=== PATIENT | female | born 1975 | race Caucasian/White ===

== ENCOUNTER 2021-09-18 21:16 | Emergency (ER) | payer MEDICAID, SELFPAY ==
[2021-09-18 21:41] VITALS: BP 124/85; PULSE 105; RESP 18; TEMP 36.8; O2SAT 96
--- NOTE | 2021-09-18 23:00 | ED.EAR ---
HPI - Ear Problem General Chief complaint: Ear Stated complaint: R ear pain Time Seen by Provider: 09/18/21 21:41 History of Present Illness HPI Narrative: Patient is a 45-year-old female who presents ER with right-sided ear pain and sore throat. Patient reports she was using a Q-tip couple weeks ago and perforated her eardrum. She is on eardrops and pain medication. Symptoms improved until the last day. Denies fevers or chills or sweats. No cough. No known exposures to strep. Related Data Home Medications Medication Instructions Recorded Confirmed aripiprazole 20 mg PO DAILY 09/18/21 09/18/21 citalopram 40 mg PO DAILY 09/18/21 09/18/21 cyclobenzaprine 10 mg PO TID PRN 09/18/21 09/18/21 doxepin 10 mg PO HS 09/18/21 09/18/21 gabapentin 800 mg PO QID 09/18/21 09/18/21 olanzapine 5 mg PO BID 09/18/21 09/18/21 olanzapine 10 mg PO HS 09/18/21 09/18/21 omeprazole 20 mg PO DAILY 09/18/21 09/18/21 oxycodone 5 mg PO TID PRN 09/18/21 09/18/21 temazepam 15 mg PO HS 09/18/21 09/18/21 trazodone 200 mg PO HS 09/18/21 09/18/21 warfarin 5 mg PO DAILY 09/18/21 09/18/21 Allergies Allergy/AdvReac Type Severity Reaction Status Date / Time aspirin Allergy Mild Rash Verified 09/18/21 21:46 erythromycin base Allergy Unknown Rash Verified 09/18/21 21:46 monosodium glutamate Allergy Unknown Rash Verified 09/18/21 21:46 acetaminophen Allergy Hypertensio Verified 09/18/21 23:08 n latex Allergy Blister Verified 09/18/21 22:11 salicylates Allergy Rash Verified 09/18/21 21:46 Review of Systems Constitutional: Constitutional: Denies chills, Denies fever(s) and Denies weakness ENT: Denies nasal congestion and Reports sore throat Comments: Right ear pain, denies tinnitus Respiratory: Respiratory: Denies cough and Denies dyspnea PMFSH Past Medical History Medical History (Updated 09/18/21 @ 23:09 by Floyd Jung MD) Anxiety Depression Familial adenomatous polyposis GERD (gastroesophageal reflux disease) Surgical History Surgical History (Updated 09/18/21 @ 23:09 by Floyd Jung MD) H/O colectomy History of section History of cholecystectomy History of hysterectomy Social History Social History (Updated 09/18/21 @ 23:09 by Floyd Jung MD) Social History: History of tobacco abuse Exam Narrative: GENERAL: Well-appearing, well-nourished, and in no acute distress. HEAD: Normocephalic, atraumatic. EYES: PERRL and EOMI. ENT: Mucous membranes moist. Normal left TM. Right TM slightly opaque but nonbulging nonerythematous. There is some residual blood tinged cerumen within the ear canal without obstruction/impaction. No obvious perforation of the eardrum on the right. Tonsils normal appearance without hypertrophy or exudate. Uvula midline and nonedematous. CHEST: Clear to auscultation. No respiratory distress. HEART: Regular rate and rhythm. Normal peripheral pulses. EXTREMITIES: Normal range of motion. No edema. NEURO: Alert and oriented x3. PSYCH: Normal mood and affect. Course Course Emergency Course: Strep negative. Will place on antibiotics in case she is developing otitis media. Follow-up with her doctor. Vital Signs Vital signs: Vital Signs Temperature 98.2 F 09/18/21 21:41 Pulse Rate 105 H 09/18/21 21:41 Respiratory Rate 18 09/18/21 21:41 Blood Pressure 124/85 09/18/21 21:41 Pulse Oximetry 96 09/18/21 21:41 Temperature 98.2 F 09/18/21 21:41 Pulse Rate 105 H 09/18/21 21:41 Respiratory Rate 18 09/18/21 21:41 Blood Pressure 124/85 09/18/21 21:41 Pulse Oximetry 96 09/18/21 21:41 Medical Decision Making Vital Signs Vital Signs: Vital Signs Temperature 98.2 F 09/18/21 21:41 Pulse Rate 105 H 09/18/21 21:41 Respiratory Rate 18 09/18/21 21:41 Blood Pressure 124/85 09/18/21 21:41 Pulse Oximetry 96 09/18/21 21:41 Temperature 98.2 F 09/18/21 21:41 Pulse Rate 105 H 09/18/21 21:41 Respiratory Rate 18 04
== END 2021-09-18 23:14 | disposition home or self-care (01) ==
PROVIDERS: Emergency Provider Emergency Medicine
DX: H92.01 Otalgia, right ear (principal); K21.9 Gastro-esophageal reflux disease without esophagitis; F41.9 Anxiety disorder, unspecified; F32.A Depression, unspecified; Z79.01 Long term (current) use of anticoagulants
CPT/HCPCS: 87081; 87880; 99283

== ENCOUNTER 2021-10-15 08:03 | Outpatient (CLI) | payer MEDICAID, SELFPAY ==
[2021-10-15 09:05] LABS: Anion Gap 5 mmol/L (8-16); Blood Urea Nitrogen 15 mg/dL (7-17); Calcium 8.6 mg/dL (8.4-10.2); Carbon Dioxide 30 mmol/L (22-30); Chloride 104 mmol/L (98-107); Estimated Glomerular Filt Rate > 60; Glucose 82 mg/dL (65-110); Potassium 3.9 mmol/L (3.4-5.0); Sodium 139 mmol/L (137-145)
[2021-10-15 09:08] LABS: INR 2.5; Prothrombin Time 25.9 Seconds (11.1-14.7)
== END 2021-10-15 08:04 | disposition home or self-care (01) ==
LOC: ANHLAB 08:05
PROVIDERS: PCP Internal Medicine; Referring Provider Nurse Practitioner; Visit Provider Nurse Practitioner
DX: R60.9 Edema, unspecified (principal); Z51.81 Encounter for therapeutic drug level monitoring; Z79.01 Long term (current) use of anticoagulants
CPT/HCPCS: 36415; 80048; 85610

== ENCOUNTER 2021-10-27 08:55 | Outpatient (CLI) | payer OTHER, SELFPAY ==
--- NOTE | 2021-10-29 12:37 | WPDHOLTEREM ---
Holter/Event Monitor Holter/Event Monitor Date of procedure: 10/27/21 Holter/Event Procedure: 48 Hr Holter Monitor Indications: Palpitations Conclusion: 1. 48 hour holter monitor on 10/27/21. 2. Underlying rhythm is sinus rhythm. HR range 55-129 bpm; average HR 93 bpm. 3. No premature supraventricular complexes. No supraventricular tachycardia. 4. No premature ventricular complexes. No ventricular tachycardia. 5. No sinoatrial or atrioventricular blocks. No significant pauses greater than 2 seconds. 6. Patient reports symptoms of shortness of breath, dizziness, chest pounding which demonstrate sinus rhythm, HR range 91-108 bpm.
== END 2021-10-27 08:56 | disposition home or self-care (01) ==
PROVIDERS: PCP Internal Medicine; Visit Provider Nurse Practitioner
DX: R00.2 Palpitations (principal)
CPT/HCPCS: 93225; 93226

== ENCOUNTER 2021-11-05 12:33 | Outpatient (CLI) | payer OTHER, SELFPAY ==
[2021-11-05 13:01] LABS: Anion Gap 7 mmol/L (8-16); Blood Urea Nitrogen 15 mg/dL (7-17); Calcium 8.3 mg/dL (8.4-10.2); Carbon Dioxide 27 mmol/L (22-30); Chloride 104 mmol/L (98-107); Estimated Glomerular Filt Rate > 60; Glucose 103 mg/dL (65-110); Potassium 3.9 mmol/L (3.4-5.0); Sodium 138 mmol/L (137-145)
== END 2021-11-05 12:34 | disposition home or self-care (01) ==
LOC: ANHLAB 12:36
PROVIDERS: PCP Internal Medicine; Visit Provider Nurse Practitioner
DX: R60.9 Edema, unspecified (principal)
CPT/HCPCS: 36415; 80048

== ENCOUNTER 2021-11-11 11:34 | Outpatient (CLI) | payer OTHER, SELFPAY ==
--- NOTE | ~2021-11-11 | XR_ITS ---
EXAMINATION: XR chest 2V DATE: 11/11/2021 12:22 INDICATION: Cough TECHNIQUE: PA and lateral views of the chest were obtained. COMPARISON: Chest radiograph dated 11/25/2005 FINDINGS: The lungs remain clear with no focal airspace opacities, pulmonary edema, pleural effusion or pneumot horax. The cardiomediastinal silhouette is normal. Cholecystectomy clips in right upper quadrant. Domingo ateral breast implants. IMPRESSION: 1. No acute cardiopulmonary disease. Reviewed, dictated and finalized at location B.
--- NOTE | ~2021-11-11 | US_ITS ---
EXAMINATION: US venous doppler LE RT DATE: 11/11/2021 12:27 INDICATION: Right lower limb pain. TECHNIQUE: Grayscale ultrasound images without and with compression and Doppler ultrasound images of the right lower extremity veins were obtained. COMPARISON: None. FINDINGS: The visualized portions of right common femoral vein, profunda (deep) femoral vein, femoral vein, pop liteal vein, peroneal veins, posterior tibial veins, and greater saphenous vein outflow are patent. IMPRESSION: 1. No deep venous thrombosis. Reviewed, dictated and finalized at location A.
== END 2021-11-11 11:35 | disposition home or self-care (01) ==
LOC: ANHIMG 11:39
PROVIDERS: PCP Internal Medicine; Visit Provider Nurse Practitioner
DX: M79.604 Pain in right leg (principal); R05.9 Cough, unspecified
CPT/HCPCS: 71046; 93971

== ENCOUNTER 2021-11-30 08:51 | Outpatient (CLI) | payer OTHER, SELFPAY ==
[2021-11-30 09:24] LABS: Alanine Aminotransferase 23 U/L (6-35); Alkaline Phosphatase 90 U/L (38-126); Anion Gap 6 mmol/L (8-16); Aspartate Amino Transferase 34 U/L (14-36); Bilirubin,Total 0.2 mg/dL (0.2-1.3); Blood Urea Nitrogen 15 mg/dL (7-17); Calcium 8.8 mg/dL (8.4-10.2); Carbon Dioxide 28 mmol/L (22-30); Chloride 103 mmol/L (98-107); Cholesterol 181 mg/dL (0-200); Estimated Glomerular Filt Rate > 60; Glucose 91 mg/dL (65-110); HDL Direct 36 mg/dL; Potassium 4.2 mmol/L (3.4-5.0); Sodium 137 mmol/L (137-145); Triglycerides 66 mg/dL (<150)
[2021-11-30 09:35] LABS: LDL Cholesterol Direct 107 mg/dL
== END 2021-11-30 08:52 | disposition home or self-care (01) ==
PROVIDERS: PCP Internal Medicine; Visit Provider Internal Medicine Cardiovascular Disease
DX: R06.9 Unspecified abnormalities of breathing (principal); R00.2 Palpitations
CPT/HCPCS: 36415; 80053; 80061; 83735; 84443

== ENCOUNTER 2021-12-22 08:57 | Outpatient (CLI) | payer OTHER, SELFPAY ==
--- NOTE | 2021-12-22 09:59 | ECHO_ITS ---
Patient Info Name: Naila Beard Age: 46 years : 1975 Gender: Female Ht: 64 in Wt: 224 lbs BSA: 2.19 m2 HR: 89 bpm BP: 138 / 83 mmHg Technical Quality: Fair Exam Date: 12/22/2021 10:17 AM Exam Location: [facility] Patient Status: Outpatient Admit Date: 12/22/2021 Staff Ordering Physician: Rolo Knox DO [employer] Operator: Joe Ruffin RDCS, RT Attending Provider: Rolo Knox DO Referring Physician: Abilio LEONG; Exam Type: CA echo doppler color flow Study Info Indications R60.0 - Localized edema Complete two-dimensional, color flow and Doppler transthoracic echocardiogram is performed. Summary 1. Complete two-dimensional, color flow and Doppler transthoracic echocardiogram is performed. 2. Left ventricular chamber dimension is normal. 3. Left ventricular systolic function is normal, estimated at 60-65%. 4. The left ventricular diastolic function is normal. 5. E/e' 8 is minimally elevated. 6. There is trace pulmonic regurgitation. Left Ventricle E/e' 8 is minimally elevated. Left ventricular chamber dimension is normal. Left ventricular systolic function is normal, estimated at 60-65%. The left ventricular diastolic function is normal. Right Ventricle Right ventricular systolic function is normal and with normal TAPSE 2.2 cm. Right ventricular chamber dimension is normal. Left Atria Left atrial chamber dimension is normal. Right Atria Right atrial chamber dimension is normal. Aortic Valve The aortic valve is trileaflet. There is no aortic valve stenosis. There is no aortic valve regurgitation. Pulmonic Valve There is trace pulmonic regurgitation. Mitral Valve There is no mitral valve stenosis. There is no mitral valve regurgitation. Tricuspid Valve There is no tricuspid valve regurgitation. Pericardium/Pleural There is no pericardial effusion. Inferior Vena Cava Normal inferior vena cava with >50% collapse upon inspiration consistent with normal right atrial pressure, 5 mmHg. Aorta The aortic root size at the sinus of Valsalva is normal. Left Ventricular Outflow Tract Name Value Normal LVOT 2D LVOT Diameter 2.0 cm LVOT Doppler LVOT Peak Gradient 4 mmHg LVOT Mean Gradient 2 mmHg LVOT VTI 19 cm LVOT VTI/AV VTI Ratio 0.7 LVOT Stroke Volume 59 ml LVOT CO 4.7 l/min LVOT CI 2.1 l/min/m2 Mitral Valve Name Value Normal MV Doppler MV Decel Baldwin 525 cm/s2 MV PHT 64 ms MV Area (PHT) 3.5 cm2 4.0-5.0 MV Diastolic Function
== END 2021-12-22 08:58 | disposition home or self-care (01) ==
LOC: ANHCARD 08:58
PROVIDERS: PCP Internal Medicine; Visit Provider Internal Medicine Cardiovascular Disease
DX: R60.9 Edema, unspecified (principal)
CPT/HCPCS: 93306

== ENCOUNTER 2022-01-06 21:17 | Emergency (ER) | payer OTHER, SELFPAY ==
--- NOTE | ~2022-01-06 | XR_ITS ---
EXAMINATION: XR chest 1V portable Exam Date/Time: 01/06/2022 22:55 CDT HISTORY: BILAT LOWER LEG AND FOOT EDEMA Comparison: 11/11/2021. RESULT: Lines, tubes, and devices: Bilateral breast augmentation. Lungs and pleura: Clear. Cardiomediastinal silhouette: Stable cardiomediastinal silhouette. Other: No acute osseous or upper abdominal finding. IMPRESSION: No acute cardiopulmonary process. Reviewed, dictated and finalized at location K.
[2022-01-06 21:30] VITALS: BP 133/69; PULSE 100; RESP 18; TEMP 36.6; O2SAT 98
[2022-01-06 22:02] VITALS: BP 140/85; PULSE 95; RESP 16; TEMP 36.8; O2SAT 97
[2022-01-06 22:51] VITALS: PULSE 93; RESP 18; TEMP 36.8; O2SAT 98
--- NOTE | 2022-01-06 22:55 | ED.EXTPRO ---
HPI - Extremity Problem General Chief complaint: Extremity Problem,Nontraumatic Stated complaint: bilateral leg edema Time Seen by Provider: 01/06/22 21:49 Source: patient Mode of arrival: ambulatory Limitations: no limitations History of Present Illness HPI Narrative: 46-year-old female with extensive medical history including DVT, leg swelling, fibromyalgia, currently on Coumadin presents today with complaints of bilateral leg swelling and pain. Patient states the swelling was there when she woke up this morning and has progressively gotten worse over the day. Patient states she took an extra Lasix today as instructed by her primary but the swelling continued to be worse. Patient with concerns due to both legs with pain rating 8 out of a 10. Patient currently on oxycodone 5 mg 3 times daily as needed for pain plus gabapentin 800 mg 4 times a day. Related Data Home Medications Medication Instructions Recorded Confirmed melatonin 5 mg tablet 5 mg PO QHS 10/02/21 01/05/22 Allergies Allergy/AdvReac Type Severity Reaction Status Date / Time aspirin Allergy Mild Rash Verified 01/06/22 10:47 erythromycin base Allergy Unknown Rash Verified 01/06/22 10:47 acetaminophen Allergy Hypertensio Verified 01/06/22 10:47 n latex Allergy Blister Verified 01/06/22 10:47 salicylates Allergy Rash Verified 01/06/22 10:47 Review of Systems Review of Systems: CONSTITUTIONAL: Denies fever, chills, or sweats. EYES: Denies visual changes, redness, or discharge. ENT: Denies rhinorrhea, congestion, sore throat, or otalgia. CARDIOVASCULAR: Denies chest pain, palpitations, or edema. RESPIRATORY: Cough starting today. Dyspnea with the cough. GASTROINTESTINAL: Denies abdominal pain, nausea, vomiting, or diarrhea. GENITOURINARY: Denies dysuria or hematuria. SKIN: Denies rash or itching. MUSCULOSKELETAL: Bilateral leg swelling. Denies back pain, joint pain, or myalgia. NEUROLOGIC: Bilateral leg pain. Denies headache, numbness, dizziness, or weakness. PSYCHIATRIC: Denies anxiety or depression. [facility] Past Medical History Medical History (Updated 01/07/22 @ 02:25 by Christen Smith APRN) Acute migraine Anxiety Arthritis Bipolar disorder, rapid cycling Chronic fatigue Chronic pain Degenerative disk disease Depression Familial adenomatous polyposis Fibromyalgia GERD (gastroesophageal reflux disease) History of blood clots History of herpes zoster History of pulmonary embolism History of thyroid disease Insomnia Neurogenic bladder OCD (obsessive compulsive disorder) Plantar fascia syndrome PTSD (post-traumatic stress disorder) Sensory neuronopathy Surgical History Surgical History H/O colectomy History of bladder surgery History of bunionectomy History of section History of cholecystectomy History of hysterectomy Family History Family History Mother , drowning Hyperlipemia Uterine cancer Hypertension Grandparent Uterine cancer Carcinoma of colon Colon polyp Social History Social History Smoking status: Never smoker Second hand tobacco smoke exposure: Yes Alcohol intake: never Substance use: never Additional occupation/education comments: disability Gender identity (if verbalized by the patient): Female Exam Narrative: GENERAL: Well-appearing, well-nourished, and in no acute distress. HEAD: Normocephalic, atraumatic. EYES: PERRLA and EOMI. NECK: Supple. No adenopathy or masses. No carotid bruits or JVD CHEST: Clear to auscultation. No respiratory distress. No wheezes rales or rhonchi HEART: Regular rate and rhythm. No murmur heard. Normal peripheral pulses. ABDOMEN: Soft, nontender, nondistended, normal active bowel sounds. Occult blood negative. EXTREMITIES: +1 bilateral lower extremity pitting kain
[2022-01-06 23:32] LABS: Basophils Percent Auto 0.5 % (0.2-1.2); Eosinophils Absolute Auto 0.2 K/mm3 (0-0.3); Eosinophils Percent Auto 3.8 % (0-4.4); Hematocrit 25.1 % (37.0-47.0); Hemoglobin 7.1 g/dL (12.0-15.0); Immature Granulocyte Absolute 0.02 K/mm3 (0.00-0.031); Immature Granulocyte Percent A 0.3 % (0-0.5); Lymphocytes Absolute Auto 1.62 K/mm3 (0.9-3.2); Mean Corpuscular HGB Conc 28.3 g/dl (32-36); Mean Corpuscular Hemoglobin 20.7 pg (26-34); Mean Corpuscular Volume 73.2 fl (80-100); Mean Platelet Volume 8.9 fl (7.4-10.4); Monocytes Absolute Auto 0.7 K/mm3 (0.1-0.6); Monocytes Percent Auto 12.3 % (2.6-8.5); Neutrophils Absolute Auto 3.4 K/mm3 (1.3-6.7); Neutrophils Percent Auto 56.1 % (45.5-73.1); Nucleated Red Blood Cells Perc 0.3 % (0.0-0.2); Platelet Count Result 355 k/mm3 (150-375); Red Blood Count 3.43 M/mm3 (4.2-5.4); Red Cell Distribution Width 18.3 % (11.5-14.5)
[2022-01-06 23:45] LABS: Prothrombin Time 30.3 Seconds (11.1-14.7)
[2022-01-06 23:47] LABS: Partial Thromboplastin Time 71.6 SECONDS (22.3-36.8)
[2022-01-06 23:51] LABS: Alanine Aminotransferase 21 U/L (6-35); Albumin Level 3.9 g/dL (3.5-5.1); Alkaline Phosphatase 84 U/L (38-126); Anion Gap 4 mmol/L (8-16); Aspartate Amino Transferase 32 U/L (14-36); Bilirubin,Total < 0.1 mg/dL (0.2-1.3); Blood Urea Nitrogen 17 mg/dL (7-17); Calcium 8.3 mg/dL (8.4-10.2); Carbon Dioxide 30 mmol/L (22-30); Chloride 104 mmol/L (98-107); Estimated CRCL calculation 103 ml/min; Estimated Glomerular Filt Rate > 60; Glucose 101 mg/dL (65-110); Potassium 3.8 mmol/L (3.4-5.0); Sodium 138 mmol/L (137-145)
[2022-01-06 23:52] LABS: Anisocytosis 1+ (NORMAL); Hypochromasia 1+ (NORMAL); Platelet Estimate Adequate (Adequate)
[2022-01-06 23:53] LABS: Microcytosis 1+ (NORMAL)
[2022-01-07] MEDS: FUROSEMIDE INJ 40 MG/4 ML VIAL IV PUSH (02:36)
[2022-01-07] MEDS: ONDANSETRON HCL ODT 4 MG TABLET PO (03:06)
[2022-01-07 04:45] VITALS: BP 121/64; PULSE 84; RESP 18; O2SAT 96
== END 2022-01-07 04:45 | disposition home or self-care (01) ==
PROVIDERS: Emergency Provider Nurse Practitioner Family; PCP Internal Medicine
DX: M79.89 Other specified soft tissue disorders (principal); D59.9 Acquired hemolytic anemia, unspecified; D64.9 Anemia, unspecified; F41.9 Anxiety disorder, unspecified; M19.90 Unspecified osteoarthritis, unspecified site; F31.9 Bipolar disorder, unspecified; K21.9 Gastro-esophageal reflux disease without esophagitis
CPT/HCPCS: 36415; 71045; 80053; 85025; 85610; 85730; 96374; 99284; A9270; J1940

== ENCOUNTER 2022-01-08 09:51 | Outpatient (CLI) | payer OTHER, SELFPAY ==
[2022-01-08 10:48] LABS: Iron 24 ug/dL (37-170)
[2022-01-08 10:52] LABS: Anion Gap 6 mmol/L (8-16); Blood Urea Nitrogen 16 mg/dL (7-17); Calcium 8.3 mg/dL (8.4-10.2); Carbon Dioxide 28 mmol/L (22-30); Chloride 105 mmol/L (98-107); Estimated Glomerular Filt Rate > 60; Glucose 90 mg/dL (65-110); Potassium 3.9 mmol/L (3.4-5.0); Sodium 139 mmol/L (137-145)
[2022-01-08 11:03] LABS: Percent Iron Saturation 5 % (20-50)
[2022-01-08 11:24] LABS: Ferritin 5.86 ng/mL (6.24-137)
== END 2022-01-08 09:52 | disposition home or self-care (01) ==
LOC: ANHLAB 09:52
PROVIDERS: Nurse Practitioner; PCP Internal Medicine; Visit Provider Internal Medicine
DX: R60.9 Edema, unspecified (principal); D64.9 Anemia, unspecified
CPT/HCPCS: 36415; 80048; 82607; 82728; 83540; 83550

== ENCOUNTER 2022-01-12 09:46 | Outpatient (CLI) | payer OTHER, SELFPAY ==
--- NOTE | 2022-01-12 11:00 | NEURO_ITS ---
Impression: # Complains of numbness of hands. # Right Carpal Tunnel Syndrome. # No ulnar neuropathy. # Normal needle/EMG exam. Nerve Conduction Studies Anti Sensory Summary Table Stim Site NR Peak (ms) P-T Amp (?V) Site1 Site2 Delta-P (ms) Dist (cm) Miguel (m/s) Left Median Anti Sensory (2-3nd Digit) Wrist 2.6 64.4 Wrist 2-3nd Digit 2.6 14.0 54 Wrist 2.6 69.4 Wrist 2-3nd Digit 2.6 14.0 54 Right Median Anti Sensory (2-3nd Digit) Wrist 3.9 48.7 Wrist 2-3nd Digit 3.9 14.0 36 Wrist 3.9 43.5 Wrist 2-3nd Digit 3.9 14.0 36 Left Radial Anti Sensory (Base 1st Digit) Wrist 1.9 26.1 Wrist Base 1st Digit 1.9 0.0 Right Radial Anti Sensory (Base 1st Digit) Wrist 1.8 25.8 Wrist Base 1st Digit 1.8 0.0 Left Ulnar Anti Sensory (5th Digit) Wrist 2.2 75.2 Wrist 5th Digit 2.2 14.0 64 Right Ulnar Anti Sensory (5th Digit) Wrist 2.2 49.8 Wrist 5th Digit 2.2 14.0 64 Motor Summary Table Stim Site NR Onset (ms) O-P Amp (mV) Site1 Site2 Delta-0 (ms) Dist (cm) Miguel (m/s) Left Median Motor (Abd Poll Brev) Wrist 3.4 2.9 Elbow Wrist 4.5 26.0 58 Elbow 7.9 2.7 Right Median Motor (Abd Poll Brev) Wrist 4.1 0.9 Elbow Wrist 4.5 26.0 58 Elbow 8.6 4.2 Left Ulnar Motor (Abd Dig Minimi) Wrist 2.5 5.3 A Elbow Wrist 4.8 28.0 58 A Elbow 7.3 5.5 Right Ulnar Motor (Abd Dig Minimi) Wrist 2.2 6.6 A Elbow Wrist 4.8 28.0 58 A Elbow 7.0 4.9 F Wave Studies NR F-Lat (ms) L-R F-Lat (ms) Left Median (Mrkrs) (Abd Poll Brev) 26.33 1.02 Right Median (Mrkrs) (Abd Poll Brev) 27.35 1.02 Left Ulnar (Mrkrs) (Abd Dig Min) 26.55 0.93 Right Ulnar (Mrkrs) (Abd Dig Min) 27.66 1.11 EMG Side Muscle Nerve Root Ins Act Fibs Amp Dur Recrt Comment Right 1stDorInt Ulnar C8-T1 Nml Nml Nml Nml Nml Right Ext Indicis Radial (Post Int) C7-8 Nml Nml Nml Nml Nml Right Ext Digitorum Radial (Post Int) C7-8 Nml Nml Nml Nml Nml Right BrachioRad Radial C5-6 Nml Nml Nml Nml Nml Right PronatorTeres Median C6-7 Nml Nml Nml Nml Nml Right Abd Poll Brev Median C8-T1 Nml Nml Nml Nml Nml Left 1stDorInt Ulnar C8-T1 Nml Nml Nml Nml Nml Left Ext Indicis Radial (Post Int) C7-8 Nml Nml Nml Nml Nml Left Ext Digitorum Radial (Post Int) C7-8 Nml Nml Nml Nml Nml Left BrachioRad Radial C5-6 Nml Nml Nml Nml Nml Left PronatorTeres Median C6-7 Nml Nml Nml Nml Nml Left Abd Poll Brev Median C8-T1 Nml Nml Nml Nml Nml MTDD
== END 2022-01-12 09:47 | disposition home or self-care (01) ==
LOC: ANHNEURO 09:49
PROVIDERS: PCP Internal Medicine; Visit Provider Nurse Practitioner
DX: G56.01 Carpal tunnel syndrome, right upper limb (principal); R20.0 Anesthesia of skin; R20.2 Paresthesia of skin
CPT/HCPCS: 95886; 95911

== ENCOUNTER 2022-01-21 08:16 | Outpatient (CLI) | payer OTHER, SELFPAY ==
[2022-01-21 08:51] LABS: Hematocrit 32.3 % (37.0-47.0); Hemoglobin 8.8 g/dL (12.0-15.0)
[2022-01-21 09:06] LABS: Anion Gap 8 mmol/L (8-16); Blood Urea Nitrogen 15 mg/dL (7-17); Calcium 8.9 mg/dL (8.4-10.2); Carbon Dioxide 28 mmol/L (22-30); Chloride 102 mmol/L (98-107); Estimated Glomerular Filt Rate > 60; Glucose 92 mg/dL (65-110); Potassium 3.9 mmol/L (3.4-5.0); Sodium 138 mmol/L (137-145)
== END 2022-01-21 08:17 | disposition home or self-care (01) ==
LOC: ANHLAB 08:19
PROVIDERS: PCP Internal Medicine; Visit Provider Internal Medicine
DX: R60.9 Edema, unspecified (principal); D64.9 Anemia, unspecified
CPT/HCPCS: 36415; 80048; 85014; 85018

== ENCOUNTER 2022-01-25 02:27 | Day surgery (SDC) | payer OTHER, SELFPAY ==
[2022-01-20 15:14] VITALS: BMI 38.6
--- NOTE | 2022-01-20 15:39 | PC.NURSE ---
Report to the Outpatient Waiting Room, entrance under the green pavilion located off [facility], at time 0630 on date 01/25/22. OR Time: 0830. - You and your visitor will be asked a series of questions to screen for COVID 19 for your protection. - Only one visitor is allowed at this time. - The patient visitor is requested to leave or wait in car when not with patient. - A mask is required within the hospital. Patients may have clear liquids (water, carbonated beverages, clear teas, apple juice) until 3 hours prior to surgery with a maximum of 20 ounces. - No food from midnight until time of surgery Take the following medications with a SIP of water the morning of surgery: ARIPIPRAZOLE, BUSPIRONE, CITALOPRAM, CYCLOBENZAPRINE, GABAPENTIN, OLANZAPINE, OXYCODONE Medications to discontinue per physician: VITAMINS/SUPPLEMENTS AND WARFARIN Date to take last dose01/19/[address] OTTO (PER PT) Please no make-up, nail tajik, hairspray, perfume, deodorant, or body powder the day of surgery. No jewelry (including any body piercings) or valuables the day of surgery, leave them at home. Please take a shower or bath the night before, or the morning of, surgery with an antibacterial soap. Wear comfortable, loose fitting clothing. - Jewelry must be removed prior to entering the operating room. Rings and piercings that are not removed may be cut off. - The hospital will not accept responsibility for valuables. - Please leave all valuables, including medications, at home the day of surgery. If you are going home after surgery, a licensed company driver must drive you home. - NO public transportation without another adult. - We recommend that an adult stay with you for 24 hours following discharge. - We also recommend that you do not drive, make important decision, drink alcoholic beverages, or take any drugs that were not prescribed by your health care provider for at least 24 hours after your discharge time. Follow any additional instructions given to you from your surgeon. If you or anyone in your household have experienced Covid symptoms in the past week, please notify your surgeon or the nurse liaison at the phone number below for possible testing. Telephone instructions given to PT - ROSS CONTRERAS and asked if any additional questions and then verbalized understanding. Patient advised to call surgeon office or pre surgery nurse liaison [phone] if any additional questions.
[2022-01-25] VITALS (10 sets, daily range): BP systolic 122–147; BP diastolic 64–94; PULSE 80–89; RESP 10–17; TEMP 36.9; O2SAT 96–100
[2022-01-25] MEDS: LACTATED RINGERS 1,000 ML 30 ML IV CONT (07:08)
--- NOTE | 2022-01-25 07:23 | WPDHPUPDATE1 ---
History and Physical Update Update Date/Time: 01/25/22 07:23 History and Physical has been reviewed, including an updated exam of the patient. There are NO changes in the patient's condition. Risks, benefits, and alternatives have been discussed and questions answered. Patient agrees to proceed with procedure.
--- NOTE | 2022-01-25 07:24 | WPDANESEPPF ---
Anes - Initial Pre Proc Eval Procedure: Operation Date: 01/25/22 08:30 Proposed Procedures p Rectal Examination Under Anesthesia, Hemorrhoidectomy, Anal Polypectomy - Silvia Jones MD Date/Time: 01/25/22 07:24 Surgeon: Silvia Jones MD Pre Op Diagnosis: thrombosed external hemorrhoids, anal polyps Patient Data Age: 46 Gender: F Height: 1.63 m Weight: 103.6 kg Last Vital Signs Temp 36.9 C 01/25/22 06:41 Pulse 89 01/25/22 06:41 Resp 16 01/25/22 06:41 BP 122/77 01/25/22 06:41 Pulse Ox 98 01/25/22 06:41 O2 Del Method Room Air 01/25/22 06:41 Allergies Allergy/AdvReac Type Severity Reaction Status Date / Time aspirin Allergy Severe Anaphylaxis Verified 01/25/22 06:46 latex Allergy Severe Blister Verified 01/25/22 06:46 salicylates Allergy Severe Anaphylaxis Verified 01/25/22 06:46 acetaminophen Allergy Intermediate Hypertensio Verified 01/25/22 06:46 n/HYPOTENSI ON erythromycin base Allergy Unknown Rash Verified 01/25/22 06:46 Home Medications Medication Instructions Recorded Confirmed Type olanzapine 5 mg disintegrating 5 mg PO BID #90 tabs 10/15/21 01/25/22 Rx tablet omeprazole 20 mg tablet,delayed 20 mg PO DAILY #90 tabs 10/15/21 01/25/22 Rx release doxepin 10 mg capsule 20 mg PO HS #60 caps 10/30/21 01/25/22 Rx aripiprazole 20 mg tablet 20 mg PO DAILY #30 tabs 12/15/21 01/25/22 Rx citalopram 20 mg tablet 40 mg PO DAILY #30 tabs 12/15/21 01/25/22 Rx olanzapine 10 mg tablet 10 mg PO HS #90 tabs 12/15/21 01/25/22 Rx sumatriptan succinate 100 mg tablet See Rx Instructions PO .COMPLEX 12/15/21 01/25/22 Rx #90 tabs warfarin 5 mg tablet 5 mg PO DAILY #30 tabs 12/15/21 01/25/22 Rx cyclobenzaprine 10 mg tablet 10 mg PO TID PRN muscle spasm #90 12/21/21 01/25/22 Rx tabs gabapentin 800 mg tablet 800 mg PO QID #120 tabs 12/29/21 01/25/22 Rx ferrous sulfate 325 mg (65 mg 325 mg PO BID #60 tabs 01/07/22 01/25/22 Rx iron) tablet (iron) buspirone 5 mg tablet 5 mg PO BID #60 tabs 01/08/22 01/25/22 Rx furosemide 40 mg tablet (Lasix) 40 mg PO QAM #30 tabs 01/08/22 01/25/22 Rx oxycodone 5 mg tablet 5 mg PO TID PRN Pain #90 tabs 01/11/22 01/25/22 Rx hydrocortisone 2.5 % topical cream 1 applic RECTAL QHS PRN 01/13/22 01/25/22 Rx with perineal applicator hemorrhoids #30 grams (Anusol-HC) melatonin 10 mg capsule 10 mg PO QHS 01/13/22 01/25/22 History trazodone 100 mg tablet 200 mg PO HS #60 tabs 01/22/22 01/25/22 Rx Laboratory Tests 01/25/22 06:54 PT Pending INR Pending APTT Pending Patient hx anesthesia problems: none Family hx anesthesia problems: none Results Review: All pre-operative results and documents have been reviewed as part of the pre-operative evaluation. [facility] Past Medical History Medical History Acute migraine Anxiety Arthritis Bipolar disorder, rapid cycling Chronic fatigue Chronic pain Degenerative disk disease Depression Familial adenomatous polyposis Fibromyalgia GERD (gastroesophageal reflux disease) History of blood clots History of herpes zoster History of pulmonary embolism History of thyroid disease Insomnia Neurogenic bladder OCD (obsessive compulsive disorder) Plantar fascia syndrome PTSD (post-traumatic stress disorder) Sensory neuronopathy Surgical History Surgical History H/O colectomy History of bladder surgery History of bunionectomy History of section History of cholecystectomy History of hysterectomy Family History Family History Mother , drowning Hyperlipemia Uterine cancer Hypertension Grandparent Uterine cancer Carcinoma of colon Colon polyp Social History Social History Smoking status: Never smoker Second hand tobacco
[2022-01-25 07:43] LABS: INR 1.3; Prothrombin Time 15.7 Seconds (11.1-14.7)
[2022-01-25 07:44] LABS: Partial Thromboplastin Time 32.5 SECONDS (22.3-36.8)
[2022-01-25] MEDS: LIDOCAINE HCL 1% PF 30 ML VIAL 20 ML INFILTRATE (08:37)
[2022-01-25] MEDS: LIDOCAINE HCL 2% GEL UROJET 10 ML PKG MUCOUS MEM (08:48)
--- NOTE | 2022-01-25 09:05 | P.OP_ITS ---
Procedure Note - Detailed Date of Procedure 01/25/22 Pre-op Diagnosis thrombosed external hemorrhoids, anal polyps Post-op Diagnosis Same Procedure Performed Exam under anesthesia, external hemorrhoidectomy 2 columns, anal polypectomy x 4 Surgeon Silvia Jones MD Anesthesia General and Local Indications 46-year-old female with history of FAP presenting with anal polyps and thrombosed external hemorrhoids Findings thrombosed external hemorrhoids in 2 columns, left lateral right anterior, anal polyps x 4 Description of Procedure The the patient was taken to the operating room and placed in the modified li thotomy position. After adequate induction of general anesthesia, the patient was prepped and draped in the normal sterile fashion. A time-out was then done to verify the patient's identity, as well as the procedure being performed. I then performed a bilateral pudendal block using 1% lidocaine. The anal canal was then digitally dilated. I then placed a Amity retractor and performed a exam under anesthesia. The rectum was noted to be unremarkable. There was noted to be multiple thrombosed external hemorrhoids in the left lateral and right anterior positions. There was also noted to be some anal polyps. I then used the LigaSure device to perform external hemorrhoidectomy. This was done in the left lateral and right anterior canals. I also removed the polyps all around the anal opening. These were excised in full and noted to be about 4 polyps. Once all specimens were excised there were sent to pathology for further review. I then gained hemostasis with the Bovie cautery. No other pathology was noted. Then placed a Gelfoam covered with lidocaine jelly into the rectal vault. The patient tolerated the procedure well and was extubated in the operating room postoperatively. She will be sent to the recovery room in stable condition. Estimated Blood Loss 20 Packing Yes Pathology Yes Complications No immediate complications Condition Stable Disposition PACU [facility] Billing Surgery - Charge Forward: Surgery Billing
[2022-01-25] MEDS: ONDANSETRON INJ 4 MG/2 ML VIAL IV PUSH (09:32)
[2022-01-25] MEDS: oxyCODONE HCL (*CRX) 5 MG TAB IR PO (10:09)
== END 2022-01-25 10:52 | disposition home or self-care (01) ==
PROVIDERS: Anesthesiology; PCP Internal Medicine; Visit Provider Surgery
PROC: (CPT 46250; principal; 2022-01-25 08:30)
DX: K64.5 Perianal venous thrombosis (principal); K62.1 Rectal polyp; F41.9 Anxiety disorder, unspecified; F31.9 Bipolar disorder, unspecified; G89.29 Other chronic pain; M79.7 Fibromyalgia; K21.9 Gastro-esophageal reflux disease without esophagitis; F43.10 Post-traumatic stress disorder, unspecified; F42.8 Other obsessive-compulsive disorder; N31.9 Neuromuscular dysfunction of bladder, unspecified; G47.00 Insomnia, unspecified; Z86.711 Personal history of pulmonary embolism; Z86.718 Personal history of other venous thrombosis and embolism; Z79.01 Long term (current) use of anticoagulants; Z79.891 Long term (current) use of opiate analgesic; Z15.09 Genetic susceptibility to other malignant neoplasm; E66.01 Morbid (severe) obesity due to excess calories; Z68.39 Body mass index [BMI] 39.0-39.9, adult
CPT/HCPCS: 46250; 46922; 36415; 85610; 85730; 88304; A9270; J1100; J2250; J2405; J2704; J3010; J7120

== ENCOUNTER 2022-01-27 15:27 | Outpatient (CLI) | payer OTHER, SELFPAY ==
[2022-01-27 15:50] LABS: Basophils Absolute Auto 0.1 K/mm3 (0.0-0.1); Basophils Percent Auto 0.8 % (0.2-1.2); Eosinophils Absolute Auto 0.1 K/mm3 (0-0.3); Eosinophils Percent Auto 1.1 % (0-4.4); Hematocrit 29.7 % (37.0-47.0); Hemoglobin 8.1 g/dL (12.0-15.0); Immature Granulocyte Absolute 0.01 K/mm3 (0.00-0.031); Immature Granulocyte Percent A 0.2 % (0-0.5); Lymphocytes Absolute Auto 1.46 K/mm3 (0.9-3.2); Lymphocytes Percent Auto 22.7 % (18.3-44.2); Mean Corpuscular HGB Conc 27.3 g/dl (32-36); Mean Corpuscular Hemoglobin 20.5 pg (26-34); Mean Platelet Volume 8.9 fl (7.4-10.4); Monocytes Absolute Auto 0.7 K/mm3 (0.1-0.6); Monocytes Percent Auto 10.4 % (2.6-8.5); Neutrophils Absolute Auto 4.2 K/mm3 (1.3-6.7); Neutrophils Percent Auto 64.8 % (45.5-73.1); Platelet Count Result 338 k/mm3 (150-375); Red Blood Count 3.96 M/mm3 (4.2-5.4); Red Cell Distribution Width 22.6 % (11.5-14.5); White Blood Count 6.4 K/mm3 (4.5-10.0)
[2022-01-27 16:04] LABS: INR 1.3
[2022-01-27 16:28] LABS: Anisocytosis 3+ (NORMAL); Hypochromasia 1+ (NORMAL); Platelet Estimate Adequate (Adequate)
== END 2022-01-27 15:28 | disposition home or self-care (01) ==
LOC: ANHLAB 15:29
PROVIDERS: PCP Internal Medicine; Visit Provider Surgery
DX: T81.9XXA Unspecified complication of procedure, initial encounter (principal); Z51.81 Encounter for therapeutic drug level monitoring; Z79.01 Long term (current) use of anticoagulants; Z86.711 Personal history of pulmonary embolism
CPT/HCPCS: 36415; 85025; 85610

== ENCOUNTER 2022-02-07 21:11 | Emergency (ER) | payer OTHER, SELFPAY ==
--- NOTE | ~2022-02-07 | CT_ITS ---
EXAMINATION: CT abdomen pelvis w con DATE: 02/07/2022 22:36 INDICATION: rectal infection TECHNIQUE: Computed tomography (CT) of the abdomen and pelvis was performed with 100 mL Omnipaque-300 intravenous contrast. Automated exposure control and iterative reconstruction technique were employe d. The dose-length product was 1356.89 mGy-cm. COMPARISON: 12/19/2016. FINDINGS: Lower thorax: Breast augmentation. Liver: Normal. Biliary/Gallbladder: Gallbladder is absent. Mild intra and extrahepatic biliary duct dilatation, like ly secondary to cholecystectomy. Pancreas: No mass or duct dilation. Spleen: Normal. Adrenals:No mass. Kidneys: Bilateral renal hypodensities, too small to characterize but likely representing cysts. GI tract: No small or large bowel dilation. Appendix not visualized. Status post near-total colectomy . Uncomplicated cecal-sigmoid anastomosis. Diverticulosis without diverticulitis. Mild rectal wall ed hossein with mild surrounding inflammatory change. Mesentery/Peritoneum: No ascites, mass, or free air. Retroperitoneum: No mass. Minimal atherosclerotic abdominal aortic and/or arterial calcifications. Pelvis: Bladder wall thickening. Uterus not visualized.. Soft Tissues: Ventral abdominal wall scarring. Left lower back stimulator, with leads terminating in the right S3-S4 foramen. Bones: No acute osseous finding. IMPRESSION: An IT related issue prevented uploading this scan and several others to [facility]. I was notified at 11 45. Mild rectal wall edema with surrounding inflammatory change, no abscess. Bladder wall thickening as c an be seen with cystitis, in the appropriate clinical context. No other acute abdominopelvic process. Reviewed, dictated and finalized at location [facility]. IMPRESSION: An IT related issue prevented uploading this scan and several others to [facility] . I was notified at 1145. Mild rectal wall edema with surrounding inflammatory change, no abscess. Bladde r wall thickening as can be seen with cystitis, in the appropriate clinical con text. No other acute abdominopelvic process.
[2022-02-07 21:41] VITALS: BP 145/89; PULSE 105; RESP 16; TEMP 36.5; O2SAT 98
[2022-02-07 21:52] LABS: Basophils Percent Auto 0.5 % (0.2-1.2); Eosinophils Absolute Auto 0.2 K/mm3 (0-0.3); Eosinophils Percent Auto 1.8 % (0-4.4); Hematocrit 29.3 % (37.0-47.0); Immature Granulocyte Absolute 0.03 K/mm3 (0.00-0.031); Immature Granulocyte Percent A 0.4 % (0-0.5); Lymphocytes Absolute Auto 1.87 K/mm3 (0.9-3.2); Lymphocytes Percent Auto 21.9 % (18.3-44.2); Mean Corpuscular HGB Conc 27.3 g/dl (32-36); Mean Corpuscular Hemoglobin 20.5 pg (26-34); Mean Corpuscular Volume 74.9 fl (80-100); Mean Platelet Volume 8.8 fl (7.4-10.4); Monocytes Absolute Auto 0.8 K/mm3 (0.1-0.6); Monocytes Percent Auto 9.7 % (2.6-8.5); Neutrophils Absolute Auto 5.6 K/mm3 (1.3-6.7); Neutrophils Percent Auto 65.7 % (45.5-73.1); Platelet Count Result 393 k/mm3 (150-375); Red Blood Count 3.91 M/mm3 (4.2-5.4); Red Cell Distribution Width 22.5 % (11.5-14.5); White Blood Count 8.6 K/mm3 (4.5-10.0)
[2022-02-07 22:02] LABS: Lactic Acid Reflex 1.2 mmol/L (0.7-2.0)
[2022-02-07 22:03] LABS: Alanine Aminotransferase 32 U/L (6-35); Albumin Level 4.2 g/dL (3.5-5.1); Alkaline Phosphatase 92 U/L (38-126); Anion Gap 12 mmol/L (8-16); Aspartate Amino Transferase 36 U/L (14-36); Bilirubin,Total 0.3 mg/dL (0.2-1.3); Blood Urea Nitrogen 21 mg/dL (7-17); Calcium 9.1 mg/dL (8.4-10.2); Carbon Dioxide 24 mmol/L (22-30); Chloride 102 mmol/L (98-107); Estimated CRCL calculation 90 ml/min; Estimated Glomerular Filt Rate > 60; Glucose 107 mg/dL (65-110); Potassium 4.3 mmol/L (3.4-5.0); Sodium 138 mmol/L (137-145)
[2022-02-07 22:06] LABS: Anisocytosis 1+ (NORMAL); Hypochromasia 1+ (NORMAL); Ovalocytes 1+ (NORMAL); Platelet Estimate Adequate (Adequate); Tear Drop Cells 1+ (NORMAL)
[2022-02-07 22:21] LABS: Add Urine Microscopic? YES; Appearance Urine Clear (Clear); Bilirubin Urine Negative (Negative); Blood Urine Trace-Intact (Negative); Color Urine Yellow (Yellow); Glucose Urine UA Negative (Negative); Ketones Urine Negative (Negative); Leukocyte Esterase Ur Negative LEU/UL (Negative); Nitrate Urine Negative (Negative); Protein Urine Negative (Negative); Urobilinogen Urine 0.2 mg/dL (<2.0); pH Urine 5.5 (5.0-9.0)
[2022-02-07 22:27] LABS: Mucus Urine Rare /lpf; RBC Urine 0-2 /hpf (0-2); Squamous Epithelial Cell Urine Rare /hpf (Few); WBC Urine 0-3 /hpf
--- NOTE | 2022-02-07 23:01 | PC.NURSE ---
Report received from SARIKA Quezada. Assumed care of patient at this time.
[2022-02-08 00:03] VITALS: BP 132/83; PULSE 100; RESP 17; O2SAT 97
--- NOTE | 2022-02-08 00:09 | ED.GENADULT ---
HPI - General Adult General Chief complaint: Unspecified Stated complaint: rectal infection? , surgery 2 weeks ago Time Seen by Provider: 02/07/22 21:15 History of Present Illness HPI narrative: 46-year-old female presenting the emergency department for evaluation of persistent rectal pain after having a recent polypectomy and hemorrhoidectomy. Patient had the procedure few weeks ago and has had follow-up with her surgeon. At that time patient was also having similar symptoms. Patient states over the last few days she seems to have the urge to have a bowel movement and states that she is straining very hard to have a bowel movement but is only passing some mucus. Patient states she is still having bowel movements. Patient states she is also having vibrating of her anus. Patient seems to be describing rectal spasms. Patient denies any passing of any blood. Related Data Home Medications Medication Instructions Recorded Confirmed melatonin 10 mg capsule 10 mg PO QHS 01/13/22 02/03/22 Allergies Allergy/AdvReac Type Severity Reaction Status Date / Time aspirin Allergy Severe Anaphylaxis Verified 02/02/22 09:48 latex Allergy Severe Blister Verified 02/02/22 09:48 salicylates Allergy Severe Anaphylaxis Verified 02/02/22 09:48 acetaminophen Allergy Intermediate Hypertensio Verified 02/02/22 09:48 n/HYPOTENSI ON erythromycin base Allergy Unknown Rash Verified 02/02/22 09:48 Review of Systems Review of Systems: CONSTITUTIONAL: Denies fever, chills, or sweats. EYES: Denies visual changes, redness, or discharge. ENT: Denies rhinorrhea, congestion, sore throat, or otalgia. CARDIOVASCULAR: Denies chest pain, palpitations, or edema. RESPIRATORY: Denies cough or dyspnea. GASTROINTESTINAL: See HPI GENITOURINARY: Denies dysuria or hematuria. SKIN: Denies rash or itching. MUSCULOSKELETAL: Denies back pain, joint pain, or myalgia. NEUROLOGIC: Denies headache, numbness, or weakness. [facility] Past Medical History Medical History (Updated 02/08/22 @ 01:00 by Darnell Escalante MD) Acute migraine Anxiety Arthritis Bipolar disorder, rapid cycling Chronic fatigue Chronic pain Degenerative disk disease Depression Familial adenomatous polyposis Fibromyalgia GERD (gastroesophageal reflux disease) History of blood clots History of herpes zoster History of pulmonary embolism History of thyroid disease Insomnia Neurogenic bladder OCD (obsessive compulsive disorder) Plantar fascia syndrome PTSD (post-traumatic stress disorder) Sensory neuronopathy Surgical History Surgical History (Updated 02/02/22 @ 09:58 by Elidia Ng Hedy) H/O colectomy History of bladder surgery History of bunionectomy History of section History of cholecystectomy History of hemorrhoidectomy Exam under anesthesia, external hemorrhoidectomy 2 columns, anal polypectomy x 4 01/25/2022 History of hysterectomy Family History Family History Mother , drowning Hyperlipemia Uterine cancer Hypertension Grandparent Uterine cancer Carcinoma of colon Colon polyp Social History Social History Smoking status: Never smoker Second hand tobacco smoke exposure: Yes Alcohol intake: never Substance use: never Substance use type: does not use Additional occupation/education comments: disability Gender identity (if verbalized by the patient): Female Spiritual care concerns: No Exam Narrative: APPEARANCE: Well appearing, no pain, no distress, well-nourished. HEAD: normocephalic, atraumatic. EYES: PERRLA/EOMI, conjunctivae clear. NOSE: Normal no drainage NECK: Supple. No adenopathy, no masses. RESPIRATORY: Airway patent, respirations nonlabored. Clear to auscultation bilaterally, no rales, rhonchi, wheezing. CARDIOVASCULAR: Regular rate and rhythm without murmurs rubs or gallops. ABDOMIN
[2022-02-08] MEDS: ONDANSETRON INJ 4 MG/2 ML VIAL IV PUSH (00:32)
[2022-02-08] MEDS: DICYCLOMINE HCL 10 MG CAPSULE 20 MG PO (01:15)
== END 2022-02-08 01:24 | disposition home or self-care (01) ==
PROVIDERS: Emergency Provider Emergency Medicine; PCP Internal Medicine
DX: K59.4 Anal spasm (principal); M19.90 Unspecified osteoarthritis, unspecified site; M79.7 Fibromyalgia; K21.9 Gastro-esophageal reflux disease without esophagitis; Z86.711 Personal history of pulmonary embolism; E07.9 Disorder of thyroid, unspecified; N31.9 Neuromuscular dysfunction of bladder, unspecified; F41.9 Anxiety disorder, unspecified; F31.9 Bipolar disorder, unspecified; F42.9 Obsessive-compulsive disorder, unspecified; F43.10 Post-traumatic stress disorder, unspecified; Z87.19 Personal history of other diseases of the digestive system; Z90.49 Acquired absence of other specified parts of digestive tract; Z90.710 Acquired absence of both cervix and uterus; Z79.01 Long term (current) use of anticoagulants
CPT/HCPCS: 36415; 74177; 80053; 81001; 81025; 83605; 85025; 87040; 96374; 99284; A9270; J2405; Q9967

== ENCOUNTER 2022-02-16 09:07 | Outpatient (CLI) | payer OTHER, SELFPAY ==
[2022-02-16 14:31] LABS: Toxigenic C. Diff POSITIVE (NEGATIVE)
== END 2022-02-16 09:08 | disposition home or self-care (01) ==
LOC: ANHLAB 09:08
PROVIDERS: PCP Internal Medicine; Visit Provider Nurse Practitioner Family
DX: R19.7 Diarrhea, unspecified (principal); K31.7 Polyp of stomach and duodenum
CPT/HCPCS: 87045; 87177; 87209; 87427; 87493

== ENCOUNTER 2022-02-21 20:21 | Emergency (ER) | payer OTHER, SELFPAY ==
--- NOTE | ~2022-02-21 | CT_ITS ---
EXAMINATION: CT abdomen pelvis w con DATE: 02/21/2022 22:15 INDICATION: Abdominal pain, nausea, vomiting. History of colostomy reversal. TECHNIQUE: Computed tomography (CT) of the abdomen and pelvis was performed with 100 CC Omnipaque 350 intravenous contrast. Automated exposure control and iterative reconstruction technique were employe d. Exam dose: 1281.66 mGy-cm total exam DLP. COMPARISON: 02/07/2022 CT abdomen pelvis 12/19/2016 CT abdomen pelvis FINDINGS: The lung bases are clear of infiltrate or consolidation. Normal heart size. No pericardial or pleural effusion. Status post bilateral augmentation mammoplasty. Status post cholecystectomy. No bile duct or pancreatic duct dilatation. No hepatic, pancreatic, sple tricia space-occupying mass lesion. Small lower pole right renal cyst, diminished in size since 12/19/2016. Approximately 7 mm relatively hypoenhancing lesion at the lower pole of the left kidney, too small to definitively characterize. No urinary tract calculus or hydroureteronephrosis. The mild thickening of the urinary bladder wall; cystitis is not excluded. Normal caliber of the abdominal aorta. No intraperitoneal or retroperitoneal or pelvic mass lesion or adenopathy or ascites. Partial colectomy. Suture line at the mid sigmoid colon; history of colostomy reversal. No bowel obst ruction or intraperitoneal free air. Generator device in the subcutaneous adipose tissues of the lower left back, with neurotransmitter le ad extending through a right sacral neural foramen. Included skeletal structures are unremarkable. IMPRESSION: Indeterminate 7 mm hypoenhancing lesion at the lower pole left kidney Mild thickening of the urinary bladder wall; cystitis is not excluded Status post partial colectomy Status post cholecystectomy Bilateral mammoplasty Reviewed, dictated and finalized at [facility]. Reviewed, dictated and finalized at location [facility]. IMPRESSION: Indeterminate 7 mm hypoenhancing lesion at the lower pole left kid solo Mild thickening of the urinary bladder wall; cystitis is not excluded Status post partial colectomy Status post cholecystectomy Bilateral mammoplasty
[2022-02-21 20:26] VITALS: BP 143/79; PULSE 105; RESP 22; TEMP 36.6; O2SAT 99
[2022-02-21 20:53] LABS: Basophils Percent Auto 0.5 % (0.2-1.2); Eosinophils Absolute Auto 0.2 K/mm3 (0-0.3); Eosinophils Percent Auto 3.1 % (0-4.4); Hematocrit 29.7 % (37.0-47.0); Hemoglobin 8.1 g/dL (12.0-15.0); Immature Granulocyte Absolute 0.02 K/mm3 (0.00-0.031); Immature Granulocyte Percent A 0.3 % (0-0.5); Lymphocytes Absolute Auto 2.34 K/mm3 (0.9-3.2); Lymphocytes Percent Auto 29.8 % (18.3-44.2); Mean Corpuscular HGB Conc 27.3 g/dl (32-36); Mean Corpuscular Volume 73.5 fl (80-100); Mean Platelet Volume 8.3 fl (7.4-10.4); Monocytes Absolute Auto 0.7 K/mm3 (0.1-0.6); Neutrophils Absolute Auto 4.5 K/mm3 (1.3-6.7); Neutrophils Percent Auto 57.3 % (45.5-73.1); Platelet Count Result 373 k/mm3 (150-375); Red Blood Count 4.04 M/mm3 (4.2-5.4); Red Cell Distribution Width 21.3 % (11.5-14.5); White Blood Count 7.9 K/mm3 (4.5-10.0)
[2022-02-21 21:00] LABS: Appearance Urine Clear (Clear); Bilirubin Urine Negative (Negative); Blood Urine Negative (Negative); Color Urine Yellow (Yellow); Glucose Urine UA Negative (Negative); Ketones Urine Negative (Negative); Leukocyte Esterase Ur Trace LEU/UL (Negative); Nitrate Urine Negative (Negative); Protein Urine Negative (Negative); Specific Grav Ur <= 1.005 (1.001-1.035); Urobilinogen Urine 0.2 mg/dL (<2.0); pH Urine 5.5 (5.0-9.0)
[2022-02-21 21:08] LABS: Alanine Aminotransferase 18 U/L (6-35); Albumin Level 4.1 g/dL (3.5-5.1); Alkaline Phosphatase 90 U/L (38-126); Anion Gap 8 mmol/L (8-16); Aspartate Amino Transferase 26 U/L (14-36); Bilirubin,Total 0.1 mg/dL (0.2-1.3); Blood Urea Nitrogen 18 mg/dL (7-17); Calcium 9.2 mg/dL (8.4-10.2); Carbon Dioxide 26 mmol/L (22-30); Chloride 102 mmol/L (98-107); Estimated CRCL calculation 90 ml/min; Estimated Glomerular Filt Rate > 60; Glucose 111 mg/dL (65-110); Lipase 164 U/L (23-300); Potassium 3.8 mmol/L (3.4-5.0); Sodium 136 mmol/L (137-145)
[2022-02-21 21:12] LABS: Mucus Urine Rare /lpf; RBC Urine 0-2 /hpf (0-2); Squamous Epithelial Cell Urine Occasional /hpf (Few); WBC Urine 0-3 /hpf
[2022-02-21 21:14] LABS: Add Urine Microscopic? YES
[2022-02-21 21:18] LABS: Anisocytosis 3+ (NORMAL); Hypochromasia 1+ (NORMAL); Platelet Estimate Adequate (Adequate)
[2022-02-21 21:20] VITALS: BP 132/89; PULSE 102; RESP 20; O2SAT 98
[2022-02-21] MEDS: ONDANSETRON INJ 4 MG/2 ML VIAL IV PUSH (21:36)
[2022-02-21] MEDS: DICYCLOMINE HCL INJ 20 MG/2 ML VIAL IM (21:38)
[2022-02-21] MEDS: SODIUM CHLORIDE 0.9% IV 1,000 ML 999 ML IV CONT (21:42)
--- NOTE | 2022-02-21 21:44 | ED.NAVMDI ---
HPI - Nausea/Vomiting/Diarrhea General Chief complaint: Nausea/Vomiting/Diarrhea Stated complaint: c-diff, muscle cramps, vomiting Time Seen by Provider: 02/21/22 21:12 History of Present Illness HPI Narrative: 46-year-old female with a history of C. difficile currently taking vancomycin presented to the emergency room complaints of the upper abdominal pain, nausea, vomiting and diarrhea. Patient states that she is on day 5 of oral vancomycin treatment, and is began to develop cramping in her legs, along with upper abdominal pain. Patient denies fever Related Data Home Medications Medication Instructions Recorded Confirmed melatonin 10 mg capsule 10 mg PO QHS 01/13/22 02/15/22 Allergies Allergy/AdvReac Type Severity Reaction Status Date / Time aspirin Allergy Severe Anaphylaxis Verified 02/21/22 20:31 latex Allergy Severe Blister Verified 02/21/22 20:31 salicylates Allergy Severe Anaphylaxis Verified 02/21/22 20:31 acetaminophen Allergy Intermediate Hypertensio Verified 02/21/22 20:31 n/HYPOTENSI ON erythromycin base Allergy Unknown Rash Verified 02/21/22 20:31 Review of Systems Review of Systems: CONSTITUTIONAL: Denies fever, chills, or sweats. EYES: Denies visual changes, redness, or discharge. ENT: Denies rhinorrhea, congestion, sore throat, or otalgia. CARDIOVASCULAR: Denies chest pain, palpitations, or edema. RESPIRATORY: Denies cough or dyspnea. GASTROINTESTINAL: Reports abdominal pain, nausea, vomiting and diarrhea GENITOURINARY: Denies dysuria or hematuria. SKIN: Denies rash or itching. MUSCULOSKELETAL: Denies back pain, joint pain, or myalgia. NEUROLOGIC: Denies headache, numbness, dizziness, or weakness. PSYCHIATRIC: Denies anxiety or depression. [facility] Past Medical History Medical History Acute migraine Anxiety Arthritis Bipolar disorder, rapid cycling Chronic fatigue Chronic pain Degenerative disk disease Depression Familial adenomatous polyposis Fibromyalgia Frequent loose stools Gastric polyps GERD (gastroesophageal reflux disease) History of blood clots History of herpes zoster History of pulmonary embolism History of thyroid disease Insomnia Neurogenic bladder OCD (obsessive compulsive disorder) Plantar fascia syndrome PTSD (post-traumatic stress disorder) Sensory neuronopathy Surgical History Surgical History H/O colectomy History of bladder surgery History of bunionectomy History of section History of cholecystectomy History of hemorrhoidectomy Exam under anesthesia, external hemorrhoidectomy 2 columns, anal polypectomy x 4 01/25/2022 History of hysterectomy Family History Family History Mother , drowning Hyperlipemia Uterine cancer Hypertension Grandparent Uterine cancer Carcinoma of colon Colon polyp Social History Social History Smoking status: Never smoker Second hand tobacco smoke exposure: Yes Alcohol intake: never Substance use: never Substance use type: does not use Additional occupation/education comments: disability Gender identity (if verbalized by the patient): Female Spiritual care concerns: No Exam Narrative: GENERAL: Well-appearing, well-nourished, no physical limitations, and in no acute distress. HEAD: Normocephalic, atraumatic. EYES: Conjunctivae normal, PERRLA and EOMI. CHEST: Clear to auscultation. No respiratory distress. No wheezes rales or rhonchi. No tenderness. HEART: Regular rate and rhythm. No murmur heard. Normal peripheral pulses. ABDOMEN: Soft, periumbilical tenderness, nondistended, normal active bowel sounds. BACK: No CVA tenderness EXTREMITIES: Normal range of motion. No edema. No clubbing or cyanosis SKIN: Warm, dry, no rash. No noted wounds NEURO:
[2022-02-21 23:13] VITALS: BP 138/78; PULSE 96; RESP 18; O2SAT 98
--- NOTE | 2022-02-21 23:15 | PC.NURSE ---
Report received from SARIKA Rosario. This nurse assumed care of patient at this time.
[2022-02-21 23:32] VITALS: BP 138/78; PULSE 96; RESP 18; TEMP 36.3; O2SAT 98
== END 2022-02-21 23:35 | disposition home or self-care (01) ==
PROVIDERS: Emergency Medicine; Emergency Provider Nurse Practitioner Family; PCP Internal Medicine
DX: R11.0 Nausea (principal); T36.8X5A Adverse effect of other systemic antibiotics, initial encounter; R53.82 Chronic fatigue, unspecified; M79.7 Fibromyalgia; K21.9 Gastro-esophageal reflux disease without esophagitis; Z86.711 Personal history of pulmonary embolism; F41.9 Anxiety disorder, unspecified; F31.89 Other bipolar disorder; F42.9 Obsessive-compulsive disorder, unspecified; F43.10 Post-traumatic stress disorder, unspecified; Z90.710 Acquired absence of both cervix and uterus; Z90.49 Acquired absence of other specified parts of digestive tract; Z79.01 Long term (current) use of anticoagulants
CPT/HCPCS: 36415; 74177; 80053; 81001; 83690; 85025; 96361; 96372; 96374; 99284; J0500; J2405; J7030; Q9967

== ENCOUNTER 2022-03-08 15:27 | Emergency (ER) | payer OTHER, SELFPAY ==
[2022-03-08] VITALS (24 sets, daily range): BP systolic 111–154; BP diastolic 67–91; PULSE 70–109; RESP 18–20; TEMP 36.7; O2SAT 95–99
[2022-03-08 16:06] LABS: Basophils Percent Auto 0.6 % (0.2-1.2); Eosinophils Absolute Auto 0.2 K/mm3 (0-0.3); Eosinophils Percent Auto 2.7 % (0-4.4); Hematocrit 29.3 % (37.0-47.0); Hemoglobin 8.2 g/dL (12.0-15.0); Immature Granulocyte Absolute 0.02 K/mm3 (0.00-0.031); Immature Granulocyte Percent A 0.3 % (0-0.5); Lymphocytes Absolute Auto 1.85 K/mm3 (0.9-3.2); Mean Corpuscular Hemoglobin 20.1 pg (26-34); Mean Platelet Volume 8.5 fl (7.4-10.4); Monocytes Absolute Auto 0.7 K/mm3 (0.1-0.6); Monocytes Percent Auto 11.1 % (2.6-8.5); Neutrophils Absolute Auto 3.8 K/mm3 (1.3-6.7); Neutrophils Percent Auto 57.3 % (45.5-73.1); Platelet Count Result 376 k/mm3 (150-375); Red Blood Count 4.07 M/mm3 (4.2-5.4); Red Cell Distribution Width 20.9 % (11.5-14.5); White Blood Count 6.6 K/mm3 (4.5-10.0)
[2022-03-08 16:16] LABS: Alanine Aminotransferase 18 U/L (6-35); Albumin Level 3.8 g/dL (3.5-5.1); Alkaline Phosphatase 90 U/L (38-126); Anion Gap 9 mmol/L (8-16); Aspartate Amino Transferase 33 U/L (14-36); Bilirubin,Total 0.1 mg/dL (0.2-1.3); Blood Urea Nitrogen 16 mg/dL (7-17); Calcium 8.6 mg/dL (8.4-10.2); Carbon Dioxide 25 mmol/L (22-30); Chloride 103 mmol/L (98-107); Estimated CRCL calculation 102 ml/min; Estimated Glomerular Filt Rate > 60; Glucose 120 mg/dL (65-110); Lipase 160 U/L (23-300); Potassium 4.1 mmol/L (3.4-5.0); Sodium 137 mmol/L (137-145)
[2022-03-08 16:16] LABS: Appearance Urine Clear (Clear); Bilirubin Urine Negative (Negative); Color Urine Yellow (Yellow); Glucose Urine UA Negative (Negative); Ketones Urine Negative (Negative); Leukocyte Esterase Ur Trace LEU/UL (Negative); Nitrate Urine Negative (Negative); Protein Urine Negative (Negative); Specific Grav Ur 1.015 (1.001-1.035); Urobilinogen Urine 0.2 mg/dL (<2.0); pH Urine 5.5 (5.0-9.0)
[2022-03-08 16:17] LABS: Squamous Epithelial Cell Urine Rare /hpf (Few)
[2022-03-08 16:19] LABS: Add Urine Microscopic? YES; Blood Urine Trace-Intact (Negative)
[2022-03-08 16:43] LABS: Anisocytosis 2+ (NORMAL); Hypochromasia 1+ (NORMAL); Platelet Estimate Adequate (Adequate)
[2022-03-08] MEDS: PROMETHAZINE HCL 25 MG/ML AMPUL 12.5 MG IV PUSH (18:27)
[2022-03-08] MEDS: SODIUM CHLORIDE 0.9% IV 1,000 ML 999 ML IV CONT (18:28)
--- NOTE | 2022-03-08 21:23 | ED.GENADULT ---
HPI - General Adult General Chief complaint: Nausea/Vomiting/Diarrhea Stated complaint: C-DIFF +, really sick. Time Seen by Provider: 03/08/22 17:17 History of Present Illness HPI narrative: Patient is a 46-year-old female who presents ER with abdominal cramping and nausea. Reports that this has been ongoing for several weeks. She was initially treated for C. difficile with vancomycin and now she is taking Flagyl. She take Zofran for nausea but she still feels nauseous [id number]. She reports up to 12 bowel movements a day that are very in size. Related Data Home Medications Medication Instructions Recorded Confirmed melatonin 10 mg capsule 10 mg PO QHS 01/13/22 02/15/22 Allergies Allergy/AdvReac Type Severity Reaction Status Date / Time aspirin Allergy Severe Anaphylaxis Verified 02/21/22 20:31 latex Allergy Severe Blister Verified 02/21/22 20:31 salicylates Allergy Severe Anaphylaxis Verified 02/21/22 20:31 acetaminophen Allergy Intermediate Hypertensio Verified 02/21/22 20:31 n/HYPOTENSI ON erythromycin base Allergy Unknown Rash Verified 02/21/22 20:31 Review of Systems Review of Systems: All systems reviewed & are unremarkable except as noted in HPI and below Constitutional: Constitutional: Denies chills, Denies fatigue and Denies fever(s) ENT: Denies nasal congestion and Denies sore throat Cardiovascular: Cardiovascular: Denies chest pain, Denies rapid heart rate and Denies radiating jaw, neck or arm pain Respiratory: Respiratory: Denies cough and Denies dyspnea Gastrointestinal: Gastrointestinal: Denies abdominal pain, Reports diarrhea, Reports nausea and Denies vomiting PMFSH Past Medical History Medical History Acute migraine Anxiety Arthritis Bipolar disorder, rapid cycling Chronic fatigue Chronic pain Degenerative disk disease Depression Familial adenomatous polyposis Fibromyalgia Frequent loose stools Gastric polyps GERD (gastroesophageal reflux disease) History of blood clots History of herpes zoster History of pulmonary embolism History of thyroid disease Insomnia Neurogenic bladder OCD (obsessive compulsive disorder) Plantar fascia syndrome PTSD (post-traumatic stress disorder) Sensory neuronopathy Surgical History Surgical History H/O colectomy History of bladder surgery History of bunionectomy History of section History of cholecystectomy History of hemorrhoidectomy Exam under anesthesia, external hemorrhoidectomy 2 columns, anal polypectomy x 4 01/25/2022 History of hysterectomy Family History Family History Mother , drowning Hyperlipemia Uterine cancer Hypertension Grandparent Uterine cancer Carcinoma of colon Colon polyp Social History Social History Smoking status: Never smoker Second hand tobacco smoke exposure: Yes Alcohol intake: never Substance use: never Substance use type: does not use Additional occupation/education comments: disability Gender identity (if verbalized by the patient): Female Spiritual care concerns: No Exam Narrative: GENERAL: Well-appearing, well-nourished, and in no acute distress. HEAD: Normocephalic, atraumatic. CHEST: Clear to auscultation. No respiratory distress. HEART: Tachycardic and regular. Normal peripheral pulses. ABDOMEN: Soft, nontender, nondistended. EXTREMITIES: Normal range of motion. No edema. SKIN: Warm, dry, no rash. NEURO: Alert and oriented x3. PSYCH: Normal mood and affect. Course Course Emergency Course: Patient resting comfortably. She does report some persistent nausea but improved with promethazine. Patient has had a semisolid stool while here. She has been successfully p.o. challenge. Discharged with [facility]
== END 2022-03-08 22:39 | disposition home or self-care (01) ==
PROVIDERS: Emergency Medicine; Emergency Provider Emergency Medicine; PCP Internal Medicine
DX: R11.0 Nausea (principal); F41.9 Anxiety disorder, unspecified; M19.90 Unspecified osteoarthritis, unspecified site; F32.9 Major depressive disorder, single episode, unspecified; K21.9 Gastro-esophageal reflux disease without esophagitis
CPT/HCPCS: 36415; 80053; 81001; 83690; 85025; 96361; 96374; 99284; J2550; J7030

== ENCOUNTER 2022-04-13 07:47 | Outpatient (CLI) | payer OTHER, SELFPAY ==
--- NOTE | 2022-04-26 21:09 | WPDHOMESLEEP ---
Sleep Study - Home Unattended Date of Study: 04/13/22 Ordering Provider: Ezekiel Rosales DO Interpreting Provider: Cori Garcia DO Home Sleep Study Type: Apnea Link Air Height: 1.63 m Weight: 102.058 kg Body Mass Index: 38.6 Neck Circumference (inches): 16.5 Wheelwright: 16 Reason for Sleep Study Insomnia, daytime hypersomnia Sleep History The patient is a 46-year-old female with bipolar disorder, PTSD, anxiety, obsessive-compulsive disorder, GERD, neurogenic bladder, migraines, fibromyalgia, familial adenomatous polyposis and hemorrhoids that a sleep study ordered for evaluation of sleep apnea. The patient frequently awakens from sleep short of breath. She occasionally awakens at night with heartburn, belching or cough. She constantly snores and is frequently loud enough others complain. She frequently has trouble sleeping when she has a cold. She frequently wakes up gasping for air throughout the night. She frequently has breathing problems at night observed by herself or others. She occasionally sweats excessively at night. She occasionally has heart palpitations or irregular heartbeats during the night. She frequently falls asleep during the day but rarely falls asleep while driving. She rarely experiences loss of muscle tone when extremely emotional. She rarely feels unable to move waking up or falling asleep. She occasionally experiences vivid dreamlike scenes upon awakening or falling asleep. He constantly feels afraid of going sleep. She frequently has nightmares and frequently remembers her dreams. She constantly has thoughts racing through her mind. She constantly feels sad, depressed and anxious. She constantly has muscular tension. She frequently notices parts of her body jerk. She occasionally kicks during the night. She frequently has crawling and aching feelings in her legs and constantly has leg pain during the night. She constantly grinds her teeth during sleeping constantly awakens with a morning jaw pain. She is constantly bothered by pain during the day and frequently awakened by pain during the night. He constantly wakes up feeling stiff in morning. She constantly wakes up with sore achy muscles. She constantly wakes up with pain in the neck, spine or other joints. She goes to bed between 830-10 p.m. on both weekdays and weekends. It takes her 15-30 minutes to fall asleep. She is unsure how many times she wakes up throughout the night. She is either able to fall back asleep or she is unable to. She gets up between 5-7 a.m. on both weekdays and weekends. She typically gets 5-7 hours of sleep per night. She will stay in bed for a few minutes after waking up in morning. She currently lives alone. She denies consuming any caffeinated beverages within 2 hours of bedtime. She does not engage in physical exercise before bedtime. She will watch television before falling asleep. She tries not to take naps in the afternoon or evening. She denies consuming caffeinated beverages throughout the day. She denies tobacco, alcohol and recreational drug use. [facility] Past Medical History Medical History Acute migraine Anemia Anxiety Arthritis Bipolar disorder, rapid cycling BRBPR (bright red blood per rectum) Chronic fatigue Chronic pain Degenerative disk disease Depression Familial adenomatous polyposis Fibromyalgia Frequent loose stools Gastric polyps GERD (gastroesophageal reflux disease) History of blood clots History of blood transfusion 04/15/2021 History of herpes zoster History of pulmonary embolism History of thyroid disease Insomnia Migraines Missed x1 Neurogenic bladder OCD (obsessive compulsive disorder) Plantar fascia syndrome PTSD (post-traumatic stress disorder) Sensory neuronopathy Thyroid disorder TMJ (dislocation of temporomandibular joint) Surgical History Surgical History (Reviewed 04/26/22 @ 21:15 by Roseline
[2022-04-26 21:17] VITALS: BMI 38.6
--- NOTE | 2022-09-22 12:56 | SLEEP ---
new calls [id number] dos09/27/22
== END 2022-04-14 15:13 | disposition home or self-care (01) ==
PROVIDERS: PCP Internal Medicine; Visit Provider Internal Medicine
DX: G47.33 Obstructive sleep apnea (adult) (pediatric) (principal)
CPT/HCPCS: 95806

== ENCOUNTER 2022-04-19 10:13 | Outpatient (CLI) | payer OTHER, SELFPAY ==
--- NOTE | ~2022-04-19 | US_ITS ---
EXAMINATION: US thyroid DATE: 04/19/2022 10:39 INDICATION: Nontoxic single thyroid nodule. TECHNIQUE: Multiple ultrasound images of the thyroid were obtained. COMPARISON: None. FINDINGS: The right thyroid lobe measures 4.4 x 1.3 x 1.3 cm. The left thyroid lobe measures 3.3 x 0.9 x 1.5 c m. In the left thyroid lobe, there is a 5 mm solid, hypoechoic, wider than tall nodule with ill-defi kelley margin with punctate echogenic foci (TI-RADS TR5). IMPRESSION: 1. Small thyroid nodule. Thyroid ultrasound is recommended in one year. Reviewed, dictated and finalized at location [facility].
== END 2022-04-19 10:14 | disposition home or self-care (01) ==
LOC: ANHIMG 10:15
PROVIDERS: PCP Internal Medicine; Visit Provider Internal Medicine Endocrinology, Diabetes & Metabolism
DX: E04.1 Nontoxic single thyroid nodule (principal); D12.6 Benign neoplasm of colon, unspecified
CPT/HCPCS: 76536

== ENCOUNTER 2022-04-29 10:03 | Outpatient (CLI) | payer OTHER, SELFPAY ==
[2022-04-29 10:24] LABS: Hematocrit 29.4 % (37.0-47.0); Hemoglobin 8.1 g/dL (12.0-15.0)
== END 2022-04-29 10:04 | disposition home or self-care (01) ==
LOC: ANHLAB 10:04
PROVIDERS: PCP Internal Medicine; Visit Provider Internal Medicine
DX: D64.9 Anemia, unspecified (principal)
CPT/HCPCS: 36415; 85014; 85018

== ENCOUNTER 2022-05-11 15:50 | Outpatient (CLI) | payer OTHER, SELFPAY ==
--- NOTE | ~2022-05-11 | XR_ITS ---
EXAMINATION: XR chest 2V 05/11/2022 16:05 INDICATION: Cough PROCEDURE: 2 view chest COMPARISON: 01/06/2022 FINDINGS: The lungs are clear. There are breast implants. The cardiomediastinal silhouette is within normal limits. There are no pleural effusions. There is no pneumothorax suspected. IMPRESSION: 1: NO ACUTE CARDIOPULMONARY DISEASE. Reviewed, dictated and finalized at location [facility].
== END 2022-05-11 15:51 | disposition home or self-care (01) ==
PROVIDERS: PCP Internal Medicine; Visit Provider Internal Medicine
DX: R05.9 Cough, unspecified (principal)
CPT/HCPCS: 71046

== ENCOUNTER 2022-05-20 09:57 | Outpatient (CLI) | payer OTHER, SELFPAY ==
[2022-05-20 11:04] LABS: Hematocrit 27.7 % (37.0-47.0); Hemoglobin 7.4 g/dL (12.0-15.0); Mean Corpuscular HGB Conc 26.7 g/dl (32-36); Mean Corpuscular Hemoglobin 18.2 pg (26-34); Mean Corpuscular Volume 68.2 fl (80-100); Mean Platelet Volume 8.7 fl (7.4-10.4); Platelet Count Result 407 k/mm3 (150-375); Red Blood Count 4.06 M/mm3 (4.2-5.4); Red Cell Distribution Width 20.2 % (11.5-14.5); White Blood Count 6.9 K/mm3 (4.5-10.0)
[2022-05-20 11:07] LABS: Alanine Aminotransferase 20 U/L (6-35); Albumin Level 3.9 g/dL (3.5-5.1); Alkaline Phosphatase 92 U/L (38-126); Anion Gap 7 mmol/L (8-16); Aspartate Amino Transferase 24 U/L (14-36); Bilirubin,Total 0.3 mg/dL (0.2-1.3); Blood Urea Nitrogen 17 mg/dL (7-17); Carbon Dioxide 28 mmol/L (22-30); Chloride 102 mmol/L (98-107); Estimated Glomerular Filt Rate > 60; Glucose 126 mg/dL (65-110); Potassium 3.1 mmol/L (3.4-5.0); Sodium 137 mmol/L (137-145)
[2022-05-20 15:42] LABS: Toxigenic C. Diff NEGATIVE (NEGATIVE)
== END 2022-05-20 09:58 | disposition home or self-care (01) ==
LOC: ANHLAB 09:59
PROVIDERS: PCP Internal Medicine; Visit Provider Nurse Practitioner Family
DX: R19.7 Diarrhea, unspecified (principal); A04.71 Enterocolitis due to Clostridium difficile, recurrent
CPT/HCPCS: 36415; 80053; 85027; 87493

== ENCOUNTER 2022-05-24 01:04 | Day surgery (SDC) | payer OTHER, SELFPAY ==
[2022-05-19 14:08] VITALS: BMI 39.5
[2022-05-24 11:01] VITALS: BP 158/77; PULSE 102; RESP 16; TEMP 36.2; O2SAT 98; BMI 38.9
--- NOTE | 2022-05-24 11:09 | PM.HPGS ---
History of Present Illness History of Present Illness Consent: Risks, benefits, and alternatives have been discussed and questions answered. Patient agrees to proceed with procedure. Chief complaint: dysphagia, rectal bleed,hemorrhoids Narrative: Naila Beard is a 46 year old female with h/o FAP for which underwent colectomy about 1 year ago at another hospital, had hemorrhoidectomy but lately with rectal bleeding, also h/o dysphagia on ppi daily. Review of Systems Constitutional: Constitutional: Denies headache(s) and Denies weakness Eyes: Eyes: Denies blurry vision ENT: Reports Normal hearing present, Denies headache(s) and Denies neck pain Cardiovascular: Cardiovascular: Denies chest pain and Denies dyspnea Respiratory: Respiratory: Denies dyspnea Gastrointestinal: Gastrointestinal: Reports no additional gastrointestinal complaints Genitourinary: Genitourinary: Denies dysuria Musculoskeletal: Musculoskeletal: Denies neck pain Integumentary/Breasts: Skin/Breast: Denies dry skin Neurologic: Reports Normal hearing present, Denies headache(s) and Denies weakness Psychiatric: Psychiatric: Denies anxiety Endocrine: Endocrine: Denies change in body appearance Hematologic/Lymphatic: Hematologic/Lymphatic: Denies easy bleeding Allergic/Immunologic: Allergic/Immunologic: Denies urticaria PMFSH Past Medical History Medical History (Updated 05/24/22 @ 11:10 by Liam Ji MD) Acute migraine Anemia Anxiety Arthritis Bipolar disorder, rapid cycling BRBPR (bright red blood per rectum) Chronic fatigue Chronic pain Degenerative disk disease Depression Familial adenomatous polyposis Fibromyalgia Frequent loose stools Gastric polyps GERD (gastroesophageal reflux disease) History of blood clots History of blood transfusion 04/15/2021 History of herpes zoster History of pulmonary embolism History of thyroid disease Insomnia Migraines Missed x1 Neurogenic bladder OCD (obsessive compulsive disorder) Plantar fascia syndrome PTSD (post-traumatic stress disorder) Sensory neuronopathy Thyroid disorder TMJ (dislocation of temporomandibular joint) Surgical History Surgical History H/O breast augmentation 2012 H/O colectomy 2020, partial History of back surgery 2020, placement of interstim device History of bladder surgery 2017 History of bunionectomy 2019 History of section x1 History of cholecystectomy 2008 History of hemorrhoidectomy Exam under anesthesia, external hemorrhoidectomy 2 columns, anal polypectomy x 4 01/25/2022 History of hysterectomy 2019 Hx of breast reduction, elective 2010 Family History Family History Mother , drowning Hyperlipemia Uterine cancer Hypertension Alcoholism Anxiety and depression Thyroid disorder Grandparent Uterine cancer Carcinoma of colon Colon polyp Alcoholism Hypertension Anxiety and depression Cerebrovascular accident Thyroid disorder Other Cancer uncle, aunt Father Hypertension Social History Social History (Updated 05/11/22 @ 15:25 by Reba Pereira MA) Smoking status: Never smoker Second hand tobacco smoke exposure: Yes Alcohol intake: never Substance use: never Substance use type: does not use Has the Lack of Transportation Kept You From Medical Appointments or From Getting Medications?: No Within the Past 12 Months, Were You Worried Whether Your Food Would Run Out Before You Got Money to Buy More?: Often True What is Your Housing Situation Today?: I Have Housing Are You Worried That in the Next 2 Months, You May Not Have Your Own Housing to Live In?: No Do You Have Trouble Paying Your Heating Or Electricity Bill?: No Do You Have Trouble Paying For Medicines?: No Are You Currently Unemployed and Looking for Work?: No
[2022-05-24] MEDS: LACTATED RINGERS 1,000 ML 150 ML IV CONT (11:10)
--- NOTE | 2022-05-24 11:13 | WPDANESEPPF ---
Anes - Initial Pre Proc Eval Procedure: Operation Date: 05/24/22 14:15 Proposed Procedures p Flexible Sigmoidoscopy - Liam Ji MD s Esophagogastroduodenoscopy - Liam Ji MD s [facility] Hemorrhoid Treatment - Liam Ji MD Date/Time: 05/24/22 11:13 Surgeon: Liam Ji MD Pre Op Diagnosis: dysphagia, rectal bleed,hemorrhoids Patient Data Age: 46 Gender: F Height: 1.63 m Weight: 103 kg Last Vital Signs Temp 97.1 F L 05/24/22 11:01 Pulse 102 H 05/24/22 11:01 Resp 16 05/24/22 11:01 BP 158/77 H 05/24/22 11:01 Pulse Ox 98 05/24/22 11:01 O2 Del Method Room Air 05/24/22 11:01 Allergies Allergy/AdvReac Type Severity Reaction Status Date / Time aspirin Allergy Severe Anaphylaxis Verified 05/24/22 10:58 latex Allergy Severe Blister Verified 05/24/22 10:58 salicylates Allergy Severe Anaphylaxis Verified 05/24/22 10:58 acetaminophen Allergy Intermediate Hypertensio Verified 05/24/22 10:58 n/HYPOTENSI ON erythromycin base Allergy Intermediate Rash Verified 05/24/22 10:58 Home Medications Medication Instructions Recorded Confirmed Type olanzapine 5 mg disintegrating 5 mg PO BID #90 tabs 10/15/21 05/24/22 Rx tablet olanzapine 10 mg tablet 10 mg PO HS #90 tabs 12/15/21 05/24/22 Rx sumatriptan succinate 100 mg tablet See Rx Instructions PO .COMPLEX 12/15/21 05/24/22 Rx #90 tabs buspirone 5 mg tablet 5 mg PO BID #60 tabs 01/08/22 05/24/22 Rx furosemide 40 mg tablet (Lasix) 40 mg PO QAM #30 tabs 01/08/22 05/24/22 Rx melatonin 10 mg capsule 10 mg PO QHS 01/13/22 05/24/22 History aripiprazole 20 mg tablet 20 mg PO DAILY #30 tabs 04/01/22 05/24/22 Rx omeprazole 20 mg tablet,delayed 20 mg PO DAILY #90 tabs 04/02/22 05/24/22 Rx release warfarin 5 mg tablet 5 mg PO DAILY #30 tabs 04/12/22 05/24/22 Rx diclofenac sodium 1 % topical gel 2 g topical QID PRN pain #100 grams 04/14/22 05/24/22 Rx gabapentin enacarbil 300 mg 300 mg PO DAILY #30 tabs 04/14/22 05/24/22 Rx tablet,extended release ([facility]) semaglutide 0.25 mg or 0.5 mg (2 0.25 mg (0.2 mL) subcut WEEKLY 04/14/22 05/24/22 Rx mg/1.5 mL) subcutaneous pen #1.5 mL injector ([employer]) trazodone 100 mg tablet 200 mg PO HS #60 tabs 04/21/22 05/24/22 Rx citalopram 20 mg tablet 40 mg PO DAILY #180 tabs 04/23/22 05/24/22 Rx oxycodone 5 mg tablet 5 mg PO TID PRN Pain #90 tabs 04/26/22 05/24/22 Rx ferrous sulfate 325 mg (65 mg 325 mg PO DAILY #90 tabs 04/28/22 05/24/22 Rx iron) tablet cyclobenzaprine 10 mg tablet See Rx Instructions .Route 05/03/22 05/24/22 Rx .COMPLEX #90 tabs comp.stocking,knee,long,medium #12 ea 05/05/22 05/24/22 Rx doxepin 10 mg capsule 20 mg PO HS #60 caps 05/07/22 05/24/22 Rx benzonatate 200 mg capsule 200 mg PO TID PRN cough #30 caps 05/11/22 05/24/22 Rx doxycycline hyclate 100 mg tablet 100 mg PO BID #20 tabs 05/11/22 05/24/22 Rx promethazine 12.5 mg tablet See Rx Instructions .Route 05/12/22 05/24/22 Rx .COMPLEX #10 tabs gabapentin 800 mg tablet 800 mg PO QID 05/19/22 05/24/22 History simethicone 125 mg capsule 125 mg PO QID PRN FLATUS 05/19/22 05/24/22 History loperamide 2 mg capsule 4 mg PO DAILY PRN loose stool 1 05/21/22 05/24/22 Rx (Anti-Diarrheal (loperamide)) month #60 caps Patient hx anesthesia problems: none Family hx anesthesia problems: none Results Review: All pre-operative results and documents have been reviewed as part of the pre-operative evaluation. [facility] Past Medical History Medical History (Updated 05/24/22 @ 11:10 by Liam Ji MD) Acute migraine Anemia Anxiety Arthritis Bipolar disorder, rapid cycling BRBPR (bright red blood per rectum) Chronic fatigue Chronic pain Degenerative disk disease Depression Familial adenomatous polyposis Fibromyalgia Frequent loose stools Gastric polyps GERD (gastroesophageal reflux disease) History of blood clots History of blood transfusion
[2022-05-24 11:33] VITALS: BP 97/53; PULSE 77; RESP 12; TEMP 36.2; O2SAT 98
[2022-05-24 11:43] VITALS: BP 100/60; PULSE 74; RESP 14; TEMP 36.2; O2SAT 98
[2022-05-24 11:53] VITALS: BP 98/63; PULSE 70; RESP 14; TEMP 36.2; O2SAT 98
== END 2022-05-24 12:02 | disposition home or self-care (01) ==
PROVIDERS: PCP Internal Medicine; Visit Provider Internal Medicine Gastroenterology
PROC: 0DJD8ZZ Inspection of Lower Intestinal Tract, Via Natural or Artificial Opening Endoscopic (ICD-10-PCS; CPT 45330; principal; 2022-05-24 14:15)
PROC: 0DJ08ZZ Inspection of Upper Intestinal Tract, Via Natural or Artificial Opening Endoscopic (ICD-10-PCS; CPT 43235; 2022-05-24 14:15)
DX: K29.70 Gastritis, unspecified, without bleeding (principal); K21.9 Gastro-esophageal reflux disease without esophagitis; R13.10 Dysphagia, unspecified; K62.5 Hemorrhage of anus and rectum; K63.89 Other specified diseases of intestine
CPT/HCPCS: 43239; 45330; 88305; J2704; J7120

== ENCOUNTER 2022-06-02 15:48 | Outpatient (CLI) | payer OTHER, SELFPAY ==
[2022-06-02 16:07] LABS: Hematocrit 26.5 % (37.0-47.0); Mean Corpuscular HGB Conc 26.8 g/dl (32-36); Mean Corpuscular Hemoglobin 18.4 pg (26-34); Mean Corpuscular Volume 68.7 fl (80-100); Mean Platelet Volume 8.7 fl (7.4-10.4); Platelet Count Result 364 k/mm3 (150-375); Red Blood Count 3.86 M/mm3 (4.2-5.4); Red Cell Distribution Width 21.7 % (11.5-14.5); White Blood Count 6.4 K/mm3 (4.5-10.0)
[2022-06-02 16:10] LABS: Hemoglobin 7.1 g/dL (12.0-15.0)
[2022-06-02 16:42] LABS: Iron 22 ug/dL (37-170)
[2022-06-02 16:45] LABS: Alanine Aminotransferase 24 U/L (6-35); Albumin Level 4.1 g/dL (3.5-5.1); Alkaline Phosphatase 94 U/L (38-126); Anion Gap 9 mmol/L (8-16); Aspartate Amino Transferase 37 U/L (14-36); Bilirubin,Total 0.3 mg/dL (0.2-1.3); Blood Urea Nitrogen 15 mg/dL (7-17); Calcium 8.4 mg/dL (8.4-10.2); Carbon Dioxide 27 mmol/L (22-30); Chloride 101 mmol/L (98-107); Estimated Glomerular Filt Rate > 60; Glucose 91 mg/dL (65-110); Sodium 137 mmol/L (137-145)
[2022-06-02 16:59] LABS: Percent Iron Saturation 4 % (20-50)
[2022-06-02 17:19] LABS: Ferritin 5.57 ng/mL (6.24-137)
[2022-06-02 17:55] LABS: Folic Acid > 20.0 ng/mL (2.76->20)
== END 2022-06-02 15:49 | disposition home or self-care (01) ==
LOC: ANHLAB 15:49
PROVIDERS: PCP Internal Medicine; Visit Provider Internal Medicine Hematology & Oncology
DX: D64.9 Anemia, unspecified (principal)
CPT/HCPCS: 36415; 80053; 82607; 82728; 82746; 83540; 83550; 85027

== ENCOUNTER 2022-06-19 13:09 | Emergency (ER) | payer OTHER, SELFPAY ==
[2022-06-19] VITALS (28 sets, daily range): BP systolic 114–135; BP diastolic 62–82; PULSE 84–93; RESP 13–23; TEMP 36.3–37.1; O2SAT 96–100
--- NOTE | 2022-06-19 14:01 | ED.GENADULT ---
HPI - General Adult General Chief complaint: GI Bleed Stated complaint: anemia, weak Time Seen by Provider: 06/19/22 13:52 Source: patient, EMS and RN notes reviewed Mode of arrival: EMS Limitations: no limitations History of Present Illness HPI narrative: 46 years old white female presented to the ED with rectal bleeding for the last 2 months. Patient underwent EGD and colonoscopy with Dr. Pandya without any source of bleeding. Patient also been taking care of by Dr. Casarez. Patient used to be on warfarin for PE, stopped 2 weeks ago. Patient scheduled for iron infusion next week. Patient complaining of general fatigue, dizziness, chest tightness worse with ambulation and exertion. Patient lives alone. Patient hemoglobin on June 16, 2022 7.4, June 02 was 7.1. Related Data Home Medications Medication Instructions Recorded Confirmed melatonin 10 mg capsule 10 mg PO QHS 01/13/22 06/08/22 simethicone 125 mg capsule 125 mg PO QID PRN FLATUS 05/19/22 06/08/22 Allergies Allergy/AdvReac Type Severity Reaction Status Date / Time aspirin Allergy Severe Anaphylaxis Verified 06/17/22 13:40 latex Allergy Severe Blister Verified 06/17/22 13:40 salicylates Allergy Severe Anaphylaxis Verified 06/17/22 13:40 acetaminophen Allergy Intermediate Hypertensio Verified 06/17/22 13:40 n/HYPOTENSI ON erythromycin base Allergy Intermediate Rash Verified 06/17/22 13:40 Review of Systems Review of Systems: All systems reviewed & are unremarkable except as noted in HPI and below PMFSH Past Medical History Medical History Acute migraine Anemia Anxiety Arthritis Bipolar disorder, rapid cycling BRBPR (bright red blood per rectum) Chronic fatigue Chronic pain Degenerative disk disease Depression Familial adenomatous polyposis Fibromyalgia Frequent loose stools Gastric polyps GERD (gastroesophageal reflux disease) History of blood clots History of blood transfusion 04/15/2021 History of herpes zoster History of pulmonary embolism History of thyroid disease Insomnia Irritable bowel syndrome with diarrhea Migraines Missed x1 Neurogenic bladder OCD (obsessive compulsive disorder) Plantar fascia syndrome PTSD (post-traumatic stress disorder) Sensory neuronopathy Thyroid disorder TMJ (dislocation of temporomandibular joint) Surgical History Surgical History H/O breast augmentation 2012 H/O colectomy 2020, partial History of back surgery 2020, placement of interstim device History of bladder surgery 2017 History of bunionectomy 2019 History of section x1 History of cholecystectomy 2008 History of hemorrhoidectomy Exam under anesthesia, external hemorrhoidectomy 2 columns, anal polypectomy x 4 01/25/2022 History of hysterectomy 2019 Hx of breast reduction, elective 2010 Family History Family History Mother , drowning Hyperlipemia Uterine cancer Hypertension Alcoholism Anxiety and depression Thyroid disorder Grandparent Uterine cancer Carcinoma of colon Colon polyp Alcoholism Hypertension Anxiety and depression Cerebrovascular accident Thyroid disorder Other Cancer uncle, aunt Father Hypertension Social History Social History Smoking status: Never smoker Second hand tobacco smoke exposure: Yes Alcohol intake: never Substance use: never Substance use type: does not use Lack of Transportation: No Lack of Food: Often True Current Housing: I Have Housing Concerned About Future Housing: No Difficulty Paying Gas/Electric Bills: No Difficulty Paying for Meds: No Currently Unemployed: No Education: High School Diploma/GED Difficulty w/ Childcare or Family Care: No Additional occupation/e
[2022-06-19 14:11] LABS: Basophils Absolute Auto 0.1 K/mm3 (0.0-0.1); Basophils Percent Auto 0.9 % (0.2-1.2); Eosinophils Absolute Auto 0.2 K/mm3 (0-0.3); Eosinophils Percent Auto 2.4 % (0-4.4); Hematocrit 27.3 % (37.0-47.0); Hemoglobin 7.3 g/dL (12.0-15.0); Immature Granulocyte Absolute 0.02 K/mm3 (0.00-0.031); Immature Granulocyte Percent A 0.3 % (0-0.5); Lymphocytes Absolute Auto 2.32 K/mm3 (0.9-3.2); Lymphocytes Percent Auto 34.7 % (18.3-44.2); Mean Corpuscular HGB Conc 26.7 g/dl (32-36); Mean Corpuscular Hemoglobin 18.3 pg (26-34); Mean Corpuscular Volume 68.4 fl (80-100); Mean Platelet Volume 8.4 fl (7.4-10.4); Monocytes Absolute Auto 0.8 K/mm3 (0.1-0.6); Monocytes Percent Auto 11.4 % (2.6-8.5); Neutrophils Absolute Auto 3.4 K/mm3 (1.3-6.7); Neutrophils Percent Auto 50.3 % (45.5-73.1); Nucleated Red Blood Cells Perc 0.3 % (0.0-0.2); Platelet Count Result 401 k/mm3 (150-375); Red Blood Count 3.99 M/mm3 (4.2-5.4); Red Cell Distribution Width 21.8 % (11.5-14.5); White Blood Count 6.7 K/mm3 (4.5-10.0)
[2022-06-19 14:24] LABS: Alanine Aminotransferase 62 U/L (6-35); Albumin Level 4.2 g/dL (3.5-5.1); Alkaline Phosphatase 126 U/L (38-126); Anion Gap 7 mmol/L (8-16); Aspartate Amino Transferase 68 U/L (14-36); Bilirubin,Total 0.2 mg/dL (0.2-1.3); Blood Urea Nitrogen 18 mg/dL (7-17); Calcium 8.8 mg/dL (8.4-10.2); Carbon Dioxide 26 mmol/L (22-30); Chloride 101 mmol/L (98-107); Estimated CRCL calculation 103 ml/min; Estimated Glomerular Filt Rate > 60; Glucose 95 mg/dL (65-110); Potassium 3.6 mmol/L (3.4-5.0); Sodium 134 mmol/L (137-145)
[2022-06-19 14:28] LABS: INR 1.2
[2022-06-19 14:29] LABS: Partial Thromboplastin Time 32.6 SECONDS (22.3-36.8)
[2022-06-19 14:32] LABS: Anisocytosis 1+ (NORMAL); Hypochromasia 1+ (NORMAL); Microcytosis 1+ (NORMAL); Ovalocytes 1+ (NORMAL); Platelet Estimate Increased (Adequate); Schistocytes None Seen (NORMAL)
[2022-06-19 15:15] LABS: SARS-CoV-2 RNA PCR Negative
[2022-06-19] MEDS: TUBING, BLOOD PLUM PUMP TUBING 1 EACH XX (17:43)
[2022-06-19] MEDS: SODIUM CHLORIDE 0.9% IV 250 ML 30 ML IV CONT (17:43)
== END 2022-06-19 19:37 | disposition home or self-care (01) ==
PROVIDERS: Emergency Provider Emergency Medicine; PCP Internal Medicine
DX: D64.9 Anemia, unspecified (principal); Z20.822 Contact with and (suspected) exposure to COVID-19; Z86.711 Personal history of pulmonary embolism
CPT/HCPCS: 36415; 36430; 80053; 85025; 85610; 85730; 86850; 86900; 86901; 86920; 96360; 96361; 99285; J7050; P9016; U0003; U0005

== ENCOUNTER 2022-06-21 12:07 | Outpatient (CLI) | payer OTHER, SELFPAY ==
--- NOTE | ~2022-06-21 | US_ITS ---
EXAMINATION:US venous doppler LE LT INDICATION:Acute DVT. TECHNIQUE: Multiple grayscale, color flow and Doppler images of the left lower extremity deep venous systems were obtained and reviewed. COMPARISON:No prior studies for comparison. FINDINGS: The common femoral, superficial femoral and popliteal veins demonstrate normal respiratory variation, augmentation and compressibility. Color flow is also seen within the posterior tibial, pe roneal, greater saphenous and profunda veins. IMPRESSION: 1: No lower extremity deep venous thrombosis. Reviewed, dictated and finalized at location A. SERVICE EDUCATION TEACHER
== END 2022-06-21 12:08 | disposition home or self-care (01) ==
PROVIDERS: PCP Internal Medicine; Visit Provider Internal Medicine Hematology & Oncology
DX: I82.4Y2 Acute embolism and thrombosis of unspecified deep veins of left proximal lower extremity (principal)
CPT/HCPCS: 36415; 80053; 82607; 82728; 82746; 83540; 83550; 85025; 93971

== ENCOUNTER 2022-07-23 09:56 | Outpatient (CLI) | payer OTHER, SELFPAY ==
[2022-07-23 10:53] LABS: Hemoglobin A1C 4.9 % (<5.7)
== END 2022-07-23 09:57 | disposition home or self-care (01) ==
LOC: ANHLAB 09:58
PROVIDERS: PCP Internal Medicine; Visit Provider Internal Medicine
DX: R73.9 Hyperglycemia, unspecified (principal)
CPT/HCPCS: 36415; 83036

== ENCOUNTER 2022-07-26 06:08 | Outpatient (CLI) | payer OTHER, SELFPAY ==
--- NOTE | 2022-07-26 06:39 | SUR.OPER ---
Patient brought to GI Lab. Instructions for patient undergoing Capsule Endoscopy reviewed with patient. Consent form signed. Patient swallowed capsule with 8 ozs of water. Patient instructed they may have clear liquids at 0900 this AM and eat or drink at 1100 this AM. Patient instructed to call [phone] or to return to the hospital if any nausea and vomiting or abdominal pain is experienced.
== END 2022-07-26 06:09 | disposition home or self-care (01) ==
LOC: ANHENDO 06:12
PROVIDERS: PCP Internal Medicine; Visit Provider Internal Medicine Gastroenterology
PROC: 0DJ07ZZ Inspection of Upper Intestinal Tract, Via Natural or Artificial Opening (ICD-10-PCS; CPT 91110; principal; 2022-07-26 07:00)
DX: D50.9 Iron deficiency anemia, unspecified (principal)
CPT/HCPCS: 91110

== ENCOUNTER 2022-07-27 10:01 | Outpatient (CLI) | payer OTHER, SELFPAY ==
--- NOTE | ~2022-07-27 | XR_ITS ---
EXAMINATION: XR abdomen/kub 1V INDICATION: Post patency capsule endoscopy TECHNIQUE: Supine views of the abdomen were obtained on 2 radiographs. COMPARISON: 02/21/2022 FINDINGS: The bowel gas pattern is normal. There are no dilated loops of bowel. No capsule endoscope is identified. The visualized lung bases are clear. Surgical clips in the right upper quadrant are li je from prior cholecystectomy. There are phleboliths of the pelvis. A neurostimulator device projec ts over the left pelvis and its lead enters the right pelvis. IMPRESSION: 1. Unremarkable abdominal radiographs. No capsule endoscope identified. Reviewed, dictated and finalized at location L. UE GRADER
--- NOTE | ~2022-07-27 | MM_ITS ---
EXAMINATION: MM diag merissa implant BI w nick HISTORY: Bilateral lateral wrist pain TECHNIQUE: Implant displaced ML, MLO and CC 3-D tomosynthesis images of both breasts were performed a nd synthetic 2-D images were generated. Bilateral implant ML, MLO and CC views. CAD analysis was subm itted and interpreted. COMPARISON: None BREAST PARENCHYMAL COMPOSITION: There are scattered areas of fibroglandular density. FINDINGS: Status post bilateral augmentation mammoplasty. No suspicious mass or architectural distortion, malignant calcification, skin thickening or retractio n is detected. IMPRESSION: 1. No mammographic evidence of malignancy 2. Routine mammographic screening is recommended. BI-RADS Category 1: Negative Reviewed, dictated and finalized at location A. NEER
== END 2022-07-27 10:02 | disposition home or self-care (01) ==
PROVIDERS: PCP Internal Medicine; Visit Provider Nurse Practitioner
DX: N64.4 Mastodynia (principal); D64.9 Anemia, unspecified
CPT/HCPCS: 74018; 77062; 77066; G0279

== ENCOUNTER 2022-08-04 06:07 | Outpatient (CLI) | payer OTHER, SELFPAY ==
--- NOTE | 2022-08-04 06:55 | SUR.OPER ---
Patient brought to GI Lab. Instructions for patient undergoing Capsule Endoscopy reviewed with patient. Consent form signed. Sensor array applied to patient's abdomen and connected to recorded. Patient swallowed capsule with 2 cups of water infused with Simethicone. Patient instructed they may have clear liquids at 0830 this AM and eat or drink at 1030 this AM. Patient instructed to return to GI Lab at 1500 this afternoon for removal of recording device and to call [phone] or to return to the hospital if any nausea and vomiting or abdominal pain is experienced.
--- NOTE | 2022-08-05 07:11 | SUR.PHASEII ---
Patient returned to the GI Lab at 1520 for recorder box removal. Patient voiced no complaints. States they have understanding of instructions. Patient left ambulatory.
== END 2022-08-04 06:08 | disposition home or self-care (01) ==
PROVIDERS: PCP Internal Medicine; Referring Provider Internal Medicine Cardiovascular Disease; Visit Provider Internal Medicine Gastroenterology
PROC: 0DJ07ZZ Inspection of Upper Intestinal Tract, Via Natural or Artificial Opening (ICD-10-PCS; CPT 91110; principal; 2022-08-04 07:00)
DX: Z01.818 Encounter for other preprocedural examination (principal)
CPT/HCPCS: 91110

== ENCOUNTER 2022-08-23 08:01 | Outpatient (CLI) | payer OTHER, SELFPAY ==
[2022-08-23 08:38] LABS: Hematocrit 37.1 % (37.0-47.0); Hemoglobin 11.6 g/dL (12.0-15.0); Mean Corpuscular HGB Conc 31.3 g/dl (32-36); Mean Corpuscular Hemoglobin 25.6 pg (26-34); Mean Corpuscular Volume 81.9 fl (80-100); Mean Platelet Volume 8.8 fl (7.4-10.4); Platelet Count Result 262 k/mm3 (150-375); Red Blood Count 4.53 M/mm3 (4.2-5.4); Red Cell Distribution Width 23.7 % (11.5-14.5); White Blood Count 4.9 K/mm3 (4.5-10.0)
[2022-08-23 08:47] LABS: Anion Gap 3 mmol/L (8-16); Blood Urea Nitrogen 17 mg/dL (7-17); Calcium 8.8 mg/dL (8.4-10.2); Carbon Dioxide 29 mmol/L (22-30); Chloride 102 mmol/L (98-107); Estimated Glomerular Filt Rate > 60; Glucose 88 mg/dL (65-110); Sodium 134 mmol/L (137-145)
[2022-08-23 08:59] LABS: Iron 52 ug/dL (37-170)
[2022-08-23 09:11] LABS: Percent Iron Saturation 12 % (20-50)
== END 2022-08-23 08:02 | disposition home or self-care (01) ==
PROVIDERS: PCP Internal Medicine; Referring Provider Internal Medicine Hematology & Oncology; Visit Provider Internal Medicine
DX: D64.9 Anemia, unspecified (principal)
CPT/HCPCS: 36415; 80048; 80307; 82728; 83540; 83550; 85027

== ENCOUNTER 2022-09-09 01:21 | Day surgery (SDC) | payer OTHER, SELFPAY ==
[2022-09-02 10:35] VITALS: BMI 41.2
--- NOTE | 2022-09-02 10:45 | PC.NURSE ---
Report to the Outpatient Waiting Room, entrance under the green pavilion located off [facility], at time 0830 on date 09/09/22. Planned Procedure Time: 1030. Time changes happen often and if your time is changed the preop area will call you the afternoon before. - You and your visitor will be asked to self-screen and do not enter if you have any COVID symptoms. - Only one visitor is requested with a max of two and NO children visitors are allowed at this time. - The patient visitor may be requested to leave or wait in car when not with patient due to distancing restrictions. - A mask is optional within the hospital at this time. Patients may have clear liquids (water, carbonated beverages, clear teas, apple juice) until 3 hours prior to surgery with a maximum of 20 ounces. - No food from midnight until time of surgery Take the following medications with a SIP of water the morning of surgery: BUSPIRONE, CYCLOBENZAPRINE, GABAPENTIN, OLANZEPINE, TRAMADOL DO NOT STOP ANY OF YOUR OTHER PRESCRIPTION MEDICATIONS PRIOR TO SURGERY EXCEPT THE FOLLOWING Medications to discontinue per physician: VITAMINS/SUPPLEMENTS Date to take last dose: 09/05/22 Please no make-up, nail pashto, hairspray, perfume, deodorant, or body powder the day of surgery. No jewelry (including any body piercings) or valuables the day of surgery, leave them at home. Please take a shower or bath the night before, or the morning of, surgery with an antibacterial soap. Wear comfortable, loose fitting clothing. - Jewelry must be removed prior to entering the operating room. Rings and piercings that are not removed may be cut off. - The hospital will not accept responsibility for valuables. - Please leave all valuables, including medications, at home the day of surgery. If you are going home after surgery, a licensed car pick up driver must drive you home. - NO public transportation without another adult if you receive anesthesia. - We recommend that an adult stay with you for 24 hours following discharge. - We also recommend that you do not drive, make important decision, drink alcoholic beverages, or take any drugs that were not prescribed by your health care provider for at least 24 hours after your discharge time. Follow any additional instructions given to you from your surgeon. If you or anyone in your household have experienced Covid symptoms in the past week, please notify your surgeon or the nurse liaison at the phone number below for possible testing. Telephone instructions given to KRISTYN CONTRERAS and asked if any additional questions and then verbalized understanding. Patient advised to call surgeon office or pre surgery nurse liaison [phone] if any additional questions.
--- NOTE | 2022-09-09 07:15 | WPDHPUPDATE1 ---
History and Physical Update Update Date/Time: 09/09/22 07:15 History and Physical has been reviewed, including an updated exam of the patient. There are NO changes in the patient's condition. Risks, benefits, and alternatives have been discussed and questions answered. Patient agrees to proceed with procedure.
[2022-09-09 09:18] VITALS: BP 122/89; PULSE 89; RESP 14; TEMP 36.6; O2SAT 97
[2022-09-09] MEDS: LACTATED RINGERS 1,000 ML 30 ML IV CONT (09:22)
--- NOTE | 2022-09-09 11:23 | WPDANESEPPF ---
Anes - Initial Pre Proc Eval Procedure: Operation Date: 09/09/22 10:30 Proposed Procedures p Right Open Carpal Tunnel Release - Genaro Tuttle MD Date/Time: 09/09/22 11:23 Surgeon: Genaro Tuttle MD Pre Op Diagnosis: Right Carpal Tunnel Syndrome Patient Data Age: 46 Gender: F Height: 1.63 m Weight: 107.7 kg Last Vital Signs Temp 98 F 09/09/22 09:18 Pulse 89 09/09/22 09:18 Resp 14 09/09/22 09:18 BP 122/89 09/09/22 09:18 Pulse Ox 97 09/09/22 09:18 O2 Del Method Room Air 09/09/22 09:18 Allergies Allergy/AdvReac Type Severity Reaction Status Date / Time aspirin Allergy Severe Anaphylaxis Verified 09/09/22 09:23 latex Allergy Severe Blister Verified 09/09/22 09:23 salicylates Allergy Severe Anaphylaxis Verified 09/09/22 09:23 acetaminophen Allergy Intermediate Hypertensio Verified 09/09/22 09:23 n/HYPOTENSI ON erythromycin base Allergy Intermediate Rash Verified 09/09/22 09:23 Home Medications Medication Instructions Recorded Confirmed Type olanzapine 5 mg disintegrating 5 mg PO BID #90 tabs 10/15/21 09/02/22 Rx tablet sumatriptan succinate 100 mg tablet See Rx Instructions PO .COMPLEX 12/15/21 09/02/22 Rx #90 tabs melatonin 10 mg capsule 10 mg PO QHS 01/13/22 09/02/22 History citalopram 20 mg tablet 40 mg PO DAILY #180 tabs 04/23/22 09/02/22 Rx simethicone 125 mg capsule 125 mg PO QID PRN FLATUS 05/19/22 09/02/22 History loperamide 2 mg capsule 4 mg PO DAILY PRN loose stool 1 05/21/22 09/02/22 Rx (Anti-Diarrheal (loperamide)) month #60 caps olanzapine 10 mg tablet 10 mg PO HS #90 tabs 07/30/22 09/02/22 Rx doxepin 10 mg capsule 20 mg PO HS #90 caps 08/04/22 09/02/22 Rx aripiprazole 20 mg tablet 20 mg PO DAILY #30 tabs 08/05/22 09/02/22 Rx lansoprazole 30 mg capsule,delayed 30 mg PO DAILY #30 caps 08/05/22 09/02/22 Rx release (Prevacid) trazodone 100 mg tablet See Rx Instructions .Route 08/16/22 09/02/22 Rx .COMPLEX #60 tabs buspirone 5 mg tablet 5 mg PO BID #60 tabs 08/25/22 09/02/22 Rx phentermine 37.5 mg tablet 37.5 mg PO DAILY #30 tabs 08/26/22 09/02/22 Rx (Adipex-P) tramadol 50 mg tablet 100 mg PO Q8H PRN pain #180 tabs 08/26/22 09/09/22 Rx gabapentin 800 mg tablet See Rx Instructions .Route 08/31/22 09/09/22 Rx .COMPLEX #120 tabs furosemide 40 mg tablet (Lasix) 40 mg PO QAM #30 tabs 09/02/22 Rx omeprazole 20 mg capsule,delayed 20 mg PO DAILY 09/02/22 09/09/22 History release cyclobenzaprine 10 mg tablet See Rx Instructions .Route 09/03/22 Rx .COMPLEX #90 tabs Patient hx anesthesia problems: none Family hx anesthesia problems: none Results Review: All pre-operative results and documents have been reviewed as part of the pre-operative evaluation. [facility] Past Medical History Medical History (Updated 08/27/22 @ 23:25 by Ash Singh MD) Acute migraine Anemia Anxiety Arthritis Bipolar disorder, rapid cycling BRBPR (bright red blood per rectum) Chronic fatigue Chronic pain Degenerative disk disease Depression Familial adenomatous polyposis Fibromyalgia Frequent loose stools Gastric polyps GERD (gastroesophageal reflux disease) History of blood clots History of blood transfusion 04/15/2021 History of herpes zoster History of pulmonary embolism History of thyroid disease Insomnia Irritable bowel syndrome with diarrhea Migraines Missed x1 Neurogenic bladder OCD (obsessive compulsive disorder) Plantar fascia syndrome PTSD (post-traumatic stress disorder) Sensory neuronopathy Small intestinal bacterial overgrowth (SIBO) Thyroid disorder TMJ (dislocation of temporomandibular joint) Surgical History Surgical History H/O breast augmentation 2012 H/O colectomy 2020, partial History of back surgery 2020, placement of interstim device History of bladder surgery 2016 History of bunionectomy 2019 History of section x1 History
[2022-09-09] MEDS: LIDO 1%/EPINEPHRINE 1:100,000 20 ML VIAL INFILTRATE (11:45)
[2022-09-09 12:13] VITALS: BP 118/71; PULSE 82; RESP 14; O2SAT 100
--- NOTE | 2022-09-09 12:13 | P.OP_ITS ---
Procedure Note - Detailed Date of Procedure 09/09/22 Pre-op Diagnosis Right Carpal Tunnel Syndrome Post-op Diagnosis Same Procedure Performed Right open carpal tunnel release Surgeon Genaro Tuttle MD Anesthesia MAC Description of Procedure The carpal canal site was marked on patient with her consent. She was then taken to the operating room where she was placed supine on the operating table. A time-out was held confirmed. She was given IV sedation and the extremity was prepped and draped in usual fashion. The site was marked for the incision and locally infiltrated with 1% lidocaine with epinephrine. The tourniquet was inflated to 250 mmHg. The incision was made as marked and dissection was car ried through the subcutaneous tissue to the palmar aponeurosis. This and the carpal ligament were in size with a 15 blade. Under 3 point retraction the ligament was divided distally and proximally to completely release it. There was no unusual anatomy noted. The skin was closed with interrupted 5 0 nylon suture. Estimated Blood Loss 0 Tourniquet Time 17 Drains No Packing No Pathology None sent Complications No immediate complications Condition Stable Disposition Same day
[2022-09-09 12:40] VITALS: BP 127/70; PULSE 81; RESP 14
[2022-09-09] MEDS: oxyCODONE HCL (*CRX) 5 MG TAB IR PO (12:54)
[2022-09-09 13:10] VITALS: BP 117/60; PULSE 79; RESP 14
== END 2022-09-09 13:35 | disposition home or self-care (01) ==
PROVIDERS: PCP Internal Medicine; Visit Provider Plastic Surgery
PROC: (CPT 64721; principal; 2022-09-09 10:30)
DX: G56.01 Carpal tunnel syndrome, right upper limb (principal); K21.9 Gastro-esophageal reflux disease without esophagitis; M79.7 Fibromyalgia; F31.9 Bipolar disorder, unspecified; K58.0 Irritable bowel syndrome with diarrhea; F42.8 Other obsessive-compulsive disorder; F43.10 Post-traumatic stress disorder, unspecified; F41.9 Anxiety disorder, unspecified; E66.01 Morbid (severe) obesity due to excess calories; Z68.41 Body mass index [BMI] 40.0-44.9, adult
CPT/HCPCS: 64721; A9270; J2250; J2704; J3010; J7120

== ENCOUNTER 2022-09-21 14:47 | Outpatient (CLI) | payer OTHER, SELFPAY ==
--- NOTE | ~2022-09-21 | XR_ITS ---
XR lumbar spine 2-3V DATE: 09/21/2022 15:07 INDICATION: Chronic bilateral low back pain TECHNIQUE: AP, lateral, coned lateral lumbosacral views COMPARISON: None FINDINGS: Mild levoscoliosis of the lower thoracic and lumbar spine. Normal alignment of the lumbar s pine. No fracture or bone destruction or spondylolisthesis. Included lower thoracic and lumbar pedicl es are intact. Lumbar and lumbosacral interspaces are relatively preserved. The sacroiliac joints are intact. Left sided battery pack with right S3 neurotransmitter lead Status post cholecystectomy. IMPRESSION: Mild levoscoliosis Reviewed, dictated and finalized at location L. ARY CIRCULATION ASSISTANT IMPRESSION: Mild levoscoliosis
== END 2022-09-21 14:48 | disposition home or self-care (01) ==
PROVIDERS: Visit Provider Internal Medicine
DX: M54.50 Low back pain, unspecified (principal); G89.29 Other chronic pain
CPT/HCPCS: 72100

== ENCOUNTER 2022-09-24 19:36 | Inpatient (IN) | payer OTHER, SELFPAY ==
[2022-09-24] VITALS (24 sets, daily range): BP systolic 119–142; BP diastolic 71–85; PULSE 77–92; RESP 18–20; TEMP 36.6–36.7; O2SAT 95–98
--- NOTE | ~2022-09-24 | CT_ITS ---
EXAMINATION: CT abdomen pelvis w con DATE: 09/24/2022 21:26 INDICATION: Epigastric pain and diffuse cramping. Nausea and diarrhea. TECHNIQUE: Computed tomography (CT) of the abdomen and pelvis was performed with 100 mL Omnipaque-350 intravenous contrast. Automated exposure control and iterative reconstruction technique were employe d. The dose-length product was 1374.82 mGy-cm. COMPARISON: 03/03/2022 FINDINGS: Lung bases are clear. Heart size normal. No pericardial or pleural effusion. Partially visualized freddy ateral breast implants. Again seen is mild intra and extrahepatic biliary ductal dilation likely rela rosas to prior cholecystectomy with surgical clips at the gallbladder fossa. Spleen, pancreas, bilatera l adrenal glands and left kidney are normal. No interval change in a subcentimeter low-attenuation li je cyst at the lower pole of the right kidney which remains too small to definitively characterize. Right hemicolectomy with ileocolic anastomosis in the central lower abdomen. No bowel obstruction. T here is mild wall thickening along the short segment of small bowel at the ileocolic anastomosis ther e is extensive moderate amount of stool. There are few diverticula along the cord distal remaining co avila without adjacent inflammatory stranding to suggest diverticulitis. Bladder is normal. The uterus is not identified and has likely been surgically resected. No free intraperitoneal gas or fluid. No p athologically enlarged abdominal or pelvic lymphadenopathy. Midline anterior abdominal postoperative scarring. IMPRESSION: 1. Status post right hemicolectomy with moderate amount stool extending through the ileocolic anastom osis and with mild wall thickening of the small bowel at the anastomosis suggestive of stercoral ente ritis. Reviewed, dictated and finalized at location A. METER REPAIRER IMPRESSION: 1. Status post right hemicolectomy with moderate amount stool extending through the ileocolic anastomosis and with mild wall thickening of the small bowel at the anastomosis suggestive of stercoral enteritis.
[2022-09-24 20:32] LABS: Basophils Absolute Auto 0.1 K/mm3 (0.0-0.1); Basophils Percent Auto 0.7 % (0.2-1.2); Eosinophils Absolute Auto 0.2 K/mm3 (0-0.3); Eosinophils Percent Auto 2.8 % (0-4.4); Hematocrit 36.9 % (37.0-47.0); Hemoglobin 11.6 g/dL (12.0-15.0); Immature Granulocyte Absolute 0.01 K/mm3 (0.00-0.031); Immature Granulocyte Percent A 0.1 % (0-0.5); Lymphocytes Absolute Auto 2.56 K/mm3 (0.9-3.2); Lymphocytes Percent Auto 35.8 % (18.3-44.2); Mean Corpuscular HGB Conc 31.4 g/dl (32-36); Mean Corpuscular Hemoglobin 26.3 pg (26-34); Mean Corpuscular Volume 83.7 fl (80-100); Mean Platelet Volume 8.9 fl (7.4-10.4); Monocytes Absolute Auto 0.7 K/mm3 (0.1-0.6); Monocytes Percent Auto 9.5 % (2.6-8.5); Neutrophils Absolute Auto 3.7 K/mm3 (1.3-6.7); Neutrophils Percent Auto 51.1 % (45.5-73.1); Platelet Count Result 278 k/mm3 (150-375); Red Blood Count 4.41 M/mm3 (4.2-5.4); Red Cell Distribution Width 16.4 % (11.5-14.5); White Blood Count 7.2 K/mm3 (4.5-10.0)
[2022-09-24 20:36] LABS: Appearance Urine Clear (Clear); Bilirubin Urine Negative (Negative); Blood Urine Negative (Negative); Color Urine Yellow (Yellow); Glucose Urine UA Negative (Negative); Ketones Urine Negative (Negative); Leukocyte Esterase Ur Negative LEU/UL (Negative); Nitrate Urine Negative (Negative); Protein Urine Negative (Negative); Specific Grav Ur 1.004 (1.001-1.035); Urobilinogen Urine 0.2 mg/dL (<2.0)
[2022-09-24 20:40] LABS: Pregnancy On Board Control Positive; Urine Pregnancy Test Negative
[2022-09-24 20:43] LABS: Add Urine Microscopic? NO
[2022-09-24 20:57] LABS: Alanine Aminotransferase 26 U/L (6-35); Albumin Level 4.3 g/dL (3.5-5.1); Alkaline Phosphatase 101 U/L (38-126); Anion Gap 4 mmol/L (8-16); Aspartate Amino Transferase 31 U/L (14-36); Bilirubin,Total 0.3 mg/dL (0.2-1.3); Blood Urea Nitrogen 18 mg/dL (7-17); Calcium 9.3 mg/dL (8.4-10.2); Carbon Dioxide 28 mmol/L (22-30); Chloride 103 mmol/L (98-107); Estimated CRCL calculation 75 ml/min; Estimated Glomerular Filt Rate 60; Glucose 89 mg/dL (65-110); Lipase 125 U/L (23-300); Sodium 135 mmol/L (137-145)
[2022-09-24] MEDS: ONDANSETRON INJ 4 MG/2 ML VIAL IV PUSH (21:49)
[2022-09-24] MEDS: PANTOPRAZOLE SODIUM IV 40 MG VIAL IV PUSH (21:49)
[2022-09-24] MEDS: SODIUM CHLORIDE 0.9% IV 1,000 ML 999 ML IV CONT (21:49)
--- NOTE | 2022-09-24 21:57 | ED.ABDPAIN ---
HPI - Abdominal Pain General Chief Complaint: Abdominal Pain Stated Complaint: abd pain Time Seen by Provider: 09/24/22 20:18 Source: patient and old records reviewed Mode of arrival: ambulatory Limitations: no limitations History of Present Illness HPI narrative: Patient is a 46 y/o female who presents to the ED with multiple complaints. Patient reports having diffuse cramping pain throughout her abdomen and epigastric region for the last 1 week. Patient has multiple GI issues, including previous hemicolectomy due to familial adenomatous polyposis. She sees Dr. Parish Murray. She states she was recently diagnosed with small intestinal bacterial overgrowth and started on Augmentin earlier this week, as well as Bentyl. She also reports having nausea, diarrhea, abdominal bloating, urinary frequency, dizziness. Patient has been taking her Bentyl as prescribed, but states pain became worse today. Denied any relief with the Bentyl. She has not tried anything further for pain. She denies any fever, dysuria, hematuria, chest pain, difficulty breathing, headache, vision changes. Related Data Home Medications Medication Instructions Recorded Confirmed melatonin 10 mg capsule 10 mg PO QHS 01/13/22 09/21/22 simethicone 125 mg capsule 125 mg PO QID PRN FLATUS 05/19/22 09/21/22 omeprazole 20 mg capsule,delayed 20 mg PO DAILY 09/02/22 09/21/22 release Allergies Allergy/AdvReac Type Severity Reaction Status Date / Time aspirin Allergy Severe Anaphylaxis Verified 09/24/22 19:56 latex Allergy Severe Blister Verified 09/24/22 19:56 salicylates Allergy Severe Anaphylaxis Verified 09/24/22 19:56 acetaminophen Allergy Intermediate Hypertensio Verified 09/24/22 19:56 n/HYPOTENSI ON erythromycin base Allergy Intermediate Rash Verified 09/24/22 19:56 Review of Systems Review of Systems: CONSTITUTIONAL: Denies fever, chills, or sweats. EYES: Denies visual changes. CARDIOVASCULAR: Denies chest pain. RESPIRATORY: Denies dyspnea. GASTROINTESTINAL: See HPI. GENITOURINARY: See HPI. SKIN: Denies rash or itching. MUSCULOSKELETAL: Denies back pain, joint pain, or myalgia. NEUROLOGIC: See HPI. All systems reviewed & are unremarkable except as noted in HPI and below PMFSH Past Medical History Medical History Acute migraine Anemia Anxiety Arthritis Bipolar disorder, rapid cycling BRBPR (bright red blood per rectum) Chronic fatigue Chronic pain Degenerative disk disease Depression Familial adenomatous polyposis Fibromyalgia Frequent loose stools Gastric polyps GERD (gastroesophageal reflux disease) History of blood clots History of blood transfusion 04/15/2021 History of herpes zoster History of pulmonary embolism History of thyroid disease Insomnia Irritable bowel syndrome with diarrhea Migraines Missed x1 Neurogenic bladder OCD (obsessive compulsive disorder) Plantar fascia syndrome PTSD (post-traumatic stress disorder) Sensory neuronopathy Small intestinal bacterial overgrowth (SIBO) Thyroid disorder TMJ (dislocation of temporomandibular joint) Surgical History Surgical History H/O breast augmentation 2012 H/O colectomy 2020, partial History of back surgery 2020, placement of interstim device History of bladder surgery 2017 History of bunionectomy 2019 History of section x1 History of cholecystectomy 2008 History of hemorrhoidectomy Exam under anesthesia, external hemorrhoidectomy 2 columns, anal polypectomy x 4 01/25/2022 History of hysterectomy 2019 Hx of breast reduction, elective 2010 Family History Family History Mother , drowning Hyperlipemia Uterine cancer Hypertension Alcoholism Anxiety and depression Thyroid disorder Grandparent Uterine cancer Carcino
[2022-09-24] MEDS: MORPHINE SULFATE (*CRX) 4 MG/ML INJ IV PUSH (22:01)
[2022-09-25] VITALS (18 sets, daily range): BP systolic 108–136; BP diastolic 63–81; PULSE 69–97; RESP 18–20; TEMP 36.2–37.2; O2SAT 94–97; BMI 40.5
[2022-09-25] MEDS: DICYCLOMINE HCL INJ 20 MG/2 ML VIAL IM (00:53)
--- NOTE | 2022-09-25 02:36 | ECG_ITS ---
Measurements Intervals [place] Rate: 82 P: 22 AK: 169 QRS: 19 QRSD: 86 T: 8 QT: 351 QTc: 411 Interpretive Statements SINUS RHYTHM MINIMAL Q WAVES- HIGH LATERAL LEADS BORDERLINE ECG NO PREVIOUS ECG AVAILABLE FOR COMPARISON Electronically Signed On 09-25-2022 6:58:07 TRAVEL NURSE by Rolo Knox D.O.
[2022-09-25] MEDS: ONDANSETRON INJ 4 MG/2 ML VIAL IV PUSH ×3 (03:06→12:09)
[2022-09-25] MEDS: MORPHINE SULFATE (*CRX) 4 MG/ML INJ IV PUSH (03:06)
[2022-09-25] MEDS: SODIUM CHLORIDE 0.9% IV 1,000 ML 999 ML IV CONT (03:21)
--- NOTE | 2022-09-25 04:12 | PM.IMHP ---
H&P: HPI History of Present Illness Date/Time: 09/25/22 04:12 Chief Complaint: Abdominal pain Narrative: This is a 46-year-old female with past medical history significant for chronic abdominal pain, familial polyposis syndrome status post partial colectomy (right hemicolectomy), fibromyalgia, posttraumatic stress disorder, generalized anxiety disorder, bipolar disorder, chronic fatigue, chronic pain, GERD. Patient presents to the emergency room due to abdominal pain worsened in the last 2 days or so had some nausea but no vomiting, had night sweats, was recently diagnosed with bacterial overgrowth syndrome, patient taking Augmentin at home pain is localized in the epigastric area with radiation bilaterally to both flanks. Preliminary workup was significant for a CBC showed a hemoglobin of 11, for CT of abdomen and pelvis reported as: FINDINGS: Lung bases are clear. Heart size normal. No pericardial or pleural effusion. Partially visualized bilateral breast implants. Again seen is mild intra and extrahepatic biliary ductal dilation likely related to prior cholecystectomy with surgical clips at the gallbladder fossa. Spleen, pancreas, bilateral adrenal glands and left kidney are normal. No interval change in a subcentimeter low-attenuation likely cyst at the lower pole of the right kidney which remains too small to definitively characterize. Right hemicolectomy with ileocolic anastomosis in the central lower abdomen. No bowel obstruction. There is mild wall thickening along the short segment of small bowel at the ileocolic anastomosis there is extensive moderate amount of stool. There are few diverticula along the cord distal remaining colon without adjacent inflammatory stranding to suggest diverticulitis. Bladder is normal. The uterus is not identified and has likely been surgically resected. No free intraperitoneal gas or fluid. No pathologically enlarged abdominal or pelvic lymphadenopathy. Midline anterior abdominal postoperative scarring. IMPRESSION: 1. Status post right hemicolectomy with moderate amount stool extending through the ileocolic anastomosis and with mild wall thickening of the small bowel at the anastomosis suggestive of stercoral enteritis. Review of Systems Review of Systems: Abdominal pain Constitutional: Constitutional: Reports chills, Reports fatigue, Reports lethargy, Reports malaise and Reports night sweats Eyes: Eyes: Denies change in vision ENT: Denies dysphagia and Denies odynophagia Cardiovascular: Cardiovascular: Denies chest pain, Denies lightheadedness and Denies radiating jaw, neck or arm pain Respiratory: Respiratory: Denies chest congestion, Denies cough, Denies excessive phlegm production, Denies dyspnea and Denies dyspnea on exertion Gastrointestinal: Gastrointestinal: Reports abdominal pain, Denies melena, Denies hematochezia, Reports constipation, Reports dyspepsia, Reports heartburn, Denies diarrhea, Reports nausea and Denies vomiting Genitourinary: Genitourinary: Denies dysuria Musculoskeletal: Musculoskeletal: Reports back pain Integumentary/Breasts: Skin/Breast: Denies rash Neurologic: Denies focal weakness and Denies Sensory deficit (Neuro) Psychiatric: Psychiatric: Reports no additional psychiatric complaints and Reports as per HPI Endocrine: Endocrine: Denies cold intolerance, Denies flushing, Denies heat intolerance, Denies polyphagia, Denies polydipsia and Denies palpitations Hematologic/Lymphatic: Hematologic/Lymphatic: Reports no additional hematologic/lymphatic complaints and Reports as per HPI Allergic/Immunologic: Allergic/Immunologic: Reports no additional allergic/immunologic complaints and Reports as per HPI PMFSH Past Medical History Medical History Acute migraine Anemia Anxiety Arthritis Bipolar disorder, rapid cycling BRBPR (bright red blood per rectum) Chronic fatigue Chronic pain Degenerative disk disease
[2022-09-25] MEDS: LORazepam INJ (*CRX) 2 MG/ML VIAL 1 MG IV PUSH (04:47)
[2022-09-25] MEDS: diphenhydrAMINE HCl CAP 25 MG CAPSULE PO (04:48)
--- NOTE | 2022-09-25 05:23 | PC.NURSE ---
pt a&o x4, able to make needs known, pt comfortable in the room, call light within the reach, ice water provided. medications reconciled, reviewed with the pt. pt highly anxious, stated that she needs her psych meds. this RN spoke with Dr Rajput who stated that she will resume pt's medications, meanwhile orders received for lorazepam iv 1 mg and benadryl 25 mg po. administered. all pt's questions answered.
[2022-09-25] MEDS: DEXTROSE 5%/0.45% SOD CHL 1,000 ML 100 ML IV CONT ×2 (05:34→16:08)
--- NOTE | 2022-09-25 09:41 | WPDGICN ---
Assessment and Plan Assessment and plan (1) Intractable generalized abdominal pain: Code(s): R10.84 - Generalized abdominal pain Status: Acute Assessment and Plan: Patient with generalized abdominal pain. Etiology unclear. I suspect this is from her irritable bowel syndrome. She reports a prior history of small intestinal bacterial overgrowth and states symptoms may be similar. Agree with continuing 2 week trial of antibiotics. Currently Xifaxan. Supportive care for now. Recent workup has otherwise been unremarkable aside from mild gastritis for which we will continue the omeprazole. Agree with trial of dicyclomine as well. (2) Diarrhea: Qualifiers: Diarrhea type: unspecified type Qualified Code(s): R19.7 - Diarrhea, unspecified Code(s): R19.7 - Diarrhea, unspecified Status: Acute Assessment and Plan: Patient with history of subtotal colectomy for attenuated familial adenomatous polyposis. Likely will always have loose stools this basis. (3) Morbid obesity: Code(s): E66.01 - Morbid (severe) obesity due to excess calories Status: Acute (4) Small intestinal bacterial overgrowth (SIBO): Code(s): K63.89 - Other specified diseases of intestine Status: Acute Assessment and Plan: Patient apparently was diagnosed with SI be 0 in [place] some years ago. No recent workup. Symptoms she states are very similar to previous symptoms. (5) Irritable bowel syndrome with diarrhea: Code(s): K58.0 - Irritable bowel syndrome with diarrhea Status: Acute Assessment and Plan: Irritable bowel syndrome may likely contribute to her current pain syndrome. Continue supportive care. Dr. Lugo returns and will assume care Tuesday. GI Consult Note Consult date/time: 09/25/22 09:41 Reason for consult: Abdominal pain HPI: Naila Beard is a 46 year old female I am asked to see at the request of the hospitalist service in the absence of Dr. Parish Dickerson. patient has a history of small-bowel intestinal bacterial overgrowth diagnosed several years ago. She also has a history of subtotal colectomy for familial adenomatous polyposis. She apparently had the attenuated form this. Patient recently has had vague abdominal pain which she feels is similar to her SI p.o. experience. She currently is midway and a trial of Xifaxan for this condition. She chronically has diarrhea because of her subtotal colectomy. Recent EGD revealed mild gastritis. Small bowel capsule study was unremarkable.She recently has been treated for possible irritable bowel syndrome. She complains of chronic loose stools. She intermittently has vague abdominal pain that may or may not be related to spicy foods. Often not related to dietary intake. Described as burning and spasm me and tender. Patient has been given a trial of dicyclomine for spasms which is failed to alleviate the symptoms. She has also continued on omeprazole 20 mg p.o. daily. Patient admitted for further evaluation and observation. Hopefully for control of discomfort. Review of Systems Review of Systems: Review of systems noncontributory. [facility] Past Medical History Medical History (Updated 09/25/22 @ 02:47 by Alla Chirinos PA-C) Acute migraine Anemia Anxiety Arthritis Bipolar disorder, rapid cycling BRBPR (bright red blood per rectum) Chronic fatigue Chronic pain Degenerative disk disease Depression Familial adenomatous polyposis Fibromyalgia Frequent loose stools Gastric polyps GERD (gastroesophageal reflux disease) History of blood clots History of blood transfusion 04/15/2021 History of herpes zoster History of pulmonary embolism History of thyroid disease Insomnia Irritable bowel syndrome with diarrhea Migraines Missed x1 Neurogenic bladder OCD (obsessive compulsive disorder) Plantar fascia syndrome PTSD (post-traumatic stress disorder) Sensory neuronop
[2022-09-25] MEDS: polyethylene glycoL 3350 17 GM POWD.PACK PO (10:04)
[2022-09-25] MEDS: PANTOPRAZOLE SODIUM IV 40 MG VIAL IV PUSH ×2 (10:05→21:05)
[2022-09-25] MEDS: rifAXIMin 550 MG TABLET PO ×3 (10:05→17:24)
[2022-09-25] MEDS: GABAPENTIN 400 MG CAPSULE 800 MG BY MOUTH ×4 (10:05→21:05)
[2022-09-25] MEDS: ACIDOPHILUS PACKET 1 PKT PACKET PO ×4 (10:05→21:05)
[2022-09-25] MEDS: ARIPiprazole 10 MG TABLET 20 MG PO (10:06)
[2022-09-25] MEDS: busPIRone HCL 5 MG TABLET PO ×2 (10:07→21:05)
[2022-09-25] MEDS: CITALOPRAM HYDROBROMIDE 20 MG TABLET 40 MG PO (10:07)
[2022-09-25] MEDS: traMADol HCL (*CRX) 50 MG TABLET 100 MG PO ×2 (10:09→18:11)
[2022-09-25] MEDS: DICYCLOMINE HCL 10 MG CAPSULE 20 MG PO ×2 (12:02→20:13)
[2022-09-25 12:40] LABS: Glucose Point of Care 115 mg/dl (65-105)
--- NOTE | 2022-09-25 13:51 | PM.IMPN ---
Progress Note: A&P Assessment and Plan (1) Intractable generalized abdominal pain: Code(s): R10.84 - Generalized abdominal pain Status: Acute Assessment and Plan: Patient history of small intestine bacterial overgrowth diagnosis and was taking Augmentin outpatient. Changed to Rifaximin BID on admission. Continue probiotic, pain control and Compazine IV PRN for nausea. CT abd/pelvis with possible stercoral colitis. GI consulted. (2) Small intestinal bacterial overgrowth (SIBO): Code(s): K63.89 - Other specified diseases of intestine Status: Acute Assessment and Plan: As above. (3) Enteritis: Code(s): K52.9 - Noninfective gastroenteritis and colitis, unspecified Status: Acute Assessment and Plan: As above. (4) Chronic low back pain: Qualifiers: Back pain laterality: unspecified Sciatica presence: without sciatica Qualified Code(s): M54.50 - Low back pain, unspecified; G89.29 - Other chronic pain Code(s): M54.50 - Low back pain, unspecified; G89.29 - Other chronic pain Status: Chronic Assessment and Plan: Continue analgesics. (5) PTSD (post-traumatic stress disorder): Code(s): F43.10 - Post-traumatic stress disorder, unspecified Status: Chronic Assessment and Plan: Continue current medications. (6) Irritable bowel syndrome with diarrhea: Code(s): K58.0 - Irritable bowel syndrome with diarrhea Status: Chronic Assessment and Plan: Continue home medications. C/o constipation on admission and miralax started. (7) GERD (gastroesophageal reflux disease): Code(s): K21.9 - Gastro-esophageal reflux disease without esophagitis Status: Chronic Assessment and Plan: Continue PPI (8) Fibromyalgia: Code(s): M79.7 - Fibromyalgia Status: Chronic Assessment and Plan: Continue home medications. (9) Familial polyposis: Code(s): D12.6 - Benign neoplasm of colon, unspecified Status: Chronic Assessment and Plan: To be aware. H/O right hemicolectomy 2020 Plan CODE STATUS: FULL CODE Disposition: from home. Time Spent With Patient Time: 35 minutes time spent with patient assessment, review of labs, vitals, specialist and nursing documentation. Subjective Date/time seen: 09/25/22 13:51 She reports persistent abdominal cramping, nausea, and FUENTES. She is eating hot tea and broth. No emesis. Review of Systems Review of Systems: All systems reviewed & are unremarkable except as noted in HPI and below Exam Narrative: General: No acute distress. Sitting up in bed. Mental Status/Psych: Awake, alert and oriented x4 with clear speech. cooperative. Flat affect. Skin: Skin fair, warm, dry and intact without rashes or lesions. No open wounds. Good turgor.? HEENT: Normocephalic. Sclera is non-icteric. Pupils equal and round. Oral mucosa pink and moist. Neck: No JVD. Heart: S1 and S2 regular rate and rhythm. No murmurs, gallops, or rubs auscultated. Chest: Respirations even and unlabored. Lung sounds are clear to auscultation without wheezes, rhonchi, or rales. Abdomen: Soft, obese and diffusely tender to light palpation.? Bowel sounds present in all 4 quadrants. No guarding. Extremities:? No edema, erythema or calf tenderness. Grossly normal ROM. Generalized tenderness to BLE Neurological: No focal deficits. Cranial nerves 2-12 grossly intact. ? Objective Data Vital Signs Vital Signs: Vital Signs - 24 hr 09/24/22 19:48 09/24/22 20:17 09/24/22 20:30 Temperature 98.0 F Pulse Rate 92 Respiratory Rate 20 Blood Pressure 123/71 Pulse Oximetry 98 98 96 Oxygen Delivery Room Air 09/24/22 20:52 09/24/22 21:01 09/24/22 21:31 Temperature 98 F Pulse Rate 77 Respiratory Rate 18 Blood Pressure 142/85 H Pulse Oximetry 98 97 96 Oxygen Delivery 09/24/22 21:33 09/24/22 21:45 09/24/22 22:01 Temperatu
[2022-09-25] MEDS: PROCHLORPERAZINE EDISYLATE 10 MG/2 ML VIAL IV PUSH (16:08)
[2022-09-25] MEDS: SUMAtriptan SUCCINATE 25 MG TABLET 100 MG PO (16:08)
[2022-09-25] MEDS: CYCLOBENZAPRINE HCL 10 MG TABLET BY MOUTH (16:14)
[2022-09-25 17:17] LABS: Glucose Point of Care 106 mg/dl (65-105)
[2022-09-25] MEDS: DOXEPIN HCL 10 MG CAPSULE 20 MG PO (21:05)
[2022-09-25] MEDS: traZODone HCL 50 MG TABLET 200 MG BY MOUTH (21:05)
[2022-09-25] MEDS: OLANZapine 5 MG TABLET 10 MG PO (21:05)
[2022-09-25] MEDS: MELATONIN 5 MG TABLET 10 MG PO (21:05)
[2022-09-25 21:27] LABS: Glucose Point of Care 129 mg/dl (65-105)
[2022-09-26] MEDS: DEXTROSE 5%/0.45% SOD CHL 1,000 ML 100 ML IV CONT (03:55)
[2022-09-26 05:13] VITALS: BP 113/67; PULSE 76; RESP 20; TEMP 36.9; O2SAT 96
[2022-09-26 05:43] LABS: Basophils Percent Auto 0.2 % (0.2-1.2); Eosinophils Absolute Auto 0.1 K/mm3 (0-0.3); Eosinophils Percent Auto 2.6 % (0-4.4); Hematocrit 34.8 % (37.0-47.0); Hemoglobin 10.8 g/dL (12.0-15.0); Immature Granulocyte Absolute 0.01 K/mm3 (0.00-0.031); Immature Granulocyte Percent A 0.2 % (0-0.5); Lymphocytes Absolute Auto 1.34 K/mm3 (0.9-3.2); Lymphocytes Percent Auto 32.1 % (18.3-44.2); Mean Corpuscular Hemoglobin 26.9 pg (26-34); Mean Corpuscular Volume 86.8 fl (80-100); Monocytes Absolute Auto 0.4 K/mm3 (0.1-0.6); Monocytes Percent Auto 9.8 % (2.6-8.5); Neutrophils Absolute Auto 2.3 K/mm3 (1.3-6.7); Neutrophils Percent Auto 55.1 % (45.5-73.1); Platelet Count Result 265 k/mm3 (150-375); Red Blood Count 4.01 M/mm3 (4.2-5.4); Red Cell Distribution Width 16.3 % (11.5-14.5); White Blood Count 4.2 K/mm3 (4.5-10.0)
[2022-09-26 05:57] LABS: Anion Gap 2 mmol/L (8-16); Blood Urea Nitrogen 8 mg/dL (7-17); Calcium 8.7 mg/dL (8.4-10.2); Carbon Dioxide 28 mmol/L (22-30); Chloride 107 mmol/L (98-107); Estimated CRCL calculation 92 ml/min; Estimated Glomerular Filt Rate > 60; Glucose 97 mg/dL (65-110); Potassium 3.9 mmol/L (3.4-5.0); Sodium 137 mmol/L (137-145)
[2022-09-26 08:38] LABS: Glucose Point of Care 95 mg/dl (65-105)
[2022-09-26] MEDS: PROCHLORPERAZINE EDISYLATE 10 MG/2 ML VIAL IV PUSH (09:00)
--- NOTE | 2022-09-26 09:10 | PM.IMPN ---
Progress Note: A&P Assessment and Plan (1) Intractable generalized abdominal pain: Code(s): R10.84 - Generalized abdominal pain Status: Acute Assessment and Plan: Patient history of small intestine bacterial overgrowth diagnosis and was taking Augmentin outpatient. Changed to Rifaximin BID on admission. Continue probiotic, pain control and Compazine IV PRN for nausea. CT abd/pelvis with possible stercoral colitis and moderate amount of stool extending throughout the ileocolic anastomosis. GI managing and bowel regimen started. (2) Small intestinal bacterial overgrowth (SIBO): Code(s): K63.89 - Other specified diseases of intestine Status: Acute Assessment and Plan: As above. (3) Enteritis: Code(s): K52.9 - Noninfective gastroenteritis and colitis, unspecified Status: Acute Assessment and Plan: As above. (4) Chronic low back pain: Qualifiers: Back pain laterality: unspecified Sciatica presence: without sciatica Qualified Code(s): M54.50 - Low back pain, unspecified; G89.29 - Other chronic pain Code(s): M54.50 - Low back pain, unspecified; G89.29 - Other chronic pain Status: Chronic Assessment and Plan: Continue analgesics. (5) PTSD (post-traumatic stress disorder): Code(s): F43.10 - Post-traumatic stress disorder, unspecified Status: Chronic Assessment and Plan: Continue current medications. (6) Irritable bowel syndrome with diarrhea: Code(s): K58.0 - Irritable bowel syndrome with diarrhea Status: Chronic Assessment and Plan: Continue home medications. C/o constipation on admission and miralax started. (7) GERD (gastroesophageal reflux disease): Code(s): K21.9 - Gastro-esophageal reflux disease without esophagitis Status: Chronic Assessment and Plan: Continue PPI (8) Fibromyalgia: Code(s): M79.7 - Fibromyalgia Status: Chronic Assessment and Plan: Continue home medications. (9) Familial polyposis: Code(s): D12.6 - Benign neoplasm of colon, unspecified Status: Chronic Assessment and Plan: To be aware. H/O right hemicolectomy 2020 (10) Migraine headache without aura: Qualifiers: Status migrainosus presence: without status migrainosus Intractability: not intractable Qualified Code(s): G43.009 - Migraine without aura, not intractable, without status migrainosus Code(s): G43.009 - Migraine without aura, not intractable, without status migrainosus Status: Acute Assessment and Plan: C/o FUENTES without aura, +mild photophobia. She reports pain originally improved with sumatriptan medication yesterday, but still present. Nursing called to inform me the patient's FUENTES returned and sumatriptan not helping. Patient does take Phentermine 37.5 mg daily and has not had this medication for the past 2 days, which may be contributing. Give benadryl 50 mg IV x1, Reglan 10 mg IV x1, sumatriptan 6 mg SQ x1 and 1L NS. Patient has an allergy to aspirin and acetaminophen. (11) Constipation: Qualifiers: Constipation type: unspecified constipation type Qualified Code(s): K59.00 - Constipation, unspecified Code(s): K59.00 - Constipation, unspecified Status: Acute Assessment and Plan: CT abd/pelvis with moderate amount of stool extending throughout the ileocolic anastomosis. GI managing and bowel regimen started. Plan CODE STATUS: FULL CODE Disposition: from home. Discharge pending improvement in symptoms. Time Spent With Patient Time: 35 minutes time spent with patient assessment, patient education, review of labs, vitals and nursing documentation. All questions answered to the best of my ability. Subjective Date/time seen: 09/26/22 09:10 She still has FUENTES, nausea, generalized abdominal pain and had one emesis last night. She reports sumatriptan helped her FUENTES yesterday, a
[2022-09-26] MEDS: GABAPENTIN 400 MG CAPSULE 800 MG BY MOUTH ×4 (09:17→21:07)
[2022-09-26] MEDS: busPIRone HCL 5 MG TABLET PO ×2 (09:17→21:07)
[2022-09-26] MEDS: CITALOPRAM HYDROBROMIDE 20 MG TABLET 40 MG PO (09:17)
[2022-09-26] MEDS: ARIPiprazole 10 MG TABLET 20 MG PO (09:17)
[2022-09-26] MEDS: ACIDOPHILUS PACKET 1 PKT PACKET PO ×4 (09:17→21:07)
[2022-09-26] MEDS: rifAXIMin 550 MG TABLET PO ×3 (09:17→17:46)
[2022-09-26] MEDS: traMADol HCL (*CRX) 50 MG TABLET 100 MG PO ×2 (09:18→17:48)
[2022-09-26] MEDS: polyethylene glycoL 3350 17 GM POWD.PACK PO (09:23)
--- NOTE | 2022-09-26 10:21 | WPDGIPROGNO ---
Progress Note: A&P Assessment and Plan (1) Constipation: Code(s): K59.00 - Constipation, unspecified Status: Acute Assessment and Plan: Patient with apparent constipation. May have fecal impaction based on CT scan findings that also suggest some mild stercoral enteritis. Stool may be caught in the lower small intestine as she had previous subtotal colectomy. Plan to continue laxatives. Will try a fleets enema today. I suspect this is the etiology for her nausea vague abdominal pain. If unable to relieve symptoms with enemas and laxatives then consider Gastrografin lower GI. Dr. Parish Dickerson returns in the morning and will assume care. (2) Abdominal pain: Code(s): R10.9 - Unspecified abdominal pain Status: Acute Assessment and Plan: Abdominal pain has been attributed to irritable bowel syndrome and her distant history of SIB0. I suspect it may be related to constipation and fecal impaction. Plan to continue laxatives and enema today. (3) H/O colectomy: Code(s): Z90.49 - Acquired absence of other specified parts of digestive tract Status: Acute Assessment and Plan: Patient with a history of attenuated familial adenomatous polyposis. She has had a previous colon resection. Intermittent flex sig will be required in the future. (4) History of cholecystectomy: Code(s): Z90.49 - Acquired absence of other specified parts of digestive tract Status: Acute (5) Small intestinal bacterial overgrowth (SIBO): Code(s): K63.89 - Other specified diseases of intestine Status: Acute (6) Morbid obesity: Code(s): E66.01 - Morbid (severe) obesity due to excess calories Status: Acute Subjective Date/time seen: 09/26/22 10:21 Interval history: Patient alert this morning. Still notices rather vague abdominal discomfort and some nausea. She did pass some formed stools with MiraLax laxative yesterday. Review of Systems Review of Systems: Review of systems noncontributory. Exam Narrative: Physical exam reveals patient be alert. Vital signs stable. He is she is afebrile and anicteric. Lungs are clear. Heart without murmur. Abdomen is somewhat obese bowel sounds are present soft no localized tenderness. Objective Data Vital Signs Vital Signs: Vital Signs - 24 hr 09/25/22 14:00 09/25/22 10:00 09/25/22 20:38 Temperature 97.7 F 97.6 F Pulse Rate 82 69 Respiratory Rate 18 20 Blood Pressure 136/79 133/81 Pulse Oximetry 97 97 Oxygen Delivery Room Air 09/26/22 05:13 Temperature 98.5 F Pulse Rate 76 Respiratory Rate 20 Blood Pressure 113/67 Pulse Oximetry 96 Oxygen Delivery Intake/Output Intake/Output: Intake & Output 09/23/22 09/24/22 09/25/22 09/27/22 23:59 23:59 23:59 00:59 Intake Total 1000 3980 1000 Output Total 3800 1800 Balance 1000 180 -800 Meds/Results Medications: Active Medications Generic Name Dose Route Start Last Admin Trade Name Freq PRN Reason Stop Dose Admin Aripiprazole 20 mg 09/25/22 09:00 09/26/22 09:17 Aripiprazole 10 Mg Tablet PO 20 mg QAM ADITI Administration Buspirone HCl 5 mg 09/25/22 09:00 09/26/22 09:17 Buspirone Hcl 5 Mg Tablet PO 5 mg Q12HR ADITI Administration Citalopram Hydrobromide 40 mg 09/25/22 09:00 09/26/22 09:17 Citalopram Hydrobromide 20 Mg Tablet PO 40 mg DAILY ADITI Administration Cyclobenzaprine HCl 10 mg 09/25/22 04:45 09/25/22 16:14 Cyclobenzaprine Hcl 10 Mg Tablet BY MOUTH 10 mg TID PRN Administration Muscle Spasm Dicyclomine HCl 20 mg 09/25/22 04:41 09/25/22 20:13 Dicyclomine Hcl 10 Mg Capsule PO 20 mg TID PRN Administration abdominal discomfort Doxepin HCl 20 mg 09/25/22 21:00 09/25/22 21:05 Doxepin Hcl 10 Mg Capsule PO 20 mg HS ADITI Administration Gabapentin 800 mg 09/25/22 09:00 09/26/22 09:17 Gabapentin 400 Mg Capsule BY MOUTH 800 mg QID ADITI Administ
[2022-09-26 12:11] LABS: Glucose Point of Care 98 mg/dl (65-105)
[2022-09-26] MEDS: SUMAtriptan SUCCINATE 25 MG TABLET 100 MG PO (12:21)
[2022-09-26] MEDS: DICYCLOMINE HCL 10 MG CAPSULE 20 MG PO (13:59)
[2022-09-26 14:00] VITALS: BP 111/66; PULSE 74; RESP 19; TEMP 36.8; O2SAT 96
[2022-09-26] MEDS: METOCLOPRAMIDE HCL INJ 10 MG/2 ML VIAL IV PUSH (15:43)
[2022-09-26] MEDS: diphenhydrAMINE HCl INJ 50 MG/ML VIAL IV PUSH (15:44)
[2022-09-26] MEDS: SUMAtriptan SUCCINATE 6 MG/0.5 ML VIAL SUB-Q (15:44)
[2022-09-26] MEDS: SODIUM CHLORIDE 0.9% IV 1,000 ML 250 ML IV CONT (15:45)
[2022-09-26 17:11] LABS: Glucose Point of Care 74 mg/dl (65-105)
[2022-09-26] MEDS: ONDANSETRON INJ 4 MG/2 ML VIAL IV PUSH (19:54)
[2022-09-26] MEDS: SIMETHICONE 125 MG CHEW TAB PO (19:57)
[2022-09-26] MEDS: CYCLOBENZAPRINE HCL 10 MG TABLET BY MOUTH (19:59)
[2022-09-26 20:00] VITALS: PULSE 90; RESP 16; O2SAT 98
[2022-09-26 20:59] VITALS: BP 133/82; PULSE 90; RESP 16; TEMP 36.8; O2SAT 98
[2022-09-26] MEDS: OLANZapine 5 MG TABLET 10 MG PO (21:07)
[2022-09-26] MEDS: MELATONIN 5 MG TABLET 10 MG PO (21:07)
[2022-09-26] MEDS: DOXEPIN HCL 10 MG CAPSULE 20 MG PO (21:07)
[2022-09-26] MEDS: traZODone HCL 50 MG TABLET 200 MG BY MOUTH (21:07)
[2022-09-26 21:48] LABS: Glucose Point of Care 77 mg/dl (65-105)
[2022-09-27 05:49] VITALS: BP 113/75; PULSE 76; RESP 20; TEMP 36.9; O2SAT 95
[2022-09-27] MEDS: traMADol HCL (*CRX) 50 MG TABLET 100 MG PO ×2 (05:53→15:12)
[2022-09-27 05:54] LABS: Hematocrit 35.9 % (37.0-47.0); Hemoglobin 11.1 g/dL (12.0-15.0); Mean Corpuscular HGB Conc 30.9 g/dl (32-36); Mean Corpuscular Hemoglobin 26.8 pg (26-34); Mean Corpuscular Volume 86.7 fl (80-100); Platelet Count Result 270 k/mm3 (150-375); Red Blood Count 4.14 M/mm3 (4.2-5.4); Red Cell Distribution Width 16.1 % (11.5-14.5); White Blood Count 4.2 K/mm3 (4.5-10.0)
[2022-09-27] MEDS: ONDANSETRON INJ 4 MG/2 ML VIAL IV PUSH (05:54)
[2022-09-27 06:16] LABS: Alanine Aminotransferase 57 U/L (6-35); Albumin Level 3.5 g/dL (3.5-5.1); Alkaline Phosphatase 102 U/L (38-126); Anion Gap 4 mmol/L (8-16); Aspartate Amino Transferase 40 U/L (14-36); Bilirubin,Total 0.4 mg/dL (0.2-1.3); Blood Urea Nitrogen 8 mg/dL (7-17); Calcium 8.6 mg/dL (8.4-10.2); Carbon Dioxide 26 mmol/L (22-30); Chloride 109 mmol/L (98-107); Estimated CRCL calculation 83 ml/min; Estimated Glomerular Filt Rate > 60; Glucose 81 mg/dL (65-110); Potassium 3.9 mmol/L (3.4-5.0); Sodium 139 mmol/L (137-145)
[2022-09-27 08:26] LABS: Glucose Point of Care 85 mg/dl (65-105)
[2022-09-27] MEDS: DICYCLOMINE HCL 10 MG CAPSULE 20 MG PO ×2 (09:28→19:58)
[2022-09-27] MEDS: GABAPENTIN 400 MG CAPSULE 800 MG BY MOUTH ×4 (09:36→21:04)
[2022-09-27] MEDS: ACIDOPHILUS PACKET 1 PKT PACKET PO ×4 (09:36→21:04)
[2022-09-27] MEDS: rifAXIMin 550 MG TABLET PO ×3 (09:36→17:56)
[2022-09-27] MEDS: PANTOPRAZOLE 40 MG TABLET PO (09:37)
[2022-09-27] MEDS: CITALOPRAM HYDROBROMIDE 20 MG TABLET 40 MG PO (09:37)
[2022-09-27] MEDS: busPIRone HCL 5 MG TABLET PO ×2 (09:37→21:04)
[2022-09-27] MEDS: ARIPiprazole 10 MG TABLET 20 MG PO (09:37)
--- NOTE | 2022-09-27 11:19 | PM.IMPN ---
Progress Note: A&P Assessment and Plan (1) Intractable generalized abdominal pain: Code(s): R10.84 - Generalized abdominal pain Status: Acute Assessment and Plan: Patient history of small intestine bacterial overgrowth diagnosis and was taking Augmentin outpatient. Changed to Rifaximin BID on admission. Continue probiotic, pain control and Compazine IV PRN for nausea. CT abd/pelvis with possible stercoral colitis and moderate amount of stool extending throughout the ileocolic anastomosis. GI managing and bowel regimen started. (2) Small intestinal bacterial overgrowth (SIBO): Code(s): K63.89 - Other specified diseases of intestine Status: Acute Assessment and Plan: As above. (3) Enteritis: Code(s): K52.9 - Noninfective gastroenteritis and colitis, unspecified Status: Acute Assessment and Plan: As above. (4) Chronic low back pain: Qualifiers: Back pain laterality: unspecified Sciatica presence: without sciatica Qualified Code(s): M54.50 - Low back pain, unspecified; G89.29 - Other chronic pain Code(s): M54.50 - Low back pain, unspecified; G89.29 - Other chronic pain Status: Chronic Assessment and Plan: Continue analgesics. (5) PTSD (post-traumatic stress disorder): Code(s): F43.10 - Post-traumatic stress disorder, unspecified Status: Chronic Assessment and Plan: Continue current medications. (6) Irritable bowel syndrome with diarrhea: Code(s): K58.0 - Irritable bowel syndrome with diarrhea Status: Chronic Assessment and Plan: Continue home medications. C/o constipation on admission and miralax started. (7) GERD (gastroesophageal reflux disease): Code(s): K21.9 - Gastro-esophageal reflux disease without esophagitis Status: Chronic Assessment and Plan: Continue PPI (8) Fibromyalgia: Code(s): M79.7 - Fibromyalgia Status: Chronic Assessment and Plan: Continue home medications. (9) Familial polyposis: Code(s): D12.6 - Benign neoplasm of colon, unspecified Status: Chronic Assessment and Plan: To be aware. H/O right hemicolectomy 2020 (10) Migraine headache without aura: Qualifiers: Intractability: not intractable Status migrainosus presence: without status migrainosus Qualified Code(s): G43.009 - Migraine without aura, not intractable, without status migrainosus Code(s): G43.009 - Migraine without aura, not intractable, without status migrainosus Status: Acute Assessment and Plan: C/o FUENTES without aura, +mild photophobia. She reports pain originally improved with sumatriptan medication yesterday, but still present. Nursing called to inform me the patient's FUENTES returned and sumatriptan not helping. Patient does take Phentermine 37.5 mg daily and has not had this medication for the past 2 days, which may be contributing. Give benadryl 50 mg IV x1, Reglan 10 mg IV x1, sumatriptan 6 mg SQ x1 and 1L NS. Patient has an allergy to aspirin and acetaminophen. 09/27/22 sumatriptan 6 mg SQ x1. Consider starting preventative migraine therapy. (11) Constipation: Qualifiers: Constipation type: unspecified constipation type Qualified Code(s): K59.00 - Constipation, unspecified Code(s): K59.00 - Constipation, unspecified Status: Acute Assessment and Plan: CT abd/pelvis with moderate amount of stool extending throughout the ileocolic anastomosis. GI managing and bowel regimen started. Plan CODE STATUS: FULL CODE Disposition: from home. Discharge pending improvement in symptoms. Time Spent With Patient Time with patient: 15 - 25 minutes Subjective Date/time seen: 09/27/22 11:19 Interval history: She still c/o generalized abdominal pain and nausea. She is having multiple, loose stools. Her FUENTES improved significantly yesterday after receiving oxygen, fluids, benadryl,
[2022-09-27 12:08] LABS: Glucose Point of Care 72 mg/dl (65-105)
[2022-09-27 12:26] LABS: Glucose Point of Care 84 mg/dl (65-105)
[2022-09-27] MEDS: SUMAtriptan SUCCINATE 6 MG/0.5 ML VIAL SUB-Q (12:32)
[2022-09-27] MEDS: PROCHLORPERAZINE EDISYLATE 10 MG/2 ML VIAL IV PUSH ×2 (12:32→19:58)
[2022-09-27 13:55] VITALS: BP 122/75; PULSE 73; RESP 16; TEMP 36.6; O2SAT 97
--- NOTE | 2022-09-27 15:05 | WPDGIPROGNO ---
Progress Note: A&P Assessment and Plan (1) Constipation: Qualifiers: Constipation type: unspecified constipation type Qualified Code(s): K59.00 - Constipation, unspecified Code(s): K59.00 - Constipation, unspecified Status: Acute Assessment and Plan: CT scan reviewed and noted right hemicolectomy with moderate amount stool extending through the ileocolic anastomosis and with mild wall thickening of the small bowel at the anastomosis suggestive of stercoral enteritis. she already had sigmoidoscopy (getting every year because personal history of attenated FAP) will add lactulose twice daily, already received enema ? overflow, if medical treatment does not help then can proceed with sigmoidoscopy (2) Intractable generalized abdominal pain: Code(s): R10.84 - Generalized abdominal pain Status: Acute Assessment and Plan: probably from stercoral enteritis (3) Small intestinal bacterial overgrowth (SIBO): Code(s): K63.89 - Other specified diseases of intestine Status: Acute Assessment and Plan: treated with xifaxan (4) Chronic low back pain: Qualifiers: Back pain laterality: unspecified Sciatica presence: without sciatica Qualified Code(s): M54.50 - Low back pain, unspecified; G89.29 - Other chronic pain Code(s): M54.50 - Low back pain, unspecified; G89.29 - Other chronic pain Status: Chronic (5) Familial adenomatous polyposis: Code(s): D12.6 - Benign neoplasm of colon, unspecified Status: Acute Subjective Date/time seen: 09/27/22 15:05 Interval history: she is only passing clear stool ? overflow, still with abdominal pain, eating but CL and nauseous. Review of Systems Review of Systems: All systems reviewed & are unremarkable except as noted in HPI and below Exam Const: General: comfortable and no acute distress HENMT: Face/Nose/Sinus: Normal nares present Eyes: General: appearance normal, both eyes and all related structures Neck: Neck: no JVD Resp: Auscultation: clear to auscultation bilaterally Cardio: Rate: regular rate Rhythm: regular rhythm GI: Inspection: non-distended GI Palp: Yes Tenderness to palpation present (GI) (upper abdomen, no rebound or guarding, mild distension) Auscultation: normal bowel sounds Skin: General skin exam: normal color Neuro: Speech: normal speech Motor exam (neuro): 5/5 motor strength present throughout Extrem: General: normal to inspection Psych: Mental Status: mental status grossly normal Objective Data Vital Signs Vital Signs: Vital Signs - 24 hr 09/26/22 20:59 09/26/22 20:00 09/27/22 05:49 Temperature 98.2 F 98.5 F Pulse Rate 90 90 76 Respiratory Rate 16 16 20 Blood Pressure 133/82 113/75 Pulse Oximetry 98 98 95 Oxygen Delivery Room Air 09/27/22 13:55 Temperature 97.9 F Pulse Rate 73 Respiratory Rate 16 Blood Pressure 122/75 Pulse Oximetry 97 Oxygen Delivery Intake/Output Intake/Output: Intake & Output 09/24/22 09/25/22 09/26/22 09/27/22 22:59 22:59 23:59 23:59 Intake Total 1420 Output Total 200 Balance 1220 Meds/Results Medications: Active Medications Generic Name Dose Route Start Last Admin Trade Name Freq PRN Reason Stop Dose Admin Aripiprazole 20 mg 09/25/22 09:00 09/27/22 09:37 Aripiprazole 10 Mg Tablet PO 20 mg QAM ADITI Administration Buspirone HCl 5 mg 09/25/22 09:00 09/27/22 09:37 Buspirone Hcl 5 Mg Tablet PO 5 mg Q12HR ADITI Administration Citalopram Hydrobromide 40 mg 09/25/22 09:00 09/27/22 09:37 Citalopram Hydrobromide 20 Mg Tablet PO 40 mg DAILY ADITI Administration Cyclobenzaprine HCl 10 mg 09/25/22 04:45 09/26/22 19:59 Cyclobenzaprine Hcl 10 Mg Tablet BY MOUTH 10 mg TID PRN Administration Muscle Spasm Dicyclomine HCl 20 mg 09/25/22 04:41 09/27/22 09:28 Dicyclomine Hcl 10 Mg Capsule PO 20 mg TID PRN Administration abdominal
[2022-09-27 16:57] LABS: Glucose Point of Care 77 mg/dl (65-105)
[2022-09-27] MEDS: LACTULOSE 20 GM/30 ML UDC PO (17:56)
[2022-09-27] MEDS: CYCLOBENZAPRINE HCL 10 MG TABLET BY MOUTH (19:54)
[2022-09-27 20:00] VITALS: PULSE 73; RESP 16; O2SAT 97
[2022-09-27 20:33] LABS: Glucose Point of Care 82 mg/dl (65-105)
[2022-09-27 20:56] VITALS: BP 133/80; PULSE 73; RESP 17; TEMP 36.7; O2SAT 100
[2022-09-27] MEDS: MELATONIN 5 MG TABLET 10 MG PO (21:03)
[2022-09-27] MEDS: OLANZapine 5 MG TABLET 10 MG PO (21:03)
[2022-09-27] MEDS: traZODone HCL 50 MG TABLET 200 MG BY MOUTH (21:03)
[2022-09-27] MEDS: DOXEPIN HCL 10 MG CAPSULE 20 MG PO (21:03)
[2022-09-28 04:54] VITALS: BP 128/72; PULSE 74; RESP 17; TEMP 36.8; O2SAT 93
[2022-09-28 07:07] LABS: Alanine Aminotransferase 49 U/L (6-35); Albumin Level 3.7 g/dL (3.5-5.1); Alkaline Phosphatase 110 U/L (38-126); Anion Gap 5 mmol/L (8-16); Aspartate Amino Transferase 32 U/L (14-36); Bilirubin,Total 0.4 mg/dL (0.2-1.3); Blood Urea Nitrogen 7 mg/dL (7-17); Calcium 8.7 mg/dL (8.4-10.2); Carbon Dioxide 29 mmol/L (22-30); Chloride 107 mmol/L (98-107); Estimated CRCL calculation 75 ml/min; Estimated Glomerular Filt Rate 60; Glucose 87 mg/dL (65-110); Sodium 141 mmol/L (137-145)
[2022-09-28] MEDS: traMADol HCL (*CRX) 50 MG TABLET 100 MG PO ×2 (07:36→16:17)
[2022-09-28] MEDS: PANTOPRAZOLE 40 MG TABLET PO (09:54)
[2022-09-28] MEDS: GABAPENTIN 400 MG CAPSULE 800 MG BY MOUTH ×4 (09:54→22:03)
[2022-09-28] MEDS: rifAXIMin 550 MG TABLET PO ×3 (09:54→16:12)
[2022-09-28] MEDS: LACTULOSE 20 GM/30 ML UDC PO (09:54)
[2022-09-28] MEDS: ARIPiprazole 10 MG TABLET 20 MG PO (09:54)
[2022-09-28] MEDS: DICYCLOMINE HCL 10 MG CAPSULE 20 MG PO ×2 (09:55→14:27)
[2022-09-28] MEDS: CYCLOBENZAPRINE HCL 10 MG TABLET BY MOUTH ×2 (09:55→14:33)
[2022-09-28] MEDS: CITALOPRAM HYDROBROMIDE 20 MG TABLET 40 MG PO (09:55)
[2022-09-28] MEDS: busPIRone HCL 5 MG TABLET PO ×2 (09:55→22:03)
[2022-09-28] MEDS: ACIDOPHILUS PACKET 1 PKT PACKET PO ×3 (09:55→16:10)
[2022-09-28] MEDS: PROCHLORPERAZINE EDISYLATE 10 MG/2 ML VIAL IV PUSH ×2 (09:55→16:15)
[2022-09-28 14:00] VITALS: BP 130/74; PULSE 94; RESP 16; TEMP 36.4; O2SAT 96
--- NOTE | 2022-09-28 16:15 | PM.IMPN ---
Progress Note: A&P Assessment and Plan (1) Intractable generalized abdominal pain: Code(s): R10.84 - Generalized abdominal pain Status: Acute Assessment and Plan: Patient history of small intestine bacterial overgrowth diagnosis and was taking Augmentin outpatient. Changed to Rifaximin BID on admission. Continue probiotic, pain control and Compazine IV PRN for nausea. CT abd/pelvis with possible stercoral colitis and moderate amount of stool extending throughout the ileocolic anastomosis. 09/28 GI managing. Patient is still with symptoms and will defer recommendations by GI. Possible sigmoidoscopy (2) Small intestinal bacterial overgrowth (SIBO): Code(s): K63.89 - Other specified diseases of intestine Status: Acute Assessment and Plan: As above. (3) Enteritis: Code(s): K52.9 - Noninfective gastroenteritis and colitis, unspecified Status: Acute Assessment and Plan: As above. (4) Chronic low back pain: Qualifiers: Back pain laterality: unspecified Sciatica presence: without sciatica Qualified Code(s): M54.50 - Low back pain, unspecified; G89.29 - Other chronic pain Code(s): M54.50 - Low back pain, unspecified; G89.29 - Other chronic pain Status: Chronic Assessment and Plan: Continue analgesics. (5) PTSD (post-traumatic stress disorder): Code(s): F43.10 - Post-traumatic stress disorder, unspecified Status: Chronic Assessment and Plan: Continue current medications. (6) Irritable bowel syndrome with diarrhea: Code(s): K58.0 - Irritable bowel syndrome with diarrhea Status: Chronic Assessment and Plan: continue Bentyl (7) GERD (gastroesophageal reflux disease): Code(s): K21.9 - Gastro-esophageal reflux disease without esophagitis Status: Chronic Assessment and Plan: Continue PPI (8) Fibromyalgia: Code(s): M79.7 - Fibromyalgia Status: Chronic Assessment and Plan: Continue home medications. (9) Familial polyposis: Code(s): D12.6 - Benign neoplasm of colon, unspecified Status: Chronic Assessment and Plan: To be aware. H/O right hemicolectomy 2020 (10) Migraine headache without aura: Qualifiers: Status migrainosus presence: without status migrainosus Intractability: not intractable Qualified Code(s): G43.009 - Migraine without aura, not intractable, without status migrainosus Code(s): G43.009 - Migraine without aura, not intractable, without status migrainosus Status: Acute Assessment and Plan: C/o FUENTES without aura, +mild photophobia. She reports pain originally improved with sumatriptan medication yesterday, but still present. Nursing called to inform me the patient's FUENTES returned and sumatriptan not helping. Patient does take Phentermine 37.5 mg daily and has not had this medication for the past 2 days, which may be contributing. Give benadryl 50 mg IV x1, Reglan 10 mg IV x1, sumatriptan 6 mg SQ x1 and 1L NS. Patient has an allergy to aspirin and acetaminophen. 09/27/22 sumatriptan 6 mg SQ x1. Consider starting preventative migraine therapy. 09/28/2022 headaches improving. continue current management (11) Constipation: Qualifiers: Constipation type: unspecified constipation type Qualified Code(s): K59.00 - Constipation, unspecified Code(s): K59.00 - Constipation, unspecified Status: Acute Assessment and Plan: CT abd/pelvis with moderate amount of stool extending throughout the ileocolic anastomosis. GI managing and bowel regimen started. 09/28/2021 patient reports profuse loose stool Plan CODE STATUS: FULL CODE Disposition: from home. Discharge pending improvement in symptoms. Time Spent With Patient Time with patient: 15 - 25 minutes Subjective Date/time seen: 09/28/22 16:15 she continues to complain of diffuse abdominal pain. She was given
--- NOTE | 2022-09-28 16:30 | WPDGIPROGNO ---
Progress Note: A&P Assessment and Plan (1) Constipation: Qualifiers: Constipation type: unspecified constipation type Qualified Code(s): K59.00 - Constipation, unspecified Code(s): K59.00 - Constipation, unspecified Status: Acute Assessment and Plan: CT scan reviewed and noted right hemicolectomy with moderate amount stool extending through the ileocolic anastomosis and with mild wall thickening of the small bowel at the anastomosis suggestive of stercoral enteritis. she already had sigmoidoscopy (getting every year because personal history of attenuated FAP) but only passing liquid stool- has not seen any hard stool, will do a colonoscopy to assess site of anastomosis and assess if still significant stool (2) Intractable generalized abdominal pain: Code(s): R10.84 - Generalized abdominal pain Status: Acute Assessment and Plan: probably from stercoral enteritis (3) Small intestinal bacterial overgrowth (SIBO): Code(s): K63.89 - Other specified diseases of intestine Status: Acute Assessment and Plan: treated with xifaxan (4) Chronic low back pain: Qualifiers: Back pain laterality: unspecified Sciatica presence: without sciatica Qualified Code(s): M54.50 - Low back pain, unspecified; G89.29 - Other chronic pain Code(s): M54.50 - Low back pain, unspecified; G89.29 - Other chronic pain Status: Chronic (5) Familial adenomatous polyposis: Code(s): D12.6 - Benign neoplasm of colon, unspecified Status: Acute Subjective Date/time seen: 09/28/22 16:30 Interval history: she is only passing liquid stool with persistent abdominal pain and nausea Review of Systems Review of Systems: All systems reviewed & are unremarkable except as noted in HPI and below Exam Const: General: comfortable and no acute distress HENMT: Face/Nose/Sinus: Normal nares present Eyes: General: appearance normal, both eyes and all related structures Neck: Neck: no JVD Resp: Auscultation: clear to auscultation bilaterally Cardio: Rate: regular rate Rhythm: regular rhythm GI: Inspection: non-distended GI Palp: Yes Soft to palpation Skin: General skin exam: normal color Neuro: General: gait normal Speech: normal speech Extrem: General: normal to inspection Psych: Mental Status: mental status grossly normal Objective Data Vital Signs Vital Signs: Vital Signs - 24 hr 09/27/22 20:00 09/27/22 20:56 09/28/22 04:54 Temperature 98.0 F 98.3 F Pulse Rate 73 73 74 Respiratory Rate 16 17 17 Blood Pressure 133/80 128/72 Pulse Oximetry 97 100 93 Oxygen Delivery Room Air 09/28/22 08:00 09/28/22 14:00 Temperature 97.5 F L Pulse Rate 94 Respiratory Rate 16 Blood Pressure 130/74 Pulse Oximetry 96 Oxygen Delivery Room Air Intake/Output Intake/Output: Intake & Output 09/25/22 09/26/22 09/27/22 09/28/22 22:59 23:59 23:59 23:59 Intake Total 2830 1070 Output Total 200 800 Balance 2630 270 Meds/Results Medications: Active Medications Generic Name Dose Route Start Last Admin Trade Name Freq PRN Reason Stop Dose Admin Aripiprazole 20 mg 09/25/22 09:00 09/28/22 09:54 Aripiprazole 10 Mg Tablet PO 20 mg QAM ADITI Administration Bisacodyl 20 mg 09/28/22 18:00 Bisacodyl 5 Mg Tablet Ec PO 09/28/22 18:01 ONCE ONE Buspirone HCl 5 mg 09/25/22 09:00 09/28/22 09:55 Buspirone Hcl 5 Mg Tablet PO 5 mg Q12HR ADITI Administration Citalopram Hydrobromide 40 mg 09/25/22 09:00 09/28/22 09:55 Citalopram Hydrobromide 20 Mg Tablet PO 40 mg DAILY ADITI Administration Cyclobenzaprine HCl 10 mg 09/25/22 04:45 09/28/22 14:33 Cyclobenzaprine Hcl 10 Mg Tablet BY MOUTH 10 mg TID PRN Administration Muscle Spasm Dicyclomine HCl 20 mg 09/25/22 04:41 09/28/22 14:27 Dicyclomine Hcl 10 Mg Capsule PO 20 mg TID PRN Administration abdominal discomfort Diphen
[2022-09-28] MEDS: polyethylene glycoL 3350 238 GM BOTTLE PO (18:34)
[2022-09-28] MEDS: BISACODYL 5 MG TABLET EC 20 MG PO (18:34)
--- NOTE | 2022-09-28 20:04 | PC.NURSE ---
At approximately 1950 patient call light activated and this nurse entered patient room within 15 seconds of activation to find patient sitting on floor between the bed and chair, patient denies any injury and states she lowered herself to the ground, patient then stood from the ground and sat in chair without assistance. Patient had called less than 2 minutes prior to fall to notify this nurse that she had been feeling dizzy when standing, patient was told to call and wait for assistance prior to ambulating and was educated on fall reduction at that time, which was verbalized as understood by patient. meat supervisor Marilyn notified and Provider Merlyn Forrest notified. High fall risk precautions are now in place with chair alarm and zone 2 bed alarm, patient verbalized she will not ambulate without assistance in room.
[2022-09-28 20:30] LABS: Glucose Point of Care 102 mg/dl (65-105)
[2022-09-28 21:51] VITALS: BP 132/82; PULSE 80; RESP 18; TEMP 36.3; O2SAT 99
[2022-09-28] MEDS: traZODone HCL 50 MG TABLET 200 MG BY MOUTH (22:03)
[2022-09-28] MEDS: DOXEPIN HCL 10 MG CAPSULE 20 MG PO (22:03)
[2022-09-28] MEDS: OLANZapine 5 MG TABLET 10 MG PO (22:03)
[2022-09-28] MEDS: MELATONIN 5 MG TABLET 10 MG PO (22:03)
[2022-09-29] VITALS (9 sets, daily range): BP systolic 102–124; BP diastolic 51–78; PULSE 66–82; RESP 12–20; TEMP 36.6–37.1; O2SAT 95–100
[2022-09-29] MEDS: ONDANSETRON INJ 4 MG/2 ML VIAL IV PUSH ×2 (01:29→11:49)
[2022-09-29] MEDS: traMADol HCL (*CRX) 50 MG TABLET 100 MG PO ×2 (06:36→14:18)
[2022-09-29] MEDS: LACTATED RINGERS 1,000 ML 150 ML IV CONT (08:39)
--- NOTE | 2022-09-29 09:17 | WPDANESEPPF ---
Anes - Initial Pre Proc Eval Procedure: Operation Date: 09/29/22 09:30 Proposed Procedures p Colonoscopy - Liam Ji MD Date/Time: 09/29/22 09:17 Surgeon: Rachel Rajput MD Pre Op Diagnosis: intractable abdominal pain,diarrhea,enteritis Patient Data Age: 46 Gender: F Height: 1.63 m Weight: 107.1 kg Last Vital Signs Temp 97.8 F 09/29/22 08:33 Pulse 80 09/29/22 08:33 Resp 20 09/29/22 08:33 BP 117/73 09/29/22 08:33 Pulse Ox 98 09/29/22 08:33 O2 Del Method Room Air 09/29/22 08:33 Allergies Allergy/AdvReac Type Severity Reaction Status Date / Time aspirin Allergy Severe Anaphylaxis Verified 09/24/22 19:56 latex Allergy Severe Blister Verified 09/24/22 19:56 salicylates Allergy Severe Anaphylaxis Verified 09/24/22 19:56 acetaminophen Allergy Intermediate Hypertensio Verified 09/24/22 19:56 n/HYPOTENSI ON erythromycin base Allergy Intermediate Rash Verified 09/24/22 19:56 Home Medications Medication Instructions Recorded Confirmed Type olanzapine 5 mg disintegrating 5 mg PO BID #90 tabs 10/15/21 09/25/22 Rx tablet sumatriptan succinate 100 mg tablet See Rx Instructions PO .COMPLEX 12/15/21 09/25/22 Rx #90 tabs melatonin 10 mg capsule 10 mg PO QHS 01/13/22 09/25/22 History citalopram 20 mg tablet 40 mg PO DAILY #180 tabs 04/23/22 09/25/22 Rx simethicone 125 mg capsule 125 mg PO QID PRN FLATUS 05/19/22 09/25/22 History loperamide 2 mg capsule 4 mg PO DAILY PRN loose stool 1 05/21/22 09/25/22 Rx (Anti-Diarrheal (loperamide)) month #60 caps olanzapine 10 mg tablet 10 mg PO HS #90 tabs 07/30/22 09/25/22 Rx aripiprazole 20 mg tablet 20 mg PO DAILY #30 tabs 08/05/22 09/25/22 Rx buspirone 5 mg tablet 5 mg PO BID #60 tabs 08/25/22 09/25/22 Rx phentermine 37.5 mg tablet 37.5 mg PO DAILY #30 tabs 08/26/22 09/25/22 Rx (Adipex-P) tramadol 50 mg tablet 100 mg PO Q8H PRN pain #180 tabs 08/26/22 09/25/22 Rx gabapentin 800 mg tablet See Rx Instructions .Route 08/31/22 09/25/22 Rx .COMPLEX #120 tabs furosemide 40 mg tablet (Lasix) 40 mg PO QAM #30 tabs 09/02/22 09/25/22 Rx cyclobenzaprine 10 mg tablet See Rx Instructions .Route 09/03/22 09/25/22 Rx .COMPLEX #90 tabs trazodone 100 mg tablet See Rx Instructions .Route 09/10/22 09/25/22 Rx .COMPLEX #60 tabs amoxicillin 500 mg-potassium 1 tablet PO Q12H 10 days #20 tabs 09/16/22 09/25/22 Rx clavulanate 125 mg tablet (Augmentin) dicyclomine 20 mg tablet 20 mg PO TID PRN abdominal 09/22/22 09/25/22 Rx discomfort #90 tabs doxepin 10 mg capsule 20 mg PO HS #60 caps 09/24/22 09/25/22 Rx Laboratory Tests 09/28/22 20:25 POC Capillary Glucose 102 mg/dl mg/dl (65-105) Patient hx anesthesia problems: none Family hx anesthesia problems: none Results Review: All pre-operative results and documents have been reviewed as part of the pre-operative evaluation. [facility]LY [facility] Past Medical History Medical History Acute migraine Anemia Anxiety Arthritis Bipolar disorder, rapid cycling BRBPR (bright red blood per rectum) Chronic fatigue Chronic pain Degenerative disk disease Depression Familial adenomatous polyposis Fibromyalgia Frequent loose stools Gastric polyps GERD (gastroesophageal reflux disease) History of blood clots History of blood transfusion 04/15/2021 History of herpes zoster History of pulmonary embolism History of thyroid disease Insomnia Irritable bowel syndrome with diarrhea Migraines Missed x1 Neurogenic bladder OCD (obsessive compulsive disorder) Plantar fascia syndrome PTSD (post-traumatic stress disorder) Sensory neuronopathy Small intestinal bacterial overgrowth (SIBO) Thyroid disorder TMJ (dislocation of temporomandibular joint) Surgical History Surgical History H/O breast augmentation 2012 H/O colectomy 2020, partial History of ba
[2022-09-29 11:25] LABS: Hemoglobin 12.7 g/dL (12.0-15.0); Mean Corpuscular Hemoglobin 26.8 pg (26-34); Mean Corpuscular Volume 86.5 fl (80-100); Mean Platelet Volume 8.8 fl (7.4-10.4); Platelet Count Result 293 k/mm3 (150-375); Red Blood Count 4.74 M/mm3 (4.2-5.4); Red Cell Distribution Width 15.4 % (11.5-14.5); White Blood Count 3.9 K/mm3 (4.5-10.0)
[2022-09-29 11:36] LABS: INR 1.3; Prothrombin Time 15.3 Seconds (11.1-14.7)
[2022-09-29 11:43] LABS: Alanine Aminotransferase 47 U/L (6-35); Albumin Level 4.2 g/dL (3.5-5.1); Alkaline Phosphatase 124 U/L (38-126); Anion Gap 3 mmol/L (8-16); Aspartate Amino Transferase 37 U/L (14-36); Bilirubin,Total 0.4 mg/dL (0.2-1.3); Blood Urea Nitrogen 6 mg/dL (7-17); Carbon Dioxide 31 mmol/L (22-30); Chloride 107 mmol/L (98-107); Estimated CRCL calculation 83 ml/min; Estimated Glomerular Filt Rate > 60; Glucose 84 mg/dL (65-110); Potassium 4.1 mmol/L (3.4-5.0); Sodium 141 mmol/L (137-145)
[2022-09-29] MEDS: CITALOPRAM HYDROBROMIDE 20 MG TABLET 40 MG PO (11:44)
[2022-09-29] MEDS: ACIDOPHILUS PACKET 1 PKT PACKET PO (11:44)
[2022-09-29] MEDS: GABAPENTIN 400 MG CAPSULE 800 MG BY MOUTH (11:45)
[2022-09-29] MEDS: ARIPiprazole 10 MG TABLET 20 MG PO (11:45)
[2022-09-29] MEDS: busPIRone HCL 5 MG TABLET PO (11:45)
[2022-09-29] MEDS: PANTOPRAZOLE 40 MG TABLET PO (11:45)
[2022-09-29] MEDS: polyethylene glycoL 3350 17 GM POWD.PACK PO (11:45)
[2022-09-29] MEDS: rifAXIMin 550 MG TABLET PO (11:45)
--- NOTE | 2022-09-29 14:38 | PM.DS ---
DS: Admitting Diagnosis Discharge Date 09/29/2022 Admitting Diagnosis Intractable generalized abdominal painEnteritis Small intestinal bacterial overgrowth (SIBO) Irritable bowel syndrome with diarrhea, chronic GERD, chronic? Familial polyposis, chronic DS: Discharge Diagnosis Discharge Diagnosis (1) Constipation: Qualifiers: Constipation type: unspecified constipation type Qualified Code(s): K59.00 - Constipation, unspecified Code(s): K59.00 - Constipation, unspecified Status: Acute Assessment and Plan: CT abd/pelvis with moderate amount of stool extending throughout the ileocolic anastomosis. GI managing and bowel regimen started. Miralax 17 adrien daily, dulcolax tab x1 and lactulose BID x 2 doses given 09/28/2021 patient reported profuse watery stools following stool softners. (2) Intractable generalized abdominal pain: Code(s): R10.84 - Generalized abdominal pain Status: Acute Assessment and Plan: Patient history of small intestine bacterial overgrowth diagnosis and was taking Augmentin outpatient. Treated with Rifaximin BID on admission. Colonoscopy 09/29/22 without enteritis. Continued probiotic, pain control and Compazine IV PRN for nausea. CT abd/pelvis with possible stercoral colitis and moderate amount of stool extending throughout the ileocolic anastomosis. GI consulting and managing. Thought to be secondary constipation and treated with bowel regimen. (3) Small intestinal bacterial overgrowth (SIBO): Code(s): K63.89 - Other specified diseases of intestine Status: Acute Assessment and Plan: As above. (4) Enteritis: Code(s): K52.9 - Noninfective gastroenteritis and colitis, unspecified Status: Acute Assessment and Plan: As above. Not noted on colonoscopy, but cannot be ruled out. (5) Migraine headache without aura: Qualifiers: Intractability: not intractable Status migrainosus presence: without status migrainosus Qualified Code(s): G43.009 - Migraine without aura, not intractable, without status migrainosus Code(s): G43.009 - Migraine without aura, not intractable, without status migrainosus Status: Acute Assessment and Plan: C/o FUENTES without aura, +mild photophobia. H/O chronic headaches treated with sumatriptan outpatient. sumatriptan continued PRN inpatient, however, FUENTES still present. Patient does take Phentermine 37.5 mg daily and has not had this medication for the past 2 days, which may be contributing. Given benadryl 50 mg IV x1, Reglan 10 mg IV x1, sumatriptan 6 mg SQ x1 and 1L NS. Patient has an allergy to aspirin and acetaminophen. 09/27/22 sumatriptan 6 mg SQ x1. Consider starting preventative migraine therapy outpatient. Will defer to PCP. Counseled to keep FUENTES journal 09/28/2022 headaches improving. continue current management (6) Chronic low back pain: Qualifiers: Back pain laterality: unspecified Sciatica presence: without sciatica Qualified Code(s): M54.50 - Low back pain, unspecified; G89.29 - Other chronic pain Code(s): M54.50 - Low back pain, unspecified; G89.29 - Other chronic pain Status: Chronic Assessment and Plan: Continued home analgesics. (7) PTSD (post-traumatic stress disorder): Code(s): F43.10 - Post-traumatic stress disorder, unspecified Status: Chronic Assessment and Plan: Continued antidepressants and antipsychotics. (8) Irritable bowel syndrome with diarrhea: Code(s): K58.0 - Irritable bowel syndrome with diarrhea Status: Chronic Assessment and Plan: Now with constipation and treated with bowel regimen. continued Bentyl (9) GERD (gastroesophageal reflux disease): Code(s): K21.9 - Gastro-esophageal reflux disease without esophagitis Status: Chronic Assessment and Plan: Continued PPI (10) Fibromyalgia: Code(s): M79.7 - Fibromyalgia
== END 2022-09-29 16:15 | disposition home or self-care (01) | DRG 254 ==
LOC: ANHED 09-25 02:47 → ANH2MED 09-25 03:10
PROVIDERS: Emergency Medicine; Internal Medicine Gastroenterology; Admitting Provider Internal Medicine; Emergency Provider Physician Assistant; PCP Internal Medicine; Visit Provider Nurse Practitioner Family
PROC: 0DJD8ZZ Inspection of Lower Intestinal Tract, Via Natural or Artificial Opening Endoscopic (ICD-10-PCS; CPT 45378; principal; 2022-09-29 09:30)
DX: K63.89 Other specified diseases of intestine (principal); E66.01 Morbid (severe) obesity due to excess calories; K58.0 Irritable bowel syndrome with diarrhea; K59.00 Constipation, unspecified; K57.30 Diverticulosis of large intestine without perforation or abscess without bleeding; N31.9 Neuromuscular dysfunction of bladder, unspecified; D64.9 Anemia, unspecified; F41.9 Anxiety disorder, unspecified; F31.9 Bipolar disorder, unspecified; G89.29 Other chronic pain; F41.1 Generalized anxiety disorder; F43.10 Post-traumatic stress disorder, unspecified; G93.32 Myalgic encephalomyelitis/chronic fatigue syndrome; G47.33 Obstructive sleep apnea (adult) (pediatric); G43.009 Migraine without aura, not intractable, without status migrainosus; K21.9 Gastro-esophageal reflux disease without esophagitis; M79.7 Fibromyalgia; M54.50 Low back pain, unspecified; M19.90 Unspecified osteoarthritis, unspecified site; Z28.21 Immunization not carried out because of patient refusal; Z90.411 Acquired partial absence of pancreas; Z99.89 Dependence on other enabling machines and devices; Z90.49 Acquired absence of other specified parts of digestive tract; Z86.010 Personal history of colon polyps; Z86.711 Personal history of pulmonary embolism; Z90.710 Acquired absence of both cervix and uterus
CPT/HCPCS: 36415; 74177; 80048; 80053; 81003; 81025; 82948; 83690; 85025; 85027; 85610; 93005; 96361; 96372; 96374; 96375; 96376; 99285; A9270; C9113; G0378; G0379; J0500; J0780; J1200; J2060; J2270; J2405; J2704; J2765; J3030; J7030; J7120; Q9967

== ENCOUNTER 2022-10-07 08:46 | Outpatient (CLI) | payer OTHER, SELFPAY ==
--- NOTE | 2022-11-04 11:51 | WPDSLEEPSTUD ---
Sleep Study Date of Study: 10/07/22 Ordering Provider: Ash Singh MD Interpreting Physician: Zabrina Keller MD Sleep Study Type: CPAP Titration Height: 1.63 m Weight: 104.78 kg Body Mass Index: 39.6 Neck Circumference (inches): 16.5 [place]: 12 Reason for Sleep Study * 04/13/2022 home sleep test with [facility] showin mild obstructive sleep apnea, AHI of 7.4 with desaturation down to 85%, mild obstructive sleep apnea; she started APAP With the emergence of central apneas. She returns at this time for full night titration. The patient's sleep history suggests RLS.?She had a serum ferritin drawn on 01/08/2022 that was 6.24.?On repeat, most recent ferritin on August the with was 14.9, improved but still well under recommended level of 75. Sleep History Sandhya is a 47-year-old female bipolar disorder, PTSD, anxiety, obsessive-compulsive disorder, GERD, neurogenic bladder, migraines, fibromyalgia, familial adenomatous polyposis and hemorrhoids that a sleep study ordered for evaluation of sleep apnea.? The patient frequently awakens from sleep short of breath.? She occasionally awakens at night with heartburn, belching or cough.? She constantly snores and is frequently loud enough others complain.? She frequently has trouble sleeping when she has a cold.? She frequently wakes up gasping for air throughout the night.? She frequently has breathing problems at night observed by herself or others.? She occasionally sweats excessively at night.? She occasionally has heart palpitations or irregular heartbeats during the night.? She frequently falls asleep during the day but rarely falls asleep while driving.? She rarely experiences loss of muscle tone when extremely emotional.? She rarely feels unable to move waking up or falling asleep.? She occasionally experiences vivid dreamlike scenes upon awakening or falling asleep.? He constantly feels afraid of going sleep.? She frequently has nightmares and frequently remembers her dreams.? She constantly has thoughts racing through her mind.??She constantly feels sad, depressed and anxious.? She constantly has muscular tension.? She frequently notices parts of her body jerk.? She occasionally kicks during the night.??She frequently has crawling and aching feelings in her legs and constantly has leg pain during the night.? She constantly grinds her teeth during sleeping constantly awakens with a morning jaw pain.? She is constantly bothered by pain during the day and frequently awakened by pain during the night.? He constantly wakes up feeling stiff in morning.? She constantly wakes up with sore achy muscles.? She constantly wakes up with pain in the neck, spine or other joints.? She goes to bed between 830-10 p.m. on both weekdays and weekends.? It takes her 15-30 minutes to fall asleep.? She is unsure how many times she wakes up throughout the night.? She is either able to fall back asleep or she is unable to.? She gets up between 5-7 a.m. on both weekdays and weekends.? She typically gets 5-7 hours of sleep per night.? She will stay in bed for a few minutes after waking up in morning.? She currently lives alone.? She denies consuming any caffeinated beverages within 2 hours of bedtime.? She does not engage in physical exercise before bedtime.? She will watch television before falling asleep.? She tries not to take naps in the afternoon or evening.? She denies consuming caffeinated beverages throughout the day.? She denies tobacco, alcohol and recreational drug use. [facility] Past Medical History Medical History Acute migraine Anemia Anxiety Arthritis Bipolar disorder, rapid cycling BRBPR (bright red blood per rectum) Chronic fatigue Chronic pain Degenerative disk disease Depression Familial adenomatous polyposis Fibromyalgia Frequent loose stools Gastric polyps GERD (gastroesophageal reflux disease) History of blood clots History of blood tra
[2022-11-04 13:09] VITALS: BMI 39.6
== END 2022-10-08 07:14 | disposition home or self-care (01) ==
PROVIDERS: PCP Internal Medicine; Visit Provider Internal Medicine
DX: G47.33 Obstructive sleep apnea (adult) (pediatric) (principal); K21.9 Gastro-esophageal reflux disease without esophagitis; Z86.711 Personal history of pulmonary embolism
CPT/HCPCS: 95811

== ENCOUNTER 2022-10-13 00:35 | Observation (INO) | payer OTHER, SELFPAY ==
[2022-10-13] VITALS (13 sets, daily range): BP systolic 114–138; BP diastolic 67–74; PULSE 71–89; RESP 16–22; TEMP 35.9–37; O2SAT 94–99; BMI 39.4
--- NOTE | ~2022-10-13 | XR_ITS ---
Portable chest x-ray Comparison: 05/11/2022 Clinical History: Cough Findings: Lungs are clear, without focal consolidation or pleural effusion. Cardiomediastinal silho uette is stable. Bones and soft tissues are unremarkable. Impression: Normal chest. Reviewed, dictated and finalized at [facility]. Impression: Normal chest.
--- NOTE | ~2022-10-13 | CT_ITS ---
CT Angiogram of the Abdomen and Pelvis: Indication: Abdominal pain, GI bleed Technique: 2.5 mm axial scans were obtained through the abdomen and pelvis prior to and following in travenous administration of 100 cc of Omnipaque 350. Dose reduction technique was used on this scan b y utilizing automated exposure control and iterative reconstruction technique. The dose-length produc t (DLP) was 3780.00 mGy-cm. COMPARISON: 09/24/2022 Findings: Scans through the lung bases are unremarkable. The liver, spleen, pancreas, adrenals and kidneys are within normal limits. Cholecystectomy clips are noted. Mildly dilated common bile duct is probably related to prior cholecystectomy. No evidence of aortic aneurysm. No lymphadenopathy. No bowel obstruction or bowel wall thickening. No CT evidence for active GI bleeding. There is a prob able prior extensive colectomy with bowel anastomosis present. Images through the pelvis were performed. Urinary bladder unremarkable. No pelvic mass identified. No ascites. Impression: No definite CT angiographic evidence for active GI bleeding. No definite acute abnormality seen. Status post cholecystectomy. Reviewed, dictated and finalized at [facility]. Impression: No definite CT angiographic evidence for active GI bleeding. No definite acute abnormality seen. Status post cholecystectomy.
[2022-10-13] MEDS: SODIUM CHLORIDE 0.9% IV 1,000 ML 999 ML IV CONT (02:34)
[2022-10-13] MEDS: ONDANSETRON INJ 4 MG/2 ML VIAL IV PUSH ×3 (02:35→12:10)
[2022-10-13 03:32] LABS: Basophils Percent Auto 0.6 % (0.2-1.2); Eosinophils Absolute Auto 0.3 K/mm3 (0-0.3); Eosinophils Percent Auto 5.2 % (0-4.4); Hemoglobin 11.9 g/dL (12.0-15.0); Immature Granulocyte Absolute 0.01 K/mm3 (0.00-0.031); Immature Granulocyte Percent A 0.2 % (0-0.5); Lymphocytes Absolute Auto 2.36 K/mm3 (0.9-3.2); Mean Corpuscular HGB Conc 31.3 g/dl (32-36); Mean Corpuscular Hemoglobin 26.7 pg (26-34); Mean Corpuscular Volume 85.2 fl (80-100); Mean Platelet Volume 9.2 fl (7.4-10.4); Monocytes Absolute Auto 0.5 K/mm3 (0.1-0.6); Neutrophils Absolute Auto 2.1 K/mm3 (1.3-6.7); Platelet Count Result 328 k/mm3 (150-375); Red Blood Count 4.46 M/mm3 (4.2-5.4); Red Cell Distribution Width 14.3 % (11.5-14.5); White Blood Count 5.2 K/mm3 (4.5-10.0)
[2022-10-13 03:42] LABS: INR 1.1; Lactic Acid Reflex 0.9 mmol/L (0.7-2.0); Prothrombin Time 14.2 Seconds (11.1-14.7)
[2022-10-13 03:43] LABS: Alanine Aminotransferase 25 U/L (6-35); Albumin Level 4.3 g/dL (3.5-5.1); Alkaline Phosphatase 112 U/L (38-126); Anion Gap 9 mmol/L (8-16); Aspartate Amino Transferase 27 U/L (14-36); Bilirubin,Total 0.4 mg/dL (0.2-1.3); Blood Urea Nitrogen 14 mg/dL (7-17); Calcium 8.7 mg/dL (8.4-10.2); Carbon Dioxide 28 mmol/L (22-30); Chloride 103 mmol/L (98-107); Estimated CRCL calculation 81 ml/min; Estimated Glomerular Filt Rate > 60; Glucose 89 mg/dL (65-110); Lipase 135 U/L (23-300); Magnesium 2.1 mg/dL (1.6-2.3); Partial Thromboplastin Time 34.6 SECONDS (22.3-36.8); Potassium 3.9 mmol/L (3.4-5.0); Sodium 140 mmol/L (137-145)
--- NOTE | 2022-10-13 05:09 | ED.GENADULT ---
HPI - General Adult General Chief complaint: GI Bleed Stated complaint: rectal bleeding Time Seen by Provider: 10/13/22 01:57 History of Present Illness HPI narrative: Patient 47-year-old female who presents to the emergency department with chief complaint of rectal bleeding patient reports that she has history of polyposis and reports that she has had a bowel resection. Patient states that she is also had a hemorrhoidectomy before in the past and reports that she recently had a colonoscopy after she had a bowel obstruction on the of this month. Patient also recently had COVID-19 and reports that she has been coughing where she feels as though she may have a little bit of blood sputum the patient reports that she has had several melanotic and clot filled stools throughout the day. 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 states that she is not having severe abdominal pain Related Data Home Medications Medication Instructions Recorded Confirmed melatonin 10 mg capsule 10 mg PO QHS 01/13/22 09/25/22 simethicone 125 mg capsule 125 mg PO QID PRN FLATUS 05/19/22 09/25/22 Allergies Allergy/AdvReac Type Severity Reaction Status Date / Time aspirin Allergy Severe Anaphylaxis Verified 09/24/22 19:56 latex Allergy Severe Blister Verified 09/24/22 19:56 salicylates Allergy Severe Anaphylaxis Verified 09/24/22 19:56 acetaminophen Allergy Intermediate Hypertensio Verified 09/24/22 19:56 n/HYPOTENSI ON erythromycin base Allergy Intermediate Rash Verified 09/24/22 19:56 Review of Systems Review of Systems: A 10 system review of systems was completed on the patient and is negative except for what is stated in the HPI. Nursing and ancillary documentation was reviewed. [facility] Past Medical History Medical History Acute migraine Anemia Anxiety Arthritis Bipolar disorder, rapid cycling BRBPR (bright red blood per rectum) Chronic fatigue Chronic pain Degenerative disk disease Depression Familial adenomatous polyposis Fibromyalgia Frequent loose stools Gastric polyps GERD (gastroesophageal reflux disease) History of blood clots History of blood transfusion 04/15/2021 History of herpes zoster History of pulmonary embolism History of thyroid disease Insomnia Irritable bowel syndrome with diarrhea Migraines Missed x1 Neurogenic bladder OCD (obsessive compulsive disorder) Plantar fascia syndrome PTSD (post-traumatic stress disorder) Sensory neuronopathy Small intestinal bacterial overgrowth (SIBO) Thyroid disorder TMJ (dislocation of temporomandibular joint) Surgical History Surgical History H/O breast augmentation 2012 H/O colectomy 2020, partial History of back surgery 2020, placement of interstim device History of bladder surgery 2017 History of bunionectomy 2019 History of section x1 History of cholecystectomy 2008 History of hemorrhoidectomy Exam under anesthesia, external hemorrhoidectomy 2 columns, anal polypectomy x 4 01/25/2022 History of hysterectomy 2019 Hx of breast reduction, elective 2010 Family History Family History Mother , drowning Hyperlipemia Uterine cancer Hypertension Alcoholism Anxiety and depression Thyroid disorder Grandparent Uterine cancer Carcinoma of colon Colon polyp Alcoholism Hypertension Anxiety and depression Cerebrovascular accident Thyroid disorder Other Cancer uncle, aunt Father Hypertension Social History Social History Smoking status: Never smoker Second hand tobacco smoke exposure: Yes Alcohol intake: never Substance use: never Substance use type: does not use Lack of Transpo
[2022-10-13 05:12] LABS: Appearance Urine Clear (Clear); Bacteria Urine None Seen /hpf; Bilirubin Urine Negative (Negative); Blood Urine Negative (Negative); Color Urine Yellow (Yellow); Glucose Urine UA Negative (Negative); Ketones Urine Negative (Negative); Leukocyte Esterase Ur Trace LEU/UL (Negative); Need Manual Microscopic Reviewed; Nitrate Urine Negative (Negative); Non Pathogenic Casts 0-2; Protein Urine Negative (Negative); RBC Urine 0-2 /hpf (0-2); Squamous Epithelial Cell Urine Occasional /hpf (Few); Urobilinogen Urine 0.2 mg/dL (<2.0); WBC Urine 0-5 /hpf
[2022-10-13 05:13] LABS: Specific Grav Ur 1.038 (1.001-1.035)
[2022-10-13 05:14] LABS: Add Urine Microscopic? YES
[2022-10-13] MEDS: SODIUM CHLORIDE 0.9% IV 1,000 ML 125 ML IV CONT ×3 (05:31→17:16)
[2022-10-13 06:26] LABS: Influenza A QL RT-PCR Negative (Negative); Influenza B QL RT-PCR Negative (Negative); RSV RNA, RT-PCR Negative (Negative); SARS-CoV-2 RNA PCR Positive
--- NOTE | 2022-10-13 07:17 | PM.IMHP ---
H&P: HPI History of Present Illness Date/Time: 10/13/22 07:17 Chief Complaint: Rectal bleeding Narrative: 46yo female with hx of familial polyposis syndrome status post partial colectomy (right hemicolectomy), fibromyalgia, PTSD, bipolar disorder and chronic pain here for rectal bleeding. Recently hospitalized here from 09/25 - 09/29/22 for abdominal pain and found to have small bowel bacterial overgrowth, stecoral enteritis and constipation causing abdominal pain. She underwent colonoscopy on 09/29/22 that showed intact ileocolonic anastomosis, no polyps, no signs of stercoral enteritis or stool noted, and presence of diverticulosis without diverticulitis, perforation or bleeding.?Since discharge, she completed a course of Augmentin. She was doing well until a few days prior to admission when she noted blood on the toilet paper and drips of red blood in the toilet. She denies vaginal bleeding and denies dysuria or hematuria. She has a hx of hemorrhoidectomy. She also developed sore throat and laryngitis about 1 week before admission. She developed cough with a 'blood' taste. Cough productive of whitish sputum with blood streaks. She tested positive for COVID on 10/08/22. Patient's rectal bleeding worsened with passing clots and gross red blood in the toilet that filled the toilet which prompted her presentation. Last fever was 2 days ago. Also having headaches, fatigue, myalgias and abdominal pain. She has chronic low back pain. No palpitations. No chest pain. In the ED, she was hemodynamically stable. Hgb was 12. CMP and Lipase normal. COVID positive. CXR was clear. CT Abd/Pelvis showed no acute findings. She was admitted for further care. Review of Systems Review of Systems: All systems reviewed & are unremarkable except as noted in HPI and below PMFSH Past Medical History Medical History (Updated 10/13/22 @ 08:14 by Jose Luis Das MD) Acute migraine Anemia Anxiety Arthritis Bipolar disorder, rapid cycling BRBPR (bright red blood per rectum) Chronic fatigue Chronic pain Degenerative disk disease Depression Familial adenomatous polyposis Fibromyalgia Frequent loose stools Gastric polyps GERD (gastroesophageal reflux disease) History of blood clots History of blood transfusion 04/15/2021 History of herpes zoster History of pulmonary embolism History of thyroid disease Insomnia Irritable bowel syndrome with diarrhea Migraines Missed x1 Neurogenic bladder OCD (obsessive compulsive disorder) Plantar fascia syndrome PTSD (post-traumatic stress disorder) Sensory neuronopathy Small intestinal bacterial overgrowth (SIBO) Thyroid disorder TMJ (dislocation of temporomandibular joint) Surgical History Surgical History H/O breast augmentation 2012 H/O colectomy 2020, partial History of back surgery 2020, placement of interstim device History of bladder surgery 2017 History of bunionectomy 2019 History of section x1 History of cholecystectomy 2008 History of hemorrhoidectomy Exam under anesthesia, external hemorrhoidectomy 2 columns, anal polypectomy x 4 01/25/2022 History of hysterectomy 2019 Hx of breast reduction, elective 2010 Family History Family History Mother , drowning Hyperlipemia Uterine cancer Hypertension Alcoholism Anxiety and depression Thyroid disorder Grandparent Uterine cancer Carcinoma of colon Colon polyp Alcoholism Hypertension Anxiety and depression Cerebrovascular accident Thyroid disorder Other Cancer uncle, aunt Father Hypertension Social History Social History Smoking status: Never smoker Second hand tobacco smoke exposure: Yes Alcohol intake: never Substance use: never Substance use type: does not use Lack of Transportation
[2022-10-13 08:42] LABS: Hematocrit 35.1 % (37.0-47.0); Hemoglobin 10.9 g/dL (12.0-15.0)
[2022-10-13] MEDS: traMADol HCL (*CRX) 50 MG TABLET 100 MG PO ×2 (09:26→17:13)
[2022-10-13] MEDS: busPIRone HCL 5 MG TABLET PO ×2 (09:27→17:13)
[2022-10-13] MEDS: GABAPENTIN 400 MG CAPSULE 800 MG PO ×4 (09:27→20:47)
[2022-10-13] MEDS: DICYCLOMINE HCL 10 MG CAPSULE 20 MG PO (12:10)
--- NOTE | 2022-10-13 13:37 | WPDGICN ---
Assessment and Plan Assessment and plan (1) Rectal bleeding: Code(s): K62.5 - Hemorrhage of anus and rectum Status: Acute Assessment and Plan: recent colonoscopy less than 2 weeks ago, no need to repeat another one wonder if could be perianal monitor and trend h/h CTA scan negative (2) COVID: Code(s): U07.1 - COVID-19 Status: Acute Assessment and Plan: on isolation, by primary (3) Abdominal pain: Code(s): R10.9 - Unspecified abdominal pain Status: Acute Assessment and Plan: chronic, unchanged (4) Small intestinal bacterial overgrowth (SIBO): Code(s): K63.89 - Other specified diseases of intestine Status: Acute Assessment and Plan: treated in the past GI Consult Note Consult date/time: 10/13/22 13:37 Reason for consult: rectal bleeding HPI: Naila Beard is a 47 year old female who is known to me and recently admitted to the hospital for abdominal pain, CT scan noted?right hemicolectomy with moderate amount stool extending through the ileocolic anastomosis and with mild wall thickening of the small bowel at the anastomosis suggestive of stercoral enteritis, finally had another colonoscopy without significant findings only mild diverticulosis, no colitis and she went home, also treated for SIBO with antibiotics. She has history of small-bowel intestinal bacterial overgrowth diagnosed several years ago, subtotal colectomy for attenuated familial adenomatous polyposis however recent EGD 05/2022 and small bowel capsule endoscopy 07/2022 did not reveal any polyps.?She also has chronic abdominal pain. She came here after noted blood on the toilet paper and drips of red blood in the toilet with clots, no diarrhea. Also had sinus congestion with chills and cough, just diagnosed with covid. CTA scan reviewed, no definite CT angiographic evidence for active GI bleeding. No definite acute abnormality seen. Status post cholecystectomy. Review of Systems Constitutional: Constitutional: Reports lethargy Eyes: Eyes: Denies blurry vision ENT: Reports Normal hearing present Cardiovascular: Cardiovascular: Denies diaphoresis Respiratory: Respiratory: Reports chest congestion and Reports cough Gastrointestinal: Gastrointestinal: Reports abdominal pain and Reports hematochezia Genitourinary: Genitourinary: Denies urinary urgency Musculoskeletal: Musculoskeletal: Denies arthralgias Integumentary/Breasts: Skin/Breast: Denies rash Neurologic: Denies confusion Psychiatric: Psychiatric: Denies behavioral changes [facility] Past Medical History Medical History (Updated 10/13/22 @ 15:15 by Liam Ji MD) Acute migraine Anemia Anxiety Arthritis Bipolar disorder, rapid cycling BRBPR (bright red blood per rectum) Chronic fatigue Chronic pain Degenerative disk disease Depression Familial adenomatous polyposis Fibromyalgia Frequent loose stools Gastric polyps GERD (gastroesophageal reflux disease) History of blood clots History of blood transfusion 04/15/2021 History of herpes zoster History of pulmonary embolism History of thyroid disease Insomnia Irritable bowel syndrome with diarrhea Migraines Missed x1 Neurogenic bladder OCD (obsessive compulsive disorder) Plantar fascia syndrome PTSD (post-traumatic stress disorder) Rectal bleeding Sensory neuronopathy Small intestinal bacterial overgrowth (SIBO) Thyroid disorder TMJ (dislocation of temporomandibular joint) Surgical History Surgical History H/O breast augmentation 2012 H/O colectomy 2020, partial History of back surgery 2020, placement of interstim device History of bladder surgery 2017 History of bunionectomy 2019 History of section x1 History of cholecystectomy 2007 History of hemorrhoidectomy Exam under anesthesia, external hemorrhoidectomy 2 columns, anal polypectomy x 4 01/25
[2022-10-13 14:42] LABS: Hematocrit 35.1 % (37.0-47.0); Hemoglobin 10.9 g/dL (12.0-15.0)
[2022-10-13 20:24] LABS: Hematocrit 35.7 % (37.0-47.0); Hemoglobin 10.9 g/dL (12.0-15.0)
[2022-10-13] MEDS: CYCLOBENZAPRINE HCL 10 MG TABLET PO (20:46)
[2022-10-13] MEDS: traZODone HCL 50 MG TABLET 200 MG PO (20:46)
[2022-10-13] MEDS: ARIPiprazole 10 MG TABLET 20 MG PO (20:47)
[2022-10-13] MEDS: DOXEPIN HCL 10 MG CAPSULE 20 MG PO (20:48)
[2022-10-13] MEDS: CITALOPRAM HYDROBROMIDE 20 MG TABLET 40 MG PO (20:48)
[2022-10-13] MEDS: OLANZapine 5 MG TABLET 10 MG PO (20:48)
[2022-10-13] MEDS: MELATONIN 5 MG TABLET 10 MG PO (20:49)
[2022-10-14 05:31] VITALS: BP 154/88; PULSE 69; RESP 16; TEMP 36.1; O2SAT 100
[2022-10-14 06:26] LABS: Hematocrit 37.7 % (37.0-47.0); Hemoglobin 11.3 g/dL (12.0-15.0); Mean Corpuscular Hemoglobin 27.2 pg (26-34); Mean Corpuscular Volume 90.6 fl (80-100); Mean Platelet Volume 9.1 fl (7.4-10.4); Platelet Count Result 256 k/mm3 (150-375); Red Blood Count 4.16 M/mm3 (4.2-5.4); Red Cell Distribution Width 14.3 % (11.5-14.5); White Blood Count 3.5 K/mm3 (4.5-10.0)
[2022-10-14 06:57] LABS: Anion Gap 5 mmol/L (8-16); Blood Urea Nitrogen 8 mg/dL (7-17); Calcium 8.8 mg/dL (8.4-10.2); Carbon Dioxide 28 mmol/L (22-30); Chloride 108 mmol/L (98-107); Estimated CRCL calculation 90 ml/min; Estimated Glomerular Filt Rate > 60; Glucose 80 mg/dL (65-110); Potassium 4.5 mmol/L (3.4-5.0); Sodium 141 mmol/L (137-145)
[2022-10-14] MEDS: busPIRone HCL 5 MG TABLET PO (08:57)
[2022-10-14] MEDS: WATER FOR IRRIGATION, STERILE 1,000 ML BOTTLE 1000 ML (08:57)
[2022-10-14] MEDS: traMADol HCL (*CRX) 50 MG TABLET 100 MG PO (08:57)
[2022-10-14] MEDS: GABAPENTIN 400 MG CAPSULE 800 MG PO ×2 (08:57→12:30)
[2022-10-14] MEDS: CYCLOBENZAPRINE HCL 10 MG TABLET PO (11:16)
[2022-10-14 11:22] VITALS: TEMP 36.4
--- NOTE | 2022-10-14 13:05 | WPDGIPROGNO ---
Progress Note: A&P Assessment and Plan (1) Rectal bleeding: Code(s): K62.5 - Hemorrhage of anus and rectum Status: Acute Assessment and Plan: resolved and h/h stable no need to endoscopic evaluation, just had colonoscopy less than 2 weeks ago ok to discharge follow-up office in 2-3 months (2) Abdominal pain: Code(s): R10.9 - Unspecified abdominal pain Status: Acute Assessment and Plan: chronic and unchanged (3) COVID: Code(s): U07.1 - COVID-19 Status: Acute Assessment and Plan: still symptomatic but not requiring O2 she is comfortable (4) Familial adenomatous polyposis: Code(s): D12.6 - Benign neoplasm of colon, unspecified Status: Acute Subjective Date/time seen: 10/14/22 13:05 Interval history: no more bleeding, still with cough and congestion Review of Systems Review of Systems: All systems reviewed & are unremarkable except as noted in HPI and below Exam Const: General: comfortable and no acute distress HENMT: Face/Nose/Sinus: Normal nares present Eyes: General: appearance normal, both eyes and all related structures Neck: Neck: no JVD Resp: Auscultation: clear to auscultation bilaterally Cardio: Rate: regular rate Rhythm: regular rhythm GI: Inspection: non-distended GI Palp: Yes Soft to palpation, No Tenderness to palpation present (GI) and No Guarding due to palpation present (GI) Auscultation: normal bowel sounds Skin: General skin exam: normal color Neuro: Speech: normal speech Motor exam (neuro): 5/5 motor strength present throughout Extrem: General: normal to inspection Psych: Mental Status: mental status grossly normal Objective Data Vital Signs Vital Signs: Vital Signs - 24 hr 10/13/22 14:00 10/13/22 22:00 10/13/22 22:42 Temperature 96.6 F L 97.8 F Pulse Rate 80 71 75 Respiratory Rate 16 16 Blood Pressure 138/70 127/68 Pulse Oximetry 98 94 97 Oxygen Delivery CPAP 10/13/22 20:00 10/14/22 05:31 10/14/22 08:57 Temperature 97 F L Pulse Rate 75 69 Respiratory Rate 16 16 Blood Pressure 154/88 H Pulse Oximetry 97 100 Oxygen Delivery CPAP Room Air 10/14/22 11:22 Temperature 97.6 F Pulse Rate Respiratory Rate Blood Pressure Pulse Oximetry Oxygen Delivery Intake/Output Intake/Output: Intake & Output 10/11/22 10/12/22 10/13/22 10/14/22 23:59 23:59 23:59 23:59 Intake Total 4480 480 Balance 4480 480 Meds/Results Medications: Active Medications Generic Name Dose Route Start Last Admin Trade Name Freq PRN Reason Stop Dose Admin Aripiprazole 20 mg 10/13/22 21:00 10/13/22 20:47 Aripiprazole 10 Mg Tablet PO 20 mg HS ADITI Administration Buspirone HCl 5 mg 10/13/22 09:00 10/14/22 08:57 Buspirone Hcl 5 Mg Tablet PO 5 mg BID ADITI Administration Citalopram Hydrobromide 40 mg 10/13/22 21:00 10/13/22 20:48 Citalopram Hydrobromide 20 Mg Tablet PO 40 mg HS ADITI Administration Cyclobenzaprine HCl 10 mg 10/13/22 07:15 10/14/22 11:16 Cyclobenzaprine Hcl 10 Mg Tablet PO 10 mg TID PRN Administration Spasms Dicyclomine HCl 20 mg 10/13/22 07:15 10/13/22 12:10 Dicyclomine Hcl 10 Mg Capsule PO 20 mg TID PRN Administration abdominal discomfort Doxepin HCl 20 mg 10/13/22 21:00 10/13/22 20:48 Doxepin Hcl 10 Mg Capsule PO 20 mg HS ADITI Administration Gabapentin 800 mg 10/13/22 09:00 10/14/22 12:30 Gabapentin 400 Mg Capsule PO 800 mg QID ADITI Administration Melatonin 10 mg 10/13/22 21:00 10/13/22 20:49 Melatonin 5 Mg Tablet PO 10 mg HS ADITI Administration Olanzapine 5 mg 10/13/22 07:15 Olanzapine Dispertab 5 Mg PO BID PRN Anxiety, Agitation Olanzapine 10 mg 10/13/22 21:00 10/13/22 20:48 Olanzapine 5 Mg Tablet PO 10 mg HS ADITI Administration Ondansetron HCl 4 mg 10/13/22 05:02 10/13/22 12:10 Ondansetron Inj 4 Mg/2 Ml Vial IV PUSH 4 mg Q4
--- NOTE | 2022-10-14 13:29 | PM.DS ---
DS: Admitting Diagnosis Discharge Date 10/14/22 Admitting Diagnosis Rectal bleeding DS: Discharge Diagnosis Discharge Diagnosis (1) Acute GI bleeding: Code(s): K92.2 - Gastrointestinal hemorrhage, unspecified Status: Acute (2) Diverticulosis: Code(s): K57.90 - Diverticulosis of intestine, part unspecified, without perforation or abscess without bleeding Status: Acute (3) COVID: Code(s): U07.1 - COVID-19 Status: Acute (4) Bipolar disorder, rapid cycling: Code(s): F31.9 - Bipolar disorder, unspecified Status: Acute DS: Summary Hospital Course Reason for hospitalization: 46yo female with hx of familial polyposis syndrome status post partial colectomy (right hemicolectomy), fibromyalgia, PTSD, bipolar disorder and chronic pain here for rectal bleeding.? Please see H&P for details. Hospital Course: Patient presents with complaints of rectal bleeding. She also was recently diagnosed at home with COVID. She is not on anticoagulation. Hemoglobin was 12. CMP and lipase were normal. She was COVID positive. Chest x-ray was clear. She remained on room air throughout her hospital course. A CT of the abdomen and pelvis showed no acute findings. She had a recent colonoscopy about 2 weeks ago and these results were reviewed. GI was consulted but did not feel any further evaluation was required. We did serial hemoglobin and her hemoglobin remained stable.. She has been up walking to the bathroom. She still having a few ?drops of blood? with bowel movements but otherwise feels well. Was felt she could be safely discharged home. Patient overall did well was discharged on 10/14/2022. Status at Discharge Cognitive/behavioral status at discharge: Stable Time Spent with Patient Time attestation: Total time spent providing and/or coordinating discharge services: 34 minutes Time spent: Greater than 30 minutes Exam Narrative: AF 97.6 154/88 69 16 100% ra Gen - NARD Chest - CTA bilaterally, nml RR CV - RRR S1/S2 Abd - Soft, NT/ND, Positive BS Ext - No pedal edema Psych - Nml mood and affect Skin - Warm and dry DS: Data Data Completed and Pending Labs on day of discharge: Labs from last 24 hours 10/14/22 10/14/22 10/13/22 05:43 05:43 20:17 WBC 3.5 L RBC 4.16 L Hgb 11.3 L 10.9 L Hct 37.7 35.7 L MCV 90.6 D MCH 27.2 MCHC 30.0 L RDW 14.3 Plt Count 256 MPV 9.1 Sodium 141 Potassium 4.5 Chloride 108 H Carbon Dioxide 28 Anion Gap 5 L BUN 8 D Creatinine 0.80 Estim Creat Clear Calc 90 Estimated GFR > 60 Glucose 80 Calcium 8.8 10/13/22 14:25 WBC RBC Hgb 10.9 L Hct 35.1 L MCV MCH MCHC RDW Plt Count MPV Sodium Potassium Chloride Carbon Dioxide Anion Gap BUN Creatinine Estim Creat Clear Calc Estimated GFR Glucose Calcium Discharge Plan Discharge Attending physician on discharge: Jose Luis Das Consulting providers: Liam Ji Discharging Clinician: Jose Luis Das Anticipated Discharge Date/Time: 10/14/22 13:34 Patient Disposition: Home, Self-Care Activity: as tolerated Diet: regular Discharge Instructions: Please avoid large gathering, wear face coverings in public and practice social distance. Contact your doctor or call 911 and come to the Emergency Room if you have large volume of rectal bleeding, lightheadedness with standing or other worrisome symptoms. Avoid NSAIDs (ibuprofen, naproxen, Aleve). Tylenol is safe to take. Continue BiPAP at night and with naps. Follow-up with your primary care provider in 1-2 weeks. Please call for appointment. Thank you for using [facility] for your health care needs. Patient Instructions: Antibiotic Form Stand Alone Forms: General Discharge Information Follow-up/Referrals: Ash Singh MD [Primary Care Provider] - Call for Appo
[2022-10-14] MEDS: DICYCLOMINE HCL 10 MG CAPSULE 20 MG PO (13:33)
[2022-10-14 14:00] VITALS: BP 126/71; PULSE 81; RESP 16; TEMP 35.9; O2SAT 99
== END 2022-10-14 15:20 | disposition home or self-care (01) ==
LOC: ANHED 05:13 → ANH3MEDSUR 10-14 13:36
PROVIDERS: Admitting Provider Internal Medicine; Emergency Provider Emergency Medicine; PCP Internal Medicine; Visit Provider Internal Medicine
DX: K57.90 Diverticulosis of intestine, part unspecified, without perforation or abscess without bleeding (principal); U07.1 COVID-19; F43.10 Post-traumatic stress disorder, unspecified; Z90.49 Acquired absence of other specified parts of digestive tract; R14.3 Flatulence; D64.9 Anemia, unspecified; M19.90 Unspecified osteoarthritis, unspecified site; G43.909 Migraine, unspecified, not intractable, without status migrainosus; F42.9 Obsessive-compulsive disorder, unspecified; R25.2 Cramp and spasm; K58.0 Irritable bowel syndrome with diarrhea; R53.83 Other fatigue; F32.A Depression, unspecified; G47.00 Insomnia, unspecified; K21.9 Gastro-esophageal reflux disease without esophagitis; M79.7 Fibromyalgia; Z79.891 Long term (current) use of opiate analgesic; Z79.899 Other long term (current) drug therapy; Z86.010 Personal history of colon polyps; Z83.71 Family history of colonic polyps
CPT/HCPCS: 36415; 71045; 74174; 80048; 80053; 81001; 83605; 83690; 83735; 85014; 85018; 85025; 85027; 85610; 85730; 87637; 94660; 96361; 96374; 96376; 99285; A9270; G0378; G0379; J2405; J7030; Q9967

== ENCOUNTER 2022-11-23 15:14 | Outpatient (CLI) | payer OTHER, SELFPAY ==
[2022-11-23 15:33] LABS: Appearance Urine Clear (Clear); Bilirubin Urine Negative (Negative); Blood Urine Negative (Negative); Color Urine Yellow (Yellow); Glucose Urine UA Negative (Negative); Ketones Urine Negative (Negative); Leukocyte Esterase Ur Negative LEU/UL (Negative); Nitrate Urine Negative (Negative); Protein Urine Negative (Negative); Urobilinogen Urine 0.2 mg/dL (<2.0); pH Urine 5.5 (5.0-9.0)
[2022-11-23 15:39] LABS: Add Urine Microscopic? NO
== END 2022-11-23 15:15 | disposition home or self-care (01) ==
LOC: ANHLAB 15:16
PROVIDERS: PCP Family Medicine; Visit Provider Nurse Practitioner
DX: R39.9 Unspecified symptoms and signs involving the genitourinary system (principal)
CPT/HCPCS: 81003

== ENCOUNTER 2022-11-30 09:36 | Outpatient (CLI) | payer OTHER, SELFPAY ==
--- NOTE | ~2022-11-30 | NM_ITS ---
EXAMINATION: NM andrea stress w perfusion DATE: 11/30/2022 12:06 INDICATION: Other forms of dyspnea. TECHNIQUE: Rest images were obtained following intravenous administration of 9.0 mCi Tc99m tetrofosmi n (Myoview). The patient was infused intravenously with Lexiscan (regadenoson). Then, 28.8 mCi Tc99m tetrofosmin (Myoview) was administered intravenously, and supine and prone stress images were obtaine d. Data was reconstructed into short axis and horizontal and vertical long axis SPECT images. Gated S PECT images were also obtained. COMPARISON: CT abdomen and pelvis 10/13/2022 FINDINGS: Breast attenuation artifact is noted. There is no definite reversible or fixed perfusion ab normality to suggest ischemia or infarction. There is no segmental wall motion abnormality. Left ve ntricular ejection fraction measures >70%. IMPRESSION: 1. No definite ischemia or infarct. 2. Normal left ventricular ejection fraction measuring >70%. Reviewed, dictated and finalized at location A.
--- NOTE | 2022-11-30 09:44 | EST_ITS ---
Patient Info Name: Naila Beard Age: 47 years : 1975 Gender: Female Ht: 64 in Wt: 230 lbs BSA: 2.22 m2 Exam Date: 11/30/2022 10:42 AM Exam Location: [facility] Stress Patient Status: Outpatient Admit Date: 11/30/2022 Staff Ordering Physician: Rolo Knox DO Attending Provider: Rolo Knox DO Exercise Technologist: Sharron Packer RDCS Exam Type: CA stress andrea w NM Study Info Indications R06.09 - Other forms of dyspnea A regadenoson stress test was performed. Summary 1. 1. Negative lexiscan stress test for ischemic ST changes by ECG criteria. 2. 2. Stable hemodynamics throughout the test. 3. 3. Nuclear scan to follow and will be reported separately. Please correlate with it. 4. 4. Patient informed of the above results. Protocol: Lexiscan Stress ECG Details Stage: REST Duration (min): 0 min : 53 sec HR (bpm): 73 SBP (mmHg): 128 DBP (mmHg): 85 Stage: REST Duration (min): 8 min : 24 sec HR (bpm): 73 SBP (mmHg): 128 DBP (mmHg): 85 Stage: STAGE 1 Duration (min): 0 min : 59 sec HR (bpm): 87 SBP (mmHg): 125 DBP (mmHg): 87 Stage: RECOVERY Duration (min): 1 min : 0 sec HR (bpm): 97 SBP (mmHg): 110 DBP (mmHg): 69 Stage: RECOVERY Duration (min): 2 min : 0 sec HR (bpm): 96 SBP (mmHg): 110 DBP (mmHg): 69 Stage: RECOVERY Duration (min): 3 min : 0 sec HR (bpm): 92 SBP (mmHg): 122 DBP (mmHg): 56 Stage: RECOVERY Duration (min): 3 min : 30 sec HR (bpm): 90 SBP (mmHg): 122 DBP (mmHg): 56 Rest HR: 73 bpm Peak HR: 98 bpm Rest Sys BP: 128 mmHg Peak Sys BP: 125 mmHg Max Pred HR: 174 bpm % Max Pred HR: 56 % Target HR: 148 bpm Max RPP: 12,250 bpm*mmHg Termination Reason: Completed protocol Cardiac Symptoms: Headache, Dizziness Total Time: 1 min : 0 sec Rest Mcgovern BP: 85 mmHg Peak Mcgovern BP: 87 mmHg Total Dose: 0.4 mg Resting ECG Sinus rhythm. Stress ECG No ST changes. Arrhythmias None. Report Signatures
== END 2022-11-30 09:37 | disposition home or self-care (01) ==
PROVIDERS: PCP Family Medicine; Visit Provider Internal Medicine Cardiovascular Disease
DX: R06.09 Other forms of dyspnea (principal)
CPT/HCPCS: 36415; 78452; 80048; 85027; 85610; 85730; 93017; A9502; J2785

== ENCOUNTER 2022-12-02 14:19 | Outpatient (CLI) | payer OTHER, SELFPAY ==
[2022-12-02 14:41] LABS: Appearance Urine Clear (Clear); Bilirubin Urine Negative (Negative); Blood Urine Negative (Negative); Color Urine Yellow (Yellow); Glucose Urine UA Negative (Negative); Ketones Urine Negative (Negative); Leukocyte Esterase Ur Negative LEU/UL (NEGATIVE); Nitrate Urine Negative (Negative); Protein Urine Negative (Negative); Specific Grav Ur 1.005 (1.001-1.035); Urobilinogen Urine 0.2 mg/dL (<2.0)
[2022-12-02 15:00] LABS: Add Urine Microscopic? NO
== END 2022-12-02 14:20 | disposition home or self-care (01) ==
PROVIDERS: PCP Family Medicine; Visit Provider Nurse Practitioner Family
DX: R39.9 Unspecified symptoms and signs involving the genitourinary system (principal)
CPT/HCPCS: 81003; 87086; 87088

== ENCOUNTER 2022-12-15 14:56 | Outpatient (CLI) | payer OTHER, SELFPAY ==
[2022-12-15 15:29] LABS: Rheumatoid Factor < 12.0 IU/ML (<12)
[2022-12-15 16:17] LABS: Erythrocyte Sedimentation Rate 21 mm/hr (0-20)
[2022-12-15 16:19] LABS: Vitamin D 25 Hydroxy 40.6 ng/mL
[2022-12-22 13:12] LABS: Anti Cyclic Citrullinated Pept <16 Units (<20)
== END 2022-12-15 14:57 | disposition home or self-care (01) ==
PROVIDERS: PCP Family Medicine; Visit Provider Nurse Practitioner Family
DX: M25.50 Pain in unspecified joint (principal); E55.9 Vitamin D deficiency, unspecified
CPT/HCPCS: 36415; 82306; 85652; 86038; 86200; 86430

== ENCOUNTER 2022-12-22 19:15 | Emergency (ER) | payer OTHER, SELFPAY ==
[2022-12-22] VITALS (11 sets, daily range): BP systolic 130–148; BP diastolic 74–98; PULSE 73–91; RESP 12–23; TEMP 36.2; O2SAT 97–100
--- NOTE | ~2022-12-22 | CT_ITS ---
EXAMINATION: CTA brain carotid DATE: 12/22/2022 22:47 INDICATION: Dizziness and diplopia TECHNIQUE: Computed tomographic angiography (CTA) of the head was performed without and with 100 mL O mnipaque-350 intravenous contrast. CTA of the neck was performed with intravenous contrast. The dose- length product was 1868.94 mGy-cm. Maximum intensity projection and volume rendered 3D-reconstruction s were created by the technologist on a separate workstation. Automated exposure control and iterativ e reconstruction technique were employed. COMPARISON: 03/04/2017 FINDINGS: HEAD CTA: There is no intracranial hemorrhage, acute infarction, or abnormal mass lesion. The ventric les are normal. There is no abnormal mass effect or midline shift. The ozuna-white matter differentiat ion is normal. The basal cisterns are patent. The orbits are normal. The paranasal sinuses, mastoids and calvarium are normal. There is no significant stenosis of the basilar artery or posterior cerebral arteries. There is no si gnificant stenosis of the intracranial internal carotid arteries or the anterior or middle cerebral a rteries. The anterior communicating artery and posterior communicating arteries are normal. There is no aneurysm. NECK CTA: The thyroid gland is unremarkable. The submandibular and parotid glands are symmetric. Ther e is no lymphadenopathy. There are no masses identified. The airway is unremarkable. There are no oss eous abnormalities. The superior mediastinum is unremarkable. Bilateral breast implants are noted. There is 0% stenosis of the proximal right internal carotid artery relative to normal distal artery l umen diameter (NASCET criteria). There is 0% stenosis of the proximal left internal carotid artery re lative to normal distal artery lumen diameter. IMPRESSION: 1. No acute intracranial abnormality. Normal head CTA. 2. 0% stenosis of the proximal right internal carotid artery relative to normal distal artery lumen d iameter (NASCET criteria). 3. 0% stenosis of the proximal left internal carotid artery relative to normal distal artery lumen di ameter. Reviewed, dictated and finalized at location F. IMPRESSION: 1. No acute intracranial abnormality. Normal head CTA. 2. 0% stenosis of the proximal right internal carotid artery relative to normal distal artery lumen diameter (NASCET criteria). 3. 0% stenosis of the proximal left internal carotid artery relative to normal distal artery lumen diameter.
--- NOTE | 2022-12-22 19:20 | ECG_ITS ---
Measurements Intervals [place] Rate: 87 P: 32 UT: 173 QRS: 17 QRSD: 88 T: 28 QT: 354 QTc: 427 Interpretive Statements SINUS RHYTHM POSSIBLE LEFT ATRIAL ENLARGEMENT [-0.1mV P WAVE IN V1/V2] NONSPECIFIC T WAVE ABNORMALITY COMPARED TO PRIOR EKG 09-25-22: NO SIGNIFICANT CHANGES Electronically Signed On 12-23-2022 10:48:23 CDT by Vanessa Christy M.D.
[2022-12-22 19:47] LABS: Alanine Aminotransferase 24 U/L (6-35); Albumin Level 4.2 g/dL (3.5-5.1); Alkaline Phosphatase 97 U/L (38-126); Anion Gap 7 mmol/L (8-16); Aspartate Amino Transferase 25 U/L (14-36); Bilirubin,Total 0.3 mg/dL (0.2-1.3); Blood Urea Nitrogen 20 mg/dL (7-17); Calcium 8.7 mg/dL (8.4-10.2); Carbon Dioxide 26 mmol/L (22-30); Chloride 105 mmol/L (98-107); Estimated CRCL calculation 73 ml/min; Estimated Glomerular Filt Rate 60; Glucose 120 mg/dL (65-110); Potassium 4.2 mmol/L (3.4-5.0); Sodium 138 mmol/L (137-145)
[2022-12-22 20:01] LABS: Basophils Percent Auto 0.4 % (0.2-1.2); Eosinophils Absolute Auto 0.1 K/mm3 (0-0.3); Eosinophils Percent Auto 1.7 % (0-4.4); Hematocrit 36.7 % (37.0-47.0); Hemoglobin 11.7 g/dL (12.0-15.0); Immature Granulocyte Absolute 0.03 K/mm3 (0.00-0.031); Immature Granulocyte Percent A 0.4 % (0-0.5); Lymphocytes Absolute Auto 2.12 K/mm3 (0.9-3.2); Lymphocytes Percent Auto 29.5 % (18.3-44.2); Mean Corpuscular HGB Conc 31.9 g/dl (32-36); Mean Corpuscular Hemoglobin 27.3 pg (26-34); Mean Corpuscular Volume 85.7 fl (80-100); Monocytes Absolute Auto 0.6 K/mm3 (0.1-0.6); Monocytes Percent Auto 8.2 % (2.6-8.5); Neutrophils Absolute Auto 4.3 K/mm3 (1.3-6.7); Neutrophils Percent Auto 59.8 % (45.5-73.1); Platelet Count Result 312 k/mm3 (150-375); Red Blood Count 4.28 M/mm3 (4.2-5.4); Red Cell Distribution Width 15.6 % (11.5-14.5); White Blood Count 7.2 K/mm3 (4.5-10.0)
[2022-12-22] MEDS: MECLIZINE HCL 25 MG TABLET PO (22:31)
[2022-12-22] MEDS: METOCLOPRAMIDE HCL INJ 10 MG/2 ML VIAL IV PUSH (23:09)
--- NOTE | 2022-12-22 23:29 | ED.GENADULT ---
HPI - General Adult General Chief complaint: Dizziness Stated complaint: dizzy Time Seen by Provider: 12/22/22 21:32 History of Present Illness HPI narrative: This is a 47-year-old female with a history of fibromyalgia presenting ED with chief complaint of dizziness. Patient says that when she woke up this morning she was having disequilibrium and was stumbling into novak. She has had fuzzy thoughts. . She has had nausea and vertigo vomiting that is associated with vertigo. She also reports double vision. She says she is confused and cannot does not know the date but is able to answer other questions appropriately. She denies numbness tingling weakness to any extremity. She has no history of CVA or stroke. She does not have dysphagia, or difficulty speaking. Related Data Home Medications Medication Instructions Recorded Confirmed melatonin 10 mg capsule 10 mg PO QHS 01/13/22 11/23/22 simethicone 125 mg capsule 125 mg PO QID PRN FLATUS 05/19/22 11/23/22 olanzapine 5 mg disintegrating 5 mg PO BID PRN Anxiety 10/13/22 11/23/22 tablet polyethylene glycol 3350 17 17 g PO DAILY PRN Constipation 10/13/22 11/23/22 gram/dose oral powder buspirone 5 mg tablet 10 mg PO TID 12/02/22 risperidone 0.25 mg tablet 0.25 mg PO BID 12/02/22 Allergies Allergy/AdvReac Type Severity Reaction Status Date / Time aspirin Allergy Severe Anaphylaxis Verified 12/15/22 13:47 latex Allergy Severe Blister Verified 12/15/22 13:47 salicylates Allergy Severe Anaphylaxis Verified 12/15/22 13:47 acetaminophen Allergy Intermediate Hypertensio Verified 12/15/22 13:47 n/HYPOTENSI ON erythromycin base Allergy Intermediate Rash Verified 12/15/22 13:47 PMFSH Past Medical History Medical History Acute migraine Anemia Anxiety Arthritis Bipolar disorder, rapid cycling BRBPR (bright red blood per rectum) Chronic fatigue Chronic pain Degenerative disk disease Depression Familial adenomatous polyposis Fibromyalgia Frequent loose stools Gastric polyps GERD (gastroesophageal reflux disease) History of blood clots History of blood transfusion 04/15/2021 History of herpes zoster History of pulmonary embolism History of thyroid disease Insomnia Irritable bowel syndrome with diarrhea Migraines Missed x1 Neurogenic bladder OCD (obsessive compulsive disorder) Plantar fascia syndrome PTSD (post-traumatic stress disorder) Rectal bleeding Sensory neuronopathy Small intestinal bacterial overgrowth (SIBO) Thyroid disorder TMJ (dislocation of temporomandibular joint) Surgical History Surgical History H/O breast augmentation 2012 H/O colectomy 2020, partial History of back surgery 2020, placement of interstim device History of bladder surgery 2016 History of bunionectomy 2019 History of section x1 History of cholecystectomy 2008 History of hemorrhoidectomy Exam under anesthesia, external hemorrhoidectomy 2 columns, anal polypectomy x 4 01/25/2022 History of hysterectomy 2019 Hx of breast reduction, elective 2010 Family History Family History Mother , drowning Hyperlipemia Uterine cancer Hypertension Alcoholism Anxiety and depression Thyroid disorder Grandparent Uterine cancer Carcinoma of colon Colon polyp Alcoholism Hypertension Anxiety and depression Cerebrovascular accident Thyroid disorder Other Cancer uncle, aunt Father Hypertension Social History Social History Smoking status: Never smoker Second hand tobacco smoke exposure: Yes Alcohol intake: never Substance use: never Substance use type: does not use Lack of Transportation: No Lack of Food: Never True Current Housing: I Have Housing Concerned About Fut
[2022-12-22] MEDS: diazePAM INJ (*CRX) 10 MG/2 ML SYRINGE 5 MG IV PUSH (23:48)
[2022-12-23 00:57] VITALS: PULSE 76; RESP 16; O2SAT 99
== END 2022-12-23 00:59 | disposition home or self-care (01) ==
PROVIDERS: Emergency Medicine; Emergency Provider Emergency Medicine; PCP Family Medicine
DX: R42 Dizziness and giddiness (principal); M79.7 Fibromyalgia; D64.9 Anemia, unspecified; N31.9 Neuromuscular dysfunction of bladder, unspecified; M19.90 Unspecified osteoarthritis, unspecified site; K21.9 Gastro-esophageal reflux disease without esophagitis; K58.0 Irritable bowel syndrome with diarrhea; F41.9 Anxiety disorder, unspecified; E07.9 Disorder of thyroid, unspecified; F31.9 Bipolar disorder, unspecified; F42.9 Obsessive-compulsive disorder, unspecified; Z86.711 Personal history of pulmonary embolism; Z90.49 Acquired absence of other specified parts of digestive tract; Z90.710 Acquired absence of both cervix and uterus; R94.31 Abnormal electrocardiogram [ECG] [EKG]
CPT/HCPCS: 36415; 70496; 70498; 80053; 81025; 85025; 93005; 96374; 96375; 99284; A9270; J2765; J3360; Q9967

== ENCOUNTER 2023-01-16 21:50 | Observation (INO) | payer OTHER, SELFPAY ==
[2023-01-16] VITALS (11 sets, daily range): BP systolic 133–148; BP diastolic 80–122; PULSE 83–92; RESP 12–27; TEMP 36.4; O2SAT 97–100
--- NOTE | ~2023-01-16 | XR_ITS ---
Clinical Indication: Weakness PA view of the chest: Comparison: 10/13/2022 Findings: The lungs are clear, without evidence of focal consolidation or pleural effusion. Cardiome diastinal silhouette is within normal limits. Bones and soft tissues are unremarkable. Impression: Normal chest. Reviewed, dictated and finalized at [facility]. Impression: Normal chest.
--- NOTE | ~2023-01-16 | CT_ITS ---
Non-contrast Head CT History: Headache, dizziness COMPARISON: 12/22/2022 Technique: Axial non-contrast imaging of the brain was performed. Dose reduction technique was used on this scan by utilizing automated exposure control and iterative reconstruction technique. The dose -length product (DLP) was 681.00 mGy-cm. Findings: There is no evidence of intracranial hemorrhage, mass lesion, or acute infarct. Brain par enchyma appears normal. The ventricles and subarachnoid spaces are normal in size. The calvarium ap pears normal. The visualized paranasal sinuses and mastoid air cells are clear. Impression: No significant abnormality seen. Reviewed, dictated and finalized at location . Impression: No significant abnormality seen.
--- NOTE | 2023-01-16 22:15 | ECG_ITS ---
Measurements Intervals [place] Rate: 85 P: 27 TX: 192 QRS: 15 QRSD: 94 T: 27 QT: 354 QTc: 421 Interpretive Statements SINUS RHYTHM VOLTAGE CRITERA FOR LVH MINIMAL Q WAVES- HIGH LATERAL LEADS BORDERLINE ST-T WAVE ABNORMALITY- INFERIOR LEADS BORDERLINE ECG COMPARED TO ECG 12/22/2022 19:22:23 NO SIGNIFICANT CHANGES Electronically Signed On 01-17-2023 6:51:36 CDT by Rolo Knox D.O.
[2023-01-16 22:28] LABS: Basophils Percent Auto 0.6 % (0.2-1.2); Eosinophils Absolute Auto 0.2 K/mm3 (0-0.3); Eosinophils Percent Auto 2.4 % (0-4.4); Hematocrit 38.1 % (37.0-47.0); Hemoglobin 11.9 g/dL (12.0-15.0); Immature Granulocyte Absolute 0.01 K/mm3 (0.00-0.031); Immature Granulocyte Percent A 0.1 % (0-0.5); Lymphocytes Absolute Auto 2.07 K/mm3 (0.9-3.2); Lymphocytes Percent Auto 30.8 % (18.3-44.2); Mean Corpuscular HGB Conc 31.2 g/dl (32-36); Mean Corpuscular Volume 86.4 fl (80-100); Mean Platelet Volume 8.8 fl (7.4-10.4); Monocytes Absolute Auto 0.7 K/mm3 (0.1-0.6); Monocytes Percent Auto 10.3 % (2.6-8.5); Neutrophils Absolute Auto 3.8 K/mm3 (1.3-6.7); Neutrophils Percent Auto 55.8 % (45.5-73.1); Platelet Count Result 295 k/mm3 (150-375); Red Blood Count 4.41 M/mm3 (4.2-5.4); White Blood Count 6.7 K/mm3 (4.5-10.0)
[2023-01-16 22:39] LABS: INR 1.1; Partial Thromboplastin Time 33.3 SECONDS (22.3-36.8)
[2023-01-16 22:46] LABS: Alanine Aminotransferase 24 U/L (6-35); Albumin Level 4.1 g/dL (3.5-5.1); Alkaline Phosphatase 86 U/L (38-126); Anion Gap 5 mmol/L (8-16); Aspartate Amino Transferase 29 U/L (14-36); Bilirubin,Total 0.2 mg/dL (0.2-1.3); Blood Urea Nitrogen 19 mg/dL (7-17); Calcium 8.9 mg/dL (8.4-10.2); Carbon Dioxide 33 mmol/L (22-30); Chloride 103 mmol/L (98-107); Estimated CRCL calculation 89 ml/min; Estimated Glomerular Filt Rate > 60; Glucose 113 mg/dL (65-110); Potassium 3.7 mmol/L (3.4-5.0); Sodium 141 mmol/L (137-145)
--- NOTE | 2023-01-16 23:22 | ED.DIZZY ---
HPI - Dizziness General Chief Complaint: Dizziness Stated Complaint: dizzy Time Seen by Provider: 01/16/23 22:40 Source: patient and EMS Mode of arrival: EMS Limitations: no limitations History of Present Illness HPI Narrative: Patient is 47 years old white female came by ambulance from home, lives alone, complaining of confusion, weird speech, does not remember what happened this morning, feel very lost, nausea, started this morning around 9 AM. . Patient been dizzy everything is since. Patient reports the spinning has been going for months and she been taking Antivert without improvement. The dizziness today is not different than before. The new event today is the confusion and not feeling right. She denies any focal tingling, numbness or weakness. History of migraine headache, fibromyalgia, IBS, depression, insomnia. Patient does not smoke or drink or uses drugs. Patient is telling me that she had similar symptoms of confusion 4 weeks ago without a specific diagnosis and was told if she have it again to go to the emergency room immediately.. Related Data Home Medications Medication Instructions Recorded Confirmed melatonin 10 mg capsule 10 mg PO QHS 01/13/22 12/27/22 simethicone 125 mg capsule 125 mg PO QID PRN FLATUS 05/19/22 12/27/22 olanzapine 5 mg disintegrating 5 mg PO BID PRN Anxiety 10/13/22 12/27/22 tablet polyethylene glycol 3350 17 17 g PO DAILY PRN Constipation 10/13/22 12/27/22 gram/dose oral powder buspirone 5 mg tablet 10 mg PO TID 12/02/22 12/27/22 risperidone 0.25 mg tablet 0.25 mg PO BID 12/02/22 12/27/22 Allergies Allergy/AdvReac Type Severity Reaction Status Date / Time aspirin Allergy Severe Anaphylaxis Verified 01/16/23 22:44 latex Allergy Severe Blister Verified 01/16/23 22:44 salicylates Allergy Severe Anaphylaxis Verified 01/16/23 22:44 acetaminophen Allergy Intermediate Hypertensio Verified 01/16/23 22:44 n/HYPOTENSI ON erythromycin base Allergy Intermediate Rash Verified 01/16/23 22:44 Review of Systems Review of Systems: All systems reviewed & are unremarkable except as noted in HPI and below PMFSH Past Medical History Medical History Acute migraine Anemia Anxiety Arthritis Bipolar disorder, rapid cycling BRBPR (bright red blood per rectum) Chronic fatigue Chronic pain Degenerative disk disease Depression Familial adenomatous polyposis Fibromyalgia Frequent loose stools Gastric polyps GERD (gastroesophageal reflux disease) History of blood clots History of blood transfusion 04/15/2021 History of herpes zoster History of pulmonary embolism History of thyroid disease Insomnia Irritable bowel syndrome with diarrhea Migraines Missed x1 Neurogenic bladder OCD (obsessive compulsive disorder) Plantar fascia syndrome PTSD (post-traumatic stress disorder) Rectal bleeding Sensory neuronopathy Small intestinal bacterial overgrowth (SIBO) Thyroid disorder TMJ (dislocation of temporomandibular joint) Surgical History Surgical History H/O breast augmentation 2012 H/O colectomy 2020, partial History of back surgery 2020, placement of interstim device History of bladder surgery 2017 History of bunionectomy 2019 History of section x1 History of cholecystectomy 2008 History of hemorrhoidectomy Exam under anesthesia, external hemorrhoidectomy 2 columns, anal polypectomy x 4 01/25/2022 History of hysterectomy 2019 Hx of breast reduction, elective 2010 Family History Family History Mother , drowning Hyperlipemia Uterine cancer Hypertension Alcoholism Anxiety and depression Thyroid disorder Grandparent Uterine cancer Carcinoma of colon Colon polyp Alcoholism Hypertension Anxiety and depression Cerebrovascular accident Thyr
[2023-01-16 23:52] LABS: Add Urine Microscopic? YES; Appearance Urine Clear (Clear); Bacteria Urine None Seen /hpf; Bilirubin Urine Negative (Negative); Blood Urine Negative (Negative); Color Urine Yellow (Yellow); Glucose Urine UA Negative (Negative); Ketones Urine Negative (Negative); Leukocyte Esterase Ur Trace LEU/UL (Negative); Need Manual Microscopic Reviewed; Nitrate Urine Negative (Negative); Non Pathogenic Casts 0-2; Protein Urine Negative (Negative); RBC Urine 0-2 /hpf (0-2); Specific Grav Ur 1.008 (1.001-1.035); Squamous Epithelial Cell Urine None seen /hpf (Few); Urobilinogen Urine 0.2 mg/dL (<2.0); WBC Urine 0-5 /hpf; pH Urine 5.5 (5.0-9.0)
[2023-01-17] VITALS (19 sets, daily range): BP systolic 107–128; BP diastolic 70–88; PULSE 65–91; RESP 11–25; TEMP 36.4–36.6; O2SAT 96–98; BMI 38.8
[2023-01-17] MEDS: OLANZapine 5 MG TABLET 10 MG PO (01:16)
[2023-01-17] MEDS: traZODone HCL 50 MG TABLET 100 MG PO (01:16)
[2023-01-17] MEDS: CITALOPRAM HYDROBROMIDE 20 MG TABLET PO (01:16)
[2023-01-17] MEDS: CLOPIDOGREL BISULFATE 300 MG TABLET PO (01:16)
[2023-01-17] MEDS: risperiDONE 0.25 MG TABLET PO (01:16)
--- NOTE | 2023-01-17 02:11 | PC.NURSE ---
report called to angelica
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
[2023-01-17] MEDS: BACLOFEN 10 MG TABLET PO (15:12)
--- NOTE | 2023-01-17 15:45 | PM.IMHP ---
H&P: HPI History of Present Illness Date/Time: 01/17/23 15:45 Chief Complaint: Dizzy Narrative: ED-HPI Narrative: Patient is 47 years old white female came by ambulance from home, lives alone, complaining of confusion, weird speech, does not remember what happened this morning, feel very lost, nausea, started this morning around 9 AM.? .? Patient been dizzy everything is since.? Patient reports the spinning has been going for months and she been taking Antivert without improvement.? The dizziness today is not different than before.? The new event today is the confusion and not feeling right.? She denies any focal tingling, numbness or weakness.? History of migraine headache, fibromyalgia, IBS, depression, insomnia.? Patient does not smoke or drink or uses drugs.? Patient is telling me that she had similar symptoms of confusion 4 weeks ago? without a specific diagnosis and was told if she have it again to go to the emergency room immediately.. patient is 47 y/o female with history of psychiatric illness presnted with dizziness and confusion, patient has difficulty describing her presentation, I reviewed patient home medications and apparently patient has polypharmacy as she getting medications from her pshychiatrist as well as primry care provider there appeares to be some interaction, I called her psychiatrist provider and discuss and resume those medications patient was last prescibed, patient also has c/o mirgraine FUENTES and was seen by neurologist, etiology of her FUENTES not clear, Ct scan of head is normal, will do MRI of brain. will monitor . Patient is admitted as observation status Review of Systems Constitutional: Constitutional: Denies chills, Denies fever(s) and Denies weight loss PMFSH Past Medical History Medical History Acute migraine Anemia Anxiety Arthritis Bipolar disorder, rapid cycling BRBPR (bright red blood per rectum) Chronic fatigue Chronic pain Degenerative disk disease Depression Familial adenomatous polyposis Fibromyalgia Frequent loose stools Gastric polyps GERD (gastroesophageal reflux disease) History of blood clots History of blood transfusion 04/15/2021 History of herpes zoster History of pulmonary embolism History of thyroid disease Insomnia Irritable bowel syndrome with diarrhea Migraines Missed x1 Neurogenic bladder OCD (obsessive compulsive disorder) Plantar fascia syndrome PTSD (post-traumatic stress disorder) Rectal bleeding Sensory neuronopathy Small intestinal bacterial overgrowth (SIBO) Thyroid disorder TMJ (dislocation of temporomandibular joint) Surgical History Surgical History H/O breast augmentation 2012 H/O colectomy 2020, partial History of back surgery 2020, placement of interstim device History of bladder surgery 2016 History of bunionectomy 2019 History of section x1 History of cholecystectomy 2008 History of hemorrhoidectomy Exam under anesthesia, external hemorrhoidectomy 2 columns, anal polypectomy x 4 01/25/2022 History of hysterectomy 2019 Hx of breast reduction, elective 2010 Family History Family History Mother , drowning Hyperlipemia Uterine cancer Hypertension Alcoholism Anxiety and depression Thyroid disorder Grandparent Uterine cancer Carcinoma of colon Colon polyp Alcoholism Hypertension Anxiety and depression Cerebrovascular accident Thyroid disorder Other Cancer uncle, aunt Father Hypertension Social History Social History Smoking status: Never smoker Second hand tobacco smoke exposure: Yes Alcohol intake: former Drinks per week: 2 Substance use: never Substance use type: does not use Lack of Transportation: No Lack of Food: Often True Cu
--- NOTE | 2023-01-17 17:51 | PC.NURSE ---
Pt is refusing buspar at this time. She states that this med makes her feel slow and sleepy all of the time.
--- NOTE | 2023-01-22 17:49 | PM.DS ---
DS: Admitting Diagnosis Discharge Date 01/17/23 Admitting Diagnosis Dizziness DS: Summary Hospital Course Reason for hospitalization: Dizzy Narrative: ED-HPI Narrative: Patient is 47 years old white female came by ambulance from home, lives alone, complaining of confusion, weird speech, does not remember what happened this morning, feel very lost, nausea, started this morning around 9 AM.? .? Patient been dizzy everything is since.? Patient reports the spinning has been going for months and she been taking Antivert without improvement.? The dizziness today is not different than before.? The new event today is the confusion and not feeling right.? She denies any focal tingling, numbness or weakness.? History of migraine headache, fibromyalgia, IBS, depression, insomnia.? Patient does not smoke or drink or uses drugs.? Patient is telling me that she had similar symptoms of confusion 4 weeks ago? without a specific diagnosis and was told if she have it again to go to the emergency room immediately.. patient is 47 y/o female with history of psychiatric illness presnted with dizziness and confusion, patient has difficulty describing her presentation, I reviewed patient home medications and apparently patient has polypharmacy as she getting medications from her pshychiatrist as well as primry care provider there appeares to be some interaction, I called her psychiatrist provider and discuss and resume those medications patient was last prescibed, patient also has c/o mirgraine FUENTES and was seen by neurologist, etiology of her FUENTES not clear, Ct scan of head is normal, will do MRI of brain. will? monitor . Hospital Course: Patient left AMA Time Spent with Patient Time attestation: Total time spent providing and/or coordinating discharge services: Discharge Plan Discharge Consulting providers: Bernie Brown; Rolo Knox; Rene Rivera Patient Disposition: Left Against Medical Advice Discharge Medications: No Action tramadol 50 mg tablet 100 mg PO Q8H PRN (Reason: pain) Qty: 180 0RF Horizant 600 mg tablet extended release 600 mg PO BID Qty: 60 3RF Patient Comments: waiting on insurance to start but is an active medication per pt Rx Instructions: 600mg daily for 4 days then increase to twice a day. trazodone 100 mg tablet See Rx Instructions .ROUTE .COMPLEX Qty: 60 0RF Dose Instruction: TAKE 2 TABLETS BY MOUTH AT BEDTIME Rx Instructions: TAKE 2 TABLETS BY MOUTH AT BEDTIME melatonin 10 mg capsule 10 mg PO QHS risperidone 0.25 mg tablet 0.5 mg PO BID buspirone 5 mg tablet 10 mg PO TID olanzapine 10 mg tablet 10 mg PO HS Qty: 1 1RF Rx Instructions: place 1 tablet by translingual once daily topiramate 50 mg tablet 50 mg PO DAILY Qty: 90 0RF simethicone 125 mg capsule 125 mg PO QID PRN (Reason: FLATUS) Rx Instructions: administer after meals and at bedtime polyethylene glycol 3350 17 gram/dose powder 17 g PO DAILY PRN (Reason: Constipation) olanzapine 5 mg tablet,disintegrating 5 mg PO BID PRN (Reason: Anxiety) Rx Instructions: dissolve one half tablet in mouth twice daily furosemide 40 mg tablet 40 mg PO DAILY omeprazole 20 mg capsule,delayed release(DR/EC) 20 mg DAILY Rx Instructions: pt takes 30 min to 1 hour before eating sumatriptan succinate 100 mg tablet See Rx Instructions PO .COMPLEX Qty: 90 1RF Rx Instructions: take 1 tab at onset of headache; if no relief, may repeat 1 tab after at least 2 hrs; max = 2 tabs/24 hrs PO loperamide [Anti-Diarrheal (loperamide)] 2 mg capsule 4 mg PO DAILY PRN (Reason: loose stool) 30 Days Qty: 60 2RF dicyclomine 20 mg tablet 20 mg PO TID PRN (Reason: abdominal discomfort) Qty: 90 1RF citalopram 20 mg tablet 40 mg PO DAILY Qty: 180 1RF Patient Comments: TAKES AT HS gabapentin 800 mg tablet 800 mg PO QID Qty: 90
== END 2023-01-17 18:55 | disposition left against medical advice (07) ==
LOC: ANHED 01-17 01:11 → ANH3MEDSUR 01-17 16:24
PROVIDERS: Admitting Provider Family Medicine; Emergency Provider Emergency Medicine; PCP Family Medicine; Visit Provider Family Medicine
DX: R41.82 Altered mental status, unspecified (principal); F99 Mental disorder, not otherwise specified; M79.7 Fibromyalgia; G43.909 Migraine, unspecified, not intractable, without status migrainosus; F31.9 Bipolar disorder, unspecified; D64.9 Anemia, unspecified; R14.3 Flatulence; K58.1 Irritable bowel syndrome with constipation; K21.9 Gastro-esophageal reflux disease without esophagitis; N31.9 Neuromuscular dysfunction of bladder, unspecified; R53.1 Weakness; F42.9 Obsessive-compulsive disorder, unspecified; F43.10 Post-traumatic stress disorder, unspecified; G47.00 Insomnia, unspecified; E07.9 Disorder of thyroid, unspecified; R53.82 Chronic fatigue, unspecified; F41.9 Anxiety disorder, unspecified; Z79.899 Other long term (current) drug therapy; Z86.711 Personal history of pulmonary embolism; Z82.49 Family history of ischemic heart disease and other diseases of the circulatory system; Z81.8 Family history of other mental and behavioral disorders; Z83.49 Family history of other endocrine, nutritional and metabolic diseases
CPT/HCPCS: 36415; 70450; 71045; 80053; 81001; 81025; 85025; 85610; 85730; 93005; 99285; A9270; G0378; G0379

== ENCOUNTER 2023-01-27 13:15 | Outpatient (RCR) | payer OTHER, SELFPAY ==
--- NOTE | 2023-01-06 16:12 | PTOPEVAL1 ---
Assessment and note entered by Zarina Patel PT Evaluation Information Assessment Status Evaluation Diagnosis dizziness Onset December 16, 2022 Subjective Information went to ER- had CT scan, negative for stroke, ear infection, sinus infection; FALLS: have fallen to the ground 6 times in the past 1 month; Symptoms: now: took meclazine today and is not too bad now; random bouts of dizziness- spinning, waves of spin like water sprinkler going around- not smooth; start as queasy, then eyes feel like they affected and spinning; head disconnects from body; Increase s/s: cannot define pattern for it: can be sitting still; sometimes with overstimulated- drive and do too much ( could not distinguish if she is tired when it happens or too much visual around her); bright lights bother her- head feels irritated decrease s/s: cannot do anything to decrease symptoms; decreased activity due to dizziness: driving- shorter distance or have friends/family drive her, showering is not always daily, not sewing at home, not as active; Reported Pain Level Pain Score Self Report Additional Pain Score Comments chronic neck pain 2-6/10; headaches 3-7x week Assessment PT Clinical Summary Naila has the diagnosis of dizziness. She reports onset about 3 weeks ago, with a fall due to dizziness and trip to ER. Dizziness Handicap Index score of 76/100= severe perception of handicap. She has risk factors for vertigo: neck pain, back pain, migraines, cluster headaches deviated septum, allergies, fibromyalgia, anxiety, PTSD, multiple meds. With the vestibular testing: [place] was positive to the L; Eply maneuver was performed with decreasing symptoms with each rep. Education to pt on vestibular system. She has not had a hearing test and reports feels like her hearing is declining; discussed hearing test. She stated she is going to see an ENT about surgery for her deviated s
--- NOTE | 2023-01-13 14:55 | PCPTNOTE ---
Pt cancelled her appt today due to no ride.
--- NOTE | 2023-01-20 16:23 | PCPTNOTE ---
Pt cancelled today due to illness.
--- NOTE | 2023-01-27 16:16 | PCPTNOTE ---
LATE entry: 01-25-23: added manual therapy to treatment POC to address her neck pain. Discussed pt with Selina Gallagher today, 01-27-23 and iinformed her of this
--- NOTE | 2023-03-07 09:44 | PTOPDC ---
Assessment and note entered by Zarina Patel, PT Evaluation Information Assessment PT Clinical Summary DISCHARGE PT services Naila has received 5 PT sessions, from January 06 to January 27 for the diagnosis of dizziness/vertigo. She called/canceled 2 appointments, then stopped attending therapy. The goals were not addressed. Discharge PT services. Plan of Care PT Services Indicated No
== END 2023-03-07 10:49 | disposition home or self-care (01) ==
LOC: ANHPT 13:15
PROVIDERS: PCP Family Medicine; Visit Provider Nurse Practitioner Family
DX: M54.50 Low back pain, unspecified (principal); G89.29 Other chronic pain; H81.12 Benign paroxysmal vertigo, left ear
CPT/HCPCS: 95992; 97110; 97140; 97162; 97530

== ENCOUNTER 2023-02-03 14:10 | Outpatient (CLI) | payer OTHER, SELFPAY ==
--- NOTE | ~2023-02-03 | XR_ITS ---
EXAM: XR abdomen/kub 1V DATE: 02/03/2023 14:52 HISTORY: R10.9 - LOWER ABD PAIN, CONSTIPATION X 6 DAYS . COMPARISON: 07/27/2022. FINDINGS: Cholecystectomy clips. Left-sided stimulator pack, lead terminating over the right sacrum C lear lung bases. Normal bowel gas pattern. No organomegaly. Multiple phleboliths. No abnormal abdomin al calcification. Regional bones and soft tissues normal for age. IMPRESSION: No radiographic evidence of obstruction or ileus. Reviewed, dictated and finalized at location [facility].
[2023-02-03 15:08] LABS: Alanine Aminotransferase 37 U/L (6-35); Albumin Level 4.2 g/dL (3.5-5.1); Alkaline Phosphatase 93 U/L (38-126); Amylase 83 U/L (30-110); Aspartate Amino Transferase 34 U/L (14-36); Bilirubin,Total 0.3 mg/dL (0.2-1.3); Lipase 153 U/L (23-300)
== END 2023-02-03 14:11 | disposition home or self-care (01) ==
PROVIDERS: PCP Family Medicine; Visit Provider Internal Medicine Gastroenterology
DX: R10.9 Unspecified abdominal pain (principal); K59.00 Constipation, unspecified
CPT/HCPCS: 36415; 74018; 80076; 82150; 83690

== ENCOUNTER 2023-02-09 17:42 | Emergency (ER) | payer OTHER, SELFPAY ==
[2023-02-09 17:43] VITALS: BP 134/87; PULSE 109; RESP 18; TEMP 36.6; O2SAT 98
--- NOTE | 2023-02-09 19:22 | ED.GENADULT ---
HPI - General Adult General Chief complaint: Urogenital-Female Stated complaint: unable to void Time Seen by Provider: 02/09/23 19:01 History of Present Illness HPI narrative: 47 year old female history of bladder dysfunction requiring implanted device, presented with difficulty urination for the past day. Per patient, she believes her implanted device stopped working and has not been able to urinate for the past day. She denied symptoms prior to today. She denied fevers/chills, nausea/vomiting, diarrhea, hematuria, dysuria, chest pain shortness of breath. Has urologist in [place]. Would like one nearby. Related Data Home Medications Medication Instructions Recorded Confirmed melatonin 10 mg capsule 10 mg PO QHS 01/13/22 01/26/23 simethicone 125 mg capsule 125 mg PO QID PRN FLATUS 05/19/22 01/26/23 olanzapine 5 mg disintegrating 5 mg PO BID PRN Anxiety 10/13/22 01/26/23 tablet polyethylene glycol 3350 17 17 g PO DAILY PRN Constipation 10/13/22 01/26/23 gram/dose oral powder risperidone 0.25 mg tablet 0.5 mg PO BID 12/02/22 01/26/23 furosemide 40 mg tablet 40 mg PO DAILY 01/17/23 01/26/23 omeprazole 20 mg capsule,delayed 20 mg DAILY 01/17/23 01/26/23 release buspirone 5 mg tablet 10 mg PO BID 02/03/23 Allergies Allergy/AdvReac Type Severity Reaction Status Date / Time aspirin Allergy Severe Anaphylaxis Verified 02/09/23 18:16 latex Allergy Severe Blister Verified 02/09/23 18:16 salicylates Allergy Severe Anaphylaxis Verified 02/09/23 18:16 acetaminophen Allergy Intermediate Hypertensio Verified 02/09/23 18:16 n/HYPOTENSI ON erythromycin base Allergy Intermediate Rash Verified 02/09/23 18:16 PMFSH Past Medical History Medical History Acute migraine Anemia Anxiety Arthritis Bipolar disorder, rapid cycling BRBPR (bright red blood per rectum) Chronic fatigue Chronic pain Degenerative disk disease Depression Familial adenomatous polyposis Fibromyalgia Frequent loose stools Gastric polyps GERD (gastroesophageal reflux disease) History of blood clots History of blood transfusion 04/15/2021 History of herpes zoster History of pulmonary embolism History of thyroid disease Insomnia Irritable bowel syndrome with diarrhea Migraines Missed x1 Neurogenic bladder OCD (obsessive compulsive disorder) Plantar fascia syndrome PTSD (post-traumatic stress disorder) Rectal bleeding Sensory neuronopathy Small intestinal bacterial overgrowth (SIBO) Thyroid disorder TMJ (dislocation of temporomandibular joint) Surgical History Surgical History H/O breast augmentation 2012 H/O colectomy 2020, partial History of back surgery 2020, placement of interstim device History of bladder surgery 2016 History of bunionectomy 2019 History of section x1 History of cholecystectomy 2008 History of hemorrhoidectomy Exam under anesthesia, external hemorrhoidectomy 2 columns, anal polypectomy x 4 01/25/2022 History of hysterectomy 2019 Hx of breast reduction, elective 2010 Family History Family History Mother , drowning Hyperlipemia Uterine cancer Hypertension Alcoholism Anxiety and depression Thyroid disorder Grandparent Uterine cancer Carcinoma of colon Colon polyp Alcoholism Hypertension Anxiety and depression Cerebrovascular accident Thyroid disorder Other Cancer uncle, aunt Father Hypertension Social History Social History Smoking status: Never smoker Second hand tobacco smoke exposure: Yes Alcohol intake: former Drinks per week: 2 Substance use: never Substance use type: does not use Lack of Transportation: No Lack of Food: Often True Current Housing: I Have Housing Concerned About Future Housing: No D
[2023-02-09 19:51] LABS: Appearance Urine Clear (Clear); Bilirubin Urine Negative (Negative); Blood Urine Negative (Negative); Color Urine Yellow (Yellow); Glucose Urine UA Negative (Negative); Ketones Urine Negative (Negative); Leukocyte Esterase Ur Negative LEU/UL (Negative); Nitrate Urine Negative (Negative); Protein Urine Negative (Negative); Specific Grav Ur 1.004 (1.001-1.035); Urobilinogen Urine 0.2 mg/dL (<2.0); pH Urine 5.5 (5.0-9.0)
[2023-02-09 19:55] LABS: Add Urine Microscopic? NO
[2023-02-09 20:28] VITALS: BP 147/95; PULSE 83; RESP 14; O2SAT 99
--- NOTE | 2023-02-25 07:05 | PC.NURSE ---
PT LEFT EMERGENCY DEPARTMENT WITH BERNAL CATH IN PLACE PER DR. SEVERINO ORDERS. PT WAS GIVEN DISCHARGE INSTRUCTIONS TO FOLLOW UP WITH UROLOGY FOR FURTHER CARE OF BERNAL. PT WAS GIVEN EDUCATION ON CARE AND MAINTENANCE OF BERNAL.
--- NOTE | 2023-02-25 07:11 | PC.NURSE ---
reed catheter placed by this RN on 02/09/23
== END 2023-02-09 20:29 | disposition home or self-care (01) ==
PROVIDERS: Emergency Provider Emergency Medicine; PCP Family Medicine
DX: T83.89XA Other specified complication of genitourinary prosthetic devices, implants and grafts, initial encounter (principal); R33.9 Retention of urine, unspecified; N31.9 Neuromuscular dysfunction of bladder, unspecified; E07.9 Disorder of thyroid, unspecified; R53.82 Chronic fatigue, unspecified; M19.90 Unspecified osteoarthritis, unspecified site; M79.7 Fibromyalgia; K21.9 Gastro-esophageal reflux disease without esophagitis; K58.0 Irritable bowel syndrome with diarrhea; F42.9 Obsessive-compulsive disorder, unspecified; F31.9 Bipolar disorder, unspecified; F41.9 Anxiety disorder, unspecified; F43.10 Post-traumatic stress disorder, unspecified; Z86.711 Personal history of pulmonary embolism; Z86.2 Personal history of diseases of the blood and blood-forming organs and certain disorders involving the immune mechanism; Z90.49 Acquired absence of other specified parts of digestive tract; Z90.710 Acquired absence of both cervix and uterus; Z77.22 Contact with and (suspected) exposure to environmental tobacco smoke (acute) (chronic); Y84.8 Other medical procedures as the cause of abnormal reaction of the patient, or of later complication, without mention of misadventure at the time of the procedure
CPT/HCPCS: 81003; 99283

== ENCOUNTER 2023-02-11 05:50 | Emergency (ER) | payer OTHER, SELFPAY ==
[2023-02-11 06:27] VITALS: BP 120/74; PULSE 73; RESP 12; TEMP 36.9; O2SAT 99
--- NOTE | 2023-02-11 06:49 | ED.GENADULT ---
HPI - General Adult General Chief complaint: Urogenital-Female Stated complaint: urogenital Time Seen by Provider: 02/11/23 06:42 History of Present Illness HPI narrative: Patient 47-year-old female who presents the emergency department with chief complaint of needs Boswell catheter removed. Patient reports that she has a stimulator for her bladder and had malfunction and was experiencing urinary retention. Patient reports she is talked to her rig mechanic and they believe that they can get her stimulator back online but need to have the catheter removed prior to this. The patient is requesting the catheter be removed understands that there is a risk of urinary retention but would like to proceed with removal the patient attempted to have her primary doctor do this but they were unable to do this as they did not place the Boswell per the patient this report. Related Data Home Medications Medication Instructions Recorded Confirmed melatonin 10 mg capsule 10 mg PO QHS 01/13/22 01/26/23 simethicone 125 mg capsule 125 mg PO QID PRN FLATUS 05/19/22 01/26/23 olanzapine 5 mg disintegrating 5 mg PO BID PRN Anxiety 10/13/22 01/26/23 tablet polyethylene glycol 3350 17 17 g PO DAILY PRN Constipation 10/13/22 01/26/23 gram/dose oral powder risperidone 0.25 mg tablet 0.5 mg PO BID 12/02/22 01/26/23 furosemide 40 mg tablet 40 mg PO DAILY 01/17/23 01/26/23 omeprazole 20 mg capsule,delayed 20 mg DAILY 01/17/23 01/26/23 release buspirone 5 mg tablet 10 mg PO BID 02/03/23 Allergies Allergy/AdvReac Type Severity Reaction Status Date / Time aspirin Allergy Severe Anaphylaxis Verified 02/11/23 06:33 latex Allergy Severe Blister Verified 02/11/23 06:33 salicylates Allergy Severe Anaphylaxis Verified 02/11/23 06:33 acetaminophen Allergy Intermediate Hypertensio Verified 02/11/23 06:33 n/HYPOTENSI ON erythromycin base Allergy Intermediate Rash Verified 02/11/23 06:33 Review of Systems Review of Systems: A 10 system review of systems was completed on the patient and is negative except for what is stated in the HPI. Nursing and ancillary documentation was reviewed. [facility] Past Medical History Medical History Acute migraine Anemia Anxiety Arthritis Bipolar disorder, rapid cycling BRBPR (bright red blood per rectum) Chronic fatigue Chronic pain Degenerative disk disease Depression Familial adenomatous polyposis Fibromyalgia Frequent loose stools Gastric polyps GERD (gastroesophageal reflux disease) History of blood clots History of blood transfusion 04/15/2021 History of herpes zoster History of pulmonary embolism History of thyroid disease Insomnia Irritable bowel syndrome with diarrhea Migraines Missed x1 Neurogenic bladder OCD (obsessive compulsive disorder) Plantar fascia syndrome PTSD (post-traumatic stress disorder) Rectal bleeding Sensory neuronopathy Small intestinal bacterial overgrowth (SIBO) Thyroid disorder TMJ (dislocation of temporomandibular joint) Surgical History Surgical History H/O breast augmentation 2012 H/O colectomy 2020, partial History of back surgery 2020, placement of interstim device History of bladder surgery 2017 History of bunionectomy 2019 History of section x1 History of cholecystectomy 2008 History of hemorrhoidectomy Exam under anesthesia, external hemorrhoidectomy 2 columns, anal polypectomy x 4 01/25/2022 History of hysterectomy 2019 Hx of breast reduction, elective 2010 Family History Family History Mother , drowning Hyperlipemia Uterine cancer Hypertension Alcoholism Anxiety and depression Thyroid disorder Grandparent Uterine cancer Carcinoma of colon Colon polyp Alcoholism Hypertension Anxiety and depre
== END 2023-02-11 06:56 | disposition home or self-care (01) ==
PROVIDERS: Emergency Provider Emergency Medicine; PCP Family Medicine
DX: Z46.6 Encounter for fitting and adjustment of urinary device (principal); N31.9 Neuromuscular dysfunction of bladder, unspecified; E07.9 Disorder of thyroid, unspecified; R53.82 Chronic fatigue, unspecified; M19.90 Unspecified osteoarthritis, unspecified site; M79.7 Fibromyalgia; K21.9 Gastro-esophageal reflux disease without esophagitis; K58.0 Irritable bowel syndrome with diarrhea; F42.9 Obsessive-compulsive disorder, unspecified; F41.9 Anxiety disorder, unspecified; F31.9 Bipolar disorder, unspecified; F43.10 Post-traumatic stress disorder, unspecified; Z86.711 Personal history of pulmonary embolism; Z86.2 Personal history of diseases of the blood and blood-forming organs and certain disorders involving the immune mechanism; Z90.49 Acquired absence of other specified parts of digestive tract; Z90.710 Acquired absence of both cervix and uterus; Z77.22 Contact with and (suspected) exposure to environmental tobacco smoke (acute) (chronic)
CPT/HCPCS: 99283

== ENCOUNTER 2023-02-22 09:54 | Outpatient (CLI) | payer OTHER, SELFPAY ==
[2023-02-22 10:36] LABS: Basophils Percent Auto 0.7 % (0.2-1.2); Eosinophils Absolute Auto 0.1 K/mm3 (0-0.3); Eosinophils Percent Auto 2.4 % (0-4.4); Hematocrit 40.9 % (37.0-47.0); Hemoglobin 12.7 g/dL (12.0-15.0); Immature Granulocyte Absolute 0.01 K/mm3 (0.00-0.031); Immature Granulocyte Percent A 0.2 % (0-0.5); Lymphocytes Absolute Auto 2.04 K/mm3 (0.9-3.2); Lymphocytes Percent Auto 37.7 % (18.3-44.2); Mean Corpuscular HGB Conc 31.1 g/dl (32-36); Mean Corpuscular Hemoglobin 26.6 pg (26-34); Mean Corpuscular Volume 85.7 fl (80-100); Mean Platelet Volume 8.9 fl (7.4-10.4); Monocytes Absolute Auto 0.5 K/mm3 (0.1-0.6); Monocytes Percent Auto 9.6 % (2.6-8.5); Neutrophils Absolute Auto 2.7 K/mm3 (1.3-6.7); Neutrophils Percent Auto 49.4 % (45.5-73.1); Platelet Count Result 306 k/mm3 (150-375); Red Blood Count 4.77 M/mm3 (4.2-5.4); Red Cell Distribution Width 13.6 % (11.5-14.5); White Blood Count 5.4 K/mm3 (4.5-10.0)
[2023-02-22 10:46] LABS: Hemoglobin A1C 5.6 % (<5.7)
[2023-02-22 10:49] LABS: Alanine Aminotransferase 22 U/L (6-35); Albumin Level 4.3 g/dL (3.5-5.1); Alkaline Phosphatase 83 U/L (38-126); Anion Gap 4 mmol/L (8-16); Aspartate Amino Transferase 25 U/L (14-36); Bilirubin,Total 0.3 mg/dL (0.2-1.3); Blood Urea Nitrogen 19 mg/dL (7-17); Calcium 9.1 mg/dL (8.4-10.2); Carbon Dioxide 27 mmol/L (22-30); Chloride 104 mmol/L (98-107); Cholesterol 193 mg/dL (0-200); Estimated Glomerular Filt Rate 60; Glucose 85 mg/dL (65-110); HDL Direct 45 mg/dL; Iron 60 ug/dL (37-170); Potassium 3.9 mmol/L (3.4-5.0); Sodium 135 mmol/L (137-145); Triglycerides 65 mg/dL (<150)
[2023-02-22 10:58] LABS: Percent Iron Saturation 13 % (20-50)
[2023-02-22 11:00] LABS: LDL Cholesterol Direct 123 mg/dL
== END 2023-02-22 09:55 | disposition home or self-care (01) ==
LOC: ANHLAB 09:55
PROVIDERS: PCP Family Medicine; Visit Provider Nurse Practitioner Family
DX: D64.9 Anemia, unspecified (principal); R53.82 Chronic fatigue, unspecified; G89.29 Other chronic pain; M79.7 Fibromyalgia; Z09 Encounter for follow-up examination after completed treatment for conditions other than malignant neoplasm; D50.9 Iron deficiency anemia, unspecified; E66.01 Morbid (severe) obesity due to excess calories; G25.81 Restless legs syndrome
CPT/HCPCS: 36415; 80053; 80061; 83036; 83540; 83550; 84443; 85025; 86695; 86696

== ENCOUNTER 2023-03-07 08:17 | Outpatient (CLI) | payer OTHER, SELFPAY ==
--- NOTE | 2023-03-25 17:06 | WPDSLEEPSTUD ---
Sleep Study Date of Study: 03/07/23 Ordering Provider: Santo Beard APRN Interpreting Physician: Cori Garcia DO Sleep Study Type: CPAP Titration Height: 1.63 m Weight: 99.79 kg Body Mass Index: 37.8 Neck Circumference (inches): 15.5 [place]: 21 Reason for Sleep Study 04/13/2022 home sleep test with [facility] showing mild obstructive sleep apnea, AHI of 7.4 with desaturation down to 85%, mild obstructive sleep apnea; she started APAP. Developed treatment-emergent central apneas. 10/07/2022 PAP Titration: Prescribed CPAP 10 cm H2O with EPR of 2. Daytime hypersomnia despite being on PAP Therapy. Sleep History Naila Beard is a 47-year-old female bipolar disorder, PTSD, anxiety, obsessive-compulsive disorder, GERD, neurogenic bladder, migraines, fibromyalgia, familial adenomatous polyposis and hemorrhoids that a sleep study ordered for evaluation of sleep apnea.? The patient frequently awakens from sleep short of breath.? She occasionally awakens at night with heartburn, belching or cough.? She constantly snores and is frequently loud enough others complain.? She frequently has trouble sleeping when she has a cold.? She frequently wakes up gasping for air throughout the night.? She frequently has breathing problems at night observed by herself or others.? She occasionally sweats excessively at night.? She occasionally has heart palpitations or irregular heartbeats during the night.? She frequently falls asleep during the day but rarely falls asleep while driving.? She rarely experiences loss of muscle tone when extremely emotional.? She rarely feels unable to move waking up or falling asleep.? She occasionally experiences vivid dreamlike scenes upon awakening or falling asleep.? He constantly feels afraid of going sleep.? She frequently has nightmares and frequently remembers her dreams.? She constantly has thoughts racing through her mind.??She constantly feels sad, depressed and anxious.? She constantly has muscular tension.? She frequently notices parts of her body jerk.? She occasionally kicks during the night.??She frequently has crawling and aching feelings in her legs and constantly has leg pain during the night.? She constantly grinds her teeth during sleeping constantly awakens with a morning jaw pain.? She is constantly bothered by pain during the day and frequently awakened by pain during the night.? He constantly wakes up feeling stiff in morning.? She constantly wakes up with sore achy muscles.? She constantly wakes up with pain in the neck, spine or other joints.? She goes to bed between 830-10 p.m. on both weekdays and weekends.? It takes her 15-30 minutes to fall asleep.? She is unsure how many times she wakes up throughout the night.? She is either able to fall back asleep or she is unable to.? She gets up between 5-7 a.m. on both weekdays and weekends.? She typically gets 5-7 hours of sleep per night.? She will stay in bed for a few minutes after waking up in morning.? She currently lives alone.? She denies consuming any caffeinated beverages within 2 hours of bedtime.? She does not engage in physical exercise before bedtime.? She will watch television before falling asleep.? She tries not to take naps in the afternoon or evening.? She denies consuming caffeinated beverages throughout the day.? She denies tobacco, alcohol and recreational drug use. [facility] Past Medical History Medical History Acute migraine Anemia Anxiety Arthritis Bipolar disorder, rapid cycling BRBPR (bright red blood per rectum) Chronic fatigue Chronic pain Degenerative disk disease Depression Familial adenomatous polyposis Fibromyalgia Frequent loose stools Gastric polyps GERD (gastroesophageal reflux disease) History of blood clots History of blood transfusion 04/15/2021 History of herpes zoster History of pulmonary embolism History of thyroid disease Insomnia Irritable bowel syndrome with mando
[2023-03-25 18:23] VITALS: BMI 37.8
== END 2023-03-08 07:56 | disposition home or self-care (01) ==
LOC: ANHCSM 08:17
PROVIDERS: PCP Nurse Practitioner Family; Visit Provider Nurse Practitioner Family
DX: G47.39 Other sleep apnea (principal)
CPT/HCPCS: 95811

== ENCOUNTER 2023-03-10 08:40 | Outpatient (CLI) | payer OTHER, SELFPAY ==
[2023-03-10 10:57] LABS: Free T4 Free Thyroxine 1.03 ng/mL (0.78-2.19)
[2023-03-13 02:13] LABS: Thyroid Peroxidase Antibodies 1 IU/mL (<9)
[2023-03-13 14:15] LABS: Triiodothyronine T3 Free 2.8 pg/mL (2.3-4.2)
== END 2023-03-10 08:41 | disposition home or self-care (01) ==
LOC: ANHLAB 08:42
PROVIDERS: PCP Nurse Practitioner Family; Visit Provider Internal Medicine Endocrinology, Diabetes & Metabolism
DX: R79.89 Other specified abnormal findings of blood chemistry (principal); D12.6 Benign neoplasm of colon, unspecified; E04.1 Nontoxic single thyroid nodule; E04.9 Nontoxic goiter, unspecified
CPT/HCPCS: 36415; 84439; 84443; 84481; 86376

== ENCOUNTER 2023-03-24 11:49 | Outpatient (CLI) | payer OTHER, SELFPAY ==
--- NOTE | ~2023-03-24 | MM_ITS ---
EXAMINATION: MM diag merissa implant BI w nick HISTORY: Right breast pain and itching and lumpy breast from 9-6 o'clock. TECHNIQUE: Implant and implant displaced ML, MLO and CC 3-D tomosynthesis images of both breasts were performed and synthetic 2-D images were generated. CAD analysis was submitted and interpreted. COMPARISON: 07/27/2022 bilateral implant diagnostic mammogram BREAST PARENCHYMAL COMPOSITION: The breasts are almost entirely fatty. FINDINGS: Status post bilateral augmentation mammoplasty. No suspicious mass or architectural distort ion, malignant calcification, skin thickening or retraction or significant new or developing density is detected. IMPRESSION: 1. No mammographic evidence of malignancy 2. Routine annual mammographic screening is recommended BI-RADS Category 1: Negative Reviewed, dictated and finalized at location [facility].
== END 2023-03-24 11:50 | disposition home or self-care (01) ==
PROVIDERS: PCP Nurse Practitioner Family; Visit Provider Nurse Practitioner Family
DX: N64.4 Mastodynia (principal)
CPT/HCPCS: 77062; 77066; G0279

== ENCOUNTER 2023-03-29 17:15 | Emergency (ER) | payer OTHER, SELFPAY ==
--- NOTE | ~2023-03-29 | CT_ITS ---
CT of the Abdomen and Pelvis: Indication: Abdominal pain Technique: 2.5 mm axial scans were obtained through the abdomen and pelvis following intravenous adm inistration of 100 cc of Omnipaque 350. Dose reduction technique was used on this scan by utilizing a utomated exposure control and iterative reconstruction technique. The dose-length product (DLP) was 1 153.01 mGy-cm. COMPARISON: 10/13/2022 Findings: Scans through the lung bases are unremarkable. The liver, spleen, pancreas, adrenals and kidneys are within normal limits. Cholecystectomy clips are present. No evidence of aortic aneurysm. No lymphadenopathy. Patient is status post extensive partial colectomy. No bowel obstruction or bowel wall thickening. Th ere is no evidence to suggest acute appendicitis. Images through the pelvis were performed. Urinary bladder unremarkable. Patient is status post hyster ectomy. No pelvic mass evident. No ascites. Impression: No acute abnormality. Postoperative changes related to prior partial colectomy, cholecystectomy, hysterectomy. Reviewed, dictated and finalized at [facility]. Impression: No acute abnormality. Postoperative changes related to prior partial colectomy, cholecystectomy, hyst erectomy.
[2023-03-29 17:18] VITALS: BP 123/74; PULSE 90; RESP 18; TEMP 36.3; O2SAT 98
[2023-03-29 19:49] VITALS: BP 109/79; PULSE 69; RESP 20; O2SAT 99
[2023-03-29 22:04] LABS: Basophils Percent Auto 0.6 % (0.2-1.2); Eosinophils Absolute Auto 0.2 K/mm3 (0-0.3); Eosinophils Percent Auto 2.4 % (0-4.4); Hematocrit 38.2 % (37.0-47.0); Immature Granulocyte Absolute 0.01 K/mm3 (0.00-0.031); Immature Granulocyte Percent A 0.2 % (0-0.5); Lymphocytes Absolute Auto 2.28 K/mm3 (0.9-3.2); Lymphocytes Percent Auto 36.2 % (18.3-44.2); Mean Corpuscular HGB Conc 31.4 g/dl (32-36); Mean Corpuscular Hemoglobin 27.2 pg (26-34); Mean Corpuscular Volume 86.6 fl (80-100); Mean Platelet Volume 9.2 fl (7.4-10.4); Monocytes Absolute Auto 0.6 K/mm3 (0.1-0.6); Neutrophils Absolute Auto 3.3 K/mm3 (1.3-6.7); Neutrophils Percent Auto 51.6 % (45.5-73.1); Platelet Count Result 308 k/mm3 (150-375); Red Blood Count 4.41 M/mm3 (4.2-5.4); Red Cell Distribution Width 14.7 % (11.5-14.5); White Blood Count 6.3 K/mm3 (4.5-10.0)
[2023-03-29 22:06] LABS: Appearance Urine Clear (Clear); Bilirubin Urine Negative (Negative); Blood Urine Negative (Negative); Color Urine Yellow (Yellow); Glucose Urine UA Negative (Negative); Ketones Urine Negative (Negative); Leukocyte Esterase Ur Negative LEU/UL (Negative); Nitrate Urine Negative (Negative); Protein Urine Negative (Negative); Specific Grav Ur 1.007 (1.001-1.035); Urobilinogen Urine 0.2 mg/dL (<2.0); pH Urine 6.5 (5.0-9.0)
[2023-03-29 22:14] LABS: INR 1.2; Prothrombin Time 15.3 Seconds (11.1-14.7)
[2023-03-29 22:15] LABS: Add Urine Microscopic? NO; Partial Thromboplastin Time 35.3 SECONDS (22.3-36.8)
[2023-03-29] MEDS: MORPHINE SULFATE (*CRX) 4 MG/ML INJ IV PUSH (22:43)
[2023-03-29 23:02] LABS: Lactic Acid Reflex 0.7 mmol/L (0.7-2.0)
[2023-03-29 23:11] LABS: Alanine Aminotransferase 22 U/L (6-35); Alkaline Phosphatase 79 U/L (38-126); Anion Gap 6 mmol/L (8-16); Aspartate Amino Transferase 28 U/L (14-36); Bilirubin,Total 0.3 mg/dL (0.2-1.3); Blood Urea Nitrogen 13 mg/dL (7-17); Calcium 8.6 mg/dL (8.4-10.2); Carbon Dioxide 25 mmol/L (22-30); Chloride 105 mmol/L (98-107); Estimated CRCL calculation 88 ml/min; Estimated Glomerular Filt Rate > 60; Glucose 87 mg/dL (65-110); Lipase 117 U/L (23-300); Magnesium 2.1 mg/dL (1.6-2.3); Potassium 3.5 mmol/L (3.4-5.0); Sodium 136 mmol/L (137-145)
[2023-03-29] MEDS: FAMOTIDINE 20 MG/2 ML VIAL IV PUSH (23:17)
[2023-03-29] MEDS: PANTOPRAZOLE SODIUM IV 40 MG VIAL IV PUSH (23:17)
[2023-03-30 00:35] VITALS: BP 130/75; PULSE 77; RESP 16; O2SAT 100
--- NOTE | 2023-03-30 00:52 | ED.GENADULT ---
HPI - General Adult General Chief complaint: GI Bleed Stated complaint: rectal bleeding Time Seen by Provider: 03/29/23 21:24 History of Present Illness HPI narrative: Patient is a 47-year-old female who presents the emergency department with chief complaint of rectal bleeding. The patient reports she normally has bleeding from her rectum in small amounts but noticed that she had passed some clots this has been going on for several days patient called her jewish history professor Dr. Lugo who recommended she come to the emergency department for evaluation. Related Data Home Medications Medication Instructions Recorded Confirmed melatonin 10 mg capsule 10 mg PO QHS 01/13/22 03/23/23 simethicone 125 mg capsule 125 mg PO QID PRN FLATUS 05/19/22 03/23/23 olanzapine 5 mg disintegrating 5 mg PO BID PRN Anxiety 10/13/22 03/23/23 tablet polyethylene glycol 3350 17 17 g PO DAILY PRN Constipation 10/13/22 03/23/23 gram/dose oral powder risperidone 0.25 mg tablet 0.5 mg PO BID 12/02/22 03/23/23 omeprazole 20 mg capsule,delayed 20 mg DAILY 01/17/23 03/23/23 release buspirone 5 mg tablet 10 mg PO BID 02/03/23 03/23/23 Allergies Allergy/AdvReac Type Severity Reaction Status Date / Time aspirin Allergy Severe Anaphylaxis Verified 03/29/23 21:38 latex Allergy Severe Blister Verified 03/29/23 21:38 salicylates Allergy Severe Anaphylaxis Verified 03/29/23 21:38 acetaminophen Allergy Intermediate Hypertensio Verified 03/29/23 21:38 n/HYPOTENSI ON erythromycin base Allergy Intermediate Rash Verified 03/29/23 21:38 Review of Systems Review of Systems: A 10 system review of systems was completed on the patient and is negative except for what is stated in the HPI. Nursing and ancillary documentation was reviewed. [facility] Past Medical History Medical History Acute migraine Anemia Anxiety Arthritis Bipolar disorder, rapid cycling BRBPR (bright red blood per rectum) Chronic fatigue Chronic pain Degenerative disk disease Depression Familial adenomatous polyposis Fibromyalgia Frequent loose stools Gastric polyps GERD (gastroesophageal reflux disease) History of blood clots History of blood transfusion 04/15/2021 History of herpes zoster History of pulmonary embolism History of thyroid disease Insomnia Irritable bowel syndrome with diarrhea Migraines Missed x1 Neurogenic bladder OCD (obsessive compulsive disorder) Plantar fascia syndrome PTSD (post-traumatic stress disorder) Rectal bleeding Schizoaffective disorder, unspecified condition Sensory neuronopathy Small intestinal bacterial overgrowth (SIBO) Thyroid disorder TMJ (dislocation of temporomandibular joint) Surgical History Surgical History H/O breast augmentation 2012 H/O colectomy 2020, partial History of back surgery 2020, placement of interstim device History of bladder surgery 2017 History of bunionectomy 2019 History of section x1 History of cholecystectomy 2008 History of hemorrhoidectomy Exam under anesthesia, external hemorrhoidectomy 2 columns, anal polypectomy x 4 01/25/2022 History of hysterectomy 2019 Hx of breast reduction, elective 2010 Family History Family History Mother , drowning Hyperlipemia Uterine cancer Hypertension Alcoholism Anxiety and depression Thyroid disorder Grandparent Uterine cancer Carcinoma of colon Colon polyp Alcoholism Hypertension Anxiety and depression Cerebrovascular accident Thyroid disorder Other Cancer uncle, aunt Father Hypertension Grandparent Bowel cancer Alcoholism Other Depression Social History Social History Smoking status: Never smoker Second hand
[2023-03-30 01:20] VITALS: BP 130/79; PULSE 77; RESP 16; O2SAT 98
== END 2023-03-30 01:22 | disposition home or self-care (01) ==
PROVIDERS: Emergency Provider Emergency Medicine; PCP Nurse Practitioner Family
DX: R10.9 Unspecified abdominal pain (principal); K21.9 Gastro-esophageal reflux disease without esophagitis; K58.0 Irritable bowel syndrome with diarrhea; N31.9 Neuromuscular dysfunction of bladder, unspecified; E07.9 Disorder of thyroid, unspecified; M79.7 Fibromyalgia; M19.90 Unspecified osteoarthritis, unspecified site; F42.9 Obsessive-compulsive disorder, unspecified; F41.9 Anxiety disorder, unspecified; F31.89 Other bipolar disorder; F25.9 Schizoaffective disorder, unspecified; F43.10 Post-traumatic stress disorder, unspecified; Z86.711 Personal history of pulmonary embolism; Z90.49 Acquired absence of other specified parts of digestive tract; Z90.710 Acquired absence of both cervix and uterus; Z77.22 Contact with and (suspected) exposure to environmental tobacco smoke (acute) (chronic)
CPT/HCPCS: 36415; 74177; 80053; 81003; 81025; 83605; 83690; 83735; 85025; 85610; 85730; 86850; 86900; 86901; 96374; 96375; 99284; C9113; J2270; Q9967

== ENCOUNTER 2023-06-08 15:44 | Outpatient (CLI) | payer OTHER, SELFPAY ==
[2023-06-08 16:03] LABS: Appearance Urine Clear (Clear); Bilirubin Urine Negative (Negative); Blood Urine Negative (Negative); Color Urine Yellow (Yellow); Glucose Urine UA Negative (Negative); Ketones Urine Negative (Negative); Leukocyte Esterase Ur Negative LEU/UL (NEGATIVE); Nitrate Urine Negative (Negative); Protein Urine Negative (Negative); Specific Grav Ur 1.005 (1.001-1.035); Urobilinogen Urine 0.2 mg/dL (<2.0)
[2023-06-08 16:12] LABS: Add Urine Microscopic? NO
== END 2023-06-08 15:45 | disposition home or self-care (01) ==
LOC: ANHLAB 15:45
PROVIDERS: PCP Nurse Practitioner Family; Visit Provider Nurse Practitioner Family
DX: R39.9 Unspecified symptoms and signs involving the genitourinary system (principal)
CPT/HCPCS: 81003; 87086; 87088

== ENCOUNTER 2023-07-20 14:41 | Outpatient (CLI) | payer OTHER, SELFPAY ==
[2023-07-20 15:47] LABS: Hematocrit 34.1 % (37.0-47.0); Hemoglobin 10.2 g/dL (12.0-15.0); Mean Corpuscular HGB Conc 29.9 g/dl (32-36); Mean Corpuscular Hemoglobin 24.8 pg (26-34); Mean Corpuscular Volume 82.8 fl (80-100); Platelet Count Result 305 k/mm3 (150-375); Red Blood Count 4.12 M/mm3 (4.2-5.4); Red Cell Distribution Width 14.2 % (11.5-14.5); White Blood Count 5.4 K/mm3 (4.5-10.0)
[2023-07-20 16:05] LABS: Alanine Aminotransferase 19 U/L (6-35); Albumin Level 3.7 g/dL (3.5-5.1); Alkaline Phosphatase 73 U/L (38-126); Anion Gap 6 mmol/L (8-16); Aspartate Amino Transferase 26 U/L (14-36); Bilirubin,Total 0.2 mg/dL (0.2-1.3); Blood Urea Nitrogen 11 mg/dL (7-17); CRP 0.7 mg/dL (<1.0); Calcium 8.5 mg/dL (8.4-10.2); Carbon Dioxide 25 mmol/L (22-30); Chloride 107 mmol/L (98-107); Estimated Glomerular Filt Rate > 60; Glucose 73 mg/dL (65-110); Potassium 4.2 mmol/L (3.4-5.0); Sodium 138 mmol/L (137-145)
[2023-07-20 16:28] LABS: Erythrocyte Sedimentation Rate 29 mm/hr (0-20); Free T4 Free Thyroxine 1.13 ng/mL (0.78-2.19)
[2023-07-23 04:34] LABS: Triiodothyronine T3 Free 3.2 pg/mL (2.3-4.2)
== END 2023-07-20 14:42 | disposition home or self-care (01) ==
LOC: ANHLAB 14:45
PROVIDERS: PCP Nurse Practitioner Family; Referring Provider Nurse Practitioner Family; Visit Provider Internal Medicine Endocrinology, Diabetes & Metabolism
DX: D12.6 Benign neoplasm of colon, unspecified (principal); E04.1 Nontoxic single thyroid nodule; E04.9 Nontoxic goiter, unspecified; R10.9 Unspecified abdominal pain; R60.9 Edema, unspecified; R73.9 Hyperglycemia, unspecified
CPT/HCPCS: 36415; 80053; 84439; 84443; 84481; 85027; 85652; 86140

== ENCOUNTER 2023-07-22 23:39 | Inpatient (IN) | payer OTHER, SELFPAY ==
--- NOTE | ~2023-07-22 | NM_ITS ---
EXAMINATION: NM Kristinkel's DATE: 07/25/2023 14:09 INDICATION: Blood in stool. TECHNIQUE: 15 mCi Tc 99m pertechnetate was administered intravenously. Scintigraphic images of the a bdomen were obtained for one hour. COMPARISON: CT abdomen and pelvis 07/23/2023 FINDINGS: There is no ectopic gastric mucosa to suggest a Meckel's diverticulum. IMPRESSION: 1. No evidence of a Meckel's diverticulum. Reviewed, dictated and finalized at location [facility]. CY SALES DIRECTOR
--- NOTE | ~2023-07-22 | CT_ITS ---
EXAMINATION: CT abdomen pelvis w con DATE: 07/23/2023 05:53 INDICATION: Abdominal pain, nausea, bloody dark stool. TECHNIQUE: Computed tomography (CT) of the abdomen and pelvis was performed with 100 CC Omnipaque 350 intravenous contrast. Automated exposure control and iterative reconstruction technique were employe d. Exam dose: 1255.26 mGy-cm total exam DLP. COMPARISON: 03/29/2023 CT abdomen pelvis FINDINGS: Bilateral breast implants are noted. Minimal atelectasis at the lung bases. Heart size is w ithin normal range. No pericardial or pleural effusion. Status post cholecystectomy, which likely accounts for mild stable prominence of the intrahepatic and extra hepatic bile ducts, not significantly changed since 03/29/2023. No pancreatic duct dilatation. No hepatic, pancreatic, splenic, and adrenal or suspicious renal space-occupying mass lesion is detec rosas. Occasional small right renal cyst and mild right renal scarring. No urinary tract calculus or hy droureteronephrosis. Normal caliber of the abdominal aorta. No intraperitoneal or retroperitoneal or pelvic mass lesion or adenopathy or ascites. Status post partial colectomy. No bowel obstruction or intraperitoneal free air. There are some focal areas of possible soft tissue thickening of the rectum and sigmoid colon; consider barium enema or c olonoscopy if the colon is not been recently evaluated. The urinary bladder is unremarkable. Status post hysterectomy. Normal caliber of the abdominal aorta. No intraperitoneal or retroperitoneal or pelvic mass lesion or adenopathy or ascites is detected. Battery pack in the left gluteal subcutaneous soft tissues with lead extending through third right sa cral neural foramen. IMPRESSION: Status post partial colectomy; no bowel obstruction or free air There are some areas of nonspecific soft tissue thickening at the rectum and sigmoid colon; given the history of dark bloody stools, consider colon workup by barium enema or colonoscopy if not recently performed Status post cholecystectomy Reviewed, dictated and finalized at [facility]. Reviewed, dictated and finalized at location [facility]. R TRANSFORMER INSPECTOR IMPRESSION: Status post partial colectomy; no bowel obstruction or free air There are some areas of nonspecific soft tissue thickening at the rectum and si gmoid colon; given the history of dark bloody stools, consider colon workup by barium enema or colonoscopy if not recently performed Status post cholecystectomy
[2023-07-22 23:41] VITALS: BP 114/67; PULSE 80; RESP 15; TEMP 36.6; O2SAT 96
[2023-07-23] VITALS (30 sets, daily range): BP systolic 110–177; BP diastolic 66–83; PULSE 66–87; RESP 16–20; TEMP 35.6–36.6; O2SAT 95–100; BMI 38.9
[2023-07-23] MEDS: SODIUM CHLORIDE 0.9% IV 1,000 ML 999 ML IV CONT (05:15)
[2023-07-23] MEDS: ONDANSETRON INJ 4 MG/2 ML VIAL IV PUSH ×2 (05:16→10:07)
[2023-07-23] MEDS: MORPHINE SULFATE (*CRX) 4 MG/ML INJ IV PUSH (05:16)
[2023-07-23 05:23] LABS: Appearance Urine Clear (Clear); Bilirubin Urine Negative (Negative); Blood Urine Negative (Negative); Color Urine Yellow (Yellow); Glucose Urine UA Negative (Negative); Ketones Urine Negative (Negative); Leukocyte Esterase Ur Negative LEU/UL (Negative); Nitrate Urine Negative (Negative); Protein Urine Negative (Negative); Specific Grav Ur 1.014 (1.001-1.035); Urobilinogen Urine 0.2 mg/dL (<2.0); pH Urine 5.5 (5.0-9.0)
[2023-07-23 05:25] LABS: Basophils Percent Auto 0.6 % (0.2-1.2); Eosinophils Absolute Auto 0.3 K/mm3 (0-0.3); Eosinophils Percent Auto 4.2 % (0-4.4); Hematocrit 35.7 % (37.0-47.0); Hemoglobin 10.6 g/dL (12.0-15.0); Immature Granulocyte Absolute 0.02 K/mm3 (0.00-0.031); Immature Granulocyte Percent A 0.3 % (0-0.5); Lymphocytes Absolute Auto 2.67 K/mm3 (0.9-3.2); Lymphocytes Percent Auto 41.9 % (18.3-44.2); Mean Corpuscular HGB Conc 29.7 g/dl (32-36); Mean Corpuscular Hemoglobin 24.8 pg (26-34); Mean Corpuscular Volume 83.4 fl (80-100); Mean Platelet Volume 8.6 fl (7.4-10.4); Monocytes Absolute Auto 0.7 K/mm3 (0.1-0.6); Monocytes Percent Auto 10.8 % (2.6-8.5); Neutrophils Absolute Auto 2.7 K/mm3 (1.3-6.7); Neutrophils Percent Auto 42.2 % (45.5-73.1); Platelet Count Result 290 k/mm3 (150-375); Red Blood Count 4.28 M/mm3 (4.2-5.4); Red Cell Distribution Width 14.3 % (11.5-14.5); White Blood Count 6.4 K/mm3 (4.5-10.0)
[2023-07-23 05:33] LABS: Alanine Aminotransferase 20 U/L (6-35); Alkaline Phosphatase 76 U/L (38-126); Anion Gap 8 mmol/L (8-16); Aspartate Amino Transferase 28 U/L (14-36); Bilirubin,Total 0.2 mg/dL (0.2-1.3); Blood Urea Nitrogen 11 mg/dL (7-17); Carbon Dioxide 26 mmol/L (22-30); Chloride 106 mmol/L (98-107); Estimated CRCL calculation 80 ml/min; Estimated Glomerular Filt Rate > 60; Glucose 89 mg/dL (65-110); Potassium 3.8 mmol/L (3.4-5.0); Sodium 140 mmol/L (137-145)
[2023-07-23 05:40] LABS: INR 1.1; Partial Thromboplastin Time 36.8 SECONDS (22.3-36.8); Prothrombin Time 14.7 Seconds (11.1-14.7)
--- NOTE | 2023-07-23 05:44 | PC.NURSE ---
Patient taken to CT at this time.
[2023-07-23 05:52] LABS: Add Urine Microscopic? NO
--- NOTE | 2023-07-23 06:14 | ED.GENADULT ---
HPI - General Adult General Chief complaint: GI Bleed <Jose Luis Rodriguez MD - Last Filed: 07/23/23 06:16> Stated complaint: bloody stool, abd pain <Jose Luis Rodriguez MD - Last Filed: 07/23/23 06:16> Time Seen by Provider: 07/23/23 04:45 <Jose Luis Rodriguez MD - Last Filed: 07/23/23 06:16> History of Present Illness HPI narrative: patient is a 47-year-old female who presents emergency department with chief complaint of rectal bleeding. Patient reports that she has had issues with GI bleeding before in the past is followed by Dr. Lugo patient reports that today she started having large amount of blood in her stool and had bloody diarrhea. Patient reports she has cramping throughout her abdomen the patient denies syncope denies vomiting but does report that she has had some nausea <Jose Luis Rodriguez MD - Last Filed: 07/23/23 06:16> Related Data Home medications: Home Medications Medication Instructions Recorded Confirmed melatonin 10 mg capsule 10 mg PO QHS 01/13/22 07/20/23 simethicone 125 mg capsule 125 mg PO QID PRN FLATUS 05/19/22 07/20/23 olanzapine 5 mg disintegrating 5 mg PO BID PRN Anxiety 10/13/22 07/20/23 tablet polyethylene glycol 3350 17 17 g PO DAILY PRN Constipation 10/13/22 07/20/23 gram/dose oral powder buspirone 5 mg tablet 10 mg PO TID 04/12/23 07/20/23 risperidone 0.25 mg tablet 1 mg PO BID 04/12/23 07/20/23 meclizine 25 mg tablet 25 mg PO TID PRN 06/08/23 07/20/23 ondansetron 4 mg disintegrating See Rx Instructions .Route .COMPLEX 06/08/23 07/20/23 tablet pregabalin 25 mg capsule 150 mg PO TID 07/20/23 07/20/23 <Jose Luis Rodriguez MD - Last Filed: 07/23/23 06:16> Allergies/adverse reactions: Allergies Allergy/AdvReac Type Severity Reaction Status Date / Time aspirin Allergy Severe Anaphylaxis Verified 07/23/23 04:52 latex Allergy Severe Blister Verified 07/23/23 04:52 salicylates Allergy Severe Anaphylaxis Verified 07/23/23 04:52 acetaminophen Allergy Intermediate Hypertensio Verified 07/23/23 04:52 n/HYPOTENSI ON erythromycin base Allergy Intermediate Rash Verified 07/23/23 04:52 <Jose Luis Rodriguez MD - Last Filed: 07/23/23 06:16> Review of Systems Review of Systems: A 10 system review of systems was completed on the patient and is negative except for what is stated in the HPI. Nursing and ancillary documentation was reviewed. <Jose Luis Rodriguez MD - Last Filed: 07/23/23 06:16> [facility] Past Medical History Medical History: Medical History Acute migraine Anemia Anxiety Arthritis Bipolar disorder, rapid cycling BRBPR (bright red blood per rectum) Chronic fatigue disorder Chronic pain Degenerative disk disease Depression Dysphagia Familial adenomatous polyposis Fibromyalgia Frequent loose stools Gastric polyps GERD (gastroesophageal reflux disease) History of blood clots History of blood transfusion 04/15/2021 History of herpes zoster History of pulmonary embolism History of thyroid disease Insomnia Irritable bowel syndrome with diarrhea Migraines Missed x1 Neurogenic bladder OCD (obsessive compulsive disorder) Plantar fascia syndrome PTSD (post-traumatic stress disorder) Rectal bleeding Right sided abdominal pain Schizoaffective disorder, unspecified condition Sensory neuronopathy Small intestinal bacterial overgrowth (SIBO) Thyroid disorder TMJ (dislocation of temporomandibular joint) <Jose Luis Rodriguez MD - Last Filed: 07/23/23 06:16> Surgical History Surgical History: Surgical History H/O breast augmentation 2012 H/O colectomy 2020, partial History of back surgery 2020, placement of interstim device History of bladder surgery 2017 History of bunionectomy 2019 History of section x1 History o
--- NOTE | 2023-07-23 10:05 | WPDGICN ---
Assessment and Plan Assessment and plan (1) Rectal bleed: Code(s): K62.5 - Hemorrhage of anus and rectum Status: Acute Assessment and Plan: This is a recurrent problem and has been investigated by Dr. Lugo in the past. I will tentatively put her on is scheduled for colonoscopy on Tuesday. (2) Right sided abdominal pain: Code(s): R10.9 - Unspecified abdominal pain Status: Acute Assessment and Plan: This pain he did so she sharma with rectal bleeding makes me wonder could she have a Meckel's diverticulum. It certainly would explain her intermittent rectal bleeding with no findings on colonoscopy. I will place an order for Meckel's scan which probably will cannot be done for several days. (3) Familial adenomatous polyposis: Code(s): D12.6 - Benign neoplasm of colon, unspecified Status: Acute Assessment and Plan: She has had a right colectomy for this syndrome. No other polyps though have been seen since then. (4) Anemia: Code(s): D64.9 - Anemia, unspecified Status: Acute Assessment and Plan: this is basically acute on chronic anemia. Her hemoglobin had been around 12 last year a size 12.7 in February then 10.2 2 days ago and 10.6 today. Plan Admit to medical floor monitor blood counts regularly liquid diet for now schedule colonoscopy for Tuesday schedule scan for Meckel's diverticulum. GI Consult Note Consult date/time: 07/23/23 10:05 HPI: Naila Chen is a 47 year old female Presented to the emergency room yesterday with rectal bleeding. He has had many episodes of rectal bleeding over the last couple years and has been hospitalized on a few occasions. She in fact had hemorrhoidectomy a little over year ago which did not seem to make a difference. Every so often she will start passing red blood with her stools. Her stools are never formed, probably due to the fact that she has had a right colectomy in the past. That was done for attenuated familial adenomatous polyposis her last colonoscopy was less than a year ago by Dr. Lugo and did not reveal any source of bleeding. She has had previous capsule endoscopy as well which was negative. She does suffer from chronic acid reflux with esophageal burning and has had recent esophageal motility studies. She in fact was just in the office a couple days ago seeing Erna, SENIOR UI UX DESIGNER-C, regarding a relatively new symptom. This is right-sided abdominal pain that has been there fairly constantly and may radiate lower towards the inguinal area. She tends have between 1 and 6 bowel moves per day which are sometimes slightly formed but generally not. Last hospitalization for bleeding was in September of 2022 when she had her last colonoscopy. This time, the bleeding began on , 2 days ago with an urgent bowel movement that seemed to be blood and stool mixed. Yesterday she had a bowel movement that seemed to be nothing but blood he was diarrhea type. She later had a small bowel movement of stool that did not seem to have blood in it. Review of Systems Review of Systems: All systems reviewed & are unremarkable except as noted in HPI and below PMFSH Past Medical History Medical History Acute migraine Anemia Anxiety Arthritis Bipolar disorder, rapid cycling BRBPR (bright red blood per rectum) Chronic fatigue disorder Chronic pain Degenerative disk disease Depression Dysphagia Familial adenomatous polyposis Fibromyalgia Frequent loose stools Gastric polyps GERD (gastroesophageal reflux disease) History of blood clots History of blood transfusion 04/15/2021 History of herpes zoster History of pulmonary embolism History of thyroid disease Insomnia Irritable bowel syndrome with diarrhea Migraines Missed x1 Neurogenic bladder OCD (obsessive compulsive disorder) Plantar fascia syndrome PTSD (post-traumatic stress disorder
[2023-07-23] MEDS: SODIUM CHLORIDE 0.9% IV 1,000 ML 125 ML IV CONT ×2 (10:06→19:57)
[2023-07-23 10:12] LABS: Hematocrit 34.2 % (37.0-47.0); Hemoglobin 9.8 g/dL (12.0-15.0)
--- NOTE | 2023-07-23 11:13 | ADMGEN ---
This patient, Naila Chen, was admitted to 3 Med Surg Room 327-01 @ 1113. Patient/family oriented to hospital policies and general routines including ID bracelet, bed and alarms, visiting hours, pain management, procedures, bathroom and other care routines, personal items, smoking policy, room service/diet, and visiting hours. Information on how to activate the Rapid Response Team has been discussed. Patient/Family are encouraged to report perceived risks to care and to ask questions if they do not understand what they are told or what they should do.
[2023-07-23 14:47] LABS: Hematocrit 36.8 % (37.0-47.0); Hemoglobin 10.8 g/dL (12.0-15.0)
[2023-07-23] MEDS: DICYCLOMINE HCL 10 MG CAPSULE 20 MG PO (17:05)
[2023-07-23] MEDS: risperiDONE 1 MG TABLET PO (17:05)
[2023-07-23] MEDS: PREGABALIN (*CRX) 75 MG CAPSULE 150 MG PO (17:05)
[2023-07-23] MEDS: busPIRone HCL 5 MG TABLET 15 MG PO (17:05)
[2023-07-23] MEDS: traMADol HCL (*CRX) 50 MG TABLET 100 MG PO (17:09)
[2023-07-23] MEDS: CYCLOBENZAPRINE HCL 10 MG TABLET PO (17:12)
--- NOTE | 2023-07-23 17:42 | PM.IMHP ---
H&P: HPI History of Present Illness Date/Time: 07/23/23 17:42 Chief Complaint: GI Bleed Narrative: 47-year-old female who presents here with rectal bleeding with past medical history of same, familial adenomas polyposis, chronic anemia, bipolar, fibromyalgia, GERD, hypothyroidism, SBO, OCD, PTSD, and pulmonary embolism. Has underwent a right colectomy, hemorrhoidectomy, cholecystectomy, and total hysterectomy. Patient reports that she has had blood in her stool for the past 1 and half years. Volume of blood will intermittently increase. Has had chronic diarrhea since right colectomy but stool will occasionally be more formed. Reports new right lower abdominal pain in the past few weeks which is a new symptom for her. Reports pain as constant and initially moderate pressure/palpation would elicit more pain but now only light pressure/palpation elicits same level of pain, if not more severe pain. Reports some underlying nausea without vomiting. Has been experiencing chills for the past 5 days and began having a slightly runny nose today. Per review of GI note, patient has had many episodes of rectal bleeding over the last couple years and hospitalized on a few occasions. Last colonoscopy done less than a year ago here and did not reveal any source of bleeding. Has also underwent a previous capsule endoscopy which was negative. ED workup today revealed anemia with hemoglobin of 9.6, normal WBC, unremarkable chemistries, UA negative for infection. CT of abdomen pelvis done and showed s/p partial colectomy, no bowel obstruction or free air, areas of nonspecific soft tissue thickening at the rectum and sigmoid colon, and s/p cholecystectomy. Currently reports tender right lower quadrant and continued rhinorrhea. Reports a level of frustration with ongoing chronic illness and feeling like she isn't being heard. Tired of living with pain, inability to sleep related to pain, and poor appetite. No SI/HI. No other current complaints. Review of Systems Review of Systems: All systems reviewed & are unremarkable except as noted in HPI and below PMFSH Past Medical History Medical History (Updated 07/23/23 @ 22:27 by Nelli Nunez APRN) Acute migraine Anemia Anxiety Arthritis Bipolar disorder, rapid cycling BRBPR (bright red blood per rectum) Chronic fatigue disorder Chronic pain Degenerative disk disease Depression Dysphagia Familial adenomatous polyposis S/p partial colectomy, total hysterectomy Fibromyalgia Frequent loose stools Gastric polyps GERD (gastroesophageal reflux disease) History of blood clots History of blood transfusion 04/15/2021 History of herpes zoster History of pulmonary embolism History of thyroid disease Insomnia Irritable bowel syndrome with diarrhea Migraines Missed x1 Neurogenic bladder OCD (obsessive compulsive disorder) Plantar fascia syndrome PTSD (post-traumatic stress disorder) Rectal bleeding Right sided abdominal pain Schizoaffective disorder, unspecified condition Sensory neuronopathy Small intestinal bacterial overgrowth (SIBO) Thyroid disorder TMJ (dislocation of temporomandibular joint) Surgical History Surgical History H/O breast augmentation 2012 H/O colectomy 2020, partial History of back surgery 2020, placement of interstim device History of bladder surgery 2017 History of bunionectomy 2020 History of section x1 History of cholecystectomy 2008 History of hemorrhoidectomy Exam under anesthesia, external hemorrhoidectomy 2 columns, anal polypectomy x 4 01/25/2022 History of hysterectomy 2019 Hx of breast reduction, elective 2010 S/P correction of deviated nasal septum S/P surgery on nasal septum Family History Family History Mother , drowning Hyperlipemia Uterine cancer Hypertension Alcoholism Anxiety and
[2023-07-23] MEDS: traZODone HCL 50 MG TABLET 200 MG PO (20:24)
[2023-07-23] MEDS: CITALOPRAM HYDROBROMIDE 20 MG TABLET 40 MG PO (20:24)
[2023-07-23] MEDS: MELATONIN 5 MG TABLET 10 MG PO (20:25)
[2023-07-23] MEDS: DOXEPIN HCL 10 MG CAPSULE 20 MG PO (20:25)
[2023-07-23 20:31] LABS: Influenza A QL RT-PCR Negative (Negative); Influenza B QL RT-PCR Negative (Negative); RSV RNA, RT-PCR Negative (Negative); SARS-CoV-2 RNA PCR Negative (Negative)
[2023-07-23] MEDS: OLANZapine DISPERTAB 5 MG 2.5 MG PO (20:31)
[2023-07-23 20:54] LABS: Hematocrit 33.2 % (37.0-47.0); Hemoglobin 9.6 g/dL (12.0-15.0)
[2023-07-24] VITALS (7 sets, daily range): BP systolic 109–122; BP diastolic 65–88; PULSE 69–80; RESP 16–20; TEMP 36.1–36.7; O2SAT 97–100
[2023-07-24] MEDS: traMADol HCL (*CRX) 50 MG TABLET 100 MG PO ×3 (01:12→19:59)
[2023-07-24] MEDS: CYCLOBENZAPRINE HCL 10 MG TABLET PO ×4 (01:12→17:05)
[2023-07-24] MEDS: SODIUM CHLORIDE 0.9% IV 1,000 ML 125 ML IV CONT (04:11)
[2023-07-24 06:43] LABS: Hematocrit 32.6 % (37.0-47.0); Hemoglobin 9.7 g/dL (12.0-15.0)
[2023-07-24] MEDS: PANTOPRAZOLE 40 MG TABLET PO ×2 (10:46→20:47)
[2023-07-24] MEDS: DICYCLOMINE HCL 10 MG CAPSULE 20 MG PO ×3 (10:47→17:05)
[2023-07-24] MEDS: busPIRone HCL 5 MG TABLET 15 MG PO ×3 (10:47→17:05)
[2023-07-24] MEDS: TOPIRAMATE 25 MG TABLET 50 MG PO (10:47)
[2023-07-24] MEDS: risperiDONE 1 MG TABLET PO ×2 (10:47→17:06)
[2023-07-24] MEDS: PREGABALIN (*CRX) 75 MG CAPSULE 150 MG PO ×3 (10:47→17:05)
[2023-07-24] MEDS: FUROSEMIDE 40 MG TABLET PO (10:47)
[2023-07-24] MEDS: ONDANSETRON INJ 4 MG/2 ML VIAL IV PUSH (13:46)
[2023-07-24] MEDS: SUMAtriptan SUCCINATE 25 MG TABLET 100 MG PO (20:18)
[2023-07-24] MEDS: CITALOPRAM HYDROBROMIDE 20 MG TABLET 40 MG PO (20:47)
[2023-07-24] MEDS: MELATONIN 5 MG TABLET 10 MG PO (20:48)
[2023-07-24] MEDS: DOXEPIN HCL 10 MG CAPSULE 20 MG PO (20:48)
[2023-07-24] MEDS: traZODone HCL 50 MG TABLET 200 MG PO (20:48)
--- NOTE | 2023-07-24 23:53 | PC.NURSE ---
pt refuses their IV fluids, day time RN and pt stated that it caused her hands and legs to swell and she didnt want them
[2023-07-25] VITALS (10 sets, daily range): BP systolic 86–117; BP diastolic 51–70; PULSE 63–99; RESP 12–18; TEMP 35.9–37; O2SAT 96–100
[2023-07-25] MEDS: CYCLOBENZAPRINE HCL 10 MG TABLET PO ×2 (01:03→20:45)
[2023-07-25] MEDS: SUMAtriptan SUCCINATE 25 MG TABLET 100 MG PO (03:21)
[2023-07-25] MEDS: traMADol HCL (*CRX) 50 MG TABLET 100 MG PO ×2 (05:04→20:45)
[2023-07-25] MEDS: PANTOPRAZOLE 40 MG TABLET PO ×2 (08:49→20:47)
[2023-07-25] MEDS: PREGABALIN (*CRX) 75 MG CAPSULE 150 MG PO ×3 (08:49→16:38)
[2023-07-25] MEDS: TOPIRAMATE 25 MG TABLET 50 MG PO (08:50)
[2023-07-25] MEDS: busPIRone HCL 5 MG TABLET 15 MG PO ×3 (08:50→16:38)
[2023-07-25] MEDS: FUROSEMIDE 40 MG TABLET PO (08:50)
[2023-07-25] MEDS: risperiDONE 1 MG TABLET PO ×2 (08:50→16:38)
--- NOTE | 2023-07-25 10:50 | PC.NURSE ---
To GI Lab per wheelchair.
[2023-07-25] MEDS: LACTATED RINGERS 1,000 ML 150 ML IV CONT (11:20)
--- NOTE | 2023-07-25 12:50 | PM.IMPN ---
Progress Note: A&P Assessment and Plan (1) Rectal bleed: Code(s): K62.5 - Hemorrhage of anus and rectum Status: Acute (2) Right sided abdominal pain: Code(s): R10.9 - Unspecified abdominal pain Status: Acute Plan 47-year-old female with past medical history of same, familial adenomas polyposis, chronic anemia, bipolar, fibromyalgia, GERD, hypothyroidism, SBO, OCD, PTSD, and pulmonary embolism presented with rectal bleeding .? 1. Rectal bleed: Monitor H&H Appreciate GI help Plan for Meckel scan and colonoscopy today Continue with PPI NPO today 2.migraines:? Continue topiramate and sumatriptan.? Continue home meclizine. 3.insomnia: Continue trazodone and melatonin. 4. Code status: Full 5. DVT prophylaxis: SCDs 6. Disposition: Pending improvement Time Spent With Patient Time with patient: 15 - 25 minutes Subjective Date/time seen: 07/25/23 12:50 Interval history: Await colonoscopy today Having migraine headache right now Review of Systems Review of Systems: All systems reviewed & are unremarkable except as noted in HPI and below Exam Const: General: no acute distress HENMT: Mouth: Yes moist mucous membranes Eyes: Sclera: sclerae normal Pupils: Equal, round and reactive pupils present Neck: Neck: supple Resp: Effort & Inspection: normal respiratory effort Auscultation: clear to auscultation bilaterally Cardio: Rate: regular rate Rhythm: regular rhythm Other: S1-S2 present without murmur, rub, ectopy GI: Other: Mild distension to epigastric region, profusely tender right lower quadrant, mildly tender left lower quadrant. +guarding. Bowel sounds in all 4 quadrants, normoactive. Skin: General skin exam: normal color and no rashes or lesions noted Wounds: no wounds Neuro: Speech: normal speech Other: A/OX4 Extrem: General: normal to inspection Psych: Mental Status: mental status grossly normal Objective Data Vital Signs Vital Signs: Vital Signs - 24 hr 07/24/23 14:00 07/24/23 16:00 07/24/23 19:55 Temperature 97.8 F 97.7 F 96.9 F L Pulse Rate 80 70 69 Respiratory Rate 20 20 20 Blood Pressure 115/65 109/75 109/67 Pulse Oximetry 97 98 100 Oxygen Delivery 07/25/23 01:15 07/25/23 04:31 07/25/23 08:45 Temperature 97 F L 96.6 F L 98.6 F Pulse Rate 67 66 99 Respiratory Rate 18 18 12 Blood Pressure 117/65 106/60 108/67 Pulse Oximetry 96 98 97 Oxygen Delivery 07/25/23 08:00 07/25/23 11:22 07/25/23 12:01 Temperature 97 F L Pulse Rate 96 63 Respiratory Rate 18 18 Blood Pressure 112/58 L 86/51 L Pulse Oximetry 98 96 Oxygen Delivery Room Air Room Air Room Air 07/25/23 12:11 07/25/23 12:20 Temperature Pulse Rate 63 64 Respiratory Rate 18 18 Blood Pressure 96/62 L 99/64 L Pulse Oximetry 96 96 Oxygen Delivery Room Air Room Air Intake/Output Intake/Output: Intake & Output 07/22/23 07/23/23 07/24/23 07/25/23 23:59 23:59 23:59 23:59 Intake Total 2908 4250 1470 Balance 2908 4250 1470 Meds/Results Medications: Active Medications Generic Name Dose Route Start Last Admin Trade Name Freq PRN Reason Stop Dose Admin Buspirone HCl 15 mg 07/23/23 17:00 07/25/23 08:50 Buspirone Hcl 5 Mg Tablet PO 15 mg TID ADITI Administration Citalopram Hydrobromide 40 mg 07/23/23 21:00 07/24/23 20:47 Citalopram Hydrobromide 20 Mg Tablet PO 40 mg HS ADITI Administration Cyclobenzaprine HCl 10 mg 07/23/23 15:21 07/25/23 01:03 Cyclobenzaprine Hcl 10 Mg Tablet PO 10 mg TID PRN Administration Muscle Spasm Dicyclomine HCl 20 mg 07/23/23 15:21 07/24/23 17:05 Dicyclomine Hcl 10 Mg Capsule PO 20 mg TID PRN Administration abdominal discomfort Doxepin HCl 20 mg 07/23/23 21:00 07/24/23 20:48 Doxepin Hcl 10 Mg Capsule PO 20 mg HS ADITI Administration Furosemide 40 mg 07/24/23 09:00 07/25/23 08:50 Furosemide 40 Mg Tablet PO 40 mg DAILY ADITI Admin
--- NOTE | 2023-07-25 13:50 | PC.NURSE ---
Returned to room per wheelchair from Nuclear Medicine.
--- NOTE | 2023-07-25 14:05 | PC.NURSE ---
Spouse brought in Cryoc[employer] from home to use for left knee.
[2023-07-25] MEDS: DOXEPIN HCL 10 MG CAPSULE 20 MG PO (20:46)
[2023-07-25] MEDS: MELATONIN 5 MG TABLET 10 MG PO (20:46)
[2023-07-25] MEDS: traZODone HCL 50 MG TABLET 200 MG PO (20:46)
[2023-07-25] MEDS: OLANZapine DISPERTAB 5 MG 2.5 MG PO (20:46)
[2023-07-25] MEDS: CITALOPRAM HYDROBROMIDE 20 MG TABLET 40 MG PO (20:46)
[2023-07-25] MEDS: DICYCLOMINE HCL 10 MG CAPSULE 20 MG PO (20:47)
[2023-07-25 20:51] LABS: Toxigenic C. Diff POSITIVE (NEGATIVE)
[2023-07-25] MEDS: FIDAXOMICIN 200 MG TABLET PO (23:44)
[2023-07-25] MEDS: MESALAMINE 1,000 MG SUPP.RECT 1000 MG RECTAL (23:46)
[2023-07-26] MEDS: ONDANSETRON INJ 4 MG/2 ML VIAL IV PUSH ×3 (00:11→21:20)
[2023-07-26 01:10] VITALS: BP 97/53; PULSE 77; RESP 18; TEMP 37.1; O2SAT 94
[2023-07-26 04:20] VITALS: BP 100/63; PULSE 78; RESP 16; TEMP 36.8; O2SAT 98
[2023-07-26] MEDS: CYCLOBENZAPRINE HCL 10 MG TABLET PO ×2 (04:42→21:10)
[2023-07-26] MEDS: traMADol HCL (*CRX) 50 MG TABLET 100 MG PO ×2 (04:42→21:10)
[2023-07-26 06:50] LABS: Basophils Percent Auto 0.5 % (0.2-1.2); Eosinophils Absolute Auto 0.3 K/mm3 (0-0.3); Eosinophils Percent Auto 4.3 % (0-4.4); Hematocrit 34.1 % (37.0-47.0); Hemoglobin 10.1 g/dL (12.0-15.0); Immature Granulocyte Absolute 0.02 K/mm3 (0.00-0.031); Immature Granulocyte Percent A 0.3 % (0-0.5); Lymphocytes Absolute Auto 1.74 K/mm3 (0.9-3.2); Lymphocytes Percent Auto 28.5 % (18.3-44.2); Mean Corpuscular HGB Conc 29.6 g/dl (32-36); Mean Corpuscular Hemoglobin 24.9 pg (26-34); Mean Corpuscular Volume 84.2 fl (80-100); Mean Platelet Volume 9.4 fl (7.4-10.4); Monocytes Absolute Auto 0.8 K/mm3 (0.1-0.6); Monocytes Percent Auto 13.6 % (2.6-8.5); Neutrophils Absolute Auto 3.2 K/mm3 (1.3-6.7); Neutrophils Percent Auto 52.8 % (45.5-73.1); Platelet Count Result 263 k/mm3 (150-375); Red Blood Count 4.05 M/mm3 (4.2-5.4); Red Cell Distribution Width 14.6 % (11.5-14.5); White Blood Count 6.1 K/mm3 (4.5-10.0)
[2023-07-26 06:58] LABS: Anion Gap 6 mmol/L (8-16); Blood Urea Nitrogen 12 mg/dL (7-17); Calcium 8.3 mg/dL (8.4-10.2); Carbon Dioxide 26 mmol/L (22-30); Chloride 104 mmol/L (98-107); Estimated CRCL calculation 72 ml/min; Estimated Glomerular Filt Rate 60; Glucose 85 mg/dL (65-110); Magnesium 1.9 mg/dL (1.6-2.3); Potassium 3.2 mmol/L (3.4-5.0); Sodium 136 mmol/L (137-145)
[2023-07-26 08:00] VITALS: BP 95/57; PULSE 97; RESP 16; TEMP 36.5; O2SAT 100
[2023-07-26] MEDS: PREGABALIN (*CRX) 75 MG CAPSULE 150 MG PO ×3 (09:15→16:50)
[2023-07-26] MEDS: PANTOPRAZOLE 40 MG TABLET PO ×2 (09:16→21:10)
[2023-07-26] MEDS: TOPIRAMATE 25 MG TABLET 50 MG PO (09:16)
[2023-07-26] MEDS: FUROSEMIDE 40 MG TABLET PO (09:16)
[2023-07-26] MEDS: busPIRone HCL 5 MG TABLET 15 MG PO ×3 (09:16→16:51)
[2023-07-26] MEDS: risperiDONE 1 MG TABLET PO ×2 (09:16→16:51)
[2023-07-26] MEDS: POTASSIUM CHLORIDE 20 MEQ PACKET (FOR LIQUID) 40 MEQ PO (09:18)
[2023-07-26] MEDS: FIDAXOMICIN 200 MG TABLET PO ×2 (09:37→21:09)
[2023-07-26] MEDS: DICYCLOMINE HCL 10 MG CAPSULE 20 MG PO ×2 (09:47→21:10)
[2023-07-26] MEDS: SIMETHICONE 125 MG CHEW TAB PO ×2 (11:53→21:10)
--- NOTE | 2023-07-26 13:40 | PM.IMPN ---
Progress Note: A&P Assessment and Plan (1) Rectal bleed: Code(s): K62.5 - Hemorrhage of anus and rectum Status: Acute Assessment and Plan: Monitor H&H GI following Meckel scan negative colonoscopy yesterday showed diverticulosis and colitis (2) Right sided abdominal pain: Code(s): R10.9 - Unspecified abdominal pain Status: Acute Assessment and Plan: colonoscopy yesterday showed diverticulosis and colitis regular diet Continue with PPI c. diff positive, started on Dificid Plan migraines:? Continue topiramate and sumatriptan.? Continue home meclizine. insomnia: Continue trazodone and melatonin. Subjective Date/time seen: 07/26/23 13:40 Interval history: Patient is sitting up in chair this morning on exam, reports abdominal pain and diarrhea but otherwise is in no distress. She has been tolerating a regular diet, but it does upset her stomach after she eats. GI following, colonoscopy done yesterday showing diverticulosis and colitis. Meckel was negative. C.Diff positive, started on Dificid and cc following to insurance coverage at d/c. Review of Systems Review of Systems: All systems reviewed & are unremarkable except as noted in HPI and below Exam Narrative: GENERAL: Well-appearing, well-nourished, and in no acute distress. HEAD: Normocephalic, atraumatic. EYES: PERRLA and EOMI. ENT: Nares clear, no rhinorrhea or epistaxis. Mucous membranes moist. NECK: Supple. CHEST: Clear to auscultation. No respiratory distress. HEART: RRR. Normal peripheral pulses. ABDOMEN: Soft, nontender, nondistended, normal active bowel sounds. : Guaiac-positive stool EXTREMITIES: Normal range of motion. No edema. SKIN: Warm, dry, no rash. NEURO: No focal deficits. Alert and oriented x3. PSYCH: Normal mood and affect. Objective Data Vital Signs Vital Signs: Vital Signs - 24 hr 07/25/23 13:55 07/25/23 16:40 07/25/23 21:05 Temperature 97.7 F 97.8 F 98.1 F Pulse Rate 99 87 90 Respiratory Rate 12 16 18 Blood Pressure 104/70 109/67 102/65 Pulse Oximetry 99 100 96 Oxygen Delivery 07/26/23 01:10 07/26/23 04:20 07/26/23 08:00 Temperature 98.7 F 98.2 F 97.7 F Pulse Rate 77 78 97 Respiratory Rate 18 16 16 Blood Pressure 97/53 L 100/63 95/57 L Pulse Oximetry 94 98 100 Oxygen Delivery 07/26/23 08:00 Temperature Pulse Rate Respiratory Rate Blood Pressure Pulse Oximetry Oxygen Delivery Room Air Intake/Output Intake/Output: Intake & Output 07/23/23 07/24/23 07/25/23 07/26/23 23:59 23:59 23:59 23:59 Intake Total 2908 4250 2260 870 Balance 2908 4250 2260 870 Meds/Results Medications: Active Medications Generic Name Dose Route Start Last Admin Trade Name Freq PRN Reason Stop Dose Admin Buspirone HCl 15 mg 07/23/23 17:00 07/26/23 12:00 Buspirone Hcl 5 Mg Tablet PO 15 mg TID ADITI Administration Citalopram Hydrobromide 40 mg 07/23/23 21:00 07/25/23 20:46 Citalopram Hydrobromide 20 Mg Tablet PO 40 mg HS ADITI Administration Cyclobenzaprine HCl 10 mg 07/23/23 15:21 07/26/23 04:42 Cyclobenzaprine Hcl 10 Mg Tablet PO 10 mg TID PRN Administration Muscle Spasm Dicyclomine HCl 20 mg 07/23/23 15:21 07/26/23 09:47 Dicyclomine Hcl 10 Mg Capsule PO 20 mg TID PRN Administration abdominal discomfort Doxepin HCl 20 mg 07/23/23 21:00 07/25/23 20:46 Doxepin Hcl 10 Mg Capsule PO 20 mg HS ADITI Administration Fidaxomicin 200 mg 07/25/23 21:45 07/26/23 09:37 Fidaxomicin 200 Mg Tablet PO 08/05/23 21:44 200 mg Q12HR ADITI Administration Furosemide 40 mg 07/24/23 09:00 07/26/23 09:16 Furosemide 40 Mg Tablet PO 40 mg DAILY ADITI Administration Sodium Chloride 1,000 mls @ 125 mls/hr 07/23/23 09:45 07/26/23 08:05 Normal Saline Iv IV CONT Not Given .Q8H ADITI Meclizine HCl 25 mg 07/23/23 17:00 07/26/23 11:52 Meclizine Hcl 25 Mg Tablet PO Not Given TID ADITI
[2023-07-26 14:59] VITALS: BP 106/63; PULSE 81; RESP 20
[2023-07-26 16:00] VITALS: BP 99/45; PULSE 96; RESP 16; TEMP 36.8; O2SAT 100
[2023-07-26 20:35] VITALS: BP 117/67; PULSE 99; RESP 16; TEMP 36.1; O2SAT 94
[2023-07-26] MEDS: CITALOPRAM HYDROBROMIDE 20 MG TABLET 40 MG PO (21:09)
[2023-07-26] MEDS: DOXEPIN HCL 10 MG CAPSULE 20 MG PO (21:09)
[2023-07-26] MEDS: traZODone HCL 50 MG TABLET 200 MG PO (21:09)
[2023-07-26] MEDS: MELATONIN 5 MG TABLET 10 MG PO (21:10)
[2023-07-26] MEDS: OLANZapine DISPERTAB 5 MG 2.5 MG PO (21:11)
[2023-07-27 00:58] VITALS: BP 105/66; PULSE 70; RESP 18; TEMP 36.6; O2SAT 95
[2023-07-27 04:25] VITALS: BP 103/76; PULSE 69; RESP 20; TEMP 36.1; O2SAT 99
[2023-07-27] MEDS: traMADol HCL (*CRX) 50 MG TABLET 100 MG PO ×2 (05:12→12:55)
[2023-07-27] MEDS: CYCLOBENZAPRINE HCL 10 MG TABLET PO ×3 (05:12→13:12)
[2023-07-27 06:57] LABS: Basophils Absolute Auto 0.1 K/mm3 (0.0-0.1); Eosinophils Absolute Auto 0.4 K/mm3 (0-0.3); Eosinophils Percent Auto 6.3 % (0-4.4); Hematocrit 32.6 % (37.0-47.0); Immature Granulocyte Absolute 0.02 K/mm3 (0.00-0.031); Immature Granulocyte Percent A 0.3 % (0-0.5); Mean Corpuscular HGB Conc 30.7 g/dl (32-36); Mean Corpuscular Hemoglobin 25.3 pg (26-34); Mean Corpuscular Volume 82.5 fl (80-100); Mean Platelet Volume 9.4 fl (7.4-10.4); Monocytes Absolute Auto 0.8 K/mm3 (0.1-0.6); Monocytes Percent Auto 13.7 % (2.6-8.5); Neutrophils Absolute Auto 2.5 K/mm3 (1.3-6.7); Neutrophils Percent Auto 42.7 % (45.5-73.1); Platelet Count Result 275 k/mm3 (150-375); Red Blood Count 3.95 M/mm3 (4.2-5.4); Red Cell Distribution Width 14.7 % (11.5-14.5); White Blood Count 5.8 K/mm3 (4.5-10.0)
[2023-07-27 07:04] LABS: Anion Gap 6 mmol/L (8-16); Blood Urea Nitrogen 12 mg/dL (7-17); Calcium 8.4 mg/dL (8.4-10.2); Carbon Dioxide 25 mmol/L (22-30); Chloride 107 mmol/L (98-107); Estimated CRCL calculation 79 ml/min; Estimated Glomerular Filt Rate > 60; Glucose 81 mg/dL (65-110); Potassium 3.4 mmol/L (3.4-5.0); Sodium 138 mmol/L (137-145)
[2023-07-27 08:00] VITALS: BP 103/60; PULSE 74; RESP 18; TEMP 36.4; O2SAT 97
[2023-07-27] MEDS: SIMETHICONE 125 MG CHEW TAB PO (08:08)
[2023-07-27] MEDS: FIDAXOMICIN 200 MG TABLET PO (08:08)
[2023-07-27] MEDS: PREGABALIN (*CRX) 75 MG CAPSULE 150 MG PO ×2 (08:09→12:55)
[2023-07-27] MEDS: risperiDONE 1 MG TABLET PO (08:09)
[2023-07-27] MEDS: PANTOPRAZOLE 40 MG TABLET PO (08:09)
[2023-07-27] MEDS: TOPIRAMATE 25 MG TABLET 50 MG PO (08:10)
[2023-07-27] MEDS: busPIRone HCL 5 MG TABLET 15 MG PO ×2 (08:10→12:55)
[2023-07-27] MEDS: FUROSEMIDE 40 MG TABLET PO (08:10)
--- NOTE | 2023-07-27 08:25 | WPDGIPROGNO ---
Progress Note: A&P Assessment and Plan (1) C. difficile colitis: Code(s): A04.72 - Enterocolitis due to Clostridium difficile, not specified as recurrent Status: Acute Assessment and Plan: stool + C diff, started on treatment (she had previous episode several months ago) this can explain findings of colonoscopy (proctosigmoiditis)- ok to discontinue canasa supp (2) Rectal bleed: Code(s): K62.5 - Hemorrhage of anus and rectum Status: Acute Assessment and Plan: found colitis (3) Right sided abdominal pain: Code(s): R10.9 - Unspecified abdominal pain Status: Acute Assessment and Plan: probably from c diff medical therapy advance diet as tolerated (4) H/O colectomy: Code(s): Z90.49 - Acquired absence of other specified parts of digestive tract Status: Acute (5) Anemia: Code(s): D64.9 - Anemia, unspecified Status: Acute Subjective Date/time seen: 07/26/23 14:20 Interval history: still with diarrhea and abdominal discomfort Review of Systems Review of Systems: All systems reviewed & are unremarkable except as noted in HPI and below Exam Const: General: comfortable and no acute distress HENMT: Face/Nose/Sinus: Normal nares present Eyes: General: appearance normal, both eyes and all related structures Neck: Neck: supple Resp: Auscultation: clear to auscultation bilaterally Cardio: Rate: regular rate Rhythm: regular rhythm GI: Inspection: non-distended GI Palp: Yes Soft to palpation and Yes Tenderness to palpation present (GI) (mild ttp, no rebound) Auscultation: normal bowel sounds Skin: General skin exam: normal color Neuro: Speech: normal speech Motor exam (neuro): 5/5 motor strength present throughout Extrem: General: normal to inspection Psych: Mental Status: mental status grossly normal Objective Data Vital Signs Vital Signs: Vital Signs - 24 hr 07/26/23 14:59 07/26/23 16:00 07/26/23 20:35 Temperature 98.3 F 97 F L Pulse Rate 81 96 99 Respiratory Rate 20 16 16 Blood Pressure 106/63 99/45 L 117/67 Pulse Oximetry 100 94 07/27/23 00:58 07/27/23 04:25 Temperature 97.8 F 96.9 F L Pulse Rate 70 69 Respiratory Rate 18 20 Blood Pressure 105/66 103/76 Pulse Oximetry 95 99 Intake/Output Intake/Output: Intake & Output 07/24/23 07/25/23 07/26/23 07/27/23 23:59 23:59 23:59 23:59 Intake Total 4250 2260 1670 700 Balance 4250 2260 1670 700 Meds/Results Medications: Active Medications Generic Name Dose Route Start Last Admin Trade Name Freq PRN Reason Stop Dose Admin Buspirone HCl 15 mg 07/23/23 17:00 07/27/23 08:10 Buspirone Hcl 5 Mg Tablet PO 15 mg TID ADITI Administration Citalopram Hydrobromide 40 mg 07/23/23 21:00 07/26/23 21:09 Citalopram Hydrobromide 20 Mg Tablet PO 40 mg HS ADITI Administration Cyclobenzaprine HCl 10 mg 07/23/23 15:21 07/27/23 08:16 Cyclobenzaprine Hcl 10 Mg Tablet PO 10 mg TID PRN Administration Muscle Spasm Dicyclomine HCl 20 mg 07/23/23 15:21 07/26/23 21:10 Dicyclomine Hcl 10 Mg Capsule PO 20 mg TID PRN Administration abdominal discomfort Doxepin HCl 20 mg 07/23/23 21:00 07/26/23 21:09 Doxepin Hcl 10 Mg Capsule PO 20 mg HS ADITI Administration Fidaxomicin 200 mg 07/25/23 21:45 07/27/23 08:08 Fidaxomicin 200 Mg Tablet PO 08/05/23 21:44 200 mg Q12HR ADITI Administration Furosemide 40 mg 07/24/23 09:00 07/27/23 08:10 Furosemide 40 Mg Tablet PO 40 mg DAILY ADITI Administration Sodium Chloride 1,000 mls @ 125 mls/hr 07/23/23 09:45 07/26/23 14:08 Normal Saline Iv IV CONT Not Given .Q8H ADITI Meclizine HCl 25 mg 07/23/23 17:00 07/27/23 08:13 Meclizine Hcl 25 Mg Tablet PO Not Given TID ADITI Melatonin 10 mg 07/23/23 21:00 07/26/23 21:10 Melatonin 5 Mg Tablet PO 10 mg QHS ADITI Administration Olanzapine 2.5 mg 07/23/23 15:21 07/26/23 21:11 Olanza
--- NOTE | 2023-07-27 12:30 | PM.DS ---
DS: Admitting Diagnosis Discharge Date 07/27/23 Admitting Diagnosis rectal bleeding right sided abdominal pain chronic pain psychiatric illness DS: Discharge Diagnosis Discharge Diagnosis (1) Rectal bleed: Code(s): K62.5 - Hemorrhage of anus and rectum Status: Acute (2) Right sided abdominal pain: Code(s): R10.9 - Unspecified abdominal pain Status: Acute DS: Summary Hospital Course Reason for hospitalization: C-diff right sided abdominal pain Hospital Course: This is a 47 year old female who presented 07/23/2023 with rectal bleeding. Workup in the hospital included CT of the abdomen pelvis which shown nonspecific soft tissue thickening at the rectum and the sigmoid colon, status post cholecystectomy and partial colectomy. Meckel's diverticulum nuclear scan was negative for Meckel's diverticula. GI was consulted and took patient on 07/25/23 for colonoscopy which revealed colitis and diverticulosis without bleed. She was also C-diff positive and started on Dificid. On examination today patient is alert and oriented x3, sitting up in the chair. She denies any fever, chills, vomiting, shortness of breath, or chest pain. She does still have some diarrhea, and nausea after eating. She does report that her symptoms have improved significantly. Labs today were essentially unremarkable. She is stable for discharge home. RX for Dificid sent to pharmacy. She will need to follow up with PCP in 1 week and GI in 2 weeks. Final diagnosis: C. Diff colitis Status at Discharge Cognitive/behavioral status at discharge: alert and oriented x4 Functional status at discharge: independent ambulation Overall status at discharge: patient is progressing back to baseline Time Spent with Patient Time attestation: Total time spent providing and/or coordinating discharge services: Time spent: Greater than 30 minutes Exam Narrative: General: In no acute distress, well nourished Head: atraumatic, no encephalopathy Eyes: EOMI, PERRLA, sclera clear ENT: moist mucous membranes, nasal passages clear Neck: supple, no JVD, no adenopathy, trachea midline Cardiac: Normal S1 and S2. RRR, No murmur, gallops or friction rubs, peripheral pulses intact. Respiratory: Lungs clear to auscultation, no adventitious lung sounds Gastrointestinal: soft, non-distended, non-tender, hyperactive bowel sounds. : voiding without difficulty. Extremities: moves all extremities well, no edema, good ROM, strength 5/5 Skin: clean, dry, intact. No wounds or lesions. Neuro: Alert and oriented x4, cranial nerves intact, no neuro deficits. Psych: normal mood, normal affect, interactive DS: Data Data Completed and Pending Completed studies during hospitalization: Pending at discharge 07/25/23 12:00 Surgical [PTH] Routine Abdomen/pelvis CT Meckel's diverticulum nuclear med Pending studies at discharge: None Labs on day of discharge: Labs from last 24 hours 07/27/23 05:53 WBC 5.8 RBC 3.95 L Hgb 10.0 L Hct 32.6 L MCV 82.5 MCH 25.3 L MCHC 30.7 L RDW 14.7 H Plt Count 275 MPV 9.4 Immature Gran % (Auto) 0.3 Neut % (Auto) 42.7 L Lymph % (Auto) 36.0 [place] % (Auto) 13.7 H Eos % (Auto) 6.3 H Baso % (Auto) 1.0 Lymph # (Auto) 2.10 [place] # (Auto) 0.8 H Eos # (Auto) 0.4 H Baso # (Auto) 0.1 Abs Immat Gran (auto) 0.02 Absolute Neuts (auto) 2.5 Absolute Nucleated RBC 0.0 Nucleated RBC % 0.0 Sodium 138 Potassium 3.4 Chloride 107 Carbon Dioxide 25 Anion Gap 6 L BUN 12 Creatinine 0.90 Estim Creat Clear Calc 79 Estimated GFR > 60 Glucose 81 Calcium 8.4 Procedures/Treatments: Colonoscopy with biopsy Discharge Plan Discharge Attending physician on discharge: Lindsay Rae Consulting providers: Tay Hdz Discharging Clinician: Abigail Huerta Anticipated Discharge Date/Time: 07/27/23 12:24 Patient Disposition: Home, Self-Care Activity: as tolerated Diet: as tolerat
--- NOTE | 2023-08-08 14:00 | WPDANESEPPF ---
Anes - Initial Pre Proc Eval Procedure: Operation Date: 07/25/23 12:30 Proposed Procedures p Flexible Sigmoidoscopy - Liam Ji MD Date/Time: 08/08/23 14:00 Surgeon: Abigail Huerta APRN Pre Op Diagnosis: Rectal Bleed Patient Data Age: 47 Gender: F Height: 1.63 m Weight: 101.5 kg Last Vital Signs Temp 97.6 F 07/27/23 08:00 Pulse 74 07/27/23 08:00 Resp 18 07/27/23 08:00 BP 103/60 07/27/23 08:00 Pulse Ox 97 07/27/23 08:00 O2 Del Method Room Air 07/27/23 08:10 Allergies Allergy/AdvReac Type Severity Reaction Status Date / Time aspirin Allergy Severe Anaphylaxis Verified 08/04/23 10:17 latex Allergy Severe Blister Verified 08/04/23 10:17 salicylates Allergy Severe Anaphylaxis Verified 08/04/23 10:17 acetaminophen Allergy Intermediate Hypertensio Verified 08/04/23 10:17 n/HYPOTENSI ON erythromycin base Allergy Intermediate Rash Verified 08/04/23 10:17 Home Medications Medication Instructions Recorded Confirmed Type sumatriptan succinate 100 mg tablet See Rx Instructions PO .COMPLEX 12/15/21 08/03/23 Rx #90 tabs melatonin 10 mg capsule 10 mg PO QHS 01/13/22 08/03/23 History simethicone 125 mg capsule 125 mg PO QID PRN FLATUS 05/19/22 08/03/23 History dicyclomine 20 mg tablet 20 mg PO TID PRN abdominal 09/22/22 08/03/23 Rx discomfort #90 tabs olanzapine 5 mg disintegrating 2.5 mg PO BID PRN Anxiety 10/13/22 08/03/23 History tablet polyethylene glycol 3350 17 17 g PO DAILY PRN Constipation 10/13/22 08/03/23 History gram/dose oral powder furosemide 40 mg tablet 40 mg PO DAILY #90 tabs 02/21/23 08/03/23 Rx buspirone 5 mg tablet 15 mg PO TID 04/12/23 08/03/23 History risperidone 0.25 mg tablet 1 mg PO BID 04/12/23 08/03/23 History topiramate 50 mg tablet 50 mg PO DAILY #90 tabs 05/30/23 08/03/23 Rx meclizine 25 mg tablet 25 mg PO TID PRN N/V, dizziness 06/08/23 08/03/23 History ondansetron 4 mg disintegrating 4 mg PO Q8H PRN Nausea And Vomiting 06/08/23 08/03/23 History tablet tramadol 50 mg tablet 100 mg PO Q8H PRN pain #180 tabs 07/05/23 08/03/23 Rx doxepin 10 mg capsule 20 mg PO HS #60 caps 07/13/23 08/03/23 Rx pregabalin 25 mg capsule 150 mg PO TID 07/20/23 08/03/23 History citalopram 20 mg tablet 40 mg PO HS 07/23/23 08/03/23 History cyclobenzaprine 10 mg tablet 10 mg PO TID PRN Muscle Spasm 07/23/23 08/03/23 History omeprazole 40 mg capsule,delayed 40 mg PO Q12H 07/23/23 08/03/23 History release trazodone 100 mg tablet 200 mg PO HS 07/23/23 08/03/23 History fidaxomicin 200 mg tablet (Dificid) 200 mg PO Q12HR #15 tabs 07/27/23 08/03/23 Rx famotidine 20 mg tablet (Pepcid) 20 mg PO BID 6 weeks #84 tabs 08/02/23 08/03/23 Rx Patient hx anesthesia problems: none Family hx anesthesia problems: none Results Review: All pre-operative results and documents have been reviewed as part of the pre-operative evaluation. [facility] Past Medical History Medical History (Updated 08/07/23 @ 20:03 by Abril Yost APRN) Acute migraine Anemia Anxiety Arthritis Bipolar disorder, rapid cycling Bloody emesis BRBPR (bright red blood per rectum) C. difficile colitis Chronic fatigue disorder Chronic pain Degenerative disk disease Depression Dysphagia Familial adenomatous polyposis S/p partial colectomy, total hysterectomy Fibromyalgia Frequent loose stools Gastric polyps GERD (gastroesophageal reflux disease) History of blood clots History of blood transfusion 04/15/2021 History of herpes zoster History of pulmonary embolism History of thyroid disease Insomnia Irritable bowel syndrome with diarrhea Migraines Missed x1 Neurogenic bladder OCD (obsessive compulsive disorder) Plantar fascia syndrome PTSD (post-traumatic stress disorder) Rectal bleeding Right sided abdominal pain Schizoaffective disorder, unspecified condition Sensory neuronopathy Small intestinal bacterial overgrowth (SIBO) Thyroid disorder TMJ (dislocation of tem
== END 2023-07-27 13:40 | disposition home or self-care (01) | DRG 253 ==
LOC: ANHED 07-23 09:43 → ANH3MEDSUR 07-23 12:12
PROVIDERS: Emergency Medicine; Internal Medicine; Internal Medicine Gastroenterology; Nurse Practitioner; Student in an Organized Health Care Education/Training Program; Admitting Provider General Practice; Emergency Provider Emergency Medicine; PCP Nurse Practitioner Family; Visit Provider Nurse Practitioner Acute Care
PROC: 0DJD8ZZ Inspection of Lower Intestinal Tract, Via Natural or Artificial Opening Endoscopic (ICD-10-PCS; CPT 45330; principal; 2023-07-25 12:30)
DX: K62.5 Hemorrhage of anus and rectum (principal); K52.9 Noninfective gastroenteritis and colitis, unspecified; K57.30 Diverticulosis of large intestine without perforation or abscess without bleeding; A04.72 Enterocolitis due to Clostridium difficile, not specified as recurrent; D64.9 Anemia, unspecified; D12.6 Benign neoplasm of colon, unspecified; F31.9 Bipolar disorder, unspecified; E03.9 Hypothyroidism, unspecified; G89.29 Other chronic pain; K21.9 Gastro-esophageal reflux disease without esophagitis; M79.7 Fibromyalgia; R53.82 Chronic fatigue, unspecified; Z20.822 Contact with and (suspected) exposure to COVID-19; Z90.49 Acquired absence of other specified parts of digestive tract; Z90.710 Acquired absence of both cervix and uterus; Z86.711 Personal history of pulmonary embolism
CPT/HCPCS: 36415; 74177; 78290; 80048; 80053; 81003; 83735; 85014; 85018; 85025; 85610; 85730; 86850; 86900; 86901; 87493; 87637; 88305; 96361; 96374; 96375; 99285; A9270; A9512; G0378; G0379; J2270; J2405; J2704; J7030; J7120; Q9967

== ENCOUNTER 2023-08-01 20:52 | Emergency (ER) | payer OTHER, SELFPAY ==
--- NOTE | ~2023-08-01 | CT_ITS ---
CT of the Abdomen and Pelvis: Indication: Colitis Technique: 2.5 mm axial scans were obtained through the abdomen and pelvis following intravenous adm inistration of 100 cc of Omnipaque 350. Dose reduction technique was used on this scan by utilizing a utomated exposure control and iterative reconstruction technique. The dose-length product (DLP) was 1 343.56 mGy-cm. COMPARISON: 07/23/2023 Findings: Scans through the lung bases are unremarkable. The liver, spleen, pancreas, adrenals and kidneys are within normal limits. Cholecystectomy clips are present. No evidence of aortic aneurysm. No lymphadenopathy. No bowel obstruction or bowel wall thickening. There is evidence of prior extensive partial colectomy . Images through the pelvis were performed. Urinary bladder unremarkable. No pelvic mass seen. No ascit es. Impression: No acute abnormality. Status post extensive prior partial colectomy. Reviewed, dictated and finalized at [facility]. OMETER TESTER Impression: No acute abnormality. Status post extensive prior partial colectomy.
[2023-08-01 20:56] VITALS: BP 121/73; PULSE 87; RESP 18; TEMP 36.5; O2SAT 99
[2023-08-01 21:19] LABS: Basophils Percent Auto 0.6 % (0.2-1.2); Eosinophils Absolute Auto 0.3 K/mm3 (0-0.3); Eosinophils Percent Auto 4.4 % (0-4.4); Hematocrit 33.9 % (37.0-47.0); Hemoglobin 10.1 g/dL (12.0-15.0); Immature Granulocyte Absolute 0.01 K/mm3 (0.00-0.031); Immature Granulocyte Percent A 0.2 % (0-0.5); Lymphocytes Absolute Auto 2.49 K/mm3 (0.9-3.2); Lymphocytes Percent Auto 38.1 % (18.3-44.2); Mean Corpuscular HGB Conc 29.8 g/dl (32-36); Mean Corpuscular Hemoglobin 24.6 pg (26-34); Mean Corpuscular Volume 82.5 fl (80-100); Mean Platelet Volume 9.2 fl (7.4-10.4); Monocytes Absolute Auto 0.6 K/mm3 (0.1-0.6); Monocytes Percent Auto 9.5 % (2.6-8.5); Neutrophils Absolute Auto 3.1 K/mm3 (1.3-6.7); Neutrophils Percent Auto 47.2 % (45.5-73.1); Platelet Count Result 300 k/mm3 (150-375); Red Blood Count 4.11 M/mm3 (4.2-5.4); Red Cell Distribution Width 14.5 % (11.5-14.5); White Blood Count 6.5 K/mm3 (4.5-10.0)
[2023-08-01 21:29] LABS: Alanine Aminotransferase 19 U/L (6-35); Albumin Level 3.9 g/dL (3.5-5.1); Alkaline Phosphatase 83 U/L (38-126); Anion Gap 6 mmol/L (8-16); Aspartate Amino Transferase 27 U/L (14-36); Bilirubin,Total 0.3 mg/dL (0.2-1.3); Blood Urea Nitrogen 13 mg/dL (7-17); Calcium 8.9 mg/dL (8.4-10.2); Carbon Dioxide 26 mmol/L (22-30); Chloride 104 mmol/L (98-107); Estimated CRCL calculation 80 ml/min; Estimated Glomerular Filt Rate > 60; Glucose 91 mg/dL (65-110); Potassium 3.7 mmol/L (3.4-5.0); Sodium 136 mmol/L (137-145)
[2023-08-01 21:30] LABS: INR 1.1; Prothrombin Time 14.6 Seconds (11.1-14.7)
[2023-08-01 21:31] LABS: Partial Thromboplastin Time 37.1 SECONDS (22.3-36.8)
[2023-08-01 21:40] LABS: Platelet Estimate Adequate (Adequate)
[2023-08-01 21:41] LABS: Hypochromasia 1+ (NORMAL); Schistocytes None Seen (NORMAL)
--- NOTE | 2023-08-01 23:34 | ED.GENADULT ---
HPI - General Adult General Chief complaint: GI Bleed Stated complaint: bloody emisis Time Seen by Provider: 08/01/23 23:16 History of Present Illness HPI narrative: This is a 47-year-old female with fibromyalgia and multiple somatic complaints presenting with nausea and vomiting. Patient was discharged from hospital about 5 days ago on dificid. she has been taking medications as instructed. Yesterday she had some episodes of vomiting and some abdominal cramping. She took some Zofran but said it did not work so she stopped taking it. she received Zofran in the ambulance and her is no longer nauseous. Related Data Home Medications Medication Instructions Recorded Confirmed melatonin 10 mg capsule 10 mg PO QHS 01/13/22 07/23/23 simethicone 125 mg capsule 125 mg PO QID PRN FLATUS 05/19/22 07/23/23 olanzapine 5 mg disintegrating 2.5 mg PO BID PRN Anxiety 10/13/22 07/23/23 tablet polyethylene glycol 3350 17 17 g PO DAILY PRN Constipation 10/13/22 07/23/23 gram/dose oral powder buspirone 5 mg tablet 15 mg PO TID 04/12/23 07/23/23 risperidone 0.25 mg tablet 1 mg PO BID 04/12/23 07/23/23 meclizine 25 mg tablet 25 mg PO TID 06/08/23 07/23/23 ondansetron 4 mg disintegrating 4 mg PO Q8H PRN Nausea And Vomiting 06/08/23 07/23/23 tablet pregabalin 25 mg capsule 150 mg PO TID 07/20/23 07/23/23 citalopram 20 mg tablet 40 mg PO HS 07/23/23 07/23/23 cyclobenzaprine 10 mg tablet 10 mg PO TID PRN Muscle Spasm 07/23/23 07/23/23 omeprazole 40 mg capsule,delayed 40 mg PO Q12H 07/23/23 07/23/23 release trazodone 100 mg tablet 200 mg PO HS 07/23/23 07/23/23 Allergies Allergy/AdvReac Type Severity Reaction Status Date / Time aspirin Allergy Severe Anaphylaxis Verified 07/25/23 11:01 latex Allergy Severe Blister Verified 07/25/23 11:01 salicylates Allergy Severe Anaphylaxis Verified 07/25/23 11:01 acetaminophen Allergy Intermediate Hypertensio Verified 07/25/23 11:01 n/HYPOTENSI ON erythromycin base Allergy Intermediate Rash Verified 07/25/23 11:01 [facility] Past Medical History Medical History (Updated 08/02/23 @ 03:59 by Hi Basilio MD) Acute migraine Anemia Anxiety Arthritis Bipolar disorder, rapid cycling BRBPR (bright red blood per rectum) C. difficile colitis Chronic fatigue disorder Chronic pain Degenerative disk disease Depression Dysphagia Familial adenomatous polyposis S/p partial colectomy, total hysterectomy Fibromyalgia Frequent loose stools Gastric polyps GERD (gastroesophageal reflux disease) History of blood clots History of blood transfusion 04/15/2021 History of herpes zoster History of pulmonary embolism History of thyroid disease Insomnia Irritable bowel syndrome with diarrhea Migraines Missed x1 Neurogenic bladder OCD (obsessive compulsive disorder) Plantar fascia syndrome PTSD (post-traumatic stress disorder) Rectal bleeding Right sided abdominal pain Schizoaffective disorder, unspecified condition Sensory neuronopathy Small intestinal bacterial overgrowth (SIBO) Thyroid disorder TMJ (dislocation of temporomandibular joint) Surgical History Surgical History H/O breast augmentation 2012 H/O colectomy 2020, partial History of back surgery 2020, placement of interstim device History of bladder surgery 2017 History of bunionectomy 2019 History of section x1 History of cholecystectomy 2008 History of hemorrhoidectomy Exam under anesthesia, external hemorrhoidectomy 2 columns, anal polypectomy x 4 01/25/2022 History of hysterectomy 2019 Hx of breast reduction, elective 2010 S/P correction of deviated nasal septum S/P surgery on nasal septum Family History Family History Mother , drowning Hyperlipemia Uterine cancer Hypertension Alcoholism Anxiety and depression Thyroid disorder Grandparent Uteri
[2023-08-01] MEDS: SODIUM CHLORIDE 0.9% IV 2,000 ML 999 ML IV CONT (23:49)
[2023-08-01] MEDS: FAMOTIDINE 20 MG/2 ML VIAL IV PUSH (23:50)
[2023-08-01] MEDS: DICYCLOMINE HCL INJ 20 MG/2 ML VIAL IM (23:50)
[2023-08-01] MEDS: PROCHLORPERAZINE EDISYLATE 10 MG/2 ML VIAL IV PUSH (23:51)
[2023-08-02 00:24] VITALS: BP 122/78; PULSE 77; RESP 12; O2SAT 97
[2023-08-02 01:54] VITALS: BP 122/78; PULSE 73; RESP 16; O2SAT 98
[2023-08-02] MEDS: HALOPERIDOL LACTATE 5 MG/ML VIAL IV PUSH (03:30)
[2023-08-02 04:25] VITALS: BP 124/73; PULSE 71; RESP 15; O2SAT 100
== END 2023-08-02 04:27 | disposition home or self-care (01) ==
PROVIDERS: Emergency Provider Emergency Medicine; PCP Nurse Practitioner Family
DX: K29.70 Gastritis, unspecified, without bleeding (principal); D64.9 Anemia, unspecified; M79.7 Fibromyalgia; M19.90 Unspecified osteoarthritis, unspecified site; K21.9 Gastro-esophageal reflux disease without esophagitis; K58.0 Irritable bowel syndrome with diarrhea; F41.9 Anxiety disorder, unspecified; F31.9 Bipolar disorder, unspecified; F42.9 Obsessive-compulsive disorder, unspecified; F43.10 Post-traumatic stress disorder, unspecified; F25.9 Schizoaffective disorder, unspecified; E07.9 Disorder of thyroid, unspecified; Z90.49 Acquired absence of other specified parts of digestive tract; Z90.710 Acquired absence of both cervix and uterus; Z77.22 Contact with and (suspected) exposure to environmental tobacco smoke (acute) (chronic)
CPT/HCPCS: 36415; 74177; 80053; 85025; 85610; 85730; 86850; 86900; 86901; 96361; 96372; 96374; 96375; 99284; J0500; J0780; J1630; J7030; Q9967

== ENCOUNTER 2023-08-02 22:27 | Observation (INO) | payer OTHER, SELFPAY ==
--- NOTE | ~2023-08-02 | CT_ITS ---
CT of the Abdomen and Pelvis: Indication: Abdominal pain Technique: 2.5 mm axial scans were obtained through the abdomen and pelvis following intravenous adm inistration of 100 cc of Omnipaque 350. Dose reduction technique was used on this scan by utilizing a utomated exposure control and iterative reconstruction technique. The dose-length product (DLP) was 1 395.56 mGy-cm. COMPARISON: 08/02/2023 Findings: Scans through the lung bases are unremarkable. The liver, spleen, pancreas, adrenals and kidneys are within normal limits. Cholecystectomy clips are present. No evidence of aortic aneurysm. No lymphadenopathy. No bowel obstruction or bowel wall thickening. Evidence of prior partial colectomy. Images through the pelvis were performed. Urinary bladder unremarkable. No pelvic mass seen. No ascit es. Impression: No acute abnormality. Status post cholecystectomy and partial colectomy. Reviewed, dictated and finalized at [facility]. TECHNICAL ARCHITECT Impression: No acute abnormality. Status post cholecystectomy and partial colectomy.
--- NOTE | ~2023-08-02 | XR_ITS ---
Portable chest x-ray Comparison: 01/16/2023 Clinical History: Nausea and vomiting Findings: Lungs are clear, without focal consolidation or pleural effusion. Cardiomediastinal silho uette is stable. Bones and soft tissues are unremarkable. Impression: Normal chest. Reviewed, dictated and finalized at location . 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
[2023-08-02 22:37] VITALS: BP 111/74; PULSE 90; RESP 16; TEMP 36.6; O2SAT 99
[2023-08-03] VITALS (9 sets, daily range): BP systolic 118–132; BP diastolic 63–83; PULSE 65–87; RESP 15–16; TEMP 36.6–37.1; O2SAT 93–100; BMI 39.4
--- NOTE | 2023-08-03 01:25 | ECG_ITS ---
Measurements Intervals Guin Rate: 71 P: 30 TN: 188 QRS: 16 QRSD: 96 T: -2 QT: 400 QTc: 436 Interpretive Statements SINUS RHYTHM VOLTAGE CRITERIA FOR LVH MINIMAL Q WAVES- HIGH LATERAL LEADS BORDERLINE ST-T WAVE ABNORMALITY- ANT/INF LEADS BORDERLINE ECG COMPARED TO ECG 01/16/2023 22:31:25 NO SIGNIFICANT CHANGES Electronically Signed On 08-03-2023 6:40:05 NET TRAINER by Rolo Knox D.O.
[2023-08-03] MEDS: SODIUM CHLORIDE 0.9% IV 1,000 ML 999 ML IV CONT (01:53)
[2023-08-03] MEDS: DICYCLOMINE HCL 10 MG CAPSULE 20 MG PO (01:54)
[2023-08-03] MEDS: FAMOTIDINE 20 MG/2 ML VIAL IV PUSH (01:54)
[2023-08-03] MEDS: ONDANSETRON INJ 4 MG/2 ML VIAL IV PUSH ×3 (01:54→13:24)
[2023-08-03 01:58] LABS: Basophils Percent Auto 0.7 % (0.2-1.2); Eosinophils Absolute Auto 0.2 K/mm3 (0-0.3); Eosinophils Percent Auto 4.2 % (0-4.4); Hematocrit 32.6 % (37.0-47.0); Hemoglobin 9.6 g/dL (12.0-15.0); Immature Granulocyte Absolute 0.01 K/mm3 (0.00-0.031); Immature Granulocyte Percent A 0.2 % (0-0.5); Lymphocytes Absolute Auto 1.94 K/mm3 (0.9-3.2); Lymphocytes Percent Auto 35.5 % (18.3-44.2); Mean Corpuscular HGB Conc 29.4 g/dl (32-36); Mean Corpuscular Hemoglobin 24.6 pg (26-34); Mean Corpuscular Volume 83.4 fl (80-100); Mean Platelet Volume 9.5 fl (7.4-10.4); Monocytes Absolute Auto 0.6 K/mm3 (0.1-0.6); Neutrophils Absolute Auto 2.6 K/mm3 (1.3-6.7); Neutrophils Percent Auto 48.4 % (45.5-73.1); Platelet Count Result 307 k/mm3 (150-375); Red Blood Count 3.91 M/mm3 (4.2-5.4); Red Cell Distribution Width 14.7 % (11.5-14.5); White Blood Count 5.5 K/mm3 (4.5-10.0)
[2023-08-03 02:06] LABS: Lactic Acid Reflex 0.7 mmol/L (0.7-2.0)
[2023-08-03 02:08] LABS: Alanine Aminotransferase 17 U/L (6-35); Albumin Level 3.8 g/dL (3.5-5.1); Alkaline Phosphatase 79 U/L (38-126); Anion Gap 7 mmol/L (8-16); Aspartate Amino Transferase 27 U/L (14-36); Bilirubin,Total 0.3 mg/dL (0.2-1.3); Blood Urea Nitrogen 13 mg/dL (7-17); CRP 1.2 mg/dL (<1.0); Calcium 8.7 mg/dL (8.4-10.2); Carbon Dioxide 23 mmol/L (22-30); Chloride 107 mmol/L (98-107); Estimated CRCL calculation 90 ml/min; Estimated Glomerular Filt Rate > 60; Glucose 93 mg/dL (65-110); Lipase 255 U/L (23-300); Magnesium 2.3 mg/dL (1.6-2.3); Potassium 4.2 mmol/L (3.4-5.0); Sodium 137 mmol/L (137-145)
[2023-08-03 02:17] LABS: Troponin I < 0.012 ng/mL (0.000-0.034)
[2023-08-03 02:20] LABS: Hypochromasia 1+ (NORMAL); Platelet Estimate Adequate (Adequate); Schistocytes None Seen (NORMAL)
[2023-08-03 02:22] LABS: SPREG INTERNAL CONTROL Positive; Serum Qual hCG Negative
--- NOTE | 2023-08-03 03:23 | ED.NAVMDI ---
HPI - Nausea/Vomiting/Diarrhea General Chief complaint: Nausea/Vomiting/Diarrhea Stated complaint: vomiting Time Seen by Provider: 08/03/23 01:19 Source: patient Limitations: no limitations History of Present Illness HPI Narrative: Patient is a 47-year-old female presents to the emergency department with multiple complaints. Patient states for the past couple days she has been experiencing nausea and vomiting in addition to abdominal pain. Patient states that she is known to a content producer Dr. Lugo and she talked with him today and was told to come into the emergency department for further evaluation. Patient states she was here yesterday and received a full workup and does not feels though she is getting better with persistent nausea and vomiting in the abdominal pain seems to be getting worse. Patient is to recent C diff diagnosis for which she has been taking her antibiotics as prescribed. Patient states that she is having regular bowel movements however upon arrival to the emergency department she has been noticing bright red blood in her stool. Patient states he has been having the bright red blood in her stools for the past couple weeks and it is mixed in with the stool. Patient denies any recent injuries. Patient denies chest pain, difficulty breathing, rash, urinary discomfort, history kidney stones, hematuria, vaginal discharge, vaginal bleeding. Patient is to history of colon removal for FAP. Patient states the abdominal pain is diffuse, mostly in her bilateral lower quadrants but also goes up to her upper abdomen and she overall feels more bloated and distended. Patient denies any sick contacts. Related Data Home Medications Medication Instructions Recorded Confirmed melatonin 10 mg capsule 10 mg PO QHS 01/13/22 07/23/23 simethicone 125 mg capsule 125 mg PO QID PRN FLATUS 05/19/22 07/23/23 olanzapine 5 mg disintegrating 2.5 mg PO BID PRN Anxiety 10/13/22 07/23/23 tablet polyethylene glycol 3350 17 17 g PO DAILY PRN Constipation 10/13/22 07/23/23 gram/dose oral powder buspirone 5 mg tablet 15 mg PO TID 04/12/23 07/23/23 risperidone 0.25 mg tablet 1 mg PO BID 04/12/23 07/23/23 meclizine 25 mg tablet 25 mg PO TID 06/08/23 07/23/23 ondansetron 4 mg disintegrating 4 mg PO Q8H PRN Nausea And Vomiting 06/08/23 07/23/23 tablet pregabalin 25 mg capsule 150 mg PO TID 07/20/23 07/23/23 citalopram 20 mg tablet 40 mg PO HS 07/23/23 07/23/23 cyclobenzaprine 10 mg tablet 10 mg PO TID PRN Muscle Spasm 07/23/23 07/23/23 omeprazole 40 mg capsule,delayed 40 mg PO Q12H 07/23/23 07/23/23 release trazodone 100 mg tablet 200 mg PO HS 07/23/23 07/23/23 Allergies Allergy/AdvReac Type Severity Reaction Status Date / Time aspirin Allergy Severe Anaphylaxis Verified 08/02/23 22:46 latex Allergy Severe Blister Verified 08/02/23 22:46 salicylates Allergy Severe Anaphylaxis Verified 08/02/23 22:46 acetaminophen Allergy Intermediate Hypertensio Verified 08/02/23 22:46 n/HYPOTENSI ON erythromycin base Allergy Intermediate Rash Verified 08/02/23 22:46 Review of Systems Review of Systems: A 10 system review of systems was completed on the patient and is negative except for what is stated in the HPI. Nursing and ancillary documentation was reviewed. [facility] Past Medical History Medical History (Updated 08/03/23 @ 06:51 by Chauncey Melgar, ) Acute migraine Anemia Anxiety Arthritis Bipolar disorder, rapid cycling BRBPR (bright red blood per rectum) C. difficile colitis Chronic fatigue disorder Chronic pain Degenerative disk disease Depression Dysphagia Familial adenomatous polyposis S/p partial colectomy, total hysterectomy Fibromyalgia Frequent loose stools Gastric polyps GERD (gastroesophageal reflux disease) History of blood clots History of blood transfusion 04/15/2021 History of herpes zoster History of pulmonary embolism History of thyroid disease Insomnia Irritable bowel syndrome with diarrh
[2023-08-03] MEDS: MORPHINE SULFATE (*CRX) 4 MG/ML INJ IV PUSH ×5 (03:35→20:31)
[2023-08-03 04:08] LABS: Appearance Urine Cloudy (Clear); Bacteria Urine None Seen /hpf; Bilirubin Urine Negative (Negative); Blood Urine Negative (Negative); Color Urine Yellow (Yellow); Glucose Urine UA Negative (Negative); Ketones Urine Negative (Negative); Leukocyte Esterase Ur Negative LEU/UL (Negative); Nitrate Urine Negative (Negative); Non Pathogenic Casts 0-2; Protein Urine Negative (Negative); RBC Urine 0-2 /hpf (0-2); Specific Grav Ur 1.023 (1.001-1.035); Squamous Epithelial Cell Urine None seen /hpf (Few); Urobilinogen Urine 0.2 mg/dL (<2.0); WBC Urine 0-5 /hpf; pH Urine 6.5 (5.0-9.0)
[2023-08-03 04:16] LABS: Add Urine Microscopic? YES
--- NOTE | 2023-08-03 07:25 | ADMGEN ---
This patient, Naila Chen, was admitted to 2 Medical Room 241-01. Patient/family oriented to hospital policies and general routines including ID bracelet, bed and alarms, visiting hours, pain management, procedures, bathroom and other care routines, personal items, smoking policy, room service/diet, and visiting hours. Information on how to activate the Rapid Response Team has been discussed. Patient/Family are encouraged to report perceived risks to care and to ask questions if they do not understand what they are told or what they should do.
[2023-08-03] MEDS: SODIUM CHLORIDE 0.9% IV 1,000 ML 125 ML IV CONT (08:03)
--- NOTE | 2023-08-03 13:09 | PM.IMHP ---
H&P: HPI History of Present Illness Date/Time: 08/03/23 13:09 Chief Complaint: Patient is a 47-year-old female presents to the emergency department with multiple complaints.? Patient states for the past couple days she has been experiencing nausea and vomiting in addition to abdominal pain.?? Narrative: ?Patient states that she is known to a ground service equipment mechanic Dr. Lugo and she talked with him today and was told to come into the emergency department for further evaluation.? Patient states she was here yesterday and received a full workup and does not feels though she is getting better with persistent nausea and vomiting in the abdominal pain seems to be getting worse.? Patient has a C diff dx for which she has been taking her antibiotics as prescribed.? Patient states that she is having regular bowel movements however upon arrival to the emergency department she has been noticing bright red blood in her stool.? Patient states he has been having the bright red blood in her stools for the past couple weeks and it is mixed in with the stool.? Patient denies any recent injuries.? Patient denies chest pain, difficulty breathing, rash, urinary discomfort, history kidney stones, hematuria, vaginal discharge, vaginal bleeding.? Patient is to history of colon removal for FAP.? Patient states the abdominal pain is diffuse, mostly in her bilateral lower quadrants but also goes up to her upper abdomen and she overall feels more bloated and distended.? Patient denies any sick contacts. Review of Systems Review of Systems: A 10 system review of systems was completed on the patient and is negative except for what is stated in the HPI. Nursing and ancillary documentation was reviewed. All systems reviewed & are unremarkable except as noted in HPI and below Constitutional: Constitutional: Denies night sweats Eyes: Eyes: Denies blurry vision ENT: Reports Normal hearing present and Denies neck pain Cardiovascular: Cardiovascular: Denies chest pain Respiratory: Respiratory: Denies cough Gastrointestinal: Gastrointestinal: Reports abdominal pain, Reports nausea, Reports vomiting and Reports hematemesis Genitourinary: Genitourinary: Denies nocturia Musculoskeletal: Musculoskeletal: Denies neck pain Integumentary/Breasts: Skin/Breast: Denies rash Neurologic: Reports Normal hearing present, Denies Abnormal speech present and Denies behavioral changes Psychiatric: Psychiatric: Denies behavioral changes [facility] Past Medical History Medical History (Updated 08/03/23 @ 19:07 by Abril L. Priyank, [employer]) Acute migraine Anemia Anxiety Arthritis Bipolar disorder, rapid cycling Bloody emesis BRBPR (bright red blood per rectum) C. difficile colitis Chronic fatigue disorder Chronic pain Degenerative disk disease Depression Dysphagia Familial adenomatous polyposis S/p partial colectomy, total hysterectomy Fibromyalgia Frequent loose stools Gastric polyps GERD (gastroesophageal reflux disease) History of blood clots History of blood transfusion 04/15/2021 History of herpes zoster History of pulmonary embolism History of thyroid disease Insomnia Irritable bowel syndrome with diarrhea Migraines Missed x1 Neurogenic bladder OCD (obsessive compulsive disorder) Plantar fascia syndrome PTSD (post-traumatic stress disorder) Rectal bleeding Right sided abdominal pain Schizoaffective disorder, unspecified condition Sensory neuronopathy Small intestinal bacterial overgrowth (SIBO) Thyroid disorder TMJ (dislocation of temporomandibular joint) Surgical History Surgical History H/O breast augmentation 2012 H/O colectomy 2020, partial History of back surgery 2020, placement of interstim device History of bladder surgery 2017 History of bunionectomy 2019 History of section x1 History of cholecystectomy 2008 History of hemorrhoidectomy Exam under anesthesi
[2023-08-03] MEDS: LACTATED RINGERS 1,000 ML 75 ML IV CONT (13:24)
[2023-08-03] MEDS: TOPIRAMATE 25 MG TABLET 50 MG PO (13:48)
--- NOTE | 2023-08-03 14:39 | WPDGICN ---
Assessment and Plan Assessment and plan (1) Intractable nausea and vomiting: Code(s): R11.2 - Nausea with vomiting, unspecified Status: Acute Assessment and Plan: noted some blood in emesis hgb stable on ppi egd in am (2) Bloody emesis: Code(s): K92.0 - Hematemesis Status: Acute (3) Intractable abdominal pain: Code(s): R10.9 - Unspecified abdominal pain Status: Acute Assessment and Plan: she has chronic pain, also recent c diff for which has been on treatment (4) C. difficile colitis: Code(s): A04.72 - Enterocolitis due to Clostridium difficile, not specified as recurrent Status: Acute Assessment and Plan: recent completed colonoscopy (only has 25 cm colon)- found proctosigmoiditis due to C diff no need to repeat scope (5) H/O colectomy: Code(s): Z90.49 - Acquired absence of other specified parts of digestive tract Status: Acute (6) GERD (gastroesophageal reflux disease): Code(s): K21.9 - Gastro-esophageal reflux disease without esophagitis Status: Chronic GI Consult Note Consult date/time: 08/03/23 14:39 Reason for consult: blood with emesis, abdominal pain HPI: Naila Chen is a 47 year old female with history of small-bowel intestinal bacterial overgrowth diagnosed several years ago, subtotal colectomy for attenuated familial adenomatous polyposis (now she has about 25 cm colon left). She also has chronic abdominal pain, previous hospitalization September 2022 for stercoral colitis evaluated by endoscopy, most recent hospitalization with rectal bleeding, colonoscopy found proctitis with + c diff as cause of symptom and went home with dificid (Meckel diverticula scan negative). She says that diarrhea better, still some abdominal pain and again with nausea vomiting but noted small amount blood in emesis, she came to ER but symptom did not go away and finally admitted after she returned to ER. She is taking PPI. Hgb ~ 10 (near baseline). She had EGD (05/2022) and SB capsule endoscopy (07/2022) with major etiology and did not find, she also had hemorrhoidectomy in 2021 Review of Systems Constitutional: Constitutional: Denies night sweats Eyes: Eyes: Denies blurry vision ENT: Reports Normal hearing present Cardiovascular: Cardiovascular: Denies chest pain Respiratory: Respiratory: Denies cough Gastrointestinal: Gastrointestinal: Reports abdominal pain, Reports nausea, Reports vomiting and Reports hematemesis Genitourinary: Genitourinary: Denies nocturia Musculoskeletal: Musculoskeletal: Denies neck pain Integumentary/Breasts: Skin/Breast: Denies rash Neurologic: Denies Abnormal speech present Psychiatric: Psychiatric: Denies behavioral changes [facility] Past Medical History Medical History (Updated 08/03/23 @ 14:50 by Liam Ji MD) Acute migraine Anemia Anxiety Arthritis Bipolar disorder, rapid cycling Bloody emesis BRBPR (bright red blood per rectum) C. difficile colitis Chronic fatigue disorder Chronic pain Degenerative disk disease Depression Dysphagia Familial adenomatous polyposis S/p partial colectomy, total hysterectomy Fibromyalgia Frequent loose stools Gastric polyps GERD (gastroesophageal reflux disease) History of blood clots History of blood transfusion 04/15/2021 History of herpes zoster History of pulmonary embolism History of thyroid disease Insomnia Irritable bowel syndrome with diarrhea Migraines Missed x1 Neurogenic bladder OCD (obsessive compulsive disorder) Plantar fascia syndrome PTSD (post-traumatic stress disorder) Rectal bleeding Right sided abdominal pain Schizoaffective disorder, unspecified condition Sensory neuronopathy Small intestinal bacterial overgrowth (SIBO) Thyroid disorder TMJ (dislocation of temporomandibular joint) Surgical History Surgical History H/O breast augmentat
[2023-08-03 14:45] LABS: Hematocrit 32.7 % (37.0-47.0); Hemoglobin 9.4 g/dL (12.0-15.0)
[2023-08-03] MEDS: risperiDONE 1 MG TABLET PO (17:15)
[2023-08-03] MEDS: busPIRone HCL 5 MG TABLET 15 MG PO (17:15)
[2023-08-03] MEDS: PREGABALIN (*CRX) 75 MG CAPSULE 150 MG PO (17:16)
[2023-08-03] MEDS: CYCLOBENZAPRINE HCL 10 MG TABLET PO (17:20)
[2023-08-03] MEDS: traZODone HCL 50 MG TABLET 200 MG PO (20:19)
[2023-08-03] MEDS: PANTOPRAZOLE SODIUM IV 40 MG VIAL IV PUSH (20:19)
[2023-08-03] MEDS: DOXEPIN HCL 10 MG CAPSULE 20 MG PO (20:19)
[2023-08-03] MEDS: MELATONIN 5 MG TABLET 10 MG PO (20:19)
[2023-08-03] MEDS: CITALOPRAM HYDROBROMIDE 20 MG TABLET 40 MG PO (20:19)
[2023-08-04] VITALS (12 sets, daily range): BP systolic 92–133; BP diastolic 54–83; PULSE 60–80; RESP 14–20; TEMP 36.1–36.6; O2SAT 95–99
[2023-08-04] MEDS: MORPHINE SULFATE (*CRX) 4 MG/ML INJ IV PUSH ×2 (02:07→06:50)
[2023-08-04] MEDS: ONDANSETRON INJ 4 MG/2 ML VIAL IV PUSH ×3 (02:08→13:38)
[2023-08-04 02:17] LABS: Basophils Absolute Auto 0.1 K/mm3 (0.0-0.1); Basophils Percent Auto 1.5 % (0.2-1.2); Eosinophils Absolute Auto 0.2 K/mm3 (0-0.3); Eosinophils Percent Auto 4.5 % (0-4.4); Hematocrit 32.9 % (37.0-47.0); Hemoglobin 9.4 g/dL (12.0-15.0); Immature Granulocyte Absolute 0.01 K/mm3 (0.00-0.031); Immature Granulocyte Percent A 0.2 % (0-0.5); Lymphocytes Absolute Auto 1.63 K/mm3 (0.9-3.2); Lymphocytes Percent Auto 40.5 % (18.3-44.2); Mean Corpuscular HGB Conc 28.6 g/dl (32-36); Mean Corpuscular Hemoglobin 24.2 pg (26-34); Mean Corpuscular Volume 84.8 fl (80-100); Mean Platelet Volume 9.5 fl (7.4-10.4); Monocytes Absolute Auto 0.4 K/mm3 (0.1-0.6); Neutrophils Absolute Auto 1.7 K/mm3 (1.3-6.7); Neutrophils Percent Auto 43.3 % (45.5-73.1); Platelet Count Result 274 k/mm3 (150-375); Red Blood Count 3.88 M/mm3 (4.2-5.4); Red Cell Distribution Width 14.8 % (11.5-14.5)
[2023-08-04 02:34] LABS: Hypochromasia 2+ (NORMAL); Ovalocytes 1+ (NORMAL); Platelet Estimate Adequate (Adequate); Schistocytes None Seen (NORMAL); Stomatocytes 1+ (NORMAL)
[2023-08-04] MEDS: SUMAtriptan SUCCINATE 25 MG TABLET PO (05:31)
[2023-08-04 06:16] LABS: Anion Gap 7 mmol/L (8-16); Blood Urea Nitrogen 9 mg/dL (7-17); Calcium 8.3 mg/dL (8.4-10.2); Carbon Dioxide 24 mmol/L (22-30); Chloride 108 mmol/L (98-107); Estimated CRCL calculation 81 ml/min; Estimated Glomerular Filt Rate > 60; Glucose 74 mg/dL (65-110); Potassium 4.2 mmol/L (3.4-5.0); Sodium 139 mmol/L (137-145)
[2023-08-04] MEDS: LACTATED RINGERS 1,000 ML 75 ML IV CONT (06:50)
--- NOTE | 2023-08-04 07:03 | PM.IMPN ---
Progress Note: A&P Assessment and Plan (1) Bloody emesis: Code(s): K92.0 - Hematemesis Status: Acute Assessment and Plan: -continue to monitor, patient reports blood in emesis has resolved HGB stable, 9.4 -continue monitoring daily BMP, CBC -continue PPI -EGD revealed: Normal EGD, no sign of bleeding unremarkable EGD Continue with antiemetics as needed no objections to discharge by GI standpoint (2) Intractable abdominal pain: Code(s): R10.9 - Unspecified abdominal pain Status: Resolved (3) BRBPR (bright red blood per rectum): Code(s): K62.5 - Hemorrhage of anus and rectum Status: Resolved (4) C. difficile colitis: Code(s): A04.72 - Enterocolitis due to Clostridium difficile, not specified as recurrent Status: Chronic Assessment and Plan: -chronic ongoing patient currently on Dificid (5) Intractable nausea and vomiting: Code(s): R11.2 - Nausea with vomiting, unspecified Status: Acute Assessment and Plan: -advance diet as tolerated -continue IV infusion LR at 75 mL/hour -Zofran first line tx for N/V q.4 hours p.r.n. (6) GERD (gastroesophageal reflux disease): Code(s): K21.9 - Gastro-esophageal reflux disease without esophagitis Status: Chronic Assessment and Plan: -continue PPI (7) Chronic pain: Qualifiers: Chronic pain type: other chronic pain Qualified Code(s): G89.29 - Other chronic pain Code(s): G89.29 - Other chronic pain Status: Acute (8) Morbid obesity: Code(s): E66.01 - Morbid (severe) obesity due to excess calories Status: Acute Assessment and Plan: -NPO -advance diet, per GI pending orders Plan Continue home medications: VTE Prophylaxis: SCDs DIET: Advance diet as tolerated, Anticipated hospital stay: Discharge pending Code Status: Full Code Subjective Date/time seen: 08/04/23 07:03 Interval history: Patient is a 47-year-old female presents to the emergency department with multiple complaints.? Patient states for the past couple days she has been experiencing nausea and vomiting in addition to abdominal pain.?? Narrative: ?Patient states that she is known to a helpdesk analyst Dr. Lugo and she talked with him today and was told to come into the emergency department for further evaluation.? Patient states she was here yesterday and received a full workup and does not feels though she is getting better with persistent nausea and vomiting in the abdominal pain seems to be getting worse.? Patient has a C diff dx for which she has been taking her antibiotics as prescribed.? Patient states that she is having regular bowel movements however upon arrival to the emergency department she has been noticing bright red blood in her stool.? Patient states he has been having the bright red blood in her stools for the past couple weeks and it is mixed in with the stool.? Patient denies any recent injuries.? Patient denies chest pain, difficulty breathing, rash, urinary discomfort, history kidney stones, hematuria, vaginal discharge, vaginal bleeding.? Patient is to history of colon removal for FAP.? Patient states the abdominal pain is diffuse, mostly in her bilateral lower quadrants but also goes up to her upper abdomen and she overall feels more bloated and distended.? Patient denies any sick contacts. Interval history: 08/04/2023: pt seen this morning, she is sitting up in the chair, IV fluid infusing she reports overnight events headache, she denies any nausea vomiting fever chills. Complains of ongoing tender abdomen. Pt is currently NPO she is waiting to be seen for her scheduled EGD. Will continue to monitor and assess patient for discharge. Review of Systems Review of Systems: All systems reviewed & are unremarkable except as noted in HPI and below Exam Narrative: General: A well-developed, nontoxic-appearing woman sitting chairside HEENT: [place]HIL[place]
[2023-08-04 08:10] LABS: Glucose Point of Care 73 mg/dl (65-105)
[2023-08-04] MEDS: FUROSEMIDE 40 MG TABLET PO (08:50)
[2023-08-04] MEDS: TOPIRAMATE 25 MG TABLET 50 MG PO (08:50)
[2023-08-04] MEDS: PANTOPRAZOLE SODIUM IV 40 MG VIAL IV PUSH (08:50)
[2023-08-04] MEDS: PREGABALIN (*CRX) 75 MG CAPSULE 150 MG PO ×3 (08:50→20:03)
[2023-08-04] MEDS: risperiDONE 1 MG TABLET PO ×2 (08:50→17:36)
[2023-08-04] MEDS: busPIRone HCL 5 MG TABLET 15 MG PO ×3 (08:50→20:03)
--- NOTE | 2023-08-04 10:10 | PC.NURSE ---
To GI Lab per wheelchair, IV left hand. Report given to GI Nurse .
--- NOTE | 2023-08-04 10:37 | WPDANESEPPF ---
Anes - Initial Pre Proc Eval Procedure: Operation Date: 08/04/23 13:30 Proposed Procedures p Esophagogastroduodenoscopy EGD - Liam Ji MD Date/Time: 08/04/23 10:37 Surgeon: Rachel Rajput MD Pre Op Diagnosis: intractable abdominal pain Patient Data Age: 47 Gender: F Height: 1.63 m Weight: 104.33 kg Last Vital Signs Temp 97.8 F 08/04/23 10:19 Pulse 80 08/04/23 10:19 Resp 20 08/04/23 10:19 BP 133/80 08/04/23 10:19 Pulse Ox 98 08/04/23 10:19 O2 Del Method Room Air 08/04/23 10:19 Allergies Allergy/AdvReac Type Severity Reaction Status Date / Time aspirin Allergy Severe Anaphylaxis Verified 08/04/23 10:17 latex Allergy Severe Blister Verified 08/04/23 10:17 salicylates Allergy Severe Anaphylaxis Verified 08/04/23 10:17 acetaminophen Allergy Intermediate Hypertensio Verified 08/04/23 10:17 n/HYPOTENSI ON erythromycin base Allergy Intermediate Rash Verified 08/04/23 10:17 Home Medications Medication Instructions Recorded Confirmed Type sumatriptan succinate 100 mg tablet See Rx Instructions PO .COMPLEX 12/15/21 08/03/23 Rx #90 tabs melatonin 10 mg capsule 10 mg PO QHS 01/13/22 08/03/23 History simethicone 125 mg capsule 125 mg PO QID PRN FLATUS 05/19/22 08/03/23 History dicyclomine 20 mg tablet 20 mg PO TID PRN abdominal 09/22/22 08/03/23 Rx discomfort #90 tabs olanzapine 5 mg disintegrating 2.5 mg PO BID PRN Anxiety 10/13/22 08/03/23 History tablet polyethylene glycol 3350 17 17 g PO DAILY PRN Constipation 10/13/22 08/03/23 History gram/dose oral powder furosemide 40 mg tablet 40 mg PO DAILY #90 tabs 02/21/23 08/03/23 Rx buspirone 5 mg tablet 15 mg PO TID 04/12/23 08/03/23 History risperidone 0.25 mg tablet 1 mg PO BID 04/12/23 08/03/23 History topiramate 50 mg tablet 50 mg PO DAILY #90 tabs 05/30/23 08/03/23 Rx meclizine 25 mg tablet 25 mg PO TID PRN N/V, dizziness 06/08/23 08/03/23 History ondansetron 4 mg disintegrating 4 mg PO Q8H PRN Nausea And Vomiting 06/08/23 08/03/23 History tablet tramadol 50 mg tablet 100 mg PO Q8H PRN pain #180 tabs 07/05/23 08/03/23 Rx doxepin 10 mg capsule 20 mg PO HS #60 caps 07/13/23 08/03/23 Rx pregabalin 25 mg capsule 150 mg PO TID 07/20/23 08/03/23 History citalopram 20 mg tablet 40 mg PO HS 07/23/23 08/03/23 History cyclobenzaprine 10 mg tablet 10 mg PO TID PRN Muscle Spasm 07/23/23 08/03/23 History omeprazole 40 mg capsule,delayed 40 mg PO Q12H 07/23/23 08/03/23 History release trazodone 100 mg tablet 200 mg PO HS 07/23/23 08/03/23 History fidaxomicin 200 mg tablet (Dificid) 200 mg PO Q12HR #15 tabs 07/27/23 08/03/23 Rx famotidine 20 mg tablet (Pepcid) 20 mg PO BID 6 weeks #84 tabs 08/02/23 08/03/23 Rx Laboratory Tests 08/03/23 08/04/23 08/04/23 13:58 01:48 04:55 WBC 4.0 L K/mm3 (4.5-10.0) RBC 3.88 L M/mm3 (4.2-5.4) Hgb 9.4 L g/dL 9.4 L g/dL (12.0-15.0) (12.0-15.0) Hct 32.7 L % 32.9 L % (37.0-47.0) (37.0-47.0) MCV 84.8 fl (80-100) MCH 24.2 L pg (26-34) MCHC 28.6 L g/dl (32-36) RDW 14.8 H % (11.5-14.5) Plt Count 274 k/mm3 (150-375) MPV 9.5 fl (7.4-10.4) Immature Gran % (Auto) 0.2 % (0-0.5) Neut % (Auto) 43.3 L % (45.5-73.1) Lymph % (Auto) 40.5 % (18.3-44.2) [place] % (Auto) 10.0 H % (2.6-8.5) Eos % (Auto) 4.5 H % (0-4.4) Baso % (Auto) 1.5 H % (0.2-1.2) Lymph # (Auto) 1.63 K/mm3 (0.9-3.2) [place] # (Auto) 0.4 K/mm3 (0.1-0.6) Eos # (Auto) 0.2 K/mm3 (0-0.3) Baso # (Auto) 0.1 K/mm3 (0.0-0.1) Abs Immat Gran (auto) 0.01 K/mm3 (0.00-0.031) Absolute Neuts (auto) 1.7 K/mm3 (1.3-6.7) Absolute Nucleated RBC 0.0 K/mm3 (0.0-0.012) Nucleated RBC % 0.0 % (0.0-0.2) Platelet Estimate Adequate (Adequate) Hypochromasia
[2023-08-04] MEDS: BENZOCAINE (*SP) 60 ML SPRAY CAN (HURRICAINE) 1 SPRAY MUCOUS MEM (11:06)
[2023-08-04] MEDS: LACTATED RINGERS 1,000 ML 150 ML IV CONT (11:11)
[2023-08-04 12:28] LABS: Glucose Point of Care 91 mg/dl (65-105)
[2023-08-04] MEDS: traMADol HCL (*CRX) 50 MG TABLET 100 MG PO ×2 (13:44→21:26)
--- NOTE | 2023-08-04 15:44 | PC.NURSE ---
TID medications all behind schedule, GI lab called as senior mortgage underwriter was administered after scanning and reprots to hold because time of EGD was moved up all Am medications administered at 1400
[2023-08-04] MEDS: CYCLOBENZAPRINE HCL 10 MG TABLET PO (15:50)
[2023-08-04 16:56] LABS: Glucose Point of Care 152 mg/dl (65-105)
[2023-08-04 18:13] LABS: IFOB Positive Control Positive; Immunochemical Fecal Occult Bl Positive (N)
[2023-08-04] MEDS: traZODone HCL 50 MG TABLET 200 MG PO (20:02)
[2023-08-04] MEDS: oxyCODONE HCL (*CRX) 10 MG TAB SR 12HR PO (20:02)
[2023-08-04] MEDS: CITALOPRAM HYDROBROMIDE 20 MG TABLET 40 MG PO (20:02)
[2023-08-04] MEDS: DOXEPIN HCL 10 MG CAPSULE 20 MG PO (20:02)
[2023-08-04] MEDS: MELATONIN 5 MG TABLET 10 MG PO (20:03)
[2023-08-04 21:46] LABS: Glucose Point of Care 140 mg/dl (65-105)
[2023-08-05 02:07] LABS: Glucose Point of Care 125 mg/dl (65-105)
[2023-08-05 03:27] LABS: Anion Gap 5 mmol/L (8-16); Blood Urea Nitrogen 11 mg/dL (7-17); Calcium 8.5 mg/dL (8.4-10.2); Carbon Dioxide 26 mmol/L (22-30); Chloride 107 mmol/L (98-107); Estimated CRCL calculation 81 ml/min; Estimated Glomerular Filt Rate > 60; Glucose 92 mg/dL (65-110); Sodium 138 mmol/L (137-145)
[2023-08-05 05:13] VITALS: BP 114/64; PULSE 62; RESP 18; TEMP 36.5; O2SAT 95
[2023-08-05 05:24] LABS: Glucose Point of Care 90 mg/dl (65-105)
[2023-08-05] MEDS: CYCLOBENZAPRINE HCL 10 MG TABLET PO (05:32)
[2023-08-05 05:36] LABS: Basophils Percent Auto 0.6 % (0.2-1.2); Eosinophils Absolute Auto 0.2 K/mm3 (0-0.3); Eosinophils Percent Auto 4.4 % (0-4.4); Hematocrit 31.5 % (37.0-47.0); Hemoglobin 9.5 g/dL (12.0-15.0); Immature Granulocyte Absolute 0.01 K/mm3 (0.00-0.031); Immature Granulocyte Percent A 0.2 % (0-0.5); Lymphocytes Absolute Auto 1.92 K/mm3 (0.9-3.2); Lymphocytes Percent Auto 38.1 % (18.3-44.2); Mean Corpuscular HGB Conc 30.2 g/dl (32-36); Mean Corpuscular Hemoglobin 24.9 pg (26-34); Mean Corpuscular Volume 82.5 fl (80-100); Mean Platelet Volume 9.5 fl (7.4-10.4); Monocytes Absolute Auto 0.6 K/mm3 (0.1-0.6); Monocytes Percent Auto 12.1 % (2.6-8.5); Neutrophils Absolute Auto 2.3 K/mm3 (1.3-6.7); Neutrophils Percent Auto 44.6 % (45.5-73.1); Platelet Count Result 290 k/mm3 (150-375); Red Blood Count 3.82 M/mm3 (4.2-5.4); Red Cell Distribution Width 14.7 % (11.5-14.5)
--- NOTE | 2023-08-05 07:16 | PM.DS ---
DS: Admitting Diagnosis Discharge Date 08/05/2023 Admitting Diagnosis Intractable abdominal pain DS: Discharge Diagnosis Discharge Diagnosis (1) Bloody emesis: Code(s): K92.0 - Hematemesis Status: Acute (2) BRBPR (bright red blood per rectum): Code(s): K62.5 - Hemorrhage of anus and rectum Status: Resolved (3) Intractable nausea and vomiting: Code(s): R11.2 - Nausea with vomiting, unspecified Status: Resolved (4) Rectal bleed: Code(s): K62.5 - Hemorrhage of anus and rectum Status: Acute (5) Intractable abdominal pain: Code(s): R10.9 - Unspecified abdominal pain Status: Resolved (6) Fibromyalgia: Code(s): M79.7 - Fibromyalgia Status: Chronic DS: Summary Hospital Course Reason for hospitalization: Patient is a 47-year-old female presents to the emergency department with multiple complaints.? Patient states for the past couple days she has been experiencing nausea and vomiting in addition to abdominal pain.?? Hospital Course: Patient states that she is known to a engineer gas pumping station Dr. Lugo and she talked with him today and was told to come into the emergency department for further evaluation.? Patient states she was here yesterday and received a full workup and does not feels though she is getting better with persistent nausea and vomiting in the abdominal pain seems to be getting worse.? Patient has a C diff dx for which she has been taking her antibiotics as prescribed.? Patient states that she is having regular bowel movements however upon arrival to the emergency department she has been noticing bright red blood in her stool.? Patient states he has been having the bright red blood in her stools for the past couple weeks and it is mixed in with the stool.? Patient denies any recent injuries.? Patient denies chest pain, difficulty breathing, rash, urinary discomfort, history kidney stones, hematuria, vaginal discharge, vaginal bleeding.? Patient is to history of colon removal for FAP.? Patient states the abdominal pain is diffuse, mostly in her bilateral lower quadrants but also goes up to her upper abdomen and she overall feels more bloated and distended.? Patient denies any sick contacts. Interval history: 08/04/2023: pt seen this morning, she is sitting up in the chair, IV fluid infusing she reports overnight events headache, she denies any nausea vomiting fever chills.? Complains of ongoing tender abdomen. Pt is currently NPO she is waiting to be seen for her scheduled EGD.? Will continue to monitor and assess patient for discharge. Pt reports mild nausea with meal, unsure if she is able to discharge this evening. 08/05/2023: Pt seen this am, she reports no overnight events, admits to chronic abdominal pain, formed dark stools. She denies any chest pain, n/v, fever or chills. Plan to dispo home today with close out-pt follow up. pt was evaluated by GI see report below: Reason for consult: blood with emesis, abdominal pain HPI: Naila Chen is a 47 year old female with history of small-bowel intestinal bacterial overgrowth diagnosed several years ago, subtotal colectomy for attenuated familial adenomatous polyposis (now she has about 25 cm colon left). She also has chronic abdominal pain, previous hospitalization September 2022 for stercoral colitis evaluated by endoscopy, most recent hospitalization with rectal bleeding, colonoscopy found proctitis with + c diff as cause of symptom and went home with dificid (Meckel diverticula scan negative). She says that diarrhea better, still some abdominal pain and again with nausea vomiting but noted small amount blood in emesis, she came to ER but symptom did not go away and finally admitted after she returned to ER. She is taking PPI. Hgb ~ 10 (near baseline). She had EGD (05/2022) and SB capsule endoscopy (07/2022) with major etiology and did not find, she also had hemorrhoidectomy in 2021 Status at Discharge Funct
--- NOTE | 2023-08-05 07:56 | WPDANESPN ---
Anes - Prog Note Post-Op Date/Time: 08/05/23 07:56 Cardiovascular status: normal Respiratory status: normal Airway patency: baseline Mental status: baseline Post-Op hydration status: normal Vital Signs: Last Vital Signs Temp 36.5 C 08/05/23 05:13 Pulse 62 08/05/23 05:13 Resp 18 08/05/23 05:13 BP 114/64 08/05/23 05:13 Pulse Ox 95 08/05/23 05:13 O2 Del Method Room Air 08/04/23 19:45 Pain Score (VAS): 0/10 I/O: Intake & Output 08/04/23 08/04/23 08/05/23 15:59 23:59 07:59 Intake Total 390 1610 390 Output Total 4500 1400 Balance 390 -2890 -1010 Laboratory Tests 08/05/23 04:53 08/05/23 01:45 08/04/23 08/04/23 08/04/23 08:07 12:26 16:48 WBC RBC Hgb Hct MCV MCH MCHC RDW Plt Count MPV Immature Gran % (Auto) Neut % (Auto) Lymph % (Auto) [place] % (Auto) Eos % (Auto) Baso % (Auto) Lymph # (Auto) [place] # (Auto) Eos # (Auto) Baso # (Auto) Abs Immat Gran (auto) Absolute Neuts (auto) Absolute Nucleated RBC Nucleated RBC % Sodium Potassium Chloride Carbon Dioxide Anion Gap BUN Creatinine Estim Creat Clear Calc Estimated GFR Glucose POC Capillary Glucose 73 91 152 H Calcium Stl Occult Blood (IFOB) 08/04/23 08/04/23 08/05/23 17:35 19:54 00:02 WBC RBC Hgb Hct MCV MCH MCHC RDW Plt Count MPV Immature Gran % (Auto) Neut % (Auto) Lymph % (Auto) [place] % (Auto) Eos % (Auto) Baso % (Auto) Lymph # (Auto) [place] # (Auto) Eos # (Auto) Baso # (Auto) Abs Immat Gran (auto) Absolute Neuts (auto) Absolute Nucleated RBC Nucleated RBC % Sodium Potassium Chloride Carbon Dioxide Anion Gap BUN Creatinine Estim Creat Clear Calc Estimated GFR Glucose POC Capillary Glucose 140 H 125 H Calcium Stl Occult Blood (IFOB) Positive H 08/05/23 08/05/23 08/05/23 01:45 04:53 05:18 WBC 5.0 RBC 3.82 L Hgb 9.5 L Hct 31.5 L MCV 82.5 MCH 24.9 L MCHC 30.2 L RDW 14.7 H Plt Count 290 MPV 9.5 Immature Gran % (Auto) 0.2 Neut % (Auto) 44.6 L Lymph % (Auto) 38.1 [place] % (Auto) 12.1 H Eos % (Auto) 4.4 Baso % (Auto) 0.6 Lymph # (Auto) 1.92 [place] # (Auto) 0.6 Eos # (Auto) 0.2 Baso # (Auto) 0.0 Abs Immat Gran (auto) 0.01 Absolute Neuts (auto) 2.3 Absolute Nucleated RBC 0.0 Nucleated RBC % 0.0 Sodium 138 Potassium 4.0 Chloride 107 Carbon Dioxide 26 Anion Gap 5 L BUN 11 Creatinine 0.90 Estim Creat Clear Calc 81 Estimated GFR > 60 Glucose 92 POC Capillary Glucose 90 Calcium 8.5 Stl Occult Blood (IFOB) Post-procedural complaints: none Patient Feedback: Patient satisfied with anesthetic care.
[2023-08-05] MEDS: FUROSEMIDE 40 MG TABLET PO (08:39)
[2023-08-05] MEDS: TOPIRAMATE 25 MG TABLET 50 MG PO (08:39)
[2023-08-05] MEDS: busPIRone HCL 5 MG TABLET 15 MG PO ×2 (08:39→12:15)
[2023-08-05] MEDS: PREGABALIN (*CRX) 75 MG CAPSULE 150 MG PO ×2 (08:39→12:15)
[2023-08-05] MEDS: oxyCODONE HCL (*CRX) 10 MG TAB SR 12HR PO (08:39)
[2023-08-05] MEDS: PANTOPRAZOLE 40 MG TABLET PO (08:39)
[2023-08-05] MEDS: risperiDONE 1 MG TABLET PO (08:39)
[2023-08-05] MEDS: OLANZapine DISPERTAB 5 MG 2.5 MG PO (09:33)
[2023-08-05 10:04] LABS: Hemoglobin A1C 5.8 % (<5.7)
[2023-08-05] MEDS: traMADol HCL (*CRX) 50 MG TABLET 100 MG PO (12:24)
[2023-08-05 13:32] VITALS: BP 100/66; PULSE 82; RESP 17; TEMP 36.2; O2SAT 98
[2023-08-05 13:42] LABS: Glucose Point of Care 109 mg/dl (65-105)
--- NOTE | 2023-08-05 15:44 | PC.NURSE ---
pt discharged home, used [employer] for personal transport
== END 2023-08-05 15:45 | disposition home or self-care (01) ==
LOC: ANHED 08-03 06:51 → ANH2MED 08-03 15:21
PROVIDERS: Internal Medicine Gastroenterology; Admitting Provider Internal Medicine; Emergency Provider Student in an Organized Health Care Education/Training Program; PCP Nurse Practitioner Family; Visit Provider Nurse Practitioner
PROC: 0DJ08ZZ Inspection of Upper Intestinal Tract, Via Natural or Artificial Opening Endoscopic (ICD-10-PCS; CPT 43235; principal; 2023-08-04 13:30)
DX: A04.72 Enterocolitis due to Clostridium difficile, not specified as recurrent (principal); K92.0 Hematemesis; K62.5 Hemorrhage of anus and rectum; R10.9 Unspecified abdominal pain; F41.9 Anxiety disorder, unspecified; K58.0 Irritable bowel syndrome with diarrhea; D64.9 Anemia, unspecified; G43.909 Migraine, unspecified, not intractable, without status migrainosus; G89.29 Other chronic pain; F25.0 Schizoaffective disorder, bipolar type; R53.82 Chronic fatigue, unspecified; F32.A Depression, unspecified; E07.9 Disorder of thyroid, unspecified; K21.9 Gastro-esophageal reflux disease without esophagitis; E66.01 Morbid (severe) obesity due to excess calories; Z68.39 Body mass index [BMI] 39.0-39.9, adult; M79.7 Fibromyalgia; G47.00 Insomnia, unspecified; Z90.49 Acquired absence of other specified parts of digestive tract; Z86.711 Personal history of pulmonary embolism; Z79.891 Long term (current) use of opiate analgesic; Z79.899 Other long term (current) drug therapy; Z81.8 Family history of other mental and behavioral disorders; Z84.89 Family history of other specified conditions
CPT/HCPCS: 43235; 36415; 71045; 74177; 80048; 80053; 81001; 82274; 82948; 83036; 83605; 83690; 83735; 84484; 84703; 85014; 85018; 85025; 85610; 85730; 86140; 86850; 86900; 86901; 93005; 96361; 96372; 96374; 96375; 99284; 99285; A9270; C9113; G0378; G0379; J0500; J0780; J1630; J2270; J2405; J2704; J7030; J7120; Q9967

== ENCOUNTER 2023-08-08 10:35 | Outpatient (CLI) | payer OTHER, SELFPAY ==
[2023-08-08 10:50] LABS: Basophils Absolute Auto 0.1 K/mm3 (0.0-0.1); Basophils Percent Auto 1.2 % (0.2-1.2); Eosinophils Absolute Auto 0.2 K/mm3 (0-0.3); Eosinophils Percent Auto 4.1 % (0-4.4); Hematocrit 37.8 % (37.0-47.0); Hemoglobin 11.2 g/dL (12.0-15.0); Immature Granulocyte Absolute 0.01 K/mm3 (0.00-0.031); Immature Granulocyte Percent A 0.2 % (0-0.5); Lymphocytes Absolute Auto 1.81 K/mm3 (0.9-3.2); Lymphocytes Percent Auto 35.4 % (18.3-44.2); Mean Corpuscular HGB Conc 29.6 g/dl (32-36); Mean Corpuscular Hemoglobin 24.7 pg (26-34); Mean Corpuscular Volume 83.4 fl (80-100); Mean Platelet Volume 9.2 fl (7.4-10.4); Monocytes Absolute Auto 0.6 K/mm3 (0.1-0.6); Monocytes Percent Auto 11.1 % (2.6-8.5); Neutrophils Absolute Auto 2.5 K/mm3 (1.3-6.7); Platelet Count Result 328 k/mm3 (150-375); Red Blood Count 4.53 M/mm3 (4.2-5.4); Red Cell Distribution Width 15.1 % (11.5-14.5); White Blood Count 5.1 K/mm3 (4.5-10.0)
[2023-08-08 11:02] LABS: Alanine Aminotransferase 24 U/L (6-35); Albumin Level 4.3 g/dL (3.5-5.1); Alkaline Phosphatase 82 U/L (38-126); Anion Gap 7 mmol/L (8-16); Aspartate Amino Transferase 32 U/L (14-36); Bilirubin,Total 0.3 mg/dL (0.2-1.3); Blood Urea Nitrogen 10 mg/dL (7-17); Calcium 8.9 mg/dL (8.4-10.2); Carbon Dioxide 27 mmol/L (22-30); Chloride 106 mmol/L (98-107); Estimated Glomerular Filt Rate > 60; Glucose 85 mg/dL (65-110); Potassium 3.9 mmol/L (3.4-5.0); Sodium 140 mmol/L (137-145)
[2023-08-08 11:19] LABS: Platelet Estimate Adequate (Adequate)
[2023-08-08 11:20] LABS: Anisocytosis 1+ (NORMAL); Ovalocytes 1+ (NORMAL); Schistocytes None Seen (NORMAL)
== END 2023-08-08 10:36 | disposition home or self-care (01) ==
PROVIDERS: PCP Nurse Practitioner Family; Visit Provider Nurse Practitioner
DX: K62.5 Hemorrhage of anus and rectum (principal); K92.0 Hematemesis; A04.72 Enterocolitis due to Clostridium difficile, not specified as recurrent
CPT/HCPCS: 36415; 80053; 85025

== ENCOUNTER 2023-08-08 11:15 | Outpatient (CLI) | payer OTHER, SELFPAY ==
[2023-08-08 11:31] LABS: Basophils Absolute Auto 0.1 K/mm3 (0.0-0.1); Basophils Percent Auto 0.9 % (0.2-1.2); Eosinophils Absolute Auto 0.3 K/mm3 (0-0.3); Eosinophils Percent Auto 4.4 % (0-4.4); Hematocrit 36.8 % (37.0-47.0); Hemoglobin 11.2 g/dL (12.0-15.0); Immature Granulocyte Absolute 0.01 K/mm3 (0.00-0.031); Immature Granulocyte Percent A 0.2 % (0-0.5); Lymphocytes Absolute Auto 1.99 K/mm3 (0.9-3.2); Lymphocytes Percent Auto 35.1 % (18.3-44.2); Mean Corpuscular HGB Conc 30.4 g/dl (32-36); Mean Corpuscular Hemoglobin 24.8 pg (26-34); Mean Corpuscular Volume 81.6 fl (80-100); Mean Platelet Volume 8.9 fl (7.4-10.4); Monocytes Absolute Auto 0.6 K/mm3 (0.1-0.6); Monocytes Percent Auto 10.4 % (2.6-8.5); Neutrophils Absolute Auto 2.8 K/mm3 (1.3-6.7); Platelet Count Result 337 k/mm3 (150-375); Red Blood Count 4.51 M/mm3 (4.2-5.4); Red Cell Distribution Width 15.1 % (11.5-14.5); White Blood Count 5.7 K/mm3 (4.5-10.0)
[2023-08-08 16:29] LABS: Anion Gap 10 mmol/L (8-16); Blood Urea Nitrogen 10 mg/dL (7-17); Calcium 9.1 mg/dL (8.4-10.2); Carbon Dioxide 25 mmol/L (22-30); Chloride 106 mmol/L (98-107); Estimated Glomerular Filt Rate 60; Glucose 83 mg/dL (65-110); Potassium 3.9 mmol/L (3.4-5.0); Sodium 141 mmol/L (137-145)
[2023-08-08 16:30] LABS: Iron 29 ug/dL (37-170)
[2023-08-08 16:39] LABS: Percent Iron Saturation 6 % (20-50)
[2023-08-08 17:05] LABS: Ferritin 6.15 ng/mL (6.24-137)
== END 2023-08-08 11:16 | disposition home or self-care (01) ==
LOC: ANHLAB 11:17
PROVIDERS: PCP Nurse Practitioner Family; Visit Provider Internal Medicine Hematology & Oncology
DX: D64.9 Anemia, unspecified (principal)
CPT/HCPCS: 36415; 80048; 80053; 82728; 83540; 83550; 85025

== ENCOUNTER 2023-08-10 12:58 | Observation (INO) | payer OTHER, SELFPAY ==
[2023-08-10] VITALS (35 sets, daily range): BP systolic 105–158; BP diastolic 69–93; PULSE 69–88; RESP 12–27; TEMP 36.3–36.4; O2SAT 95–100
--- NOTE | ~2023-08-10 | XR_ITS ---
EXAMINATION: XR chest 1V portable DATE: 08/10/2023 18:00 INDICATION: Syncope. TECHNIQUE: A single frontal view of the chest was obtained. COMPARISON: Chest single view 08/03/23, CT abdomen and pelvis 08/03/23. FINDINGS: There is no pneumonia, pleural effusion, or pneumothorax. The heart size is normal. IMPRESSION: 1. No acute cardiopulmonary disease. Reviewed, dictated and finalized at location E. NT SUPPORT ADMINISTRATOR
--- NOTE | 2023-08-10 16:51 | ECG_ITS ---
Measurements Intervals [place] Rate: 74 P: 29 IA: 177 QRS: 40 QRSD: 90 T: 47 QT: 385 QTc: 428 Interpretive Statements SINUS RHYTHM MINIMAL Q WAVES- INFERIOR LEADS BORDERLINE ST-T WAVE ABNORMALITY- ANTERIOR LEADS BORDERLINE ECG COMPARED TO ECG 08/03/2023 02:06:54 NO SIGNIFICANT CHANGES Electronically Signed On 08-10-2023 18:16:30 SUPERVISOR FITTING by Rolo Knox D.O.
[2023-08-10 17:05] LABS: Basophils Percent Auto 0.7 % (0.2-1.2); Eosinophils Absolute Auto 0.2 K/mm3 (0-0.3); Eosinophils Percent Auto 2.7 % (0-4.4); Hematocrit 33.7 % (37.0-47.0); Hemoglobin 9.9 g/dL (12.0-15.0); Immature Granulocyte Absolute 0.01 K/mm3 (0.00-0.031); Immature Granulocyte Percent A 0.2 % (0-0.5); Lymphocytes Absolute Auto 1.94 K/mm3 (0.9-3.2); Lymphocytes Percent Auto 34.7 % (18.3-44.2); Mean Corpuscular HGB Conc 29.4 g/dl (32-36); Mean Corpuscular Hemoglobin 24.4 pg (26-34); Mean Corpuscular Volume 83.2 fl (80-100); Mean Platelet Volume 9.3 fl (7.4-10.4); Monocytes Absolute Auto 0.6 K/mm3 (0.1-0.6); Neutrophils Absolute Auto 2.9 K/mm3 (1.3-6.7); Neutrophils Percent Auto 51.7 % (45.5-73.1); Platelet Count Result 294 k/mm3 (150-375); Red Blood Count 4.05 M/mm3 (4.2-5.4); Red Cell Distribution Width 14.9 % (11.5-14.5); White Blood Count 5.6 K/mm3 (4.5-10.0)
[2023-08-10 17:15] LABS: Platelet Estimate Adequate (Adequate)
[2023-08-10 17:16] LABS: Hypochromasia 1+ (NORMAL); Ovalocytes 1+ (NORMAL); Schistocytes None Seen (NORMAL)
[2023-08-10 17:23] LABS: Alanine Aminotransferase 21 U/L (6-35); Albumin Level 4.1 g/dL (3.5-5.1); Alkaline Phosphatase 83 U/L (38-126); Anion Gap 6 mmol/L (8-16); Aspartate Amino Transferase 29 U/L (14-36); Bilirubin,Total 0.3 mg/dL (0.2-1.3); Blood Urea Nitrogen 14 mg/dL (7-17); Calcium 8.6 mg/dL (8.4-10.2); Carbon Dioxide 27 mmol/L (22-30); Chloride 106 mmol/L (98-107); Estimated Glomerular Filt Rate > 60; Glucose 93 mg/dL (65-110); Sodium 139 mmol/L (137-145)
--- NOTE | 2023-08-10 17:27 | ED.DIZZY ---
HPI - Dizziness General Chief Complaint: Syncope Stated Complaint: exhaustion and confusion Time Seen by Provider: 08/10/23 17:02 Source: patient Mode of arrival: EMS Limitations: no limitations History of Present Illness HPI Narrative: This is a 47-year-old female who presents to the ED via EMS with chief complaint of syncopal episode that occurred at [facility] today. Reports that she was looking through heard felt very exhausted. She reports that she started to feel very heavy and lightheaded and felt like she had to go down to ground. She then remembers coming to shortly after with her friend who was there. Patient reports she was recently in the hospital discharged 5 days ago after being diagnosed with colitis with C diff. She reports that she has been feeling dehydrated ever since. She was at her GI doctor today who wanted to restart Dificid and follow-up with Hematology for low iron. Patient also states that she feels lightheaded whenever she sits up or stands up. Denies fevers, chills, abdominal pain, vomiting, numbness, weakness, speech change, vision change, vertigo. Triage note mentions that patient did not know her date of upon arrival, however patient feels better in this regard. She feels completely oriented at this point. Related Data Home Medications Medication Instructions Recorded Confirmed melatonin 10 mg capsule 10 mg PO QHS 01/13/22 08/11/23 simethicone 125 mg capsule 125 mg PO QID PRN FLATUS 05/19/22 08/11/23 olanzapine 5 mg disintegrating 2.5 mg PO BID PRN Anxiety 10/13/22 08/11/23 tablet polyethylene glycol 3350 17 17 g PO DAILY PRN Constipation 10/13/22 08/11/23 gram/dose oral powder buspirone 5 mg tablet 15 mg PO TID 04/12/23 08/10/23 risperidone 0.25 mg tablet 1 mg PO BID 04/12/23 08/10/23 meclizine 25 mg tablet 25 mg PO TID PRN N/V, dizziness 06/08/23 08/11/23 ondansetron 4 mg disintegrating 4 mg PO Q8H PRN Nausea And Vomiting 06/08/23 08/11/23 tablet pregabalin 25 mg capsule 150 mg PO DAILY 07/20/23 08/11/23 citalopram 20 mg tablet 40 mg PO HS 07/23/23 08/10/23 cyclobenzaprine 10 mg tablet 10 mg PO TID PRN Muscle Spasm 07/23/23 08/11/23 omeprazole 40 mg capsule,delayed 40 mg PO Q12H 07/23/23 08/10/23 release trazodone 100 mg tablet 200 mg PO HS 07/23/23 08/11/23 Allergies Allergy/AdvReac Type Severity Reaction Status Date / Time aspirin Allergy Severe Anaphylaxis Verified 08/10/23 10:10 latex Allergy Severe Blister Verified 08/10/23 10:10 salicylates Allergy Severe Anaphylaxis Verified 08/10/23 10:10 acetaminophen Allergy Intermediate Hypertensio Verified 08/10/23 10:10 n/HYPOTENSI ON erythromycin base Allergy Intermediate Rash Verified 08/10/23 10:10 Review of Systems Review of Systems: All systems as dictated in [facility] Past Medical History Medical History Acute migraine Anemia Anxiety Arthritis Bipolar disorder, rapid cycling Bloody emesis BRBPR (bright red blood per rectum) C. difficile colitis Chronic fatigue disorder Chronic pain Degenerative disk disease Depression Dysphagia Familial adenomatous polyposis S/p partial colectomy, total hysterectomy Fibromyalgia Frequent loose stools Gastric polyps GERD (gastroesophageal reflux disease) History of blood clots History of blood transfusion 04/15/2021 History of herpes zoster History of pulmonary embolism History of thyroid disease Insomnia Irritable bowel syndrome with diarrhea Migraines Missed x1 Neurogenic bladder OCD (obsessive compulsive disorder) Plantar fascia syndrome PTSD (post-traumatic stress disorder) Rectal bleeding Right sided abdominal pain Schizoaffective disorder, unspecified condition Sensory neuronopathy Small intestinal bacterial overgrowth (SIBO) Thyroid disorder TMJ (dislocation of temporomandibular joint) Surgical History Surgical History H
[2023-08-10] MEDS: traMADol HCL (*CRX) 50 MG TABLET 100 MG PO (17:46)
[2023-08-10] MEDS: LACTATED RINGERS 1,000 ML 999 ML IV CONT (18:02)
[2023-08-10] MEDS: PREGABALIN (*CRX) 75 MG CAPSULE 150 MG PO (18:55)
[2023-08-10 19:45] LABS: Appearance Urine Cloudy (Clear); Bacteria Urine None Seen /hpf; Bilirubin Urine Negative (Negative); Blood Urine Negative (Negative); Color Urine Yellow (Yellow); Glucose Urine UA Negative (Negative); Ketones Urine Negative (Negative); Leukocyte Esterase Ur Trace LEU/UL (Negative); Nitrate Urine Negative (Negative); Non Pathogenic Casts 0-2; Protein Urine Trace mg/dL (Negative); RBC Urine 0-2 /hpf (0-2); Specific Grav Ur 1.022 (1.001-1.035); Squamous Epithelial Cell Urine None seen /hpf (Few); WBC Urine 0-5 /hpf
[2023-08-10 20:02] LABS: Add Urine Microscopic? YES
[2023-08-10] MEDS: CYCLOBENZAPRINE HCL 10 MG TABLET PO (20:34)
--- NOTE | 2023-08-10 22:53 | PM.IMHP ---
H&P: HPI History of Present Illness Date/Time: 08/10/23 22:53 Chief Complaint: Syncope Narrative: Patient was recently hospitalized for C diff colitis, and she also has history of iron deficiency anemia from chronic menorrhagia status post hysterectomy. She is scheduled to follow-up with heme Onc for iron infusion. She so a GI physician today that started patient on fidaxomicin when she went to the store to get this medication she was assisted and felt so dizzy that she nearly passed out but hard to be helped. She denied prolonged standing prior to the onset of these dizziness, chest pain or shortness of breath, she has not been having diarrhea neither has she been vomiting, denied prior episode of syncope. However she reported that she has not been able to eat today prior to this incident. Patient was evaluated in the ED and found to be stable with no significant negative finding on outside hemoglobin of 9.9. Most recent iron studies were done on 08 August 2023 which showed low iron level. She does not tolerate oral iron. Patient stated the symptom has improved during my encounter with her, she has been able to eat. Review of Systems Review of Systems: All systems reviewed & are unremarkable except as noted in HPI and below PMFSH Past Medical History Medical History Acute migraine Anemia Anxiety Arthritis Bipolar disorder, rapid cycling Bloody emesis BRBPR (bright red blood per rectum) C. difficile colitis Chronic fatigue disorder Chronic pain Degenerative disk disease Depression Dysphagia Familial adenomatous polyposis S/p partial colectomy, total hysterectomy Fibromyalgia Frequent loose stools Gastric polyps GERD (gastroesophageal reflux disease) History of blood clots History of blood transfusion 04/15/2021 History of herpes zoster History of pulmonary embolism History of thyroid disease Insomnia Irritable bowel syndrome with diarrhea Migraines Missed x1 Neurogenic bladder OCD (obsessive compulsive disorder) Plantar fascia syndrome PTSD (post-traumatic stress disorder) Rectal bleeding Right sided abdominal pain Schizoaffective disorder, unspecified condition Sensory neuronopathy Small intestinal bacterial overgrowth (SIBO) Thyroid disorder TMJ (dislocation of temporomandibular joint) Surgical History Surgical History H/O breast augmentation 2012 H/O colectomy 2020, partial History of back surgery 2020, placement of interstim device History of bladder surgery 2016 History of bunionectomy 2019 History of section x1 History of cholecystectomy 2008 History of hemorrhoidectomy Exam under anesthesia, external hemorrhoidectomy 2 columns, anal polypectomy x 4 01/25/2022 History of hysterectomy 2019 Hx of breast reduction, elective 2010 S/P correction of deviated nasal septum S/P surgery on nasal septum Family History Family History Mother , drowning Hyperlipemia Uterine cancer Hypertension Alcoholism Anxiety and depression Thyroid disorder Grandparent Uterine cancer Carcinoma of colon Colon polyp Alcoholism Hypertension Anxiety and depression Cerebrovascular accident Thyroid disorder Other Cancer uncle, aunt Father Hypertension Grandparent Bowel cancer Alcoholism Other Depression Social History Social History Smoking status: Never smoker Second hand tobacco smoke exposure: Yes Alcohol intake: never Substance use: never Substance use type: does not use Do You Feel Safe in your Home?: No Lack of Transportation: No Lack of Food: Sometimes True Current Housing: I Have Housing Concerned About Future Housing: No Difficulty Paying Gas/Electric Bills: No Difficul
--- NOTE | 2023-08-10 23:37 | ADMGEN ---
This patient, Naila Chen, was admitted to [facility] Surg Room 328-01. Patient/family oriented to hospital policies and general routines including ID bracelet, bed and alarms, visiting hours, pain management, procedures, bathroom and other care routines, personal items, smoking policy, room service/diet, and visiting hours. Information on how to activate the Rapid Response Team has been discussed. Patient/Family are encouraged to report perceived risks to care and to ask questions if they do not understand what they are told or what they should do.
[2023-08-11] VITALS: PULSE 78
[2023-08-11 00:17] VITALS: BP 126/72; PULSE 88; RESP 16; TEMP 36.3; O2SAT 99
[2023-08-11 00:43] LABS: Magnesium 2.1 mg/dL (1.6-2.3)
[2023-08-11 04:00] VITALS: PULSE 71
[2023-08-11 05:47] VITALS: BP 110/70; PULSE 73; RESP 16; TEMP 36.7; O2SAT 97
[2023-08-11 05:56] VITALS: BMI 43.1
[2023-08-11 06:30] LABS: Basophils Percent Auto 0.9 % (0.2-1.2); Eosinophils Absolute Auto 0.2 K/mm3 (0-0.3); Eosinophils Percent Auto 4.6 % (0-4.4); Hematocrit 33.6 % (37.0-47.0); Hemoglobin 9.8 g/dL (12.0-15.0); Immature Granulocyte Absolute 0.01 K/mm3 (0.00-0.031); Immature Granulocyte Percent A 0.2 % (0-0.5); Lymphocytes Absolute Auto 1.85 K/mm3 (0.9-3.2); Lymphocytes Percent Auto 42.6 % (18.3-44.2); Mean Corpuscular HGB Conc 29.2 g/dl (32-36); Mean Corpuscular Hemoglobin 24.3 pg (26-34); Mean Corpuscular Volume 83.2 fl (80-100); Mean Platelet Volume 9.4 fl (7.4-10.4); Monocytes Absolute Auto 0.5 K/mm3 (0.1-0.6); Monocytes Percent Auto 12.4 % (2.6-8.5); Neutrophils Absolute Auto 1.7 K/mm3 (1.3-6.7); Neutrophils Percent Auto 39.3 % (45.5-73.1); Platelet Count Result 290 k/mm3 (150-375); Red Blood Count 4.04 M/mm3 (4.2-5.4); White Blood Count 4.3 K/mm3 (4.5-10.0)
[2023-08-11 06:42] LABS: Anion Gap 6 mmol/L (8-16); Blood Urea Nitrogen 11 mg/dL (7-17); Calcium 8.7 mg/dL (8.4-10.2); Carbon Dioxide 23 mmol/L (22-30); Chloride 110 mmol/L (98-107); Estimated CRCL calculation 81 ml/min; Estimated Glomerular Filt Rate > 60; Glucose 86 mg/dL (65-110); Potassium 4.1 mmol/L (3.4-5.0); Sodium 139 mmol/L (137-145)
[2023-08-11 07:41] LABS: Hypochromasia 1+ (NORMAL); Platelet Estimate Adequate (Adequate); Schistocytes None Seen (NORMAL)
[2023-08-11] MEDS: busPIRone HCL 5 MG TABLET 15 MG PO ×2 (08:48→14:43)
[2023-08-11] MEDS: PREGABALIN (*CRX) 75 MG CAPSULE 150 MG PO (08:48)
[2023-08-11] MEDS: TOPIRAMATE 25 MG TABLET 50 MG PO (08:49)
[2023-08-11] MEDS: PANTOPRAZOLE 40 MG TABLET PO (08:49)
[2023-08-11] MEDS: risperiDONE 1 MG TABLET PO (08:49)
[2023-08-11] MEDS: CYCLOBENZAPRINE HCL 10 MG TABLET PO ×2 (08:59→14:43)
[2023-08-11] MEDS: OLANZapine DISPERTAB 5 MG 2.5 MG PO (08:59)
[2023-08-11 10:37] VITALS: O2SAT 98
--- NOTE | 2023-08-11 11:14 | PM.IMPN ---
Progress Note: A&P Assessment and Plan (1) Dizziness: Code(s): R42 - Dizziness and giddiness Status: Acute Assessment and Plan: Could be due to her poor oral intake, polypharmacy or anemia. Treat below. Currently asymptomatic. Tele without pauses or blocks. (2) Iron (Fe) deficiency anemia: Code(s): D50.9 - Iron deficiency anemia, unspecified Status: Acute Assessment and Plan: After discharge she reports seen Dr. Piedra but has not had her iron infusion started because of insurance issue. Would be beneficial if we could start that while inpatient. Consulting Oncology to assist with this. (3) Fibromyalgia: Code(s): M79.7 - Fibromyalgia Status: Chronic Assessment and Plan: Along with her other psychiatric disorders she is taking polypharmacy. I advised her this can contribute to dizziness. He does not think so and refuses to alter any of these medications. We will continue her home medications and continue to observe. Plan 47-year-old female with history of iron deficiency anemia, anxiety, depression, bipolar disorder, chronic pain, fibromyalgia, familial adenomatous polyposis history of colectomy, GERD, migraines, OCD, recently diagnosed with C diff with GI and started on fidaxomicin. She became dizzy and nearly passed out at the store. She had not been eating well. Admitted for further evaluation and management. She had recent admission for hematemesis had EGD which was unremarkable and sent home with oncology follow-up. Has not been able to have her iron infusion scheduled because of insurance difficulty. Admitted on 08/10/2023 FEN: Saline lock IV GI prophylaxis: Continue home dosing DVT prophylaxis: SCDs Lines: Peripheral IV Code Status: Full code Dispo: Stable, pending oncology consult Subjective Date/time seen: 08/11/23 11:14 Interval history: No acute overnight events. Patient complains of severe lower back pain which is chronic for her. She sits in bed comfortable and has no other complaints. Review of Systems Review of Systems: All systems reviewed & are unremarkable except as noted in HPI and below (Subjective) Exam Const: General: comfortable and no acute distress Other: A&O x3 Eyes: Pupils: Equal, round and reactive pupils present Neck: Other: No bony step-offs or exquisite tenderness to palpation localized. Resp: Effort & Inspection: normal respiratory effort Auscultation: clear to auscultation bilaterally, no crackles, no rales and no rhonchi Cardio: Rate: regular rate Rhythm: regular rhythm Heart sounds: no gallops, no murmurs and no rubs GI: GI Palp: Yes Soft to palpation and No Tenderness to palpation present (GI) Neuro: Motor exam (neuro): 5/5 motor strength present throughout Sensory Exam: normal sensation Extrem: General: no edema Objective Data Vital Signs Vital Signs: Vital Signs - 24 hr 08/10/23 13:17 08/10/23 15:46 08/10/23 16:45 Temperature 97.6 F Pulse Rate 79 77 Respiratory Rate 18 18 Blood Pressure 124/74 105/69 Pulse Oximetry 100 100 100 Oxygen Delivery Room Air 08/10/23 16:50 08/10/23 16:44 08/10/23 16:45 Temperature Pulse Rate 86 87 84 Respiratory Rate 19 Blood Pressure Pulse Oximetry 100 Oxygen Delivery 08/10/23 16:47 08/10/23 17:00 08/10/23 17:01 Temperature Pulse Rate 84 73 74 Respiratory Rate 13 13 Blood Pressure 158/93 H 133/80 Pulse Oximetry 98 100 100 Oxygen Delivery 08/10/23 17:02 08/10/23 17:28 08/10/23 17:30 Temperature Pulse Rate 76 76 75 Respiratory Rate 15 Blood Pressure Pulse Oximetry 98 98 98 Oxygen Delivery 08/10/23 17:31 08/10/23 17:32 08/10/23 18:07 Temperature Pulse Rate 75 74 74 Respiratory Rate 12 12 14 Blood Pressure 134/83 Pulse Oximetry 99 98 98 Oxygen Delivery 08/10/23 18:46 08/10/23 18:47 08/10/23 18:48 Temperature Pulse Rate 73 75 75 Respiratory Rate 15 27
[2023-08-11] MEDS: traMADol HCL (*CRX) 50 MG TABLET 100 MG PO (11:30)
--- NOTE | 2023-08-11 14:04 | PM.DS ---
DS: Admitting Diagnosis Discharge Date 08/11/23 Admitting Diagnosis Dizziness DS: Discharge Diagnosis Discharge Diagnosis (1) Dizziness: Code(s): R42 - Dizziness and giddiness Status: Acute DS: Summary Hospital Course Hospital Course: 47-year-old female with history of iron deficiency anemia anxiety depression bipolar disorder chronic pain fibromyalgia familial adenomatous polyposis with history of colectomy GERD migraines OCD recently diagnosed with C diff with GI consultants and started on fidaxomicin as outpatient. She was at the store and became dizzy and nearly passed out. She had not been eating well. On the day of discharge the patient was amenable to further workup with heme oncology consider her iron deficiency anemia and that she has not received iron infusions yet and has refused oral intake for iron. However she changed her mind to leave without changing any further medications as she is on polypharmacy, as well as she does not want further treatment or heme oncology consultation. The patient denies any syncope or dizziness. She understands the risk of not following up with further therapy as an inpatient and still desires to leave. The patient is stable on discharge. During her admission she is full code. She will be discharged to home. I encouraged her to resume close follow-up with her PCP and heme oncology. Time Spent with Patient Time attestation: Total time spent providing and/or coordinating discharge services: Exam Const: General: cooperative and no acute distress Resp: Effort & Inspection: normal respiratory effort Auscultation: clear to auscultation bilaterally Cardio: Rate: regular rate Rhythm: regular rhythm Heart sounds: S1 normal heart sound present and S2 normal heart sound present GI: GI Palp: No abdominal tenderness Auscultation: normal bowel sounds DS: Data Data Completed and Pending Labs on day of discharge: Labs from last 24 hours 08/11/23 08/11/23 08/10/23 06:04 00:24 19:11 WBC 4.3 L RBC 4.04 L Hgb 9.8 L Hct 33.6 L MCV 83.2 MCH 24.3 L MCHC 29.2 L RDW 15.0 H Plt Count 290 MPV 9.4 Immature Gran % (Auto) 0.2 Neut % (Auto) 39.3 L Lymph % (Auto) 42.6 [place] % (Auto) 12.4 H Eos % (Auto) 4.6 H Baso % (Auto) 0.9 Lymph # (Auto) 1.85 [place] # (Auto) 0.5 Eos # (Auto) 0.2 Baso # (Auto) 0.0 Abs Immat Gran (auto) 0.01 Absolute Neuts (auto) 1.7 Absolute Nucleated RBC 0.0 Nucleated RBC % 0.0 Platelet Estimate Adequate Hypochromasia 1+ Ovalocytes Schistocytes None seen Sodium 139 Potassium 4.1 Chloride 110 H Carbon Dioxide 23 Anion Gap 6 L BUN 11 Creatinine 0.80 Estim Creat Clear Calc 81 Estimated GFR > 60 Glucose 86 Calcium 8.7 Magnesium 2.1 Total Bilirubin AST ALT Alkaline Phosphatase Total Protein Albumin Urine Color Yellow Urine Appearance Cloudy H Urine pH 7.0 Ur Specific [place] 1.022 Urine Protein Trace Urine Glucose (UA) Negative Urine Ketones Negative Ur Blood (Man) Negative Urine Nitrate Negative Urine Bilirubin Negative Urine Urobilinogen 1.0 Leukocyte Esterase Rfl Trace H Urine RBC 0-2 Urine WBC 0-5 Ur Squamous Epith Cells None seen Urine Bacteria None seen Urine Casts 0-2 08/10/23 08/10/23 16:59 16:58 WBC 5.6 RBC 4.05 L Hgb 9.9 L Hct 33.7 L MCV 83.2 MCH 24.4 L MCHC 29.4 L RDW 14.9 H Plt Count 294 MPV 9.3 Immature Gran % (Auto) 0.2 Neut % (Auto) 51.7 Lymph % (Auto) 34.7 [place] % (Auto) 10.0 H Eos % (Auto) 2.7 Baso % (Auto) 0.7 Lymph # (Auto) 1.94 [place] # (Auto) 0.6 Eos # (Auto) 0.2 Baso # (Auto) 0.0 Abs Immat Gran (auto) 0.01 Absolute Neuts (auto) 2.9 Absolute Nucleated RBC 0.0 Nucleated RBC % 0.0 Platelet Estimate Adequate Hypochromasia 1+ Ovalocytes 1+ Schistocytes None seen So
== END 2023-08-11 15:18 | disposition home or self-care (01) ==
LOC: ANHED 22:03 → ANH3MEDSUR 22:54
PROVIDERS: Student in an Organized Health Care Education/Training Program; Admitting Provider Student in an Organized Health Care Education/Training Program; Emergency Provider Physician Assistant; PCP Nurse Practitioner Family; Visit Provider Student in an Organized Health Care Education/Training Program
DX: R42 Dizziness and giddiness (principal); D50.9 Iron deficiency anemia, unspecified; M79.7 Fibromyalgia; F41.9 Anxiety disorder, unspecified; A04.72 Enterocolitis due to Clostridium difficile, not specified as recurrent; F25.0 Schizoaffective disorder, bipolar type; R53.82 Chronic fatigue, unspecified; G89.29 Other chronic pain; K21.9 Gastro-esophageal reflux disease without esophagitis; G47.00 Insomnia, unspecified; K58.0 Irritable bowel syndrome with diarrhea; F42.9 Obsessive-compulsive disorder, unspecified; F43.10 Post-traumatic stress disorder, unspecified; E07.9 Disorder of thyroid, unspecified; Z77.22 Contact with and (suspected) exposure to environmental tobacco smoke (acute) (chronic); Z79.891 Long term (current) use of opiate analgesic; Z79.899 Other long term (current) drug therapy; Z86.711 Personal history of pulmonary embolism; Z81.8 Family history of other mental and behavioral disorders; Z84.89 Family history of other specified conditions; Z83.438 Family history of other disorder of lipoprotein metabolism and other lipidemia; Z83.710 Family history of adenomatous and serrated polyps
CPT/HCPCS: 36415; 71045; 80048; 80053; 81001; 83735; 85025; 93005; 96360; 99285; A9270; G0378; G0379; J7120

== ENCOUNTER 2023-08-31 14:26 | Outpatient (CLI) | payer OTHER, SELFPAY ==
[2023-09-08 15:48] LABS: Collection Sample Fingerstick
== END 2023-08-31 14:27 | disposition home or self-care (01) ==
LOC: ANHLAB 14:28
PROVIDERS: PCP Nurse Practitioner Family; Visit Provider Nurse Practitioner Family
DX: Z77.011 Contact with and (suspected) exposure to lead (principal)
CPT/HCPCS: 36415; 83655

== ENCOUNTER 2023-09-20 11:22 | Outpatient (CLI) | payer OTHER, SELFPAY ==
--- NOTE | 2023-09-20 11:50 | ECG_ITS ---
Measurements Intervals [place] Rate: 74 P: 36 SC: 182 QRS: 21 QRSD: 94 T: 10 QT: 389 QTc: 433 Interpretive Statements SINUS RHYTHM LOW QRS VOLTAGE IN PRECORDIAL LEADS BORDERLINE ST-T WAVE ABNORMALITY- INFERIOR LEADS BORDERLINE ECG COMPARED TO ECG 08/10/2023 17:05:39 NO SIGNIFICANT CHANGES Electronically Signed On 09-20-2023 12:58:25 NON DESTRUCTIVE TESTING INSPECTOR by Rolo Knox D.O.
[2023-09-20 11:53] LABS: Hematocrit 39.4 % (37.0-47.0); Hemoglobin 11.7 g/dL (12.0-15.0); Mean Corpuscular HGB Conc 29.7 g/dl (32-36); Mean Corpuscular Hemoglobin 26.1 pg (26-34); Mean Corpuscular Volume 87.8 fl (80-100); Mean Platelet Volume 9.3 fl (7.4-10.4); Platelet Count Result 254 k/mm3 (150-375); Red Blood Count 4.49 M/mm3 (4.2-5.4); Red Cell Distribution Width 20.5 % (11.5-14.5); White Blood Count 4.4 K/mm3 (4.5-10.0)
[2023-09-20 12:05] LABS: Alanine Aminotransferase 17 U/L (6-35); Albumin Level 3.6 g/dL (3.5-5.1); Alkaline Phosphatase 69 U/L (38-126); Anion Gap 6 mmol/L (8-16); Aspartate Amino Transferase 23 U/L (14-36); Bilirubin,Total 0.2 mg/dL (0.2-1.3); Blood Urea Nitrogen 14 mg/dL (7-17); Calcium 8.4 mg/dL (8.4-10.2); Carbon Dioxide 22 mmol/L (22-30); Chloride 108 mmol/L (98-107); Estimated Glomerular Filt Rate > 60; Glucose 94 mg/dL (65-110); Potassium 3.9 mmol/L (3.4-5.0); Sodium 136 mmol/L (137-145)
[2023-09-20 12:22] LABS: Iron 42 ug/dL (37-170)
[2023-09-20 12:35] LABS: Percent Iron Saturation 14 % (20-50)
== END 2023-09-20 11:23 | disposition home or self-care (01) ==
LOC: ANHLAB 11:24
PROVIDERS: PCP Nurse Practitioner Family; Visit Provider Nurse Practitioner Family
DX: R42 Dizziness and giddiness (principal)
CPT/HCPCS: 36415; 80053; 82728; 83540; 83550; 85027; 93005

== ENCOUNTER 2023-10-10 21:46 | Emergency (ER) | payer OTHER, SELFPAY ==
--- NOTE | ~2023-10-10 | CT_ITS ---
EXAMINATION: CT abdomen pelvis w con DATE: 10/11/2023 01:55 INDICATION: Right lower quadrant abdominal pain. TECHNIQUE: Computed tomography (CT) of the abdomen and pelvis was performed with 100 mL Omnipaque 350 intravenous contrast. Automated exposure control and iterative reconstruction technique were employe d. The dose-length product was 1294.72 mGy-cm. COMPARISON: CT abdomen and pelvis 08/03/2023 FINDINGS: The visualized portions of the lung bases demonstrate mild atelectasis. No pleural effusion . The heart size is normal. No pericardial effusion. There are bilateral breast implants. The liver i s normal. There are changes of cholecystectomy. The spleen, pancreas, and adrenal glands are normal. There is cortical thinning of right kidney. There are cysts in the kidneys measuring up to 7 mm on th e left. There are changes of partial colectomy. There are no pathologically enlarged lymph nodes. The re is no free intraperitoneal fluid. There is an electrode in right S3 neural foramen. There is mild thoracic spondylosis and moderate lumbar spondylosis. IMPRESSION: 1. No etiology for the patient's symptoms. Reviewed, dictated and finalized at location E.
[2023-10-10 21:48] VITALS: BP 137/85; PULSE 96; RESP 20; TEMP 36.2; O2SAT 99
[2023-10-10 23:32] VITALS: BP 134/75; PULSE 94; RESP 20; O2SAT 96
[2023-10-10 23:36] LABS: Basophils Percent Auto 0.4 % (0.2-1.2); Eosinophils Absolute Auto 0.2 K/mm3 (0-0.3); Eosinophils Percent Auto 2.5 % (0-4.4); Hematocrit 39.8 % (37.0-47.0); Hemoglobin 12.6 g/dL (12.0-15.0); Immature Granulocyte Absolute 0.01 K/mm3 (0.00-0.031); Immature Granulocyte Percent A 0.1 % (0-0.5); Lymphocytes Absolute Auto 2.84 K/mm3 (0.9-3.2); Lymphocytes Percent Auto 40.1 % (18.3-44.2); Mean Corpuscular HGB Conc 31.7 g/dl (32-36); Mean Corpuscular Hemoglobin 27.5 pg (26-34); Mean Corpuscular Volume 86.9 fl (80-100); Mean Platelet Volume 9.4 fl (7.4-10.4); Monocytes Absolute Auto 0.8 K/mm3 (0.1-0.6); Monocytes Percent Auto 11.3 % (2.6-8.5); Neutrophils Absolute Auto 3.2 K/mm3 (1.3-6.7); Neutrophils Percent Auto 45.6 % (45.5-73.1); Platelet Count Result 264 k/mm3 (150-375); Red Blood Count 4.58 M/mm3 (4.2-5.4); Red Cell Distribution Width 19.1 % (11.5-14.5); White Blood Count 7.1 K/mm3 (4.5-10.0)
[2023-10-10 23:42] LABS: Bacteria Urine None Seen /hpf; Non Pathogenic Casts 0-2; RBC Urine 0-2 /hpf (0-2); Squamous Epithelial Cell Urine None Seen /hpf (Few); WBC Urine 0-5 /hpf (0-3)
[2023-10-10 23:49] LABS: Alanine Aminotransferase 17 U/L (6-35); Albumin Level 4.1 g/dL (3.5-5.1); Alkaline Phosphatase 68 U/L (38-126); Anion Gap 8 mmol/L (8-16); Aspartate Amino Transferase 23 U/L (14-36); Bilirubin,Total 0.3 mg/dL (0.2-1.3); Blood Urea Nitrogen 19 mg/dL (7-17); Calcium 9.1 mg/dL (8.4-10.2); Carbon Dioxide 23 mmol/L (22-30); Chloride 105 mmol/L (98-107); Estimated CRCL calculation 79 ml/min; Estimated Glomerular Filt Rate > 60; Glucose 93 mg/dL (65-110); Lipase 237 U/L (23-300); Potassium 3.8 mmol/L (3.4-5.0); Sodium 136 mmol/L (137-145)
[2023-10-10 23:53] LABS: Color Urine Yellow (Yellow)
[2023-10-10 23:54] LABS: Add Urine Microscopic? YES; Appearance Urine Clear (Clear); Bilirubin Urine Negative (Negative); Blood Urine Negative (Negative); Glucose Urine UA Negative (Negative); Ketones Urine Negative (Negative); Leukocyte Esterase Ur Negative LEU/UL (Negative); Nitrate Urine Negative (Negative); Protein Urine Negative (Negative); Urobilinogen Urine 0.2 mg/dL (<2.0); pH Urine 5.5 (5.0-9.0)
[2023-10-11 00:43] VITALS: BP 111/69; PULSE 95; RESP 18; O2SAT 97
--- NOTE | 2023-10-11 01:26 | ED.ABDPAIN ---
HPI - Abdominal Pain General Chief Complaint: Abdominal Pain Stated Complaint: abd pain, bloody stool Time Seen by Provider: 10/10/23 23:26 Source: patient and old records reviewed Mode of arrival: EMS Limitations: no limitations History of Present Illness HPI narrative: Patient is a 48-year-old female, with PMH of iron deficiency anemia, anxiety, depression, bipolar disorder, chronic pain, fibromyalgia, FAP s/p colectomy, who presents to the ED with c/o RLQ abdominal pain. Patient reports pain has been intermittent and ongoing over the last 1 week. Pain has become worse today, which prompted her presentation. She describes it as a cramping pain. She has taken her home tramadol without improvement. Has not tried anything further for pain. Reports nausea and chronic diarrhea. Reports intermittent rectal bleeding, which has been ongoing issue for her. Denies vomiting, constipation, melena, fevers, dysuria, hematuria. Related Data Home Medications Medication Instructions Recorded Confirmed melatonin 10 mg capsule 10 mg PO QHS 01/13/22 09/23/23 olanzapine 5 mg disintegrating 2.5 mg PO BID PRN Anxiety 10/13/22 09/23/23 tablet buspirone 5 mg tablet 15 mg PO TID 04/12/23 09/23/23 risperidone 0.25 mg tablet 1 mg PO BID 04/12/23 09/23/23 meclizine 25 mg tablet 25 mg PO TID PRN N/V, dizziness 06/08/23 09/23/23 ondansetron 4 mg disintegrating 4 mg PO Q8H PRN Nausea And Vomiting 06/08/23 09/23/23 tablet pregabalin 25 mg capsule 150 mg PO DAILY 07/20/23 09/23/23 citalopram 20 mg tablet 40 mg PO HS 07/23/23 09/23/23 omeprazole 40 mg capsule,delayed 40 mg PO Q12H 07/23/23 09/23/23 release Allergies Allergy/AdvReac Type Severity Reaction Status Date / Time aspirin Allergy Severe Anaphylaxis Verified 10/10/23 21:56 latex Allergy Severe Blister Verified 10/10/23 21:56 salicylates Allergy Severe Anaphylaxis Verified 10/10/23 21:56 acetaminophen Allergy Intermediate Hypertensio Verified 10/10/23 21:56 n/HYPOTENSI ON erythromycin base Allergy Intermediate Rash Verified 03/25/24 21:56 Review of Systems Review of Systems: CONSTITUTIONAL: Denies fever, chills, or sweats. CARDIOVASCULAR: Denies chest pain. RESPIRATORY: Denies dyspnea. GASTROINTESTINAL: See HPI. GENITOURINARY: Denies dysuria or hematuria. MUSCULOSKELETAL: Denies back pain, extremity pain, myalgia. All systems reviewed & are unremarkable except as noted in HPI and below PMFSH Past Medical History Medical History Acute migraine Anemia Anxiety Arthritis Bipolar disorder, rapid cycling Bloody emesis BRBPR (bright red blood per rectum) C. difficile colitis Chronic fatigue disorder Chronic pain Degenerative disk disease Depression Dysphagia Familial adenomatous polyposis S/p partial colectomy, total hysterectomy Fibromyalgia Frequent loose stools Gastric polyps GERD (gastroesophageal reflux disease) History of blood clots History of blood transfusion 04/15/2021 History of herpes zoster History of pulmonary embolism History of thyroid disease Insomnia Irritable bowel syndrome with diarrhea Migraines Missed x1 Neurogenic bladder OCD (obsessive compulsive disorder) Plantar fascia syndrome PTSD (post-traumatic stress disorder) Rectal bleeding Right sided abdominal pain Schizoaffective disorder, unspecified condition Sensory neuronopathy Small intestinal bacterial overgrowth (SIBO) Thyroid disorder TMJ (dislocation of temporomandibular joint) Surgical History Surgical History H/O breast augmentation 2012 H/O colectomy 2020, partial History of back surgery 2020, placement of interstim device History of bladder surgery 2017 History of bunionectomy 2020 History of section x1 History of cholecystectomy 2008 History of hemorrhoidectomy Exam under anesthesia, external hemorrhoidectomy
[2023-10-11] MEDS: SODIUM CHLORIDE 0.9% IV 1,000 ML 999 ML IV CONT (01:58)
[2023-10-11] MEDS: ONDANSETRON INJ 4 MG/2 ML VIAL IV PUSH (01:58)
[2023-10-11] MEDS: MORPHINE SULFATE (*CRX) 4 MG/ML INJ IV PUSH (02:00)
[2023-10-11] MEDS: DICYCLOMINE HCL INJ 20 MG/2 ML VIAL IM (02:03)
[2023-10-11 02:06] VITALS: BP 104/70; PULSE 92; RESP 18; O2SAT 97
[2023-10-11 02:38] LABS: Lactic Acid Reflex 0.8 mmol/L (0.7-2.0)
[2023-10-11] MEDS: diphenhydrAMINE HCl INJ 50 MG/ML VIAL 25 MG IV PUSH (03:29)
[2023-10-11] MEDS: METOCLOPRAMIDE HCL INJ 10 MG/2 ML VIAL IV PUSH (03:31)
== END 2023-10-11 03:51 | disposition home or self-care (01) ==
PROVIDERS: Emergency Medicine; Emergency Provider Physician Assistant; PCP Nurse Practitioner Family
DX: R10.31 Right lower quadrant pain (principal); G93.32 Myalgic encephalomyelitis/chronic fatigue syndrome; E07.9 Disorder of thyroid, unspecified; D50.9 Iron deficiency anemia, unspecified; K21.9 Gastro-esophageal reflux disease without esophagitis; K58.0 Irritable bowel syndrome with diarrhea; M79.7 Fibromyalgia; F42.9 Obsessive-compulsive disorder, unspecified; F41.9 Anxiety disorder, unspecified; F31.9 Bipolar disorder, unspecified; F43.10 Post-traumatic stress disorder, unspecified; F25.9 Schizoaffective disorder, unspecified; Z86.711 Personal history of pulmonary embolism; Z90.49 Acquired absence of other specified parts of digestive tract; Z90.710 Acquired absence of both cervix and uterus
CPT/HCPCS: 36415; 74177; 80053; 81001; 83605; 83690; 85025; 96361; 96372; 96374; 96375; 99284; J0500; J1200; J2270; J2405; J2765; J7030; Q9967

== ENCOUNTER 2023-10-11 07:13 | Emergency (ER) | payer OTHER, SELFPAY ==
[2023-10-11 07:17] VITALS: BP 147/90; PULSE 85; RESP 16; TEMP 36.4; O2SAT 98
--- NOTE | 2023-10-11 07:20 | ED.GENADULT ---
HPI - General Adult General Chief complaint: Unspecified Stated complaint: dont feel good Time Seen by Provider: 10/11/23 07:16 Source: patient Mode of arrival: ambulatory Limitations: no limitations History of Present Illness HPI narrative: 48-year-old with a history of fibromyalgia, anxiety, depression, recurrent abdominal pain presents to the ER with complaints of weakness for past 1 week. Patient was seen early this morning discharged about 440 this a.m. for right lower abdominal pain. Patient states that she has been having this pain for past 1 week she denies any nausea, vomiting or fever. Patient states that she has been sleeping 13 hours a day and she attributes that to weakness not to depression. She states ?I do not feel good?. Onset (ago): week(s) (1) Related Data Home Medications Medication Instructions Recorded Confirmed melatonin 10 mg capsule 10 mg PO QHS 01/13/22 09/23/23 olanzapine 5 mg disintegrating 2.5 mg PO BID PRN Anxiety 10/13/22 09/23/23 tablet buspirone 5 mg tablet 15 mg PO TID 04/12/23 09/23/23 risperidone 0.25 mg tablet 1 mg PO BID 04/12/23 09/23/23 meclizine 25 mg tablet 25 mg PO TID PRN N/V, dizziness 06/08/23 09/23/23 ondansetron 4 mg disintegrating 4 mg PO Q8H PRN Nausea And Vomiting 06/08/23 09/23/23 tablet pregabalin 25 mg capsule 150 mg PO DAILY 07/20/23 09/23/23 citalopram 20 mg tablet 40 mg PO HS 07/23/23 09/23/23 omeprazole 40 mg capsule,delayed 40 mg PO Q12H 07/23/23 09/23/23 release Allergies Allergy/AdvReac Type Severity Reaction Status Date / Time aspirin Allergy Severe Anaphylaxis Verified 10/11/23 07:22 latex Allergy Severe Blister Verified 10/11/23 07:22 salicylates Allergy Severe Anaphylaxis Verified 10/11/23 07:22 acetaminophen Allergy Intermediate Hypertensio Verified 10/11/23 07:22 n/HYPOTENSI ON erythromycin base Allergy Intermediate Rash Verified 10/11/23 07:22 Review of Systems Review of Systems: All systems reviewed & are unremarkable except as noted in HPI and below Constitutional: Constitutional: Reports no additional constitutional complaints Eyes: Eyes: Reports no additional eye complaints ENT: Reports system reviewed and no additional complaints, except as documented Cardiovascular: Cardiovascular: Reports no additional cardiovascular complaints Respiratory: Respiratory: Reports no additional respiratory complaints Gastrointestinal: Gastrointestinal: Reports no additional gastrointestinal complaints Musculoskeletal: Musculoskeletal: Reports no additional musculoskeletal complaints Integumentary/Breasts: Skin/Breast: Reports system reviewed and no additional complaints, except as docu Neurologic: Reports system reviewed and no additional complaints, except as documented Psychiatric: Psychiatric: Reports no additional psychiatric complaints PMFSH Past Medical History Medical History Acute migraine Anemia Anxiety Arthritis Bipolar disorder, rapid cycling Bloody emesis BRBPR (bright red blood per rectum) C. difficile colitis Chronic fatigue disorder Chronic pain Degenerative disk disease Depression Dysphagia Familial adenomatous polyposis S/p partial colectomy, total hysterectomy Fibromyalgia Frequent loose stools Gastric polyps GERD (gastroesophageal reflux disease) History of blood clots History of blood transfusion 04/15/2021 History of herpes zoster History of pulmonary embolism History of thyroid disease Insomnia Irritable bowel syndrome with diarrhea Migraines Missed x1 Neurogenic bladder OCD (obsessive compulsive disorder) Plantar fascia syndrome PTSD (post-traumatic stress disorder) Rectal bleeding Right sided abdominal pain Schizoaffective disorder, unspecified condition Sensory neuronopathy Small intestinal bacterial overgrowth (SIBO) Thyroid disorder TMJ (dislocation of temporomandibular joint) Surgical History Surgical History (Reviewed
[2023-10-11 08:02] VITALS: BP 131/89; PULSE 77; RESP 16; O2SAT 100
== END 2023-10-11 08:04 | disposition home or self-care (01) ==
LOC: ANHED 07:57
PROVIDERS: Emergency Provider Family Medicine; PCP Nurse Practitioner Family
DX: R53.1 Weakness (principal); R10.31 Right lower quadrant pain; D64.9 Anemia, unspecified; F41.9 Anxiety disorder, unspecified; M19.90 Unspecified osteoarthritis, unspecified site; F31.9 Bipolar disorder, unspecified; K21.9 Gastro-esophageal reflux disease without esophagitis
CPT/HCPCS: 99281

== ENCOUNTER 2023-10-17 14:53 | Outpatient (CLI) | payer OTHER, SELFPAY ==
[2023-10-17 15:05] LABS: Hematocrit 38.8 % (37.0-47.0); Hemoglobin 12.3 g/dL (12.0-15.0); Mean Corpuscular HGB Conc 31.7 g/dl (32-36); Mean Corpuscular Hemoglobin 27.4 pg (26-34); Mean Corpuscular Volume 86.4 fl (80-100); Mean Platelet Volume 8.7 fl (7.4-10.4); Platelet Count Result 274 k/mm3 (150-375); Red Blood Count 4.49 M/mm3 (4.2-5.4); Red Cell Distribution Width 18.7 % (11.5-14.5); White Blood Count 4.9 K/mm3 (4.5-10.0)
[2023-10-17 16:30] LABS: Iron 52 ug/dL (37-170)
[2023-10-17 16:38] LABS: Anion Gap 6 mmol/L (4-12); Blood Urea Nitrogen 12 mg/dL (7-17); Carbon Dioxide 24 mmol/L (22-30); Chloride 107 mmol/L (98-107); Estimated Glomerular Filt Rate 59; Glucose 105 mg/dL (65-110); Potassium 3.9 mmol/L (3.4-5.0); Sodium 137 mmol/L (137-145)
[2023-10-17 16:41] LABS: Percent Iron Saturation 16 % (20-50)
[2023-10-17 17:49] LABS: Folic Acid > 20.0 ng/mL (2.76->20)
== END 2023-10-17 14:54 | disposition home or self-care (01) ==
LOC: ANHLAB 14:53
PROVIDERS: PCP Nurse Practitioner Family; Visit Provider Internal Medicine Hematology & Oncology
DX: D64.9 Anemia, unspecified (principal)
CPT/HCPCS: 36415; 80048; 82607; 82728; 82746; 83540; 83550; 85027